=== PATIENT | male | born 1935 | race Caucasian/White ===

== ENCOUNTER 2017-07-08 16:03 | Observation (INO) | payer MEDICARE, OTHER, SELFPAY ==
[2017-07-08 16:05] VITALS: BP 173/65; PULSE 54; RESP 18; TEMP 36.4; O2SAT 94; BMI 35.8
--- NOTE | 2017-07-08 16:26 | CT_ITS ---
STUDY: CT BRAIN WITHOUT CONTRAST REASON FOR EXAM: Male, 82 years old. S/P FALL, ABRASION ON HEAD RADIATION DOSAGE (If Supplied By Facility): CTDIvol = ( 44.99 ) mGy, DLP = ( 812.98 ) mGycm TECHNIQUE: Transaxial CT imaging of the brain was performed without administration of intravenous contrast material. Individualized dose optimization techniques were used for this CT. COMPARISON: CT brain October 14, 2016 FINDINGS: Normal soft tissue structures. Normal calvarium. There is chronic encephalomalacia of the bilateral frontal lobes. Mild volume loss noted. There are areas of decreased attenuation within the white matter tracts of the supratentorial brain, consistent with microvascular disease changes. Normal basal ganglia and thalami. Normal brainstem. Normal cerebellum. There is no intracranial hemorrhage. There are no findings of an acute ischemic infarction. There is left-sided sinus disease with near complete opacity of the visualized left maxillary antrum and opacities of the left ethmoid and frontal sinuses. There is mild mucoperiosteal thickening in the left sphenoid sinus is well. CT/Brain/Head without Contrast IMPRESSION: Chronic involutional changes of the brain. Old encephalomalacia of the frontal lobes bilaterally. Left sided sinus disease, new when compared to previous exam. Consider acute sinusitis. Electronically Signed: Diana Carroll MD at 17:31 EST Tel , Service support ,
--- NOTE | 2017-07-08 16:27 | RAD_ITS ---
STUDY: X-RAY - PELVIS AND RIGHT HIP REASON FOR EXAM: Male, 82 years old. Fall. Pain. TECHNIQUE: Radiological exam, hip, unilateral, with pelvis when performed; 2 or 3 views. COMPARISON: None. FINDINGS: There is a non-specific bowel gas pattern. Normal visualized soft tissue structures. There is generalized osteopenia. Normal bilateral iliac wings, sacroiliac joints and visualized sacrum. Normal bilateral superior and inferior pubic rami. Normal pubic symphysis. Normal bilateral ischial tuberosities. Normal visualized femoral head. Normal acetabulum. There is mild arthrosis of both hips. RAD/Hip 2-3 Views with Pelvis IMPRESSION: Osteopenia with arthrosis of both hips. No acute osseous abnormality. Electronically Signed: Noel Seth MD at 17:23 EST , Service support ,
--- NOTE | 2017-07-08 16:27 | CT_ITS ---
STUDY: CT CERVICAL SPINE WITHOUT CONTRAST REASON FOR EXAM: Male, 82 years old. S/P FALL, ABRASION ON HEAD RADIATION DOSAGE (If Supplied By Facility): CTDIvol = ( 29.81 ) mGy, DLP = ( 601.13 ) mGycm TECHNIQUE: High resolution transaxial imaging was performed without contrast material. Sagittal and coronal images were reconstructed. Individualized dose optimization techniques were used for this CT. COMPARISON: None FINDINGS: Normal craniovertebral junction. There are degenerative changes of the anterior atlantoaxial articulation. Normal odontoid process. There is straightening of the normal cervical lordosis. This may be positional. Normal vertebral bodies and posterior osseous elements. There is no evidence of vertebral body, lateral mass or posterior element fracture C2-3: Normal endplates. Normal disc height and morphology. Normal central canal and intervertebral neuroforamina. C3-4: Normal endplates. Normal disc height and morphology. Normal central canal and intervertebral neuroforamina. C4-5: Normal endplates. Normal disc height and morphology. Normal central canal and intervertebral neuroforamina. C5-6: Normal endplates. Normal disc height and morphology. Normal central canal and intervertebral neuroforamina. C6-7: Normal endplates. Normal disc height and morphology. Normal central canal and intervertebral neuroforamina. C7-T1: Normal endplates. Normal disc height and morphology. Normal central canal and intervertebral neuroforamina. There is carotid artery calcification associated with the bifurcation and internal carotid artery on the left. There is minimal carotid artery calcification associated with the bifurcation on the right. CT/Spine Cervical without Contras IMPRESSION: No acute traumatic deformity. Electronically Signed: Diana Carroll MD at 17:28 EST Tel , Service support ,
[2017-07-08 17:10] LABS: International Normalized Ratio 2.2; Prothrombin Time (Protime)PT. 23.2 SECONDS (11.7-14.9)
--- NOTE | 2017-07-08 17:15 | ED.VISSUMM ---
- ER Visit Summary Date of Service: 07/08/17 Chief Complaint: Fall History of Present Illness: The patient is a 82 M presenting after fall. Patient states he was in his basement he was backing up and tripped over something. He states he fell and hit his head. He does not believe he lost consciousness. He has pain in his right hip. He has had significant pain with weightbearing. Denies other complaints. He is on Coumadin for history of atrial fibrillation. Physical Examination: Vitals are stable. Patient is afebrile. Alert no acute distress. HEENT right forehead abrasion Neck is nontender Lungs are clear and equal bilaterally. Heart is regular rate and rhythm. Abdomen is soft nontender nondistended. Extremities right hip tenderness with external rotation and pain with logrolling Skin is warm and dry. Remainder of exam is unremarkable. Emergency Department Course and Treatment: CBC, chemistries unremarkable other than BUN 31, creatinine 1.88. INR is 2.2. CT head and neck show chronic changes, sinusitis, no fracture. Right hip x-ray shows no evidence of fracture. Patient is unable to bear weight on his right lower extremity. I feel he should be admitted for an MRI to rule out occult hip fracture. Discussed with hospitalist for admission. Disposition: Admission Impression: Right hip pain, s/p mechanical fall This note was generated with [employer] dictation software. It may contain incorrect words, spelling, and punctuation that were not noted in review of the chart prior to signing ED Disposition - Plan for ED Patient: Chief Complaint: Fall Referrals: Tracy Esparza MD [Primary Care Provider] -
[2017-07-08 17:23] LABS: Anion Gap 6 (5-15); BUN 31 mg/dL (7-18); BUN/Creat Ratio 16.5 RATIO (10-20); Chloride 101 mmol/L (98-107); Creatinine, Serum 1.88 mg/dL (0.70-1.30); EST Glomerular Filtration Rate 37 mL/min (>60); Est Glom Filt Rate - Afr Amer 45 mL/min (>60); Estimated Creatinine Clearance 26.24 ml/min; Glucose 97 mg/dL (70-110); Potassium 4.9 mmol/L (3.5-5.1); Sodium Level 137 mmol/L (136-145)
[2017-07-08 17:29] LABS: Absolute Lymphocyte Count 1.56 X10^3/ul (0.83-4.51); Absolute Neutrophil Count 8.8 X10^3/uL (2.0-7.7); Basophil# 0.02 X10^3/uL; Basophil% 0.2 % (0-1); Eosinophil# 0.13 X10^3/uL; Eosinophils% 1.2 % (0-5); Hematocrit 43.1 % (40-54); Hemoglobin 14.4 g/dl (13.0-16.5); Lymphocyte # 1.56 X10^3/ul (4.0); Lymphocyte % 13.8 % (19-41); Mean Corp Hgb Conc 33.4 g/gl (32-36); Mean Corpuscular Hgb 30.5 pg (27.0-32.0); Mean Corpuscular Volume 91.3 fL (80-94); Mean Platelet Vol. 9.9 fl (6.2-12.0); Monocyte# 0.71 X10^3/uL; Monocyte% 6.3 % (0-10); Neutrophil # 8.77 X10^3/uL (2.7-7.7); Neutrophil % 77.7 % (47-70); Platelet Count 172 K/mm3 (150-450); RBC Distribution Width CV 13.9 % (11.6-14.6); RBC Distribution Width SD 45.7 fl (35.1-43.9); Red Blood Count 4.72 M/mm3 (4.6-6.2); White Blood Count 11.3 K/mm3 (4.4-11.0)
[2017-07-08 17:46] LABS: POSITIVE COUNT NO; POSITIVE DIFFERENTIAL NO; POSITIVE MORPHOLOGY NO
--- NOTE | 2017-07-08 17:54 | EKG12_ITS ---
Test Reason : ADM.EKG Blood Pressure : / mmHG Vent. Rate : 066 BPM Atrial Rate : 066 BPM P-R Int : 234 ms QRS Dur : 088 ms QT Int : 410 ms P-R-T Axes : 069 015 050 degrees QTc Int : 429 ms Sinus rhythm with 1st degree A-V block Otherwise normal ECG Confirmed by ODILON ALEJO, RUTHY ([id number]), supervising editor trailer SHAHRIAR IBARRA ([id number]) on 07/12/2017 1:55:36 PM Referred By: CORY Confirmed By:RUTHY DONALD MD
[2017-07-08 18:30] VITALS: BP 194/65; PULSE 61; RESP 18; O2SAT 95
[2017-07-08] MEDS: oxyCODONE 5 MG Tablet 10 MG PO (18:45)
--- NOTE | 2017-07-08 19:01 | HP.PCM_ITS ---
Problem List (1) Contusion, hip Status: Acute (2) Debility Status: Chronic (3) HTN (hypertension) Status: Chronic (4) Psoriatic arthritis Status: Chronic (5) Atrial fibrillation Status: Chronic (6) CAD (coronary artery disease) Status: Chronic (7) HLD (hyperlipidemia) Status: Chronic History of Present Illness Date of Admission: 07/08/17 Chief Complaint: right hip pain The patient is a 82 year old M who presented to the ER with right hip pain after he fell at home. He was in the basement doing laundry and lost his balance falling backwards. He struck his head on the water softener, then on the floor. He is not sure if he lost consciousness or not. He landed on his left hip, denies hearing or feeling a break. He called to his who came to help him up. She was able to help him up and help him walk up the stairs, then down the garage stairs and into the car, and brought him to the ER. Xray of his hip was negative however he continued to have severe pain and was unable to stand up in the ER. He denied dizziness or LH prior to the fall and may have tripped on a cord or rug but is not sure. He has some pain in his right temporal area where he struck his head and suffered an abrasion. He does take coumadin for AF. His BP is elevated at home but reports usually it is normal and was taken off of his HTN meds and since has not needed them. [] Past Medical History Past Medical History (Chronic Problems): Chronic Problems Atrial fibrillation (Chronic) Benign essential hypertension (Chronic) Carotid artery stenosis (Chronic) Chest pain (Chronic) CAD (coronary artery disease) (Chronic) HLD (hyperlipidemia) (Chronic) Polymyalgia rheumatica (Chronic) TIA (transient ischemic attack) (Chronic) Debility (Chronic) HTN (hypertension) (Chronic) Psoriatic arthritis (Chronic) Allergies No Known Allergies Allergy (Verified 07/08/17 16:09) Home Medications: Ambulatory Orders Medication Instructions Recorded Adalimumab [Humira] 40 mg SQ Q14D 07/20/13 Flecainide [Tambocor] 100 mg PO BID 07/20/13 Levothyroxine [Synthroid] 50 mcg PO DAILY 07/20/13 Magnesium Oxide [Mag-Ox 400] 400 mg PO DAILY 07/20/13 Metoprolol Tartrate [Lopressor 25 mg PO BID 07/20/13 (beta elise)] Pravastatin [Pravachol] 40 mg PO QHS 07/20/13 Tamsulosin HCl [Flomax] 0.4 mg PO DAILY 07/20/13 Hydrochlorothiazide 12.5 mg PO DAILY PRN PRN 03/18/16 Montelukast [Singulair] 10 mg PO QHS 03/18/16 Aspirin [Aspirin, Baby] 81 mg PO DAILY@0800 10/14/16 Cholecalciferol (Vitamin D3) 2,000 unit PO DAILY 10/14/16 [Vitamin D3] Allopurinol 100 mg PO DAILY 07/08/17 Colchicine 0.6 mg PO QODAY 07/08/17 Omeprazole [Prilosec] 20 mg PO DAILY 07/08/17 Warfarin [Coumadin ([facility])] 1 mg PO DAILY 07/08/17 Warfarin [Coumadin ([facility])] 6 mg PO DAILY 07/08/17 Surgical History: adenoidectomy, appendectomy, tonsillectomy, - - Right carotid endarterectomy, carpal tunnel surgery, lipoma removal, rectal fissure repair. Psychiatric History: No pertinent psych hx Lives: Spouse/ Significant Other Smoking Status: Never smoker Tobacco Use: Non-smoker Alcohol: None Drugs: None - *Family History Maternal History Items: No pertinent history Paternal History Items: Heart Disease Review of Systems Constitutional: Denies: Chills, Fever, Weight Change HEENT: Denies: Head Aches, Sinus Congestion, Sinus Drainage Cardiovascular: Denies: Chest Pain, Palpitations Respiratory: Denies: Cough, Shortness of breath at rest, Sputum production Gastrointestinal: Denies: Abdominal Pain, Nausea, Vomiting Genitourinary: Denies: Dysuria Musculoskeletal: Reports: Joint Pain - right hip. Denies: Joint Tenderness Skin: Denies: Rash, Wounds Neurological: Denies: Numbness, Tingling, Focal weakness Psychiatric: Denies: Anxiety, Depression, Homicidal Ideations, Suicidal Ideations Hematologic/ Lymphatic: Denies: Easy Bruising, Easy Bleeding VTE Information - Inpt Only VTE Present on Admission: No VTE Mechan Device Prophylaxis: SCD's VTE Pharm Prophylaxis ordered?: Yes Patient Problems: Active and Suspected Problems Contusion, hip (Acute) - Physical Exam General: Alert, Oriented x3, Cooperative, - - very hard of hearing HEENT: Atraumatic, PERRLA, EOMI, Normocephalic Neck: Supple, No JVD, Negative Carotid Bruits Lungs: Clear to auscultation, Normal air movement Cardiovascular: Regular rate, No murmurs Abdomen: Bowel Sounds Present, Soft, Non Tender Extremities: No edema, Capillary Refill Less than 3 Seconds Skin: No rashes, No breakdown Musculoskeletal: No Tenderness to Palpation of Joints or Extremities, - - tolerates flexion of the knee and rotation of the hip with no pain Neurological: Cranial nerves II-XII grossly intact Psych/Mental Status: Normal Affect, Appropriate, Alert and oriented to time, place, person, mood and affect Vital Signs Temp Pulse Resp BP Pulse Ox 97.6 F L 61 18 194/65 H 95 07/08/17 16:05 07/08/17 18:30 07/08/17 18:30 07/08/17 18:30 07/08/17 18:30 Oxygen Delivery Method Room Air Weight: 94.6 kg Body Mass Index (BMI) 35.8 Laboratory Tests Past 24 Hrs 07/08/17 07/08/17 07/08/17 16:45 16:45 16:45 WBC 11.3 H RBC 4.72 Hgb 14.4 Hct 43.1 MCV 91.3 MCH 30.5 MCHC 33.4 RDW 13.9 RDW Differential 45.7 H Plt Count 172 MPV 9.9 Immature Gran % (Auto) 0.800 Neut % (Auto) 77.7 H Lymph % (Auto) 13.8 L [place] % (Auto) 6.3 Eos % (Auto) 1.2 Baso % (Auto) 0.2 Absolute Neuts (auto) 8.8 H Absolute Lymphs (auto) 1.56 Total Counted Not Reportable PT 23.2 H INR 2.2 Sodium 137 Potassium 4.9 Chloride 101 Carbon Dioxide 30.0 Anion Gap 6 BUN 31 H Creatinine 1.88 H Estim Creat Clear Calc 26.24 Est GFR (MDRD) Af Amer 45 L Est GFR (MDRD) Non-Af 37 L BUN/Creatinine Ratio 16.5 Glucose 97 Calcium 9.0 Assessment/Plan Active and Suspected Problems Contusion, hip (Acute) 1. Right hip contusion with pain, debility, and inability to ambulate - XR negative. Will obtain MRI of the right hip to rule out occult fracture. PRN pain medications, PTOT. CT brain negative for acute change CT c spine neg. XR hips shows osteopenia with arthrosis both hips. 2. Coagulopathy 2/2 Wafarin therapy for Atrial Fib - INR therapeutic. 3. HTN - likely 2/2 pain not on home meds. Trend. His home antihypertensives were discontinued. 4. Hx psoriatic arthritis, CAD, hypothyroidism, HLD DVT ppx: warfarin This patient was seen by Kevon Neil PA-C under the supervision of Doctor العلي.
[2017-07-08 19:35] VITALS: BMI 35.8
[2017-07-08 19:39] VITALS: BMI 35.9
[2017-07-08 20:01] VITALS: BP 175/78; PULSE 68; RESP 20; TEMP 37.6; O2SAT 94
[2017-07-08 21:07] VITALS: PULSE 80
[2017-07-08] MEDS: Metoprolol Tartrate 25 MG Tablet PO (21:07)
[2017-07-08] MEDS: Flecainide 100 MG Tablet PO (21:07)
[2017-07-08] MEDS: Pravastatin 40 MG Tablet PO (21:07)
[2017-07-08] MEDS: Haloperidol Lactate 5 MG/ML Vial 2 MG IM (23:32)
--- NOTE | 2017-07-08 23:34 | NURSING ---
Patient becoming belligerent and uncooperative. Yelling at staff, attempting frequently to get out of bed, throwing items in reach. Attempted PO Ambien but patient attempted to hit this nurse and continued yelling for police. Many of patient's sentences do not make sense. Attempts to orient were unsuccessful. Order for x1 Haldol obtained and given. Room camera on, will continue to monitor.
[2017-07-09 02:24] VITALS: BP 161/90; PULSE 74; RESP 18; TEMP 36.8; O2SAT 93
[2017-07-09] MEDS: Levothyroxine 50 MCG Tablet PO (05:12)
--- NOTE | 2017-07-09 06:00 | MRI_ITS ---
STUDY: MRI BILATERAL HIPS T PELVIS REASON FOR EXAM: Right hip pain, fall yesterday. TECHNIQUE: Standardized fat and water weighted pulse sequences were obtained in all 3 orthogonal planes. COMPARISON: Radiographs 07/08/2017. FINDINGS: RIGHT HIP Normal hip joint without articular joint space narrowing. There is a nondisplaced fracture of the right supra-acetabular bone (T1 coronal images 17-20) and right anterior ischium with intra-articular extension and extension into the superior pubic ramus of the ischium (T1 axial images 25-27). There is associated bone edema. Normal right labrum. Normal right femoral head. Normal right femoral neck and intratrochanteric region. Normal right gluteus minimus, medius and iliopsoas tendons and distal insertions. Normal right pubic symphysis. Normal right ischial tuberosity. Normal origin of the right hamstring tendons. There are subtle nondisplaced fractures of the bilateral sacral ala (T1 axial images 12-15) with mild associated bone edema (T2 axial images 12-15). There is fluid/hemorrhage adjacent to the right obturator internus muscle (T2 axial images 21-27). LEFT HIP Normal left hip joint without articular joint space narrowing. Normal left acetabulum. There is a suspected occult left labral tear with a small paralabral cyst adjacent to the posterior superior aspect of the labrum (inversion recovery coronal image 16). Normal left femoral head. Normal left femoral neck and intratrochanteric region. Normal left gluteus minimus, medius and iliopsoas tendons and distal insertions. Normal left superior and inferior pubic rami. Normal left pubic symphysis. Normal left ischial tuberosity. Normal origin of the left hamstring tendons. MRI/Pelvis (Routine) IMPRESSION: Nondisplaced right acetabular fracture with extension into the superior pubic ramus of the ischium and supra-acetabular bone. Subtle nondisplaced fractures of bilateral sacral ala. Fluid/hemorrhage adjacent to the right obturator internus muscle. Suspected occult left labral tear with small paralabral cyst. Electronically Signed: Hamzah Figueroa MD at 10:08 EST Tel , Service support ,
[2017-07-09 08:08] VITALS: BP 155/89; PULSE 63; RESP 22; TEMP 37.1; O2SAT 94
[2017-07-09] MEDS: Allopurinol 100 MG Tablet PO (08:14)
[2017-07-09] MEDS: Aspirin 81 MG TAB.CHEW PO (08:14)
[2017-07-09 08:15] VITALS: PULSE 63
[2017-07-09] MEDS: Magnesium Oxide 400 MG Tablet PO (08:15)
[2017-07-09] MEDS: Tamsulosin HCl 0.4 MG Capsule PO (08:15)
[2017-07-09] MEDS: Pantoprazole Sodium 20 MG Tablet PO (08:15)
[2017-07-09] MEDS: Metoprolol Tartrate 25 MG Tablet PO (08:15)
[2017-07-09] MEDS: Flecainide 100 MG Tablet PO (08:16)
--- NOTE | 2017-07-09 11:19 | NURSING ---
This RN spoke with Lori Cooney regarding weight bearing status notified that Dr. Montague is calling and speaking with Dr. Watson regarding results of xray to determine plan of care.
--- NOTE | 2017-07-09 11:30 | PN_ITS ---
<Kevon Neil - Last Filed: 07/09/17 11:20> Patient Problems: Active and Suspected Problems Right acetabular fracture (Acute) Subjective: Patient reports improvement in pain. He has seen Dr. Latham recently for a compression fracture. He also had a different orthopedic physician in 2008 for a knee repair in [place] however does not know who that is. He had some confusion overnight and was given haldol. He did answer some questions with inapropriate answers but he is also very hard of hearing so I am not sure if he understood me. - Physical Exam General: Alert, Oriented x3, Cooperative, - - very hard of hearing HEENT: Atraumatic, PERRLA, EOMI, Normocephalic Neck: Supple, No JVD, Negative Carotid Bruits Lungs: Clear to auscultation, Normal air movement Cardiovascular: Regular rate, No murmurs Abdomen: Bowel Sounds Present, Soft, Non Tender Extremities: No edema, Capillary Refill Less than 3 Seconds Skin: No rashes, No breakdown Musculoskeletal: No Tenderness to Palpation of Joints or Extremities Neurological: Cranial nerves II-XII grossly intact Psych/Mental Status: Normal Affect, Appropriate, Alert and oriented to time, place, person, mood and affect Vital Signs Temp Pulse Resp BP Pulse Ox 98.7 F 63 22 H 155/89 H 94 07/09/17 08:08 07/09/17 08:15 07/09/17 08:08 07/09/17 08:08 07/09/17 08:08 Oxygen Flow Rate 94 Oxygen Delivery Method Room Air Weight: 95.1 kg Body Mass Index (BMI) 35.9 Intake and Output for Last 24 Hours 07/07/17 07/08/17 07/09/17 23:59 23:59 23:59 Intake Total 100 / 100 Output Total 200 / 200 Balance -100 / -100 Microbiology Past 72 Hours 07/09/17 05:00 Gram Stain - Final Sputum, Expectorated/Coughed Assessment/Plan Active and Suspected Problems Right acetabular fracture (Acute) 1. Right hip nondisplaced right acetabular fracture with extension into the superior pubic ramus of the ischium and supra-acetabular bone, subtle nondisplaced fractures of bilateral sacral ala, fluid hemorrhage adjacent to the right obturator internus muscle, suspected occult left labral tear with small para labral cyst - Per MRI. Continue pain management and PTOT for now. -Per phone call with Dr. Almeida he should be toe touch weight bearing with a walker and does not need surgical intervention. -With possible fluid or hemorrhage will follow H&H as he is on warfarin. -some confusion overnight haldol was ordered. seems somewhat confused this AM but also very hard of hearing. 2. Coagulopathy 2/2 Wafarin therapy for Atrial Fib -INR therapeutic, continue to follow. Flecainide continued. Rate stable. 3. HTN - likely 2/2 pain not on home meds. Trending down 4. Hx psoriatic arthritis, CAD, hypothyroidism, HLD Dispo pending how he does with therapy. DVT ppx: warfarin This patient was seen by Kevon Neil PA-C under the supervision of Doctor Eddi. <Willem Montague - Last Filed: 07/09/17 12:03> - Physical Exam General: Alert, - Extremities: No Calf Tenderness Musculoskeletal: - - Mid range of passive motion of the right hip due to pain. Vital Signs Temp Pulse Resp BP Pulse Ox 37.1 C 63 22 H 155/89 H 94 07/09/17 08:08 07/09/17 08:15 07/09/17 08:08 07/09/17 08:08 07/09/17 08:08 Oxygen Flow Rate 94 Oxygen Delivery Method Room Air Weight: 95.1 kg Body Mass Index (BMI) 35.9 Intake and Output for Last 24 Hours 07/07/17 07/08/17 07/09/17 23:59 23:59 23:59 Intake Total 100 / 100 Output Total 200 / 200 Balance -100 / -100 Microbiology Past 72 Hours 07/09/17 05:00 Gram Stain - Final Sputum, Expectorated/Coughed Assessment/Plan Patient seen and examined independently. Agree with above note by the physician pharmaceutical assistant. I discussed the case with Dr. Shayne Almeida, on-call for Dr. Latham, and made him aware of the MRI findings. I recommended toe-touch weightbearing with a walker and follow-up with orthopedics. Discussed with the patient's and also therapy. Patient had difficulty just doing the toe- touch so was felt that patient would be better suited for a rehab unit. This is been addressed and patient will be going to rehab unit today. Given the fact the patient did hit his head and is on Coumadin patient will have a repeat head CT to make sure that he did not have any latent intracranial bleed prior to dismissal to rehab.
--- NOTE | 2017-07-09 11:50 | CT_ITS ---
STUDY: CT BRAIN WITHOUT CONTRAST REASON FOR EXAM: Male, 82 years old. Fall. RADIATION DOSAGE (If Supplied By Facility): CTDIvol = ( 44.99 ) mGy, DLP = ( 846.73 ) mGycm TECHNIQUE: Transaxial CT imaging of the brain was performed without administration of intravenous contrast material. Individualized dose optimization techniques were used for this CT. COMPARISON: Comparison is made with prior study dated July 08, 2017. FINDINGS: Normal soft tissue structures. Normal calvarium. There is moderate cerebral atrophy with widening of the extra-axial spaces and ventricular dilatation. There are areas of decreased attenuation within the white matter tracts of the supratentorial brain, consistent with microvascular disease changes. Stable encephalomalacia of the bilateral frontal lobes worse on the left side. Normal basal ganglia and thalami. Normal brainstem. Normal cerebellum. There is no intracranial hemorrhage. There are no findings of an acute ischemic infarction. Atherosclerotic calcification of the vertebral arteries and cavernous portions of the internal carotid arteries bilaterally. Stable opacification of the left maxillary and left ethmoid sinus. Mild mucosal thickening of the left sphenoid sinus. CT/Brain/Head without Contrast IMPRESSION: Chronic involutional changes of the brain. Stable examination. Electronically Signed: Dreek Urena MD at 12:35 EST Tel [phone], Service support ,
--- NOTE | 2017-07-09 11:50 | CASEMGMT ---
SW spoke w/pt and in room, other family present at home. Pt is very hard of hearing, states pt has hearing aides with new batteries but it does not seem to be working. Pt uses a cane at baseline, occasionally a walker. Pt is otherwise very independent at home, uses no other DME. SW spoke w/pt and about inpt rehab, they are interested in inpt rehab for pt. SW called inpt rehab, spoke w/Nisha, they can take pt today. SW let physician know, he will discharge pt today. SW spoke w/ and pt again, they are agreeable for pt to go to inpt rehab today. JOSHUA Martinez, DYE PADDER OPERATOR
--- NOTE | 2017-07-09 12:03 | PCM.DC ---
- Discharge Diagnoses Current Active Problems: Current Active and Chronic Problems Debility (Chronic) HTN (hypertension) (Chronic) Psoriatic arthritis (Chronic) Right acetabular fracture (Acute) You will use the following diet at home:: Cardiac Your food should be the consistency of: Regular Your liquids should be the consistency of: Regular/Thin Discharge Activity: Use Walker, - - Toe-touch weightbearing right lower extremity. Use with walker. Weight Bearing Status: Toe touch weight bearing - Right lower extremity Call your doctor if you observe: Fever of 101 or Higher, Shortness of breath Allergies/Adverse Reactions: Allergies No Known Allergies Allergy (Verified 07/08/17 16:09) Medications to take at Discharge Adalimumab [Humira] 40 mg SQ Q14D 07/20/13 Flecainide [Tambocor] 100 mg PO BID 07/20/13 Levothyroxine [Synthroid] 50 mcg PO DAILY 07/20/13 Magnesium Oxide [Mag-Ox 400] 400 mg PO DAILY 07/20/13 Metoprolol Tartrate [Lopressor (beta elise)] 25 mg PO BID 07/20/13 Pravastatin [Pravachol] 40 mg PO QHS 07/20/13 Tamsulosin HCl [Flomax] 0.4 mg PO QHS 07/20/13 Hydrochlorothiazide 12.5 mg PO DAILY PRN PRN 03/18/16 Montelukast [Singulair] 10 mg PO QHS 03/18/16 Aspirin [Aspirin, Baby] 81 mg PO DAILY@0800 10/14/16 Cholecalciferol (Vitamin D3) [Vitamin D3] 2,000 unit PO DAILY 10/14/16 Allopurinol 100 mg PO DAILY 07/08/17 Colchicine 0.6 mg PO QODAY 07/08/17 Omeprazole [Prilosec] 20 mg PO DAILY 07/08/17 Warfarin [Coumadin] 7 mg PO DAILY 07/08/17 Acetaminophen [Tylenol Tablet] 650 mg PO Q6H PRN PRN tablet 07/09/17 Oxycodone [Oxyir] 5 - 10 mg PO Q4H PRN PRN #1 tablet 07/09/17 Primary Care Physician: Tracy Esparza MD [Primary Care Provider] - Within 2 Weeks Please Follow Up With: Robby Watson MD When: 2-3 weeks Proposed Discharge Date: 07/09/17
--- NOTE | 2017-07-09 12:05 | PCM.DC.SUM ---
Discharge Date and Diagnosis - Problem List Patient Problems: Active and Suspected Problems Right acetabular fracture (Acute) Date of Admission: 07/08/17 Date of Discharge: 07/09/17 - Primary Discharge Diagnosis Active and Suspected Problems Right acetabular fracture (Acute) - Secondary Discharge Diagnosis Chronic Problems Atrial fibrillation (Chronic) Benign essential hypertension (Chronic) Carotid artery stenosis (Chronic) Chest pain (Chronic) CAD (coronary artery disease) (Chronic) HLD (hyperlipidemia) (Chronic) Polymyalgia rheumatica (Chronic) TIA (transient ischemic attack) (Chronic) Debility (Chronic) HTN (hypertension) (Chronic) Psoriatic arthritis (Chronic) Hospital Course and Treatment Imaging Results: 07/09/17 06:00 Pelvis (Routine) [MRI] Routine 07/09/17 11:50 Brain/Head without Contrast [CT] Urgent Clinical Impression(s) from Imaging Studies Brain CT 07/08/17 16:26 IMPRESSION: Chronic involutional changes of the brain. Old encephalomalacia of the frontal lobes bilaterally. Left sided sinus disease, new when compared to previous exam. Consider acute sinusitis. Electronically Signed: Diana Carroll MD at 17:31 EST Tel , Service support , Cervical Spine CT 07/08/17 16:27 IMPRESSION: No acute traumatic deformity. Electronically Signed: Diana Carroll MD at 17:28 EST Tel , Service support , Hip/Pelvis X-Ray 07/08/17 16:27 IMPRESSION: Osteopenia with arthrosis of both hips. No acute osseous abnormality. Electronically Signed: Noel Seth MD at 17:23 EST , Service support , Pelvis MRI 07/09/17 06:00 IMPRESSION: Nondisplaced right acetabular fracture with extension into the superior pubic ramus of the ischium and supra-acetabular bone. Subtle nondisplaced fractures of bilateral sacral ala. Fluid/hemorrhage adjacent to the right obturator internus muscle. Suspected occult left labral tear with small paralabral cyst. Electronically Signed: Hamzah Figueroa MD at 10:08 EST Tel , Service support , Operations: None Procedures: None Summary of Care Provided: The patient is a 82 year old M sustained a mechanical fall in his basement. Striking his right hip and right scalp. No loss of consciousness. Patient was pains and sent to the emergency room. X-rays were negative. Head CT CT cervical spine were negative. Patient was to still having significant pain in his right leg so patient underwent an MRI of his right hip. MRI showed a nondisplaced right acetabular fracture with extension to the superior suprapubic ramus and supra-acetabular bone. Subtle nondisplaced fractures of bilateral sacral angela. Fluid/hemorrhage adjacent to the right obturator abrasive grader muscle. Suspected occult left labral tear with small para labral cyst. I discussed case with Dr. Shayne Almeida who is on-call for Dr. Latham, recommended toe-touch weightbearing to the right lower extremity and follow-up with Dr. Latham as outpatient. No surgical intervention was necessary. So patient was being seen by therapy and they do not feel that he would be able to adequately sustain toe-touch weightbearing and I did recommend a rehab. Discussed with case management and the get the patient accepted at the rehab unit here. The patient going to the rehab unit but before so, will have a CAT scan of his brain just to make sure he did not have a latent bleed suspect patient is on Coumadin did strike his head. Initial CAT scan was negative. That is negative then patient can be discharged to rehab. Patient did have some confusion overnight's unclear as to etiology patient does have some underlying dementia or not. Recommend outpatient geriatric evaluation for dementia. [] Discharge Diet: Low fat/ Low Cholesterol Discharge Activity: Use Walker, - - Toe-touch weightbearing right lower extremity. Use with walker. Weight Bearing Status: Toe touch weight bearing - Right lower extremity Call your doctor if you observe: Fever of 101 or Higher, Shortness of breath Home Medications: Medications to take at Discharge Adalimumab [Humira] 40 mg SQ Q14D 07/20/13 Flecainide [Tambocor] 100 mg PO BID 07/20/13 Levothyroxine [Synthroid] 50 mcg PO DAILY 07/20/13 Magnesium Oxide [Mag-Ox 400] 400 mg PO DAILY 07/20/13 Metoprolol Tartrate [Lopressor (beta elise)] 25 mg PO BID 07/20/13 Pravastatin [Pravachol] 40 mg PO QHS 07/20/13 Tamsulosin HCl [Flomax] 0.4 mg PO QHS 07/20/13 Hydrochlorothiazide 12.5 mg PO DAILY PRN PRN 03/18/16 Montelukast [Singulair] 10 mg PO QHS 03/18/16 Aspirin [Aspirin, Baby] 81 mg PO DAILY@0800 10/14/16 Cholecalciferol (Vitamin D3) [Vitamin D3] 2,000 unit PO DAILY 10/14/16 Allopurinol 100 mg PO DAILY 07/08/17 Colchicine 0.6 mg PO QODAY 07/08/17 Omeprazole [Prilosec] 20 mg PO DAILY 07/08/17 Warfarin [Coumadin] 7 mg PO DAILY 07/08/17 Acetaminophen [Tylenol Tablet] 650 mg PO Q6H PRN PRN tablet 07/09/17 Oxycodone [Oxyir] 5 - 10 mg PO Q4H PRN PRN #1 tablet 07/09/17 Primary Care Physician: Tracy Esparza MD [Primary Care Provider] - Within 2 Weeks Please Follow Up With: Robby Watson MD When: 2-3 weeks Disposition: Inpt Rehab Unit/Facility Minutes spent on discharge:: 32 Patient Condition:: Fair Meaningful Use Info Meaningful Use Diagnoses (Choose all that apply): None applicable Code Visit OBSV E&M: 80698 Observation care discharge
--- NOTE | 2017-07-09 12:12 | DS.PCM_ITS ---
Discharge Date and Diagnosis - Problem List Patient Problems: Active and Suspected Problems Right acetabular fracture (Acute) Date of Admission: 07/08/17 Date of Discharge: 07/09/17 - Primary Discharge Diagnosis Active and Suspected Problems Right acetabular fracture (Acute) - Secondary Discharge Diagnosis Chronic Problems Atrial fibrillation (Chronic) Benign essential hypertension (Chronic) Carotid artery stenosis (Chronic) Chest pain (Chronic) CAD (coronary artery disease) (Chronic) HLD (hyperlipidemia) (Chronic) Polymyalgia rheumatica (Chronic) TIA (transient ischemic attack) (Chronic) Debility (Chronic) HTN (hypertension) (Chronic) Psoriatic arthritis (Chronic) Hospital Course and Treatment Imaging Results: 07/09/17 06:00 Pelvis (Routine) [MRI] Routine 07/09/17 11:50 Brain/Head without Contrast [CT] Urgent Clinical Impression(s) from Imaging Studies Brain CT 07/08/17 16:26 IMPRESSION: Chronic involutional changes of the brain. Old encephalomalacia of the frontal lobes bilaterally. Left sided sinus disease, new when compared to previous exam. Consider acute sinusitis. Electronically Signed: Diana Carroll MD at 17:31 EST Tel , Service support , Cervical Spine CT 07/08/17 16:27 IMPRESSION: No acute traumatic deformity. Electronically Signed: Diana Carroll MD at 17:28 EST Tel , Service support , Hip/Pelvis X-Ray 07/08/17 16:27 IMPRESSION: Osteopenia with arthrosis of both hips. No acute osseous abnormality. Electronically Signed: Noel Seth MD at 17:23 EST , Service support , Pelvis MRI 07/09/17 06:00 IMPRESSION: Nondisplaced right acetabular fracture with extension into the superior pubic ramus of the ischium and supra-acetabular bone. Subtle nondisplaced fractures of bilateral sacral ala. Fluid/hemorrhage adjacent to the right obturator internus muscle. Suspected occult left labral tear with small paralabral cyst. Electronically Signed: Hamzah Figueroa MD at 10:08 EST Tel , Service support , Operations: None Procedures: None Summary of Care Provided: The patient is a 82 year old M sustained a mechanical fall in his basement. Striking his right hip and right scalp. No loss of consciousness. Patient was pains and sent to the emergency room. X-rays were negative. Head CT CT cervical spine were negative. Patient was to still having significant pain in his right leg so patient underwent an MRI of his right hip. MRI showed a nondisplaced right acetabular fracture with extension to the superior suprapubic ramus and supra-acetabular bone. Subtle nondisplaced fractures of bilateral sacral angela. Fluid/hemorrhage adjacent to the right obturator webfed offset press operator muscle. Suspected occult left labral tear with small para labral cyst. I discussed case with Dr. Shayne Almeida who is on-call for Dr. Latham, recommended toe-touch weightbearing to the right lower extremity and follow-up with Dr. Latham as outpatient. No surgical intervention was necessary. So patient was being seen by therapy and they do not feel that he would be able to adequately sustain toe-touch weightbearing and I did recommend a rehab. Discussed with case management and the get the patient accepted at the rehab unit here. The patient going to the rehab unit but before so, will have a CAT scan of his brain just to make sure he did not have a latent bleed suspect patient is on Coumadin did strike his head. Initial CAT scan was negative. That is negative then patient can be discharged to rehab. Patient did have some confusion overnight's unclear as to etiology patient does have some underlying dementia or not. Recommend outpatient geriatric evaluation for dementia. [] Discharge Diet: Low fat/ Low Cholesterol Discharge Activity: Use Walker, - - Toe-touch weightbearing right lower extremity. Use with walker. Weight Bearing Status: Toe touch weight bearing - Right lower extremity Call your doctor if you observe: Fever of 101 or Higher, Shortness of breath Home Medications: Medications to take at Discharge Adalimumab [Humira] 40 mg SQ Q14D 07/20/13 Flecainide [Tambocor] 100 mg PO BID 07/20/13 Levothyroxine [Synthroid] 50 mcg PO DAILY 07/20/13 Magnesium Oxide [Mag-Ox 400] 400 mg PO DAILY 07/20/13 Metoprolol Tartrate [Lopressor (beta elise)] 25 mg PO BID 07/20/13 Pravastatin [Pravachol] 40 mg PO QHS 07/20/13 Tamsulosin HCl [Flomax] 0.4 mg PO QHS 07/20/13 Hydrochlorothiazide 12.5 mg PO DAILY PRN PRN 03/18/16 Montelukast [Singulair] 10 mg PO QHS 03/18/16 Aspirin [Aspirin, Baby] 81 mg PO DAILY@0800 10/14/16 Cholecalciferol (Vitamin D3) [Vitamin D3] 2,000 unit PO DAILY 10/14/16 Allopurinol 100 mg PO DAILY 07/08/17 Colchicine 0.6 mg PO QODAY 07/08/17 Omeprazole [Prilosec] 20 mg PO DAILY 07/08/17 Warfarin [Coumadin] 7 mg PO DAILY 07/08/17 Acetaminophen [Tylenol Tablet] 650 mg PO Q6H PRN PRN tablet 07/09/17 Oxycodone [Oxyir] 5 - 10 mg PO Q4H PRN PRN #1 tablet 07/09/17 Primary Care Physician: Tracy Esparza MD [Primary Care Provider] - Within 2 Weeks Please Follow Up With: Robby Watson MD When: 2-3 weeks Disposition: Inpt Rehab Unit/Facility Minutes spent on discharge:: 32 Patient Condition:: Fair Meaningful Use Info Meaningful Use Diagnoses (Choose all that apply): None applicable Code Visit OBSV E&M: 87636 Observation care discharge
[2017-07-09 13:03] LABS: Bacteria 0 SEEN /hpf (None Seen); Mucous, Urine 0 SEEN /hpf (<or=2+); White Blood Cells 0 SEEN /hpf (0-5)
[2017-07-09 13:04] LABS: Color, Urine Yellow (Yellow); Glucose, Dipstick Normal (Normal); Ketone-Dipstick Negative (Negative); Leukocyte Esterase-Dipstick Negative /ul (Negative); Nitrite-Dipstick Negative (Negative); Occult Blood-Urine 25 /ul (Negative); Protein-Dipstick Negative (Negative); Specific Gravity, Urine 1.015 (1.002-1.030); Urine Bilirubin Dipstick Negative (Negative); Urine Clarity Sl. Cloudy (Clear); Urine Urobilinogen Normal (Normal)
[2017-07-09 13:10] LABS: Red Blood Cells-Urine 0-5 SEEN /hpf (0-5); Squamous Epithelial Cells - UA 0-5 SEEN /hpf (0-5)
--- NOTE | 2017-07-09 13:48 | HP.PCM.COS_ITS ---
History of Present Illness Date of Admission: 07/09/17 Chief Complaint: Nondisplaced Right Acetabular Fx The patient is a 82 year old Male who was admitted to the rehab unit for rehabilitation after sustained a mechanical fall in his basement. Striking his right hip and right scalp.The patient has a history of Afib, Psoriatic Arthritis , GERD, HNT, and HPL. The Patient was seen in the [facility] emergency room. X-rays of his right hip were negative. Head CT and CT of cervical spine were also negative. Patient was still having significant pain in his right leg so patient underwent an MRI of his right hip. The MRI showed a nondisplaced right acetabular fracture with extension to the superior suprapubic ramus and supra- acetabular bone. A Subtle nondisplaced fractures of bilateral sacral angela. Fluid/hemorrhage adjacent to the right obturator cordwood cutter helper muscle. Suspected occult left labral tear with small para labral cyst. Dr. Shayne Almeida was consulted who was on-call for Dr. Latham, he recommended that the patient be toe-touch weightbearing to the right lower extremity and follow-up with Dr. Latham as outpatient. No surgical intervention was necessary, he felt. The patient had a repeat CAT scan of his brain prior to transfer to the Inpatient rehab unit to make sure he did not have a latent bleed since the patient is on Coumadin for AFib and he did strike his head. His Initial CAT scan was negative. The patient also had a influenza test since he was coughing up yellow and green phlegm, which was negative. He lives with his in a one story home with basement with a full flight of stairs, the patient goes to the basement frequently, he uses a cane and FWW to ambulate. He has had multiple falls over the last few weeks. He does not drive and requires help with his ADLs. He is admitted to the rehab unit in order to restore his previous level of functional independence. Past Medical History Past Medical History (Chronic Problems): Chronic Problems Atrial fibrillation (Chronic) Benign essential hypertension (Chronic) Carotid artery stenosis (Chronic) Chest pain (Chronic) CAD (coronary artery disease) (Chronic) HLD (hyperlipidemia) (Chronic) Polymyalgia rheumatica (Chronic) TIA (transient ischemic attack) (Chronic) Debility (Chronic) HTN (hypertension) (Chronic) Psoriatic arthritis (Chronic) Allergies No Known Allergies Allergy (Verified 07/08/17 16:09) Home Medications: Ambulatory Orders Medication Instructions Recorded Adalimumab [Humira] 40 mg SQ Q14D 07/20/13 Flecainide [Tambocor] 100 mg PO BID 07/20/13 Levothyroxine [Synthroid] 50 mcg PO DAILY 07/20/13 Magnesium Oxide [Mag-Ox 400] 400 mg PO DAILY 07/20/13 Metoprolol Tartrate [Lopressor 25 mg PO BID 07/20/13 (beta thania)] Pravastatin [Pravachol] 40 mg PO QHS 07/20/13 Tamsulosin HCl [Flomax] 0.4 mg PO QHS 07/20/13 Hydrochlorothiazide 12.5 mg PO DAILY PRN PRN 03/18/16 Montelukast [Singulair] 10 mg PO QHS 03/18/16 Aspirin [Aspirin, Baby] 81 mg PO DAILY@0800 10/14/16 Cholecalciferol (Vitamin D3) 2,000 unit PO DAILY 10/14/16 [Vitamin D3] Allopurinol 100 mg PO DAILY 07/08/17 Colchicine 0.6 mg PO QODAY 07/08/17 Omeprazole [Prilosec] 20 mg PO DAILY 07/08/17 Warfarin [Coumadin] 7 mg PO DAILY 07/08/17 Acetaminophen [Tylenol Tablet] 650 mg PO Q6H PRN PRN tablet 07/09/17 Oxycodone [Oxyir] 5 - 10 mg PO Q4H PRN PRN #1 tablet 07/09/17 Surgical History: adenoidectomy, appendectomy, tonsillectomy, - - Right carotid endarterectomy, carpal tunnel surgery, lipoma removal, rectal fissure repair. Psychiatric History: No pertinent psych hx Lives: Spouse/ Significant Other Smoking Status: Never smoker Tobacco Use: Non-smoker Alcohol: None Drugs: None - *Family History Maternal History Items: No pertinent history Paternal History Items: Heart Disease Review of Systems Constitutional: Denies: Chills, Fever, Weight Change HEENT: Denies: Head Aches, Sinus Congestion, Sinus Drainage Cardiovascular: Denies: Chest Pain, Palpitations Respiratory: Denies: Cough, Shortness of breath at rest, Sputum production Gastrointestinal: Denies: Abdominal Pain, Nausea, Vomiting Genitourinary: Denies: Dysuria Musculoskeletal: Denies: Joint Pain, Joint Tenderness Skin: Denies: Rash, Wounds Neurological: Denies: Numbness, Tingling, Focal weakness Psychiatric: Denies: Anxiety, Depression, Homicidal Ideations, Suicidal Ideations Hematologic/ Lymphatic: Denies: Easy Bruising, Easy Bleeding VTE Information - Inpt Only VTE Present on Admission: Yes VTE Mechan Device Prophylaxis: SCD's, Knee High SKYLA Hose VTE Pharm Prophylaxis ordered?: Yes Patient Problems: Active and Suspected Problems Right acetabular fracture (Acute) - Physical Exam General: Alert, Oriented x3, Cooperative HEENT: Atraumatic, PERRLA, EOMI, Normocephalic Neck: Supple, No JVD, Negative Carotid Bruits Lungs: Clear to auscultation, Normal air movement Cardiovascular: Regular rate, No murmurs Abdomen: Bowel Sounds Present, Soft, Non Tender Extremities: No edema, Capillary Refill Less than 3 Seconds Skin: No rashes, No breakdown Musculoskeletal: No Tenderness to Palpation of Joints or Extremities Neurological: Cranial nerves II-XII grossly intact Psych/Mental Status: Normal Affect, Appropriate Vital Signs Temp Pulse Resp BP Pulse Ox 98.7 F 63 22 H 155/89 H 94 07/09/17 08:08 07/09/17 08:15 07/09/17 08:08 07/09/17 08:08 07/09/17 08:08 Oxygen Flow Rate 94 Oxygen Delivery Method Room Air Weight: 95.1 kg Body Mass Index (BMI) 35.9 Intake and Output for Last 24 Hours 07/07/17 07/08/17 07/09/17 23:59 23:59 23:59 Intake Total 100 / 100 Output Total 275 / 275 Balance -175 / -175 Microbiology Past 72 Hours 07/09/17 12:43 Influenza Types A,B Direct FA (YOSELIN) - Final Mucosa - Nasopharyngeal 07/09/17 05:00 Gram Stain - Final Sputum, Expectorated/Coughed Laboratory Tests Past 24 Hrs 07/09/17 12:35 Urine Color Yellow Urine Clarity Sl. Cloudy Urine pH 6.0 Ur Specific [place] 1.015 Urine Protein Negative Urine Glucose (UA) Normal Urine Ketones Negative Urine Occult Blood 25 H Urine Nitrite Negative Urine Bilirubin Negative Urine Urobilinogen Normal Ur Leukocyte Esterase Negative Urine RBC 0-5 SEEN Urine WBC 0 SEEN Ur Squamous Epith Cells 0-5 SEEN Urine Bacteria 0 SEEN Urine Mucus 0 SEEN Active Medications Acetaminophen (Tylenol) 650 mg PO Q6H PRN PRN PRN Reason: Mild Pain (1-3)/Temp > 100.7 F Allopurinol (Zyloprim) 100 mg PO DAILY [facility] Last Admin: 07/09/17 08:14 Dose: 100 mg Aspirin (Aspirin, Baby) 81 mg PO DAILY@0800 [facility] Last Admin: 07/09/17 08:14 Dose: 81 mg Flecainide Acetate (Tambocor) 100 mg PO BID [facility] Last Admin: 07/09/17 08:16 Dose: 100 mg Haloperidol Lactate (Haldol) 2 mg IM Q4H PRN PRN PRN Reason: AGITATION Hydrochlorothiazide (Hydrochlorothiazide) 12.5 mg PO DAILY PRN PRN PRN Reason: Hypertensive Emergency Levothyroxine Sodium (Synthroid) 50 mcg PO DAILY@0600 [facility] Last Admin: 07/09/17 05:12 Dose: 50 mcg Magnesium Oxide (Mag-Ox 400) 400 mg PO DAILY [facility] Last Admin: 07/09/17 08:15 Dose: 400 mg Metoprolol Tartrate (Lopressor (Beta Thania)) 25 mg PO BID [facility] Last Admin: 07/09/17 08:15 Dose: 25 mg Oxycodone HCl (Oxyir) 5 - 10 mg PO Q4H PRN PRN PRN Reason: MOD-SEVERE PAIN (4-10/10) Pantoprazole Sodium (Protonix) 20 mg PO DAILY [facility] Last Admin: 07/09/17 08:15 Dose: 20 mg Pravastatin Sodium (Pravachol) 40 mg PO QHS [facility] Last Admin: 07/08/17 21:07 Dose: 40 mg Sodium Chloride () 5 - 30 ml IV UD PRN PRN Reason: SALINE FLUSH Tamsulosin HCl (Flomax) 0.4 mg PO DAILY [facility] Last Admin: 07/09/17 08:15 Dose: 0.4 mg Warfarin Sodium (Coumadin (Pbkc)) 1 mg PO DAILY@1700 [facility] Warfarin Sodium (Coumadin (Pbkc)) 6 mg PO DAILY@1700 [facility] Zolpidem Tartrate (Ambien (Generic)) 5 mg PO QHS PRN PRN PRN Reason: INSOMNIA Assessment/Plan Active and Suspected Problems Right acetabular fracture (Acute) Debility status post nondisplaced Right Acetabular Fracture 2/2 Mechanical fall down basement steps. Goal of rehab is moravian of prior level of functional independence. Plan: - Physical therapy for gait and balance - Occupational Therapy for ADLs - As needed analgesics - Bowel protocol - DVT prophylaxis: Coumadin, and ASA - HLD - continue home dose of statin - GERD - continue home dose of PPI - Coagulopathy 2/2 Coumadin therapy for Atrial Fib -INR therapeutic, continue to follow. Continue Flecainide. Rate is currently stable. - HTN - stable => continue home medications - Psoriatic arthritis => continue home medication of Humira - AFib - On Coumadin, daily INR with a goal of keeping the level between 2 to 3 - Urinary retention => continue Flomax - Hx of Gout continue Colchicine
[2017-07-09 13:51] VITALS: BP 128/67; PULSE 55; RESP 20; TEMP 36.6; O2SAT 94
== END 2017-07-09 14:36 ==
LOC: ED 18:49 → MS2 18:57
PROVIDERS: Admitting Provider Internal Medicine; Emergency Provider Emergency Medicine; Family Provider Family Medicine; PCP Family Medicine
DX: S32.491A Other specified fracture of right acetabulum, initial encounter for closed fracture (principal); W10.8XXA Fall (on) (from) other stairs and steps, initial encounter; Y93.89 Activity, other specified; Y92.008 Other place in unspecified non-institutional (private) residence as the place of occurrence of the external cause; I48.2 Chronic atrial fibrillation; L40.50 Arthropathic psoriasis, unspecified; I25.10 Atherosclerotic heart disease of native coronary artery without angina pectoris; E78.5 Hyperlipidemia, unspecified; M35.3 Polymyalgia rheumatica; E03.9 Hypothyroidism, unspecified; Z86.73 Personal history of transient ischemic attack (TIA), and cerebral infarction without residual deficits; D68.32 Hemorrhagic disorder due to extrinsic circulating anticoagulants; T45.515A Adverse effect of anticoagulants, initial encounter; I10 Essential (primary) hypertension; Z79.899 Other long term (current) drug therapy; Z79.82 Long term (current) use of aspirin; Z79.01 Long term (current) use of anticoagulants
CPT/HCPCS: 70450; 72125; 72195; 73502; 80048; 81001; 85025; 85610; 87070; 87077; 87086; 87205; 87804; 93005; 96372; 97166; 99218; 99282; A4216; G0378

== ENCOUNTER 2017-07-09 14:52 | Inpatient (IN) | payer MEDICARE, OTHER, SELFPAY ==
[2017-07-09 15:10] VITALS: BP 119/57; PULSE 64; RESP 17; TEMP 36.6; O2SAT 92; BMI 35.9
[2017-07-09 19:27] VITALS: O2SAT 94
[2017-07-09] MEDS: CLARIFY ORDER 1 EACH NOTE (20:48)
[2017-07-09] MEDS: oxyCODONE 5 MG Tablet PO (20:57)
[2017-07-09 20:58] VITALS: BP 128/76; PULSE 62; RESP 18; TEMP 36.8; O2SAT 94
[2017-07-09] MEDS: Pravastatin 40 MG Tablet PO (20:58)
[2017-07-09] MEDS: Metoprolol Tartrate 25 MG Tablet PO (20:58)
[2017-07-09] MEDS: Montelukast 10 MG Tablet PO (20:58)
[2017-07-09] MEDS: Tamsulosin HCl 0.4 MG Capsule PO (20:58)
[2017-07-09] MEDS: Senna/Docusate Sodium 1 Tablet 2 TABLET PO (20:59)
[2017-07-09] MEDS: Flecainide 100 MG Tablet PO (20:59)
--- NOTE | 2017-07-09 22:24 | REHABEVAL_ITS ---
Admission Information Status Changes from Prescreening?: No changes Identified Actual Problem List:: Falls, Mobility Impaired, Self Care Deficit, BP, Hypertension Potential Problem List:: DVT, Bleeding, Infection, UTI, Aspiration, Falls, Skin Integrity, Depression Risk of Complications DVT: LMWH, SKYLA Hose, Sequential Compression Device Bleeding: Monitor Lab Values, Nursing to Teach Precautions for anti-coagulation therapy., Wound, if applicable, to be assessed every shift., Stroke patients assessed for lethargy or change in status. Infection: Clinical Staff to Monitor for S/S of infection:, S/S of infection include fever, redness, warmth, etc. Urinary Tract Infection: Monitor for frequency, burning, discomfort, or incontinence., Nursing will obtain urine sample for urinalysis and C&S when ordered. Aspiration: Clinical staff will monitor for coughing, drooling, congestion., Speech will evaluate swallowing and dsyphasia., Nursing will monitor patient swallowing during meals. Falls: Patient will be evaluated for Fall Precautions, Patient will be placed on Fall Precautions as indicated per protocol. Skin Breakdown: Nursing will assess skin daily using assessment tool., Nursing will place on Skin Breakdown Precautions as indicated. Pain: Clinical staff will assess patient's pain level per protocol., Medications will be given, if needed, and the pain level reassessed., Other methods: Massage, distraction, decrease stimulus, etc. used PRN. Plan of Care Patient requires physician specializing in physical medicine and rehab oversight to provide close medical supervision of rehab issues including: Pain Management, Sleep Problems, Bowel and Bladder, Medical and co-morbidity Management, DVT prophylaxis, Rehabilitation Leadership, Coordination of treatment team Patient needs Physical Therapy: For a minimum of 1 hour, At least 5 out of 7 days Patient needs Physical Therapy to improve:: Mobility, Mobility, Mobility, Strengthening, Transfers, Stretching, ROM, Endurance, Stairs, Gait, Balance Patient needs Occupational Therapy: For a minimum of 1 hour, At least 5 out of 7 days Patient needs Occupational Therapy to improve ADL's incl.: Eating, Grooming, Bathing, Dressing, Toileting, Toilet transfers, Community Reintegration, Higher functioning activities, Household tasks, Adaptive Equipment, Splinting, Other activities as determined Patient requires 24/ Rehabilitation Nursing for: Pain Issues, Identifying and preventing risk factors, Monitoring and reporting current medical conditions, Assisting with ambulation, transfer, and all ADL's, Teaching patients about disease process and medications, Family teaching, Providing safe environment, Bowel and Bladder Issues, Skin integrity, Medication Management Patient needs Extruder Operator Vertical/ Case Management for: Discharge Planning, Arranging Home Equipment or Services, Family Interventions Patient needs Dietary and Nutrition Services for: Adequate Nutrition, Nutritional Supplements, Nutritional Education Goals Patient will remain: free from falls, or injury at time of discharge. Patient will perform bed mobility at: MOD I level of assist. Patient will complete transfers from bed to chair at: MOD I level of assist. Patient will ambulate: 100 feet, with MOD I assist, with LRD Patient will complete upper body dressing at: MOD I level of assist. Patient will complete lower body dressing at: MOD I level of assist. Patient will complete toileting at: MOD I level of assist. Patient will perform bathing at: MOD I level of assist. Patient will complete grooming at: MOD I level of assist. Patient will complete home management skills at: MOD I level of assist. Patient will achieve: 12 stairs, at MOD I assist Patient will have pain level of: of 3 or less Patient's skin will: remain intact, free from infection. Patient will receive: adequate nutrition. Discharge Planning Pt Prognosis for Sig. Practical Improv. w/in Reasonable Time: Good Estimated Length of stay (days): 14 Anticipated D/C Destination: Home with Outpt Therapy Was Preadmission Assessment Accurate?: Yes
[2017-07-10] VITALS (8 sets, daily range): BP systolic 122–129; BP diastolic 79–82; PULSE 58–80; RESP 18; TEMP 36.5–37.5; O2SAT 90–96
--- NOTE | 2017-07-10 03:25 | NURSING ---
Reviewed and agree with LPNs fims and handoff
[2017-07-10] MEDS: Levothyroxine 50 MCG Tablet PO (07:23)
[2017-07-10] MEDS: Magnesium Oxide 400 MG Tablet PO (08:07)
[2017-07-10] MEDS: Allopurinol 100 MG Tablet PO (08:07)
[2017-07-10] MEDS: Senna/Docusate Sodium 1 Tablet 2 TABLET PO (08:08)
[2017-07-10] MEDS: Flecainide 100 MG Tablet PO ×2 (08:08→22:54)
[2017-07-10] MEDS: Metoprolol Tartrate 25 MG Tablet PO ×2 (08:08→22:54)
[2017-07-10] MEDS: Pantoprazole Sodium 20 MG Tablet PO (08:08)
[2017-07-10] MEDS: Aspirin 81 MG TAB.CHEW PO (08:08)
[2017-07-10 08:09] LABS: Hematocrit 41.2 % (40-54); Hemoglobin 14.1 g/dl (13.0-16.5); Mean Corp Hgb Conc 34.2 g/gl (32-36); Mean Corpuscular Hgb 30.8 pg (27.0-32.0); Platelet Count 149 K/mm3 (150-450); RBC Distribution Width CV 13.9 % (11.6-14.6); RBC Distribution Width SD 44.8 fl (35.1-43.9); Red Blood Count 4.58 M/mm3 (4.6-6.2); White Blood Count 13.3 K/mm3 (4.4-11.0)
[2017-07-10 08:16] LABS: Scan Indicated on CBC? Y/N NO
[2017-07-10 08:26] LABS: International Normalized Ratio 1.8; Prothrombin Time (Protime)PT. 19.9 SECONDS (11.7-14.9)
[2017-07-10 08:32] LABS: AST(SGOT) 25 U/L (15-37); Alanine Aminotransfer ALT/SGPT 23 U/L (12-78); Albumin, Serum 3.6 g/dL (3.4-5.0); Alkaline Phosphatase 84 U/L (45-117); Anion Gap 7 (5-15); BUN 31 mg/dL (7-18); BUN/Creat Ratio 21.1 RATIO (10-20); Chloride 104 mmol/L (98-107); Creatinine, Serum 1.47 mg/dL (0.70-1.30); EST Glomerular Filtration Rate 49 mL/min (>60); Est Glom Filt Rate - Afr Amer 59 mL/min (>60); Estimated Creatinine Clearance 33.56 ml/min; Globulin 3.7 g/dL (2.2-4.2); Glucose 102 mg/dL (70-110); Protein, Total 7.3 g/dL (6.4-8.2); Sodium Level 137 mmol/L (136-145)
[2017-07-10 08:38] LABS: Magnesium 1.9 mg/dL (1.8-2.4); Phosphorus 2.3 mg/dL (2.5-4.9)
--- NOTE | 2017-07-10 12:07 | NURSING ---
patient has expiratory both audible and throughout lung freedman. patient this am had dry intermittent non productive cough and now it is has become productive with yellow sputum. Dr. gonsalez texted this am, awaiting for return call. a/o x1 self only. skin warm and dry, color pale. denies chest pain, tightness, sob or none noted. patient sitting in room eating lunch at this time.
--- NOTE | 2017-07-10 13:50 | RAD_ITS ---
STUDY: X-RAY CHEST REASON FOR EXAM: Male, 82 years old. Cough. TECHNIQUE: PA and lateral views of the chest. COMPARISON: 10/14/2016. FINDINGS: There are hypoventilatory changes and mild atelectatic changes in the left lung base. There is no demonstrated pleural abnormality. Normal size heart. Normal mediastinum and lee. Normal visualized pulmonary arteries. Normal visualized aortic arch and descending thoracic aorta. There are diffuse degenerative changes of the visualized thoracic spine. There are old fractures of the lateral aspect of the left lower ribs. There is no demonstrated abnormality of the visualized soft tissue structures of the upper abdomen. RAD/Chest PA and Lateral IMPRESSION: Hypoventilatory and atelectatic changes in the left lung base. Electronically Signed: Jimi Nguyễn MD at 15:05 EST Tel , Service support ,
--- NOTE | 2017-07-10 13:52 | NURSING ---
dr gonsalez here to see patient new orders received
--- NOTE | 2017-07-10 14:06 | PCM.PN.HOSP ---
Patient Problems: Active and Suspected Problems Right acetabular fracture (Acute) Subjective: Per nursing, patient has been coughing and wheezing. Vitals/I&O's: Vital Signs Temp Pulse Resp BP Pulse Ox 36.5 C L 58 L 18 129/79 H 90 07/10/17 09:22 07/10/17 08:08 07/10/17 08:00 07/10/17 08:00 07/10/17 08:00 Oxygen Delivery Method Room Air Weight: 94.801 kg Body Mass Index (BMI) 35.9 Intake and Output for Last 24 Hours 07/08/17 07/09/17 07/10/17 23:59 23:59 23:59 Intake Total 120 / 120 Balance 120 / 120 General: - - Sleeping. Did not arouse to mild jostling of his shoulder. Afebrile. No respiratory distress. HEENT: Atraumatic, Normocephalic Neck: No Nodes, Thyroid Normal Size and Texture Lungs: Clear to auscultation, Diminished, - - Poor inspiratory effort Cardiovascular: Regular rate, Regular Rhythm, Normal S1, Normal S2 Abdomen: Bowel Sounds Present, Soft, Non Tender, Non-Distended Extremities: No edema, No Calf Tenderness Laboratory Results 07/10/17 07:40: PT 19.9 H, INR 1.8 07/10/17 07:40: WBC 13.3 H, RBC 4.58 L, Hgb 14.1, Hct 41.2, MCV 90.0, MCH 30.8, MCHC 34.2, RDW 13.9, RDW Differential 44.8 H, Plt Count 149 L, MPV 10.0 07/10/17 07:40: Sodium 137, Potassium 4.0, Chloride 104, Carbon Dioxide 26.0, Anion Gap 7, BUN 31 H, Creatinine 1.47 H, Estim Creat Clear Calc 33.56, Est GFR (MDRD) Af Amer 59 L, Est GFR (MDRD) Non-Af 49 L, BUN/Creatinine Ratio 21.1 H, Glucose 102, Calcium 9.0, Total Bilirubin 1.00, AST 25, ALT 23, Alkaline Phosphatase 84, Total Protein 7.3, Albumin 3.6, Globulin 3.7, Albumin/Globulin Ratio 1.0 07/10/17 07:40: Phosphorus 2.3 L, Magnesium 1.9 Current Medications Acetaminophen (Tylenol) 650 mg PO Q6H PRN PRN PRN Reason: Mild Pain (1-3)/Temp > 100.7 F Adalimumab (Humira) 40 mg SC Q14D [facility] Albuterol Sulfate (Ventolin Aerosols) 2.5 mg INHALATION Q4H.RT PRN PRN Reason: WHEEZING Allopurinol (Zyloprim) 100 mg PO DAILY [facility] Last Admin: 07/10/17 08:07 Dose: 100 mg Aspirin (Aspirin, Baby) 81 mg PO DAILY@0800 [facility] Last Admin: 07/10/17 08:08 Dose: 81 mg Bisacodyl (Dulcolax) 10 mg RECTAL .PRN X 1 PRN PRN Reason: Constipation Cholecalciferol (Vitamin D) 2,000 unit PO DAILY [facility] Last Admin: 07/10/17 08:08 Dose: 2,000 unit Colchicine (Colchicine) 0.6 mg PO QODAY@1200 [facility] Last Admin: 07/10/17 12:48 Dose: 0.6 mg Flecainide Acetate (Tambocor) 100 mg PO BID [facility] Last Admin: 07/10/17 08:08 Dose: 100 mg Haloperidol (Haldol) 1 mg PO BID PRN PRN Reason: SEVERE AGITATION Hydrochlorothiazide (Hydrochlorothiazide) 12.5 mg PO DAILY PRN PRN PRN Reason: Hypertensive Emergency Levothyroxine Sodium (Synthroid) 50 mcg PO DAILY@0600 [facility] Last Admin: 07/10/17 07:23 Dose: 50 mcg Magnesium Hydroxide (Milk Of Magnesia) 30 ml PO .PRN X 1 PRN PRN Reason: Constipation Magnesium Oxide (Mag-Ox 400) 400 mg PO DAILY [facility] Last Admin: 07/10/17 08:07 Dose: 400 mg Metoprolol Tartrate (Lopressor (Beta Thania)) 25 mg PO BID [facility] Last Admin: 07/10/17 08:08 Dose: 25 mg Montelukast Sodium (Singulair) 10 mg PO QHS [facility] Last Admin: 07/09/17 20:58 Dose: 10 mg Oxycodone HCl (Oxyir) 5 - 10 mg PO Q4H PRN PRN PRN Reason: MOD-SEVERE PAIN (4-10/10) Last Admin: 07/09/17 20:57 Dose: 5 mg Pantoprazole Sodium (Protonix) 20 mg PO DAILY [facility] Last Admin: 07/10/17 08:08 Dose: 20 mg Pravastatin Sodium (Pravachol) 40 mg PO QHS [facility] Last Admin: 07/09/17 20:58 Dose: 40 mg Senna/Docusate Sodium (Senokot-S, Tamra-Colace) 2 tablet PO BID [facility] Last Admin: 07/10/17 08:08 Dose: 2 tablet Sodium Chloride () 5 - 30 ml IV UD PRN PRN Reason: SALINE FLUSH Tamsulosin HCl (Flomax) 0.4 mg PO QHS [facility] Last Admin: 07/09/17 20:58 Dose: 0.4 mg Warfarin Sodium 5 mg/ Warfarin (Sodium 2 mg) 7 mg PO DAILY@1700 [facility] Last Admin: 07/09/17 18:07 Dose: 7 mg Assessment/Plan Active and Suspected Problems Right acetabular fracture (Acute) 1. Right acetabular fracture Toe-touch weightbearing the right lower extremity with a walker. Continue with rehab services. 2. Cough and wheeze As needed aerosols. Chest x-ray ordered. Patient is not septic at this time. 3. Atrial fibrillation: Continue with Coumadin. 4. DVT prophylaxis: Patient is on Coumadin for his atrial fibrillation. INR is 1.8 today. Continue to monitor. If continues remain low may consider adding Lovenox. 5. Suspected dementia: Last TSH was 2015, so we will recheck. Check B12 and folate levels well. To see if there is any correctable cause for patient's underlying suspected dementia. If those are unremarkable then I would recommend outpatient evaluation with geriatrics for more formal dementia evaluation Code Visit Inpatient E&M: 82202 [facility] H[facility] L2
--- NOTE | 2017-07-10 14:10 | PN_ITS ---
Patient Problems: Active and Suspected Problems Right acetabular fracture (Acute) Subjective: Per nursing, patient has been coughing and wheezing. Vitals/I&O's: Vital Signs Temp Pulse Resp BP Pulse Ox 36.5 C L 58 L 18 129/79 H 90 07/10/17 09:22 07/10/17 08:08 07/10/17 08:00 07/10/17 08:00 07/10/17 08:00 Oxygen Delivery Method Room Air Weight: 94.801 kg Body Mass Index (BMI) 35.9 Intake and Output for Last 24 Hours 07/08/17 07/09/17 07/10/17 23:59 23:59 23:59 Intake Total 120 / 120 Balance 120 / 120 General: - - Sleeping. Did not arouse to mild jostling of his shoulder. Afebrile. No respiratory distress. HEENT: Atraumatic, Normocephalic Neck: No Nodes, Thyroid Normal Size and Texture Lungs: Clear to auscultation, Diminished, - - Poor inspiratory effort Cardiovascular: Regular rate, Regular Rhythm, Normal S1, Normal S2 Abdomen: Bowel Sounds Present, Soft, Non Tender, Non-Distended Extremities: No edema, No Calf Tenderness Laboratory Results 07/10/17 07:40: PT 19.9 H, INR 1.8 07/10/17 07:40: WBC 13.3 H, RBC 4.58 L, Hgb 14.1, Hct 41.2, MCV 90.0, MCH 30.8, MCHC 34.2, RDW 13.9, RDW Differential 44.8 H, Plt Count 149 L, MPV 10.0 07/10/17 07:40: Sodium 137, Potassium 4.0, Chloride 104, Carbon Dioxide 26.0, Anion Gap 7, BUN 31 H, Creatinine 1.47 H, Estim Creat Clear Calc 33.56, Est GFR (MDRD) Af Amer 59 L, Est GFR (MDRD) Non-Af 49 L, BUN/Creatinine Ratio 21.1 H, Glucose 102, Calcium 9.0, Total Bilirubin 1.00, AST 25, ALT 23, Alkaline Phosphatase 84, Total Protein 7.3, Albumin 3.6, Globulin 3.7, Albumin/Globulin Ratio 1.0 07/10/17 07:40: Phosphorus 2.3 L, Magnesium 1.9 Current Medications Acetaminophen (Tylenol) 650 mg PO Q6H PRN PRN PRN Reason: Mild Pain (1-3)/Temp > 100.7 F Adalimumab (Humira) 40 mg SC Q14D [facility] Albuterol Sulfate (Ventolin Aerosols) 2.5 mg INHALATION Q4H.RT PRN PRN Reason: WHEEZING Allopurinol (Zyloprim) 100 mg PO DAILY [facility] Last Admin: 07/10/17 08:07 Dose: 100 mg Aspirin (Aspirin, Baby) 81 mg PO DAILY@0800 [facility] Last Admin: 07/10/17 08:08 Dose: 81 mg Bisacodyl (Dulcolax) 10 mg RECTAL .PRN X 1 PRN PRN Reason: Constipation Cholecalciferol (Vitamin D) 2,000 unit PO DAILY [facility] Last Admin: 07/10/17 08:08 Dose: 2,000 unit Colchicine (Colchicine) 0.6 mg PO QODAY@1200 [facility] Last Admin: 07/10/17 12:48 Dose: 0.6 mg Flecainide Acetate (Tambocor) 100 mg PO BID [facility] Last Admin: 07/10/17 08:08 Dose: 100 mg Haloperidol (Haldol) 1 mg PO BID PRN PRN Reason: SEVERE AGITATION Hydrochlorothiazide (Hydrochlorothiazide) 12.5 mg PO DAILY PRN PRN PRN Reason: Hypertensive Emergency Levothyroxine Sodium (Synthroid) 50 mcg PO DAILY@0600 [facility] Last Admin: 07/10/17 07:23 Dose: 50 mcg Magnesium Hydroxide (Milk Of Magnesia) 30 ml PO .PRN X 1 PRN PRN Reason: Constipation Magnesium Oxide (Mag-Ox 400) 400 mg PO DAILY [facility] Last Admin: 07/10/17 08:07 Dose: 400 mg Metoprolol Tartrate (Lopressor (Beta Thania)) 25 mg PO BID [facility] Last Admin: 07/10/17 08:08 Dose: 25 mg Montelukast Sodium (Singulair) 10 mg PO QHS [facility] Last Admin: 07/09/17 20:58 Dose: 10 mg Oxycodone HCl (Oxyir) 5 - 10 mg PO Q4H PRN PRN PRN Reason: MOD-SEVERE PAIN (4-10/10) Last Admin: 07/09/17 20:57 Dose: 5 mg Pantoprazole Sodium (Protonix) 20 mg PO DAILY [facility] Last Admin: 07/10/17 08:08 Dose: 20 mg Pravastatin Sodium (Pravachol) 40 mg PO QHS [facility] Last Admin: 07/09/17 20:58 Dose: 40 mg Senna/Docusate Sodium (Senokot-S, Tamra-Colace) 2 tablet PO BID [facility] Last Admin: 07/10/17 08:08 Dose: 2 tablet Sodium Chloride () 5 - 30 ml IV UD PRN PRN Reason: SALINE FLUSH Tamsulosin HCl (Flomax) 0.4 mg PO QHS [facility] Last Admin: 07/09/17 20:58 Dose: 0.4 mg Warfarin Sodium 5 mg/ Warfarin (Sodium 2 mg) 7 mg PO DAILY@1700 [facility] Last Admin: 07/09/17 18:07 Dose: 7 mg Assessment/Plan Active and Suspected Problems Right acetabular fracture (Acute) 1. Right acetabular fracture Toe-touch weightbearing the right lower extremity with a walker. Continue with rehab services. 2. Cough and wheeze As needed aerosols. Chest x-ray ordered. Patient is not septic at this time. 3. Atrial fibrillation: Continue with Coumadin. 4. DVT prophylaxis: Patient is on Coumadin for his atrial fibrillation. INR is 1.8 today. Continue to monitor. If continues remain low may consider adding Lovenox. 5. Suspected dementia: Last TSH was 2015, so we will recheck. Check B12 and folate levels well. To see if there is any correctable cause for patient's underlying suspected dementia. If those are unremarkable then I would recommend outpatient evaluation with geriatrics for more formal dementia evaluation Code Visit Inpatient E&M: [id number] [facility] Hosp L2
[2017-07-10] MEDS: Albuterol 2.5 MG/3 ML VIAL.NEB. INHALATION ×2 (15:49→23:03)
--- NOTE | 2017-07-10 18:34 | NURSING ---
dr gonsalez texted results of sputum cx.
--- NOTE | 2017-07-10 22:21 | NURSING ---
Addendum entered by Justo Loera 07/10/17 23:41: At approximately 2254 the patients notified this nurse that he is now awake and would be able to take his medications. All medications were then administered with no problems. Original Note: Attempted to wake pt up for his HS medications, however pt much too lethargic to take meds. Attempted light sternal rub and pt still did not awake. Discussed this with who is in room, stated she prefer him not receive the meds if he is this lethargic. Updated Zoila DUENAS. Also discussed with to notify nurse if he awakens within next hour or two and only then will we reattempt medicating.
[2017-07-10] MEDS: Pravastatin 40 MG Tablet PO (22:54)
[2017-07-10] MEDS: Tamsulosin HCl 0.4 MG Capsule PO (22:54)
[2017-07-10] MEDS: Montelukast 10 MG Tablet PO (22:54)
[2017-07-11] VITALS (8 sets, daily range): BP systolic 141–144; BP diastolic 50–68; PULSE 61–69; RESP 16–20; TEMP 36.6–36.7; O2SAT 91–95
--- NOTE | 2017-07-11 03:28 | NURSING ---
Reviewed and agree with SUPERVISOR STENO POOL documentation.
[2017-07-11] MEDS: Levothyroxine 50 MCG Tablet PO (06:29)
[2017-07-11] MEDS: Albuterol 2.5 MG/3 ML VIAL.NEB. INHALATION ×3 (06:33→22:30)
[2017-07-11 06:43] LABS: International Normalized Ratio 1.7; Prothrombin Time (Protime)PT. 19.4 SECONDS (11.7-14.9)
--- NOTE | 2017-07-11 07:06 | NURSING ---
PT STILL ATTEMPTING SELF TRANSFERS AND SPOUSE WAS IMMEDIATELY THERE TO URGE PT TO STAY IN BED. pT WAS REMINDED SEVERAL TIMES BY SPOUSE AND STAFF TO STAY IN BED.
[2017-07-11 07:07] LABS: Thyroid Stim Hormone (TSH) 1.81 uIU/mL (0.358-3.74)
[2017-07-11] MEDS: Aspirin 81 MG TAB.CHEW PO (08:11)
[2017-07-11] MEDS: Pantoprazole Sodium 20 MG Tablet PO (08:11)
[2017-07-11] MEDS: Metoprolol Tartrate 25 MG Tablet PO ×2 (08:11→21:56)
[2017-07-11] MEDS: Magnesium Oxide 400 MG Tablet PO (08:11)
[2017-07-11] MEDS: Flecainide 100 MG Tablet PO ×2 (08:11→21:55)
[2017-07-11] MEDS: Allopurinol 100 MG Tablet PO (08:12)
--- NOTE | 2017-07-11 10:13 | NURSING ---
dr gonsalez aware of sputum cx results. patient started on augmentin 500 mg bid x 7 days
[2017-07-11] MEDS: Amox/Clavulanate 500 MG Tablet PO ×2 (10:27→17:35)
--- NOTE | 2017-07-11 15:34 | NURSING ---
no self attempted transfers and present in room this shift. decrease confusion noted from yesterday. a/o x2 self and month, unaware of place. follows directions and more alert.
[2017-07-11] MEDS: Pravastatin 40 MG Tablet PO (21:55)
[2017-07-11] MEDS: Tamsulosin HCl 0.4 MG Capsule PO (21:55)
[2017-07-11] MEDS: Montelukast 10 MG Tablet PO (21:55)
[2017-07-12] VITALS (8 sets, daily range): BP systolic 137–144; BP diastolic 72; PULSE 62–81; RESP 16–22; O2SAT 93–95
[2017-07-12] MEDS: Albuterol 2.5 MG/3 ML VIAL.NEB. INHALATION ×2 (04:30→19:45)
--- NOTE | 2017-07-12 04:43 | NURSING ---
Pt toileted a couple times thru the night. Pt restless and difficult time getting back to sleep at this time. Spouse at bedside 1:1. Staff and spouse urging pt that he needed to stay in bed and go to sleep, and too early to get up. Pt wanted to shave and talked about a bug outside on the window.
[2017-07-12] MEDS: Acetaminophen 325 MG Tablet 650 MG PO (05:59)
[2017-07-12] MEDS: Levothyroxine 50 MCG Tablet PO (05:59)
[2017-07-12 06:16] LABS: International Normalized Ratio 1.9; Prothrombin Time (Protime)PT. 21.2 SECONDS (11.7-14.9)
[2017-07-12] MEDS: Flecainide 100 MG Tablet PO ×2 (08:18→20:28)
[2017-07-12] MEDS: Magnesium Oxide 400 MG Tablet PO (08:18)
[2017-07-12] MEDS: Allopurinol 100 MG Tablet PO (08:18)
[2017-07-12] MEDS: Pantoprazole Sodium 20 MG Tablet PO (08:18)
[2017-07-12] MEDS: Amox/Clavulanate 500 MG Tablet PO ×2 (08:19→18:32)
[2017-07-12] MEDS: Aspirin 81 MG TAB.CHEW PO (08:19)
[2017-07-12 08:51] LABS: Vitamin B12 529 pg/mL (211-911)
[2017-07-12] MEDS: Metoprolol Tartrate 25 MG Tablet PO ×2 (11:07→20:28)
--- NOTE | 2017-07-12 15:35 | PCM.PN.HOSP ---
Subjective: Patient is an 82-year-old gentleman admitted following a fall sustaining a right acetabular fracture. Managed in the hospital and transferred to the inpatient rehab unit 07/12/17; patient has been reported to be confused and experiencing significant insomnia during the night had discussion with the patient apparently has underlying history of dementia. Added Seroquel at at bedtime Objective: GENERAL: cooperative HEENT: Clear conjunctiva, NECK; supple, normal thyroid, CHEST: Diminished to auscultation bilaterally, HEART: Regular S1 S2, no audible murmurs ABDOMEN: soft, non-tender, normoactive bowel sounds, RECTAL: deferred EXTREMITIES: No edema, no clubbing, no cyanosis. PNEUMATIC JACKETER: Awake, no lateralizing signs. Vitals/I&O's: Vital Signs Temp Pulse Resp BP Pulse Ox 98.0 F 65 18 137/72 H 94 07/11/17 20:24 07/12/17 11:07 07/12/17 08:12 07/12/17 11:07 07/12/17 09:30 Oxygen Delivery Method Room Air Weight: 94.801 kg Body Mass Index (BMI) 35.9 Intake and Output for Last 24 Hours 07/10/17 07/11/17 07/12/17 23:59 23:59 23:59 Intake Total 600 / 600 Output Total 250 / 250 Balance -250 / -250 600 / 600 Laboratory Results 07/11/17 06:22: Vitamin B12 529 07/12/17 05:35: PT 21.2 H, INR 1.9 Current Medications Acetaminophen (Tylenol) 650 mg PO Q6H PRN PRN PRN Reason: Mild Pain (1-3)/Temp > 100.7 F Last Admin: 07/12/17 05:59 Dose: 650 mg Adalimumab (Humira) 40 mg SC Q14D [facility] Last Admin: 07/11/17 08:11 Dose: 40 mg Albuterol Sulfate (Ventolin Aerosols) 2.5 mg INHALATION Q4H.RT PRN PRN Reason: WHEEZING Last Admin: 07/12/17 04:30 Dose: 2.5 mg Allopurinol (Zyloprim) 100 mg PO DAILY [facility] Last Admin: 07/12/17 08:18 Dose: 100 mg Amoxicillin/Clavulanate Potassium (Augmentin Tablet) 500 mg PO BIDCM [facility] Stop: 07/17/17 17:01 Last Admin: 07/12/17 08:19 Dose: 500 mg Aspirin (Aspirin, Baby) 81 mg PO DAILY@0800 [facility] Last Admin: 07/12/17 08:19 Dose: 81 mg Bisacodyl (Dulcolax) 10 mg RECTAL .PRN X 1 PRN PRN Reason: Constipation Cholecalciferol (Vitamin D) 2,000 unit PO DAILY [facility] Last Admin: 07/12/17 08:18 Dose: 2,000 unit Colchicine (Colchicine) 0.6 mg PO QODAY@1200 [facility] Last Admin: 07/12/17 12:25 Dose: 0.6 mg Flecainide Acetate (Tambocor) 100 mg PO BID [facility] Last Admin: 07/12/17 08:18 Dose: 100 mg Haloperidol (Haldol) 1 mg PO BID PRN PRN Reason: SEVERE AGITATION Hydrochlorothiazide (Hydrochlorothiazide) 12.5 mg PO DAILY PRN PRN PRN Reason: Hypertensive Emergency Sodium Chloride () 1,000 mls @ 75 mls/hr IV .[id number] [facility] Levothyroxine Sodium (Synthroid) 50 mcg PO DAILY@0600 [facility] Last Admin: 07/12/17 05:59 Dose: 50 mcg Magnesium Hydroxide (Milk Of Magnesia) 30 ml PO .PRN X 1 PRN PRN Reason: Constipation Magnesium Oxide (Mag-Ox 400) 400 mg PO DAILY [facility] Last Admin: 07/12/17 08:18 Dose: 400 mg Metoprolol Tartrate (Lopressor (Beta Thania)) 25 mg PO BID [facility] Last Admin: 07/12/17 11:07 Dose: 25 mg Montelukast Sodium (Singulair) 10 mg PO QHS [facility] Last Admin: 07/11/17 21:55 Dose: 10 mg Oxycodone HCl (Oxyir) 5 - 10 mg PO Q4H PRN PRN PRN Reason: MOD-SEVERE PAIN (4-10/10) Last Admin: 07/09/17 20:57 Dose: 5 mg Pantoprazole Sodium (Protonix) 20 mg PO DAILY [facility] Last Admin: 07/12/17 08:18 Dose: 20 mg Pravastatin Sodium (Pravachol) 40 mg PO QHS [facility] Last Admin: 07/11/17 21:55 Dose: 40 mg Senna/Docusate Sodium (Senokot-S, Tamra-Colace) 2 tablet PO BID [facility] Last Admin: 07/12/17 07:56 Dose: Not Given Sodium Chloride () 5 - 30 ml IV UD PRN PRN Reason: SALINE FLUSH Tamsulosin HCl (Flomax) 0.4 mg PO QHS [facility] Last Admin: 07/11/17 21:55 Dose: 0.4 mg Warfarin Sodium 5 mg/ Warfarin (Sodium 2 mg) 7 mg PO DAILY@1700 [facility] Last Admin: 07/11/17 17:35 Dose: 7 mg Assessment/Plan Patient is an 82-year-old gentleman admitted following a fall sustaining a right acetabular fracture. Managed in the hospital and transferred to the inpatient rehab unit 1. Fall with right acetabular fracture. Patient has been admitted to the inpatient rehab unit where he is currently undergoing physical therapy 2. Acute bronchitis cultures positive for M. catarrhalis treated with Augmentin 3. BPH patient is on Flomax 4. Hypertension-blood pressure controlled, home medications continued with dose adjustment as needed 5. Paroxysmal A. fib rate controlled on systemic anticoagulation with Coumadin monitoring daily INR 6. Hypothyroidism-patient is on levothyroxine home dose continued 7. Dementia with behavioral agitation patient placed on Seroquel at night 8. GERD 9. DVT prophylaxis patient on Coumadin Code Visit Inpatient E&M: 19203 [facility] H[facility] L2
--- NOTE | 2017-07-12 15:53 | PN_ITS ---
Subjective: Patient is an 82-year-old gentleman admitted following a fall sustaining a right acetabular fracture. Managed in the hospital and transferred to the inpatient rehab unit 07/12/17; patient has been reported to be confused and experiencing significant insomnia during the night had discussion with the patient apparently has underlying history of dementia. Added Seroquel at at bedtime Objective: GENERAL: cooperative HEENT: Clear conjunctiva, NECK; supple, normal thyroid, CHEST: Diminished to auscultation bilaterally, HEART: Regular S1 S2, no audible murmurs ABDOMEN: soft, non-tender, normoactive bowel sounds, RECTAL: deferred EXTREMITIES: No edema, no clubbing, no cyanosis. [employer] DIRECTOR: Awake, no lateralizing signs. Vitals/I&O's: Vital Signs Temp Pulse Resp BP Pulse Ox 98.0 F 65 18 137/72 H 94 07/11/17 20:24 07/12/17 11:07 07/12/17 08:12 07/12/17 11:07 07/12/17 09:30 Oxygen Delivery Method Room Air Weight: 94.801 kg Body Mass Index (BMI) 35.9 Intake and Output for Last 24 Hours 07/10/17 07/11/17 07/12/17 23:59 23:59 23:59 Intake Total 600 / 600 Output Total 250 / 250 Balance -250 / -250 600 / 600 Laboratory Results 07/11/17 06:22: Vitamin B12 529 07/12/17 05:35: PT 21.2 H, INR 1.9 Current Medications Acetaminophen (Tylenol) 650 mg PO Q6H PRN PRN PRN Reason: Mild Pain (1-3)/Temp > 100.7 F Last Admin: 07/12/17 05:59 Dose: 650 mg Adalimumab (Humira) 40 mg SC Q14D [facility] Last Admin: 07/11/17 08:11 Dose: 40 mg Albuterol Sulfate (Ventolin Aerosols) 2.5 mg INHALATION Q4H.RT PRN PRN Reason: WHEEZING Last Admin: 07/12/17 04:30 Dose: 2.5 mg Allopurinol (Zyloprim) 100 mg PO DAILY [facility] Last Admin: 07/12/17 08:18 Dose: 100 mg Amoxicillin/Clavulanate Potassium (Augmentin Tablet) 500 mg PO BIDCM [facility] Stop: 07/17/17 17:01 Last Admin: 07/12/17 08:19 Dose: 500 mg Aspirin (Aspirin, Baby) 81 mg PO DAILY@0800 [facility] Last Admin: 07/12/17 08:19 Dose: 81 mg Bisacodyl (Dulcolax) 10 mg RECTAL .PRN X 1 PRN PRN Reason: Constipation Cholecalciferol (Vitamin D) 2,000 unit PO DAILY [facility] Last Admin: 07/12/17 08:18 Dose: 2,000 unit Colchicine (Colchicine) 0.6 mg PO QODAY@1200 [facility] Last Admin: 07/12/17 12:25 Dose: 0.6 mg Flecainide Acetate (Tambocor) 100 mg PO BID [facility] Last Admin: 07/12/17 08:18 Dose: 100 mg Haloperidol (Haldol) 1 mg PO BID PRN PRN Reason: SEVERE AGITATION Hydrochlorothiazide (Hydrochlorothiazide) 12.5 mg PO DAILY PRN PRN PRN Reason: Hypertensive Emergency Sodium Chloride () 1,000 mls @ 75 mls/hr IV .[id number] [facility] Levothyroxine Sodium (Synthroid) 50 mcg PO DAILY@0600 [facility] Last Admin: 07/12/17 05:59 Dose: 50 mcg Magnesium Hydroxide (Milk Of Magnesia) 30 ml PO .PRN X 1 PRN PRN Reason: Constipation Magnesium Oxide (Mag-Ox 400) 400 mg PO DAILY [facility] Last Admin: 07/12/17 08:18 Dose: 400 mg Metoprolol Tartrate (Lopressor (Beta Thania)) 25 mg PO BID [facility] Last Admin: 07/12/17 11:07 Dose: 25 mg Montelukast Sodium (Singulair) 10 mg PO QHS [facility] Last Admin: 07/11/17 21:55 Dose: 10 mg Oxycodone HCl (Oxyir) 5 - 10 mg PO Q4H PRN PRN PRN Reason: MOD-SEVERE PAIN (4-10/10) Last Admin: 07/09/17 20:57 Dose: 5 mg Pantoprazole Sodium (Protonix) 20 mg PO DAILY [facility] Last Admin: 07/12/17 08:18 Dose: 20 mg Pravastatin Sodium (Pravachol) 40 mg PO QHS [facility] Last Admin: 07/11/17 21:55 Dose: 40 mg Senna/Docusate Sodium (Senokot-S, Tamra-Colace) 2 tablet PO BID [facility] Last Admin: 07/12/17 07:56 Dose: Not Given Sodium Chloride () 5 - 30 ml IV UD PRN PRN Reason: SALINE FLUSH Tamsulosin HCl (Flomax) 0.4 mg PO QHS [facility] Last Admin: 07/11/17 21:55 Dose: 0.4 mg Warfarin Sodium 5 mg/ Warfarin (Sodium 2 mg) 7 mg PO DAILY@1700 [facility] Last Admin: 07/11/17 17:35 Dose: 7 mg Assessment/Plan Patient is an 82-year-old gentleman admitted following a fall sustaining a right acetabular fracture. Managed in the hospital and transferred to the inpatient rehab unit 1. Fall with right acetabular fracture. Patient has been admitted to the inpatient rehab unit where he is currently undergoing physical therapy 2. Acute bronchitis cultures positive for M. catarrhalis treated with Augmentin 3. BPH patient is on Flomax 4. Hypertension-blood pressure controlled, home medications continued with dose adjustment as needed 5. Paroxysmal A. fib rate controlled on systemic anticoagulation with Coumadin monitoring daily INR 6. Hypothyroidism-patient is on levothyroxine home dose continued 7. Dementia with behavioral agitation patient placed on Seroquel at night 8. GERD 9. DVT prophylaxis patient on Coumadin Code Visit Inpatient E&M: 51339 [facility] Hosp L2
--- NOTE | 2017-07-12 16:08 | PCM.PN.NEU ---
Subjective: Patient seen and examined. Continues to be very confused, at bedside all weekend, she will go home tonight and will place a sitter at bedside. Tolerating therapy. Denies any shortness of breath or chest pain. Continues to have a productive cough, sputum cultures was positive for Moraxella catarrhalis started on Augmentin 500mg BID. Patient is dehydrate so started on IVF NS x 1 Liter. Will reassess labs in the AM. Start on Seroquel 12.5 mg for disrupted Circadian rhythm Other guadalupe he is tolerating therapy. Denies any shortness of breath, or chest pains. No issues with GI/. - Physical Exam General: Alert, Oriented x3, Cooperative HEENT: Atraumatic, PERRLA, EOMI, Normocephalic Neck: Supple, No JVD, Negative Carotid Bruits Lungs: Clear to auscultation, Normal air movement Cardiovascular: Regular rate, No murmurs Abdomen: Bowel Sounds Present, Soft, Non Tender Extremities: No edema, Capillary Refill Less than 3 Seconds Skin: No rashes, No breakdown Musculoskeletal: No Tenderness to Palpation of Joints or Extremities Neurological: Cranial nerves II-XII grossly intact Psych/Mental Status: Normal Affect, Appropriate Vital Signs Temp Pulse Resp BP Pulse Ox 98.0 F 65 18 137/72 H 94 07/11/17 20:24 07/12/17 11:07 07/12/17 08:12 07/12/17 11:07 07/12/17 09:30 Oxygen Delivery Method Room Air Weight: 94.801 kg Body Mass Index (BMI) 35.9 Intake and Output for Last 24 Hours 07/10/17 07/11/17 07/12/17 23:59 23:59 23:59 Intake Total 600 / 600 Output Total 250 / 250 Balance -250 / -250 600 / 600 Laboratory Tests Past 24 Hrs 07/11/17 07/12/17 06:22 05:35 PT 21.2 H INR 1.9 Vitamin B12 529 Active Medications Acetaminophen (Tylenol) 650 mg PO Q6H PRN PRN PRN Reason: Mild Pain (1-3)/Temp > 100.7 F Last Admin: 07/12/17 05:59 Dose: 650 mg Adalimumab (Humira) 40 mg SC Q14D AIYANA Last Admin: 07/11/17 08:11 Dose: 40 mg Albuterol Sulfate (Ventolin Aerosols) 2.5 mg INHALATION Q4H.RT PRN PRN Reason: WHEEZING Last Admin: 07/12/17 04:30 Dose: 2.5 mg Allopurinol (Zyloprim) 100 mg PO DAILY [facility] Last Admin: 07/12/17 08:18 Dose: 100 mg Amoxicillin/[facility]ulanate [facility]: 07/17/17 17:01 Last Admin: 07/12/17 08:19 Dose: 500 mg Aspirin (Aspirin, Baby) 81 mg PO DAILY@0800 [facility] Last Admin: 07/12/17 08:19 Dose: 81 mg Bisacodyl (Dulcolax) 10 mg RECTAL .PRN X 1 PRN PRN Reason: Constipation Cholecalciferol (Vitamin D) 2,000 unit PO DAILY [facility] Last Admin: 07/12/17 08:18 Dose: 2,000 unit Colchicine (Colchicine) 0.6 mg PO QODAY@1200 [facility] Last Admin: 07/12/17 12:25 Dose: 0.6 mg Flecainide Acetate (Tambocor) 100 mg PO BID [facility] Last Admin: 07/12/17 08:18 Dose: 100 mg Haloperidol (Haldol) 1 mg PO BID PRN PRN Reason: SEVERE AGITATION Hydrochlorothiazide (Hydrochlorothiazide) 12.5 mg PO DAILY PRN PRN PRN Reason: Hypertensive Emergency Sodium Chloride () 1,000 mls @ 75 mls/hr IV .[id number] [facility] Levothyroxine Sodium (Synthroid) 50 mcg PO DAILY@0600 [facility] Last Admin: 07/12/17 05:59 Dose: 50 mcg Magnesium Hydroxide (Milk Of Magnesia) 30 ml PO .PRN X 1 PRN PRN Reason: Constipation Magnesium Oxide (Mag-Ox 400) 400 mg PO DAILY [facility] Last Admin: 07/12/17 08:18 Dose: 400 mg Metoprolol Tartrate (Lopressor (Beta Thania)) 25 mg PO BID [facility] Last Admin: 07/12/17 11:07 Dose: 25 mg Montelukast Sodium (Singulair) 10 mg PO QHS [facility] Last Admin: 07/11/17 21:55 Dose: 10 mg Oxycodone HCl (Oxyir) 5 - 10 mg PO Q4H PRN PRN PRN Reason: MOD-SEVERE PAIN (4-10/10) Last Admin: 07/09/17 20:57 Dose: 5 mg Pantoprazole Sodium (Protonix) 20 mg PO DAILY [facility] Last Admin: 07/12/17 08:18 Dose: 20 mg Pravastatin Sodium (Pravachol) 40 mg PO QHS [facility] Last Admin: 07/11/17 21:55 Dose: 40 mg Senna/Docusate Sodium (Senokot-S, Tamra-Colace) 2 tablet PO BID [facility] Last Admin: 07/12/17 07:56 Dose: Not Given Sodium Chloride () 5 - 30 ml IV UD PRN PRN Reason: SALINE FLUSH Tamsulosin HCl (Flomax) 0.4 mg PO QHS [facility] Last Admin: 07/11/17 21:55 Dose: 0.4 mg Warfarin Sodium 5 mg/ Warfarin (Sodium 2 mg) 7 mg PO DAILY@1700 [facility] Last Admin: 07/11/17 17:35 Dose: 7 mg Assessment/Plan Debility status post nondisplaced Right Acetabular Fracture 2/2 Mechanical fall down basement steps. Goal of rehab is [facility] of prior level of functional independence. Plan: - Physical therapy for gait and balance - Occupational Therapy for ADLs - As needed analgesics - Bowel protocol - DVT prophylaxis: Coumadin, and ASA - HLD - continue home dose of statin - GERD - continue home dose of PPI - Coagulopathy 2/2 Coumadin therapy for Atrial Fib -INR therapeutic, continue to follow. Continue Flecainide. Rate is currently stable. - HTN - stable => continue home medications - Psoriatic arthritis => continue home medication of Humira - AFib - On Coumadin, daily INR with a goal of keeping the level between 2 to 3, INR was 1.9 on 07/12, continue to monitor - Urinary retention => continue Flomax - Hx of Gout continue Colchicine - Sputum Culture positive for Moraxella catarrhalis started on Augmentin 500mg BID x 7days. 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 - Dehydration will give IVF bolus NS @ 75cc/hr x 1 bag
--- NOTE | 2017-07-12 16:16 | PN.NEURO_ITS ---
Subjective: Patient seen and examined. Continues to be very confused, at bedside all weekend, she will go home tonight and will place a sitter at bedside. Tolerating therapy. Denies any shortness of breath or chest pain. Continues to have a productive cough, sputum cultures was positive for Moraxella catarrhalis started on Augmentin 500mg BID. Patient is dehydrate so started on IVF NS x 1 Liter. Will reassess labs in the AM. Start on Seroquel 12.5 mg for disrupted Circadian rhythm Other guadalupe he is tolerating therapy. Denies any shortness of breath, or chest pains. No issues with GI/. - Physical Exam General: Alert, Oriented x3, Cooperative HEENT: Atraumatic, PERRLA, EOMI, Normocephalic Neck: Supple, No JVD, Negative Carotid Bruits Lungs: Clear to auscultation, Normal air movement Cardiovascular: Regular rate, No murmurs Abdomen: Bowel Sounds Present, Soft, Non Tender Extremities: No edema, Capillary Refill Less than 3 Seconds Skin: No rashes, No breakdown Musculoskeletal: No Tenderness to Palpation of Joints or Extremities Neurological: Cranial nerves II-XII grossly intact Psych/Mental Status: Normal Affect, Appropriate Vital Signs Temp Pulse Resp BP Pulse Ox 98.0 F 65 18 137/72 H 94 07/11/17 20:24 07/12/17 11:07 07/12/17 08:12 07/12/17 11:07 07/12/17 09:30 Oxygen Delivery Method Room Air Weight: 94.801 kg Body Mass Index (BMI) 35.9 Intake and Output for Last 24 Hours 07/10/17 07/11/17 07/12/17 23:59 23:59 23:59 Intake Total 600 / 600 Output Total 250 / 250 Balance -250 / -250 600 / 600 Laboratory Tests Past 24 Hrs 07/11/17 07/12/17 06:22 05:35 PT 21.2 H INR 1.9 Vitamin B12 529 Active Medications Acetaminophen (Tylenol) 650 mg PO Q6H PRN PRN PRN Reason: Mild Pain (1-3)/Temp > 100.7 F Last Admin: 07/12/17 05:59 Dose: 650 mg Adalimumab (Humira) 40 mg SC Q14D [facility]YANA Last Admin: 07/11/17 08:11 Dose: 40 mg Albuterol Sulfate (Ventolin Aerosols) 2.5 mg INHALATION Q4H.RT PRN PRN Reason: WHEEZING Last Admin: 07/12/17 04:30 Dose: 2.5 mg Allopurinol (Zyloprim) 100 mg PO DAILY [facility] Last Admin: 07/12/17 08:18 Dose: 100 mg Amoxicillin/Clavulanate [facility] ([facility] Stop: 07/17/17 17:01 Last Admin: 07/12/17 08:19 Dose: 500 mg Aspirin (Aspirin, Baby) 81 mg PO DAILY@0800 [facility] Last Admin: 07/12/17 08:19 Dose: 81 mg Bisacodyl (Dulcolax) 10 mg RECTAL .PRN X 1 PRN PRN Reason: Constipation Cholecalciferol (Vitamin D) 2,000 unit PO DAILY [facility] Last Admin: 07/12/17 08:18 Dose: 2,000 unit Colchicine (Colchicine) 0.6 mg PO QODAY@1200 [facility] Last Admin: 07/12/17 12:25 Dose: 0.6 mg Flecainide Acetate (Tambocor) 100 mg PO BID [facility] Last Admin: 07/12/17 08:18 Dose: 100 mg Haloperidol (Haldol) 1 mg PO BID PRN PRN Reason: SEVERE AGITATION Hydrochlorothiazide (Hydrochlorothiazide) 12.5 mg PO DAILY PRN PRN PRN Reason: Hypertensive Emergency Sodium Chloride () 1,000 mls @ 75 mls/hr IV .[id number] [facility] Levothyroxine Sodium (Synthroid) 50 mcg PO DAILY@0600 [facility] Last Admin: 07/12/17 05:59 Dose: 50 mcg Magnesium Hydroxide (Milk Of Magnesia) 30 ml PO .PRN X 1 PRN PRN Reason: Constipation Magnesium Oxide (Mag-Ox 400) 400 mg PO DAILY [facility] Last Admin: 07/12/17 08:18 Dose: 400 mg Metoprolol Tartrate (Lopressor (Beta Thania)) 25 mg PO BID [facility] Last Admin: 07/12/17 11:07 Dose: 25 mg Montelukast Sodium (Singulair) 10 mg PO QHS [facility] Last Admin: 07/11/17 21:55 Dose: 10 mg Oxycodone HCl (Oxyir) 5 - 10 mg PO Q4H PRN PRN PRN Reason: MOD-SEVERE PAIN (4-10/10) Last Admin: 07/09/17 20:57 Dose: 5 mg Pantoprazole Sodium (Protonix) 20 mg PO DAILY [facility] Last Admin: 07/12/17 08:18 Dose: 20 mg Pravastatin Sodium (Pravachol) 40 mg PO QHS [facility] Last Admin: 07/11/17 21:55 Dose: 40 mg Senna/Docusate Sodium (Senokot-S, Tamra-Colace) 2 tablet PO BID [facility] Last Admin: 07/12/17 07:56 Dose: Not Given Sodium Chloride () 5 - 30 ml IV UD PRN PRN Reason: SALINE FLUSH Tamsulosin HCl (Flomax) 0.4 mg PO QHS [facility] Last Admin: 07/11/17 21:55 Dose: 0.4 mg Warfarin Sodium 5 mg/ Warfarin (Sodium 2 mg) 7 mg PO DAILY@1700 [facility] Last Admin: 07/11/17 17:35 Dose: 7 mg Assessment/Plan Debility status post nondisplaced Right Acetabular Fracture 2/2 Mechanical fall down basement steps. Goal of rehab is [place]andaen of prior level of functional independence. Plan: - Physical therapy for gait and balance - Occupational Therapy for ADLs - As needed analgesics - Bowel protocol - DVT prophylaxis: Coumadin, and ASA - HLD - continue home dose of statin - GERD - continue home dose of PPI - Coagulopathy 2/2 Coumadin therapy for Atrial Fib -INR therapeutic, continue to follow. Continue Flecainide. Rate is currently stable. - HTN - stable => continue home medications - Psoriatic arthritis => continue home medication of Humira - AFib - On Coumadin, daily INR with a goal of keeping the level between 2 to 3 , INR was 1.9 on 07/12, continue to monitor - Urinary retention => continue Flomax - Hx of Gout continue Colchicine - Sputum Culture positive for Moraxella catarrhalis started on Augmentin 500mg BID x 7days. 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 - Dehydration will give IVF bolus NS @ 75cc/hr x 1 bag
--- NOTE | 2017-07-12 17:47 | EKG12_ITS ---
Test Reason : Blood Pressure : / mmHG Vent. Rate : 067 BPM Atrial Rate : 067 BPM P-R Int : 218 ms QRS Dur : 102 ms QT Int : 418 ms P-R-T Axes : 056 001 052 degrees QTc Int : 441 ms Sinus rhythm with 1st degree A-V block Confirmed by YAMILETH ALEJO, SATNAM ([id number]), greeting card editor SHAHRIAR IBARRA ([id number]) on 07/21/2017 11:59:42 AM Referred By: APRYL Confirmed By:SATNAM CARSON MD
[2017-07-12] MEDS: 0.9% Normal Saline 1,000 ML 75 ML IV (17:49)
--- NOTE | 2017-07-12 18:15 | NURSING ---
ekg being completed prior to starting seroquel.
--- NOTE | 2017-07-12 18:29 | NURSING ---
back to bed with assist x3. pt with audible wheezes, harsh nonproductive cough and sob with exertion. pulse ox 92% on ra, placed on 1.5l via nasal cannula and pulse ox increased to 96%. called cps for breathing treatment.
--- NOTE | 2017-07-12 19:26 | NURSING ---
started IV in R. wrist 24 g, NS 75mls/hr running, dressing intact, pt tolerated well.
[2017-07-12] MEDS: Pravastatin 40 MG Tablet PO (20:27)
[2017-07-12] MEDS: Montelukast 10 MG Tablet PO (20:27)
[2017-07-12] MEDS: Tamsulosin HCl 0.4 MG Capsule PO (20:28)
[2017-07-12] MEDS: QUEtiapine 25 MG Tablet 12.5 MG PO (20:28)
[2017-07-13] VITALS (8 sets, daily range): BP systolic 143–162; BP diastolic 65–78; PULSE 70–83; RESP 16–20; TEMP 36.7–37; O2SAT 92–96
[2017-07-13] MEDS: 0.9% Normal Saline 1,000 ML 75 ML IV ×2 (04:34→07:05)
[2017-07-13] MEDS: Albuterol 2.5 MG/3 ML VIAL.NEB. INHALATION ×2 (05:56→16:54)
[2017-07-13 05:58] LABS: International Normalized Ratio 1.9; Prothrombin Time (Protime)PT. 20.7 SECONDS (11.7-14.9)
[2017-07-13] MEDS: Acetaminophen 325 MG Tablet 650 MG PO (06:14)
[2017-07-13] MEDS: Levothyroxine 50 MCG Tablet PO (06:14)
[2017-07-13] MEDS: Allopurinol 100 MG Tablet PO (08:18)
[2017-07-13] MEDS: Magnesium Oxide 400 MG Tablet PO (08:18)
[2017-07-13] MEDS: Metoprolol Tartrate 25 MG Tablet PO ×2 (08:19→20:47)
[2017-07-13] MEDS: Amox/Clavulanate 500 MG Tablet PO (08:19)
[2017-07-13] MEDS: Aspirin 81 MG TAB.CHEW PO (08:19)
[2017-07-13] MEDS: Flecainide 100 MG Tablet PO ×2 (08:19→20:49)
[2017-07-13] MEDS: Pantoprazole Sodium 20 MG Tablet PO (08:20)
--- NOTE | 2017-07-13 08:30 | NURSING ---
Salina SALMON aware of labs.
--- NOTE | 2017-07-13 14:45 | NURSING ---
Dr. Umaña aware of gelatenous stools noted with flecks of loose stool, brown in color. New order to dc antibiotic.
--- NOTE | 2017-07-13 15:05 | CASEMGMT ---
Social Work Assessment completed while patient spouse was present. Patient spouse aware of team meeting. Support given. Chayito WERNER, HANDKERCHIEF SAMPLE CLERK
[2017-07-13 20:08] LABS: Folate, RBC (Hct) Test 39.8 % (37.5-51.0)
[2017-07-13] MEDS: Pravastatin 40 MG Tablet PO (20:47)
[2017-07-13] MEDS: Tamsulosin HCl 0.4 MG Capsule PO (20:47)
[2017-07-13] MEDS: QUEtiapine 25 MG Tablet 12.5 MG PO (20:48)
[2017-07-13] MEDS: Montelukast 10 MG Tablet PO (20:49)
[2017-07-13] MEDS: 0.9% NaCl Peripheral Flush Adult/Peds IV (23:33)
--- NOTE | 2017-07-14 02:37 | NURSING ---
REVIEWED AND AGREE WITH VP OF [employer]ODUCT[employer]S [employer] AND HANDOFF CHARTING.
[2017-07-14] MEDS: Acetaminophen 325 MG Tablet 650 MG PO (05:37)
[2017-07-14] MEDS: Levothyroxine 50 MCG Tablet PO (05:38)
[2017-07-14 08:08] LABS: Anion Gap 6 (5-15); BUN 22 mg/dL (7-18); BUN/Creat Ratio 20.4 RATIO (10-20); Calcium,Total 8.7 mg/dL (8.5-10.1); Chloride 109 mmol/L (98-107); Creatinine, Serum 1.08 mg/dL (0.70-1.30); EST Glomerular Filtration Rate 70 mL/min (>60); Est Glom Filt Rate - Afr Amer 85 mL/min (>60); Estimated Creatinine Clearance 45.68 ml/min; Glucose 93 mg/dL (70-110); Potassium 3.5 mmol/L (3.5-5.1); Sodium Level 142 mmol/L (136-145)
[2017-07-14 09:25] VITALS: BP 144/67; PULSE 63; RESP 17; TEMP 36.6; O2SAT 94
[2017-07-14 09:27] LABS: International Normalized Ratio 1.9; Prothrombin Time (Protime)PT. 21.4 SECONDS (11.7-14.9)
[2017-07-14 09:29] VITALS: BP 144/67; PULSE 63
[2017-07-14] MEDS: Allopurinol 100 MG Tablet PO (09:29)
[2017-07-14] MEDS: Metoprolol Tartrate 25 MG Tablet PO ×2 (09:29→21:23)
[2017-07-14] MEDS: Magnesium Oxide 400 MG Tablet PO (09:29)
[2017-07-14] MEDS: Flecainide 100 MG Tablet PO ×2 (09:29→21:22)
[2017-07-14] MEDS: Pantoprazole Sodium 20 MG Tablet PO (09:29)
[2017-07-14] MEDS: Aspirin 81 MG TAB.CHEW PO (09:30)
[2017-07-14 10:48] LABS: Folates, RBC Test 1060 ng/mL (>498)
[2017-07-14] MEDS: guaiFENesin 600 MG Tablet PO ×2 (11:43→21:23)
--- NOTE | 2017-07-14 12:47 | PCM.PN.NEU ---
Subjective: Patient seen and examined. No acute issues over night. Continues to have a productive cough, wheezing through out the lungs, diminished in the bases bilaterally. Tolerating therapy. Denies any shortness of breath or chest pains. - Physical Exam General: Alert, Oriented x3, Cooperative HEENT: Atraumatic, PERRLA, EOMI, Normocephalic Neck: Supple, No JVD, Negative Carotid Bruits Lungs: Diminished - Bilaterally in the bases, Wheezes - through out Cardiovascular: Regular rate, No murmurs Abdomen: Bowel Sounds Present, Soft, Non Tender Extremities: No edema, Capillary Refill Less than 3 Seconds Skin: No rashes, No breakdown Musculoskeletal: No Tenderness to Palpation of Joints or Extremities Neurological: Cranial nerves II-XII grossly intact Psych/Mental Status: Normal Affect, Appropriate Vital Signs Temp Pulse Resp BP Pulse Ox 97.9 F 63 17 144/67 H 94 07/14/17 09:25 07/14/17 09:29 07/14/17 09:25 07/14/17 09:29 07/14/17 09:25 Oxygen Flow Rate 1.5 Oxygen Delivery Method Room Air Weight: 94.801 kg Body Mass Index (BMI) 35.9 Intake and Output for Last 24 Hours 07/12/17 07/13/17 07/14/17 23:59 23:59 23:59 Intake Total 780 / 780 480 / 480 220 / 220 Balance 780 / 780 480 / 480 220 / 220 Laboratory Tests Past 24 Hrs 07/11/17 07/14/17 07/14/17 06:22 07:35 07:55 PT 21.4 H INR 1.9 Sodium 142 Potassium 3.5 Chloride 109 H Carbon Dioxide 27.0 Anion Gap 6 BUN 22 H Creatinine 1.08 Estim Creat Clear Calc 45.68 Est GFR (MDRD) Af Amer 85 Est GFR (MDRD) Non-Af 70 BUN/Creatinine Ratio 20.4 H Glucose 93 Calcium 8.7 RBC Folate Hemolysate 422.0 RBC Folate 1060 Hematocrit 39.8 Active Medications Acetaminophen (Tylenol) 650 mg PO Q6H PRN PRN PRN Reason: Mild Pain (1-3)/Temp > 100.7 F Last Admin: 07/14/17 05:37 Dose: 650 mg Adalimumab (Humira) 40 mg SC Q14D AIYANA Last Admin: 07/11/17 08:11 Dose: 40 mg Albuterol Sulfate (Ventolin Aerosols) 2.5 mg INHALATION Q4H.RT PRN PRN Reason: WHEEZING Last Admin: 07/13/17 16:54 Dose: 2.5 mg Allopurinol (Zyloprim) 100 mg PO DAILY [facility] Last Admin: 07/14/17 09:29 Dose: 100 mg Aspirin (Aspirin, Baby) 81 mg PO DAILY@0800 [facility] Last Admin: 07/14/17 09:30 Dose: 81 mg Bisacodyl (Dulcolax) 10 mg RECTAL .PRN X 1 PRN PRN Reason: Constipation Cholecalciferol (Vitamin D) 2,000 unit PO DAILY [facility] Last Admin: 07/14/17 09:29 Dose: 2,000 unit Colchicine (Colchicine) 0.6 mg PO QODAY@1200 [facility] Last Admin: 07/14/17 11:44 Dose: 0.6 mg Flecainide Acetate (Tambocor) 100 mg PO BID [facility] Last Admin: 07/14/17 09:29 Dose: 100 mg Guaifenesin (Mucinex) 600 mg PO BID [facility] Last Admin: 07/14/17 11:43 Dose: 600 mg Haloperidol (Haldol) 1 mg PO BID PRN PRN Reason: SEVERE AGITATION Hydrochlorothiazide (Hydrochlorothiazide) 12.5 mg PO DAILY PRN PRN PRN Reason: Hypertensive Emergency Levothyroxine Sodium (Synthroid) 50 mcg PO DAILY@0600 [facility] Last Admin: 07/14/17 05:38 Dose: 50 mcg Magnesium Hydroxide (Milk Of Magnesia) 30 ml PO .PRN X 1 PRN PRN Reason: Constipation Magnesium Oxide (Mag-Ox 400) 400 mg PO DAILY [facility] Last Admin: 07/14/17 09:29 Dose: 400 mg Metoprolol Tartrate (Lopressor (Beta Thania)) 25 mg PO BID [facility] Last Admin: 07/14/17 09:29 Dose: 25 mg Montelukast Sodium (Singulair) 10 mg PO QHS [facility] Last Admin: 07/13/17 20:49 Dose: 10 mg Oxycodone HCl (Oxyir) 5 - 10 mg PO Q4H PRN PRN PRN Reason: MOD-SEVERE PAIN (4-10/10) Last Admin: 07/09/17 20:57 Dose: 5 mg Pantoprazole Sodium (Protonix) 20 mg PO DAILY [facility] Last Admin: 07/14/17 09:29 Dose: 20 mg Pravastatin Sodium (Pravachol) 40 mg PO QHS [facility] Last Admin: 07/13/17 20:47 Dose: 40 mg Quetiapine Fumarate (Seroquel) 12.5 mg PO QHS [facility] Last Admin: 07/13/17 20:48 Dose: 12.5 mg Senna/Docusate Sodium (Senokot-S, Tamra-Colace) 2 tablet PO BID [facility] Last Admin: 07/14/17 09:30 Dose: Not Given Sodium Chloride () 5 - 30 ml IV UD PRN PRN Reason: SALINE FLUSH Last Admin: 07/13/17 23:33 Dose: 10 ml Tamsulosin HCl (Flomax) 0.4 mg PO QHS [facility] Last Admin: 07/13/17 20:47 Dose: 0.4 mg Warfarin Sodium 5 mg/ Warfarin (Sodium 2 mg) 7 mg PO DAILY@1700 [facility] Last Admin: 07/13/17 17:46 Dose: 7 mg Assessment/Plan Debility status post nondisplaced Right Acetabular Fracture 2/2 Mechanical fall down basement steps. Goal of rehab is oriental orthodox of prior level of functional independence. Plan: - Physical therapy for gait and balance - Occupational Therapy for ADLs - As needed analgesics - Bowel protocol - DVT prophylaxis: Coumadin, and ASA - HLD - continue home dose of statin - GERD - continue home dose of PPI - Coagulopathy 2/2 Coumadin therapy for Atrial Fib -INR therapeutic, continue to follow. Continue Flecainide. Rate is currently stable. - HTN - stable => continue home medications - Psoriatic arthritis => continue home medication of Humira - AFib - On Coumadin, daily INR with a goal of keeping the level between 2 to 3, INR was 1.9 on 07/12, continue to monitor - Urinary retention => continue Flomax - Hx of Gout continue Colchicine - Sputum Culture positive for Moraxella catarrhalis started on Augmentin 500mg BID x 7days. 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 - Dehydration will give IVF bolus NS @ 75cc/hr x 1 bag
--- NOTE | 2017-07-14 12:53 | PN.NEURO_ITS ---
Subjective: Patient seen and examined. No acute issues over night. Continues to have a productive cough, wheezing through out the lungs, diminished in the bases bilaterally. Tolerating therapy. Denies any shortness of breath or chest pains. - Physical Exam General: Alert, Oriented x3, Cooperative HEENT: Atraumatic, PERRLA, EOMI, Normocephalic Neck: Supple, No JVD, Negative Carotid Bruits Lungs: Diminished - Bilaterally in the bases, Wheezes - through out Cardiovascular: Regular rate, No murmurs Abdomen: Bowel Sounds Present, Soft, Non Tender Extremities: No edema, Capillary Refill Less than 3 Seconds Skin: No rashes, No breakdown Musculoskeletal: No Tenderness to Palpation of Joints or Extremities Neurological: Cranial nerves II-XII grossly intact Psych/Mental Status: Normal Affect, Appropriate Vital Signs Temp Pulse Resp BP Pulse Ox 97.9 F 63 17 144/67 H 94 07/14/17 09:25 07/14/17 09:29 07/14/17 09:25 07/14/17 09:29 07/14/17 09:25 Oxygen Flow Rate 1.5 Oxygen Delivery Method Room Air Weight: 94.801 kg Body Mass Index (BMI) 35.9 Intake and Output for Last 24 Hours 07/12/17 07/13/17 07/14/17 23:59 23:59 23:59 Intake Total 780 / 780 480 / 480 220 / 220 Balance 780 / 780 480 / 480 220 / 220 Laboratory Tests Past 24 Hrs 07/11/17 07/14/17 07/14/17 06:22 07:35 07:55 PT 21.4 H INR 1.9 Sodium 142 Potassium 3.5 Chloride 109 H Carbon Dioxide 27.0 Anion Gap 6 BUN 22 H Creatinine 1.08 Estim Creat Clear Calc 45.68 Est GFR (MDRD) Af Amer 85 Est GFR (MDRD) Non-Af 70 BUN/Creatinine Ratio 20.4 H Glucose 93 Calcium 8.7 RBC Folate Hemolysate 422.0 RBC Folate 1060 Hematocrit 39.8 Active Medications Acetaminophen (Tylenol) 650 mg PO Q6H PRN PRN PRN Reason: Mild Pain (1-3)/Temp > 100.7 F Last Admin: 07/14/17 05:37 Dose: 650 mg Adalimumab (Humira) 40 mg SC Q14D [facility] Last Admin: 07/11/17 08:11 Dose: 40 mg Albuterol Sulfate (Ventolin Aerosols) 2.5 mg INHALATION Q4H.RT PRN PRN Reason: WHEEZING Last Admin: 07/13/17 16:54 Dose: 2.5 mg Allopurinol (Zyloprim) 100 mg PO DAILY [facility] Last Admin: 07/14/17 09:29 Dose: 100 mg Aspirin (Aspirin, Baby) 81 mg PO DAILY@0800 [facility] Last Admin: 07/14/17 09:30 Dose: 81 mg Bisacodyl (Dulcolax) 10 mg RECTAL .PRN X 1 PRN PRN Reason: Constipation Cholecalciferol (Vitamin D) 2,000 unit PO DAILY [facility] Last Admin: 07/14/17 09:29 Dose: 2,000 unit Colchicine (Colchicine) 0.6 mg PO QODAY@1200 [facility] Last Admin: 07/14/17 11:44 Dose: 0.6 mg Flecainide Acetate (Tambocor) 100 mg PO BID [facility] Last Admin: 07/14/17 09:29 Dose: 100 mg Guaifenesin (Mucinex) 600 mg PO BID [facility] Last Admin: 07/14/17 11:43 Dose: 600 mg Haloperidol (Haldol) 1 mg PO BID PRN PRN Reason: SEVERE AGITATION Hydrochlorothiazide (Hydrochlorothiazide) 12.5 mg PO DAILY PRN PRN PRN Reason: Hypertensive Emergency Levothyroxine Sodium (Synthroid) 50 mcg PO DAILY@0600 [facility] Last Admin: 07/14/17 05:38 Dose: 50 mcg Magnesium Hydroxide (Milk Of Magnesia) 30 ml PO .PRN X 1 PRN PRN Reason: Constipation Magnesium Oxide (Mag-Ox 400) 400 mg PO DAILY [facility] Last Admin: 07/14/17 09:29 Dose: 400 mg Metoprolol Tartrate (Lopressor (Beta Thania)) 25 mg PO BID [facility] Last Admin: 07/14/17 09:29 Dose: 25 mg Montelukast Sodium (Singulair) 10 mg PO QHS [facility] Last Admin: 07/13/17 20:49 Dose: 10 mg Oxycodone HCl (Oxyir) 5 - 10 mg PO Q4H PRN PRN PRN Reason: MOD-SEVERE PAIN (4-10/10) Last Admin: 07/09/17 20:57 Dose: 5 mg Pantoprazole Sodium (Protonix) 20 mg PO DAILY [facility] Last Admin: 07/14/17 09:29 Dose: 20 mg Pravastatin Sodium (Pravachol) 40 mg PO QHS [facility] Last Admin: 07/13/17 20:47 Dose: 40 mg Quetiapine Fumarate (Seroquel) 12.5 mg PO QHS [facility] Last Admin: 07/13/17 20:48 Dose: 12.5 mg Senna/Docusate Sodium (Senokot-S, Tamra-Colace) 2 tablet PO BID [facility] Last Admin: 07/14/17 09:30 Dose: Not Given Sodium Chloride () 5 - 30 ml IV UD PRN PRN Reason: SALINE FLUSH Last Admin: 07/13/17 23:33 Dose: 10 ml Tamsulosin HCl (Flomax) 0.4 mg PO QHS [facility] Last Admin: 07/13/17 20:47 Dose: 0.4 mg Warfarin Sodium 5 mg/ Warfarin (Sodium 2 mg) 7 mg PO DAILY@1700 [facility] Last Admin: 07/13/17 17:46 Dose: 7 mg Assessment/Plan Debility status post nondisplaced Right Acetabular Fracture 2/2 Mechanical fall down basement steps. Goal of rehab is christianity of prior level of functional independence. Plan: - Physical therapy for gait and balance - Occupational Therapy for ADLs - As needed analgesics - Bowel protocol - DVT prophylaxis: Coumadin, and ASA - HLD - continue home dose of statin - GERD - continue home dose of PPI - Coagulopathy 2/2 Coumadin therapy for Atrial Fib -INR therapeutic, continue to follow. Continue Flecainide. Rate is currently stable. - HTN - stable => continue home medications - Psoriatic arthritis => continue home medication of Humira - AFib - On Coumadin, daily INR with a goal of keeping the level between 2 to 3 , INR was 1.9 on 07/12, continue to monitor - Urinary retention => continue Flomax - Hx of Gout continue Colchicine - Sputum Culture positive for Moraxella catarrhalis started on Augmentin 500mg BID x 7days. 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 - Dehydration will give IVF bolus NS @ 75cc/hr x 1 bag
--- NOTE | 2017-07-14 15:04 | PCM.PN.HOSP ---
Subjective: Patient acute delirium persists. Per nursing staff patient was awake throughout the whole night until 2 AM before finally going to sleep Objective: GENERAL: cooperative HEENT: Clear conjunctiva, NECK; supple, normal thyroid, CHEST: Diminished to auscultation bilaterally, HEART: Regular S1 S2, no audible murmurs ABDOMEN: soft, non-tender, normoactive bowel sounds, RECTAL: deferred EXTREMITIES: No edema, no clubbing, no cyanosis. 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 Vitals/I&O's: Vital Signs Temp Pulse Resp BP Pulse Ox 97.9 F 63 17 144/67 H 94 07/14/17 09:25 07/14/17 09:29 07/14/17 09:25 07/14/17 09:29 07/14/17 09:25 Oxygen Flow Rate 1.5 Oxygen Delivery Method Room Air Weight: 95.2 kg Body Mass Index (BMI) 35.9 Intake and Output for Last 24 Hours 07/12/17 07/13/17 07/14/17 23:59 23:59 23:59 Intake Total 780 / 780 480 / 480 440 / 440 Balance 780 / 780 480 / 480 440 / 440 Laboratory Results 07/11/17 06:22: RBC Folate Hemolysate 422.0, RBC Folate 1060, Hematocrit 39.8 07/14/17 07:35: Sodium 142, Potassium 3.5, Chloride 109 H, Carbon Dioxide 27.0, Anion Gap 6, BUN 22 H, Creatinine 1.08, Estim Creat Clear Calc 45.68, Est GFR (MDRD) Af Amer 85, Est GFR (MDRD) Non-Af 70, BUN/Creatinine Ratio 20.4 H, Glucose 93, Calcium 8.7 07/14/17 07:55: PT 21.4 H, INR 1.9 Current Medications Acetaminophen (Tylenol) 650 mg PO Q6H PRN PRN PRN Reason: Mild Pain (1-3)/Temp > 100.7 F Last Admin: 07/14/17 05:37 Dose: 650 mg Adalimumab (Humira) 40 mg SC Q14D [facility] Last Admin: 07/11/17 08:11 Dose: 40 mg Albuterol Sulfate (Ventolin Aerosols) 2.5 mg INHALATION Q4H.RT PRN PRN Reason: WHEEZING Last Admin: 07/13/17 16:54 Dose: 2.5 mg Allopurinol (Zyloprim) 100 mg PO DAILY [facility] Last Admin: 07/14/17 09:29 Dose: 100 mg Aspirin (Aspirin, Baby) 81 mg PO DAILY@0800 [facility] Last Admin: 07/14/17 09:30 Dose: 81 mg Bisacodyl (Dulcolax) 10 mg RECTAL .PRN X 1 PRN PRN Reason: Constipation Cholecalciferol (Vitamin D) 2,000 unit PO DAILY [facility] Last Admin: 07/14/17 09:29 Dose: 2,000 unit Colchicine (Colchicine) 0.6 mg PO QODAY@1200 [facility] Last Admin: 07/14/17 11:44 Dose: 0.6 mg Flecainide Acetate (Tambocor) 100 mg PO BID [facility] Last Admin: 07/14/17 09:29 Dose: 100 mg Guaifenesin (Mucinex) 600 mg PO BID [facility] Last Admin: 07/14/17 11:43 Dose: 600 mg Haloperidol (Haldol) 1 mg PO BID PRN PRN Reason: SEVERE AGITATION Hydrochlorothiazide (Hydrochlorothiazide) 12.5 mg PO DAILY PRN PRN PRN Reason: Hypertensive Emergency Levothyroxine Sodium (Synthroid) 50 mcg PO DAILY@0600 [facility] Last Admin: 07/14/17 05:38 Dose: 50 mcg Magnesium Hydroxide (Milk Of Magnesia) 30 ml PO .PRN X 1 PRN PRN Reason: Constipation Magnesium Oxide (Mag-Ox 400) 400 mg PO DAILY [facility] Last Admin: 07/14/17 09:29 Dose: 400 mg Metoprolol Tartrate (Lopressor (Beta Thania)) 25 mg PO BID [facility] Last Admin: 07/14/17 09:29 Dose: 25 mg Montelukast Sodium (Singulair) 10 mg PO QHS [facility] Last Admin: 07/13/17 20:49 Dose: 10 mg Oxycodone HCl (Oxyir) 5 - 10 mg PO Q4H PRN PRN PRN Reason: MOD-SEVERE PAIN (4-10/10) Last Admin: 07/09/17 20:57 Dose: 5 mg Pantoprazole Sodium (Protonix) 20 mg PO DAILY [facility] Last Admin: 07/14/17 09:29 Dose: 20 mg Pravastatin Sodium (Pravachol) 40 mg PO QHS [facility] Last Admin: 07/13/17 20:47 Dose: 40 mg Quetiapine Fumarate (Seroquel) 12.5 mg PO QHS [facility] Last Admin: 07/13/17 20:48 Dose: 12.5 mg Senna/Docusate Sodium (Senokot-S, Tamra-Colace) 2 tablet PO BID [facility] Last Admin: 07/14/17 09:30 Dose: Not Given Sodium Chloride () 5 - 30 ml IV UD PRN PRN Reason: SALINE FLUSH Last Admin: 07/13/17 23:33 Dose: 10 ml Tamsulosin HCl (Flomax) 0.4 mg PO QHS [facility] Last Admin: 07/13/17 20:47 Dose: 0.4 mg Warfarin Sodium 5 mg/ Warfarin (Sodium 2 mg) 7 mg PO DAILY@1700 [facility] Last Admin: 07/13/17 17:46 Dose: 7 mg Assessment/Plan Patient is an 82-year-old gentleman admitted following a fall sustaining a right acetabular fracture. Managed in the hospital and transferred to the inpatient rehab unit 1. Fall with right acetabular fracture. Patient has been admitted to the inpatient rehab unit where he is currently undergoing physical therapy 2. Acute bronchitis cultures positive for M. catarrhalis treated with Augmentin 3. BPH patient is on Flomax 4. Hypertension-blood pressure controlled, home medications continued with dose adjustment as needed 5. Paroxysmal A. fib rate controlled on systemic anticoagulation with Coumadin monitoring daily INR 6. Hypothyroidism-patient is on levothyroxine home dose continued 7. Dementia with behavioral agitation patient placed on Seroquel at night 8. GERD 9. DVT prophylaxis patient on Coumadin Code Visit Inpatient E&M: 11844 [facility] H[facility] L2
[2017-07-14 21:21] VITALS: BP 158/74; PULSE 62; RESP 18; TEMP 36.6; O2SAT 93
[2017-07-14] MEDS: QUEtiapine 25 MG Tablet 12.5 MG PO (21:22)
[2017-07-14] MEDS: Montelukast 10 MG Tablet PO (21:22)
[2017-07-14 21:23] VITALS: BP 158/74; PULSE 62
[2017-07-14] MEDS: Tamsulosin HCl 0.4 MG Capsule PO (21:23)
[2017-07-14] MEDS: Pravastatin 40 MG Tablet PO (21:23)
--- NOTE | 2017-07-15 03:25 | NURSING ---
REVIEWED AND AGREE WITH PNEUMATIC TESTER'S FIM AND HANDOFF CHARTING.
[2017-07-15] MEDS: Levothyroxine 50 MCG Tablet PO (06:19)
[2017-07-15 07:26] LABS: International Normalized Ratio 2.1; Prothrombin Time (Protime)PT. 22.3 SECONDS (11.7-14.9)
[2017-07-15 08:40] VITALS: BP 161/81; PULSE 66; RESP 17; TEMP 36.9; O2SAT 95
[2017-07-15] MEDS: Allopurinol 100 MG Tablet PO (08:43)
[2017-07-15 08:44] VITALS: BP 161/81; PULSE 66
[2017-07-15] MEDS: Pantoprazole Sodium 20 MG Tablet PO (08:44)
[2017-07-15] MEDS: Magnesium Oxide 400 MG Tablet PO (08:44)
[2017-07-15] MEDS: guaiFENesin 600 MG Tablet PO ×2 (08:44→22:02)
[2017-07-15] MEDS: Aspirin 81 MG TAB.CHEW PO (08:44)
[2017-07-15] MEDS: Flecainide 100 MG Tablet PO ×2 (08:44→22:01)
[2017-07-15] MEDS: Metoprolol Tartrate 25 MG Tablet PO ×2 (08:44→22:02)
--- NOTE | 2017-07-15 10:36 | PN.NEURO_ITS ---
Subjective: Staffed in team meeting. at bedside. Questions answered. With Physical therapy, he still requires the assistance of two for transfers, he is unable to maintain the toe touch precautions (TTP). They have not been able to start walking with him again because he is unable to maintain that TT precautions. With Occupational therapy he requires the assistance of two to shower and help with toileting he requires verbal cues constantly. with personnel care he is able to his own care if he is sitting he does requires constant cues as to what he needs to do. He needs cues in order to bath and requires assistance. With speech therapy they are working on cognitive therapy with the patient. With nursing he is better at night but will increase the Seroquel to 25mg at bedtime. Medically we feel he has some underlining Dementia and we will add Aricept 10mg at bedtime also. We will re-team him on of next week. - Physical Exam General: Alert, Oriented x3, Cooperative HEENT: Atraumatic, PERRLA, EOMI, Normocephalic Neck: Supple, No JVD, Negative Carotid Bruits Lungs: Clear to auscultation, Normal air movement Cardiovascular: Regular rate, No murmurs Abdomen: Bowel Sounds Present, Soft, Non Tender Extremities: No edema, Capillary Refill Less than 3 Seconds Skin: No rashes, No breakdown Musculoskeletal: No Tenderness to Palpation of Joints or Extremities Neurological: Cranial nerves II-XII grossly intact Psych/Mental Status: Normal Affect, Appropriate Vital Signs Temp Pulse Resp BP Pulse Ox 98.4 F 66 17 161/81 H 95 07/15/17 08:40 07/15/17 08:44 07/15/17 08:40 07/15/17 08:44 07/15/17 08:40 Oxygen Flow Rate 1.5 Oxygen Delivery Method Room Air Weight: 95.2 kg Body Mass Index (BMI) 35.9 Intake and Output for Last 24 Hours 07/13/17 07/14/17 07/15/17 23:59 23:59 23:59 Intake Total 480 / 480 560 / 560 320 / 320 Balance 480 / 480 560 / 560 320 / 320 Laboratory Tests Past 24 Hrs 07/11/17 07/15/17 06:22 07:06 PT 22.3 H INR 2.1 RBC Folate Hemolysate 422.0 RBC Folate 1060 Hematocrit 39.8 Active Medications Acetaminophen (Tylenol) 650 mg PO Q6H PRN PRN PRN Reason: Mild Pain (1-3)/Temp > 100.7 F Last Admin: 07/14/17 05:37 Dose: 650 mg Adalimumab (Humira) 40 mg SC Q14D [facility] Last Admin: 07/11/17 08:11 Dose: 40 mg Albuterol Sulfate (Ventolin Aerosols) 2.5 mg INHALATION Q4H.RT PRN PRN Reason: WHEEZING Last Admin: 07/13/17 16:54 Dose: 2.5 mg Allopurinol (Zyloprim) 100 mg PO DAILY [facility] Last Admin: 07/15/17 08:43 Dose: 100 mg Aspirin (Aspirin, Baby) 81 mg PO DAILY@0800 [facility] Last Admin: 07/15/17 08:44 Dose: 81 mg Bisacodyl (Dulcolax) 10 mg RECTAL .PRN X 1 PRN PRN Reason: Constipation Cholecalciferol (Vitamin D) 2,000 unit PO DAILY [facility] Last Admin: 07/15/17 08:43 Dose: 2,000 unit Colchicine (Colchicine) 0.6 mg PO QODAY@1200 [facility] Last Admin: 07/14/17 11:44 Dose: 0.6 mg Flecainide Acetate (Tambocor) 100 mg PO BID [facility] Last Admin: 07/15/17 08:44 Dose: 100 mg Guaifenesin (Mucinex) 600 mg PO BID [facility] Last Admin: 07/15/17 08:44 Dose: 600 mg Haloperidol (Haldol) 1 mg PO BID PRN PRN Reason: SEVERE AGITATION Hydrochlorothiazide (Hydrochlorothiazide) 12.5 mg PO DAILY PRN PRN PRN Reason: Hypertensive Emergency Levothyroxine Sodium (Synthroid) 50 mcg PO DAILY@0600 [facility] Last Admin: 07/15/17 06:19 Dose: 50 mcg Magnesium Hydroxide (Milk Of Magnesia) 30 ml PO .PRN X 1 PRN PRN Reason: Constipation Magnesium Oxide (Mag-Ox 400) 400 mg PO DAILY [facility] Last Admin: 07/15/17 08:44 Dose: 400 mg Metoprolol Tartrate (Lopressor (Beta Thania)) 25 mg PO BID [facility] Last Admin: 07/15/17 08:44 Dose: 25 mg Montelukast Sodium (Singulair) 10 mg PO QHS [facility] Last Admin: 07/14/17 21:22 Dose: 10 mg Oxycodone HCl (Oxyir) 5 - 10 mg PO Q4H PRN PRN PRN Reason: MOD-SEVERE PAIN (4-10/10) Last Admin: 07/09/17 20:57 Dose: 5 mg Pantoprazole Sodium (Protonix) 20 mg PO DAILY [facility] Last Admin: 07/15/17 08:44 Dose: 20 mg Pravastatin Sodium (Pravachol) 40 mg PO QHS [facility] Last Admin: 07/14/17 21:23 Dose: 40 mg Quetiapine Fumarate (Seroquel) 25 mg PO QHS [facility] Senna/Docusate Sodium (Senokot-S, Tamra-Colace) 2 tablet PO BID [facility] Last Admin: 07/15/17 08:44 Dose: Not Given Sodium Chloride () 5 - 30 ml IV UD PRN PRN Reason: SALINE FLUSH Last Admin: 07/13/17 23:33 Dose: 10 ml [facility] Admin: 07/14/17 21:23 Dose: 0.4 mg Warfarin Sodium 5 mg/ Warfarin (Sodium 2 mg) 7 mg PO DAILY@1700 [facility] Last Admin: 07/14/17 19:07 Dose: 7 mg Assessment/Plan Debility status post nondisplaced Right Acetabular Fracture 2/2 Mechanical fall down basement steps. Goal of rehab is jew of prior level of functional independence. Plan: - Physical therapy for gait and balance - Occupational Therapy for ADLs - As needed analgesics - Bowel protocol - DVT prophylaxis: Coumadin, and ASA - HLD - continue home dose of statin - GERD - continue home dose of PPI - Coagulopathy 2/2 Coumadin therapy for Atrial Fib -INR therapeutic, continue to follow. Continue Flecainide. Rate is currently stable. - HTN - stable => continue home medications - Psoriatic arthritis => continue home medication of Humira - AFib - On Coumadin, daily INR with a goal of keeping the level between 2 to 3 , INR was 1.9 on 07/12, continue to monitor - Urinary retention => continue Flomax - Hx of Gout continue Colchicine - Sputum Culture positive for Moraxella catarrhalis started on Augmentin 500mg BID x 7days. 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 - Dehydration will give IVF bolus NS @ 75cc/hr x 1 bag - Dementia -> will add Aricept 10mg at bedtime.
--- NOTE | 2017-07-15 13:46 | CASEMGMT ---
Social Work Team meeting held today with pt and present. Pt continues to participate in therapy. Pt presents with some confusion which states is at baseline due to dementia. Pt with difficulty maintaining weight bearing status and therefore ambulation limited. PT seeing ST for cognition. Will continue with treatment plan at this time and reteam next week. ALPHONSO Eason
[2017-07-15 17:00] VITALS: PULSE 73; RESP 18
[2017-07-15] MEDS: Albuterol 2.5 MG/3 ML VIAL.NEB. INHALATION (17:00)
[2017-07-15 22:00] VITALS: BP 157/71; PULSE 70; RESP 18; TEMP 36.4; O2SAT 95
[2017-07-15] MEDS: Montelukast 10 MG Tablet PO (22:01)
[2017-07-15 22:02] VITALS: BP 157/71; PULSE 70
[2017-07-15] MEDS: QUEtiapine 25 MG Tablet PO (22:02)
[2017-07-15] MEDS: Pravastatin 40 MG Tablet PO (22:02)
[2017-07-15] MEDS: Donepezil HCl 10 MG Tablet PO (22:02)
[2017-07-15] MEDS: Tamsulosin HCl 0.4 MG Capsule PO (22:02)
[2017-07-15] MEDS: Acetaminophen 325 MG Tablet 650 MG PO (23:01)
--- NOTE | 2017-07-16 01:26 | NURSING ---
pt found yelling out and hanging leg over side of bed. Pt stated he wanted to go to the bathroom to shave. Pt reoriented to time and encouraged to try to relax and get some sleep. Pt was rambling. Staff repositioned pt and will continue to monitor.
--- NOTE | 2017-07-16 03:20 | NURSING ---
Reviewed and agree with [employer] documentation.
[2017-07-16 04:21] VITALS: PULSE 70; RESP 18
[2017-07-16] MEDS: Albuterol 2.5 MG/3 ML VIAL.NEB. INHALATION (04:21)
[2017-07-16] MEDS: Levothyroxine 50 MCG Tablet PO (05:21)
[2017-07-16 07:28] LABS: International Normalized Ratio 2.2; Prothrombin Time (Protime)PT. 23.5 SECONDS (11.7-14.9)
[2017-07-16 07:53] VITALS: BP 140/70; PULSE 66; RESP 18; TEMP 36.4; O2SAT 93
[2017-07-16] MEDS: Allopurinol 100 MG Tablet PO (08:36)
[2017-07-16 08:37] VITALS: BP 140/70; PULSE 66
[2017-07-16] MEDS: Flecainide 100 MG Tablet PO ×2 (08:37→22:29)
[2017-07-16] MEDS: Aspirin 81 MG TAB.CHEW PO (08:37)
[2017-07-16] MEDS: guaiFENesin 600 MG Tablet PO ×2 (08:37→22:29)
[2017-07-16] MEDS: Magnesium Oxide 400 MG Tablet PO (08:37)
[2017-07-16] MEDS: Pantoprazole Sodium 20 MG Tablet PO (08:37)
[2017-07-16] MEDS: Metoprolol Tartrate 25 MG Tablet PO ×2 (08:37→22:28)
--- NOTE | 2017-07-16 14:39 | PCM.PN.HOSP ---
Subjective: Per nursing staff patient intermittent confusion still persist otherwise tolerating physical therapy fairly well Objective: GENERAL: cooperative HEENT: Clear conjunctiva, NECK; supple, normal thyroid, CHEST: Diminished to auscultation bilaterally, HEART: Regular S1 S2, no audible murmurs ABDOMEN: soft, non-tender, normoactive bowel sounds, RECTAL: deferred EXTREMITIES: No edema, no clubbing, no cyanosis. 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 Vitals/I&O's: Vital Signs Temp Pulse Resp BP Pulse Ox 97.6 F L 66 18 140/70 H 93 07/16/17 07:53 07/16/17 08:37 07/16/17 07:53 07/16/17 08:37 07/16/17 07:53 Oxygen Flow Rate 1.5 Oxygen Delivery Method Room Air Weight: 95.2 kg Body Mass Index (BMI) 35.9 Intake and Output for Last 24 Hours 07/14/17 07/15/17 07/16/17 23:59 23:59 23:59 Intake Total 560 / 560 680 / 680 560 / 560 Balance 560 / 560 680 / 680 560 / 560 Laboratory Results 07/16/17 06:50: PT 23.5 H, INR 2.2 Current Medications Acetaminophen (Tylenol) 650 mg PO Q6H PRN PRN PRN Reason: Mild Pain (1-3)/Temp > 100.7 F Last Admin: 07/15/17 23:01 Dose: 650 mg Adalimumab (Humira) 40 mg SC Q14D [facility] Last Admin: 07/11/17 08:11 Dose: 40 mg Albuterol Sulfate (Ventolin Aerosols) 2.5 mg INHALATION Q4H.RT PRN PRN Reason: WHEEZING Last Admin: 07/16/17 04:21 Dose: 2.5 mg Allopurinol (Zyloprim) 100 mg PO DAILY [facility] Last Admin: 07/16/17 08:36 Dose: 100 mg Aspirin (Aspirin, Baby) 81 mg PO DAILY@0800 [facility] Last Admin: 07/16/17 08:37 Dose: 81 mg Bisacodyl (Dulcolax) 10 mg RECTAL .PRN X 1 PRN PRN Reason: Constipation Cholecalciferol (Vitamin D) 2,000 unit PO DAILY [facility] Last Admin: 07/16/17 08:36 Dose: 2,000 unit Colchicine (Colchicine) 0.6 mg PO QODAY@1200 [facility] Last Admin: 07/16/17 12:02 Dose: 0.6 mg Donepezil HCl (Aricept) 10 mg PO QHS [facility] Last Admin: 07/15/17 22:02 Dose: 10 mg Flecainide Acetate (Tambocor) 100 mg PO BID [facility] Last Admin: 07/16/17 08:37 Dose: 100 mg Guaifenesin (Mucinex) 600 mg PO BID [facility] Last Admin: 07/16/17 08:37 Dose: 600 mg Haloperidol (Haldol) 1 mg PO BID PRN PRN Reason: SEVERE AGITATION Hydrochlorothiazide (Hydrochlorothiazide) 12.5 mg PO DAILY PRN PRN PRN Reason: Hypertensive Emergency Levothyroxine Sodium (Synthroid) 50 mcg PO DAILY@0600 [facility] Last Admin: 07/16/17 05:21 Dose: 50 mcg Magnesium Hydroxide (Milk Of Magnesia) 30 ml PO .PRN X 1 PRN PRN Reason: Constipation Magnesium Oxide (Mag-Ox 400) 400 mg PO DAILY [facility] Last Admin: 07/16/17 08:37 Dose: 400 mg Metoprolol Tartrate (Lopressor (Beta Thania)) 25 mg PO BID [facility] Last Admin: 07/16/17 08:37 Dose: 25 mg Montelukast Sodium (Singulair) 10 mg PO QHS [facility] Last Admin: 07/15/17 22:01 Dose: 10 mg Oxycodone HCl (Oxyir) 5 - 10 mg PO Q4H PRN PRN PRN Reason: MOD-SEVERE PAIN (4-10/10) Last Admin: 07/09/17 20:57 Dose: 5 mg Pantoprazole Sodium (Protonix) 20 mg PO DAILY [facility] Last Admin: 07/16/17 08:37 Dose: 20 mg Pravastatin Sodium (Pravachol) 40 mg PO QHS [facility] Last Admin: 07/15/17 22:02 Dose: 40 mg Quetiapine Fumarate (Seroquel) 25 mg PO QHS [facility] Last Admin: 07/15/17 22:02 Dose: 25 mg Senna/Docusate Sodium (Senokot-S, Tamra-Colace) 2 tablet PO BID [facility] Last Admin: 07/16/17 08:34 Dose: Not Given Sodium Chloride () 5 - 30 ml IV UD PRN PRN Reason: SALINE FLUSH Last Admin: 07/13/17 23:33 Dose: 10 ml Tamsulosin HCl (Flomax) 0.4 mg PO QHS [facility] Last Admin: 07/15/17 22:02 Dose: 0.4 mg Warfarin Sodium 5 mg/ Warfarin (Sodium 2 mg) 7 mg PO DAILY@1700 [facility] Last Admin: 07/15/17 17:41 Dose: 7 mg Assessment/Plan Patient is an 82-year-old gentleman admitted following a fall sustaining a right acetabular fracture. Managed in the hospital and transferred to the inpatient rehab unit 1. Fall with right acetabular fracture. Patient has been admitted to the inpatient rehab unit where he is currently undergoing physical therapy 2. Acute bronchitis cultures positive for M. catarrhalis treated with Augmentin 3. BPH patient is on Flomax 4. Hypertension-blood pressure controlled, home medications continued with dose adjustment as needed 5. Paroxysmal A. fib rate controlled on systemic anticoagulation with Coumadin monitoring daily INR. INR remains therapeutic 6. Hypothyroidism-patient is on levothyroxine home dose continued 7. Dementia with behavioral agitation patient placed on Seroquel at night 8. GERD 9. DVT prophylaxis patient on Coumadin Code Visit Inpatient E&M: 34098 [facility] H[facility] L2
[2017-07-16 21:05] VITALS: BP 138/72; PULSE 68; RESP 18; TEMP 36.7; O2SAT 96
[2017-07-16 22:28] VITALS: BP 138/72; PULSE 68
[2017-07-16] MEDS: Pravastatin 40 MG Tablet PO (22:28)
[2017-07-16] MEDS: QUEtiapine 25 MG Tablet PO (22:28)
[2017-07-16] MEDS: Donepezil HCl 10 MG Tablet PO (22:29)
[2017-07-16] MEDS: Montelukast 10 MG Tablet PO (22:30)
[2017-07-16] MEDS: Tamsulosin HCl 0.4 MG Capsule PO (22:30)
[2017-07-17] VITALS (7 sets, daily range): BP systolic 142–149; BP diastolic 65–73; PULSE 62–72; RESP 16–18; TEMP 36.6–36.7; O2SAT 92–95
[2017-07-17] MEDS: guaiFENesin 10 ML UDC (200MG/10ML) PO ×2 (03:17→20:57)
--- NOTE | 2017-07-17 03:34 | NURSING ---
Reviewed and agree with LPNs fims and handoff
[2017-07-17] MEDS: Levothyroxine 50 MCG Tablet PO (06:17)
[2017-07-17] MEDS: Allopurinol 100 MG Tablet PO (07:47)
[2017-07-17] MEDS: Flecainide 100 MG Tablet PO ×2 (07:48→20:59)
[2017-07-17] MEDS: Magnesium Oxide 400 MG Tablet PO (07:48)
[2017-07-17] MEDS: Metoprolol Tartrate 25 MG Tablet PO ×2 (07:48→20:58)
[2017-07-17] MEDS: guaiFENesin 600 MG Tablet PO ×2 (07:48→20:58)
[2017-07-17] MEDS: Aspirin 81 MG TAB.CHEW PO (07:48)
[2017-07-17] MEDS: Pantoprazole Sodium 20 MG Tablet PO (07:48)
[2017-07-17] MEDS: Senna/Docusate Sodium 1 Tablet 2 TABLET PO (07:50)
[2017-07-17] MEDS: Albuterol 2.5 MG/3 ML VIAL.NEB. INHALATION ×3 (08:00→21:50)
[2017-07-17 09:22] LABS: International Normalized Ratio 2.2; Prothrombin Time (Protime)PT. 23.8 SECONDS (11.7-14.9)
[2017-07-17] MEDS: Donepezil HCl 10 MG Tablet PO (20:58)
[2017-07-17] MEDS: Montelukast 10 MG Tablet PO (20:59)
[2017-07-17] MEDS: Tamsulosin HCl 0.4 MG Capsule PO (20:59)
[2017-07-17] MEDS: QUEtiapine 25 MG Tablet PO (20:59)
[2017-07-17] MEDS: Pravastatin 40 MG Tablet PO (20:59)
--- NOTE | 2017-07-18 01:07 | NURSING ---
Reviewed and agree with LPNs fims and handoff
[2017-07-18] MEDS: Levothyroxine 50 MCG Tablet PO (06:58)
[2017-07-18 07:04] LABS: International Normalized Ratio 2.3; Prothrombin Time (Protime)PT. 24.6 SECONDS (11.7-14.9)
[2017-07-18 07:28] VITALS: BP 138/76; PULSE 64; RESP 18; TEMP 36.8; O2SAT 94
[2017-07-18 07:57] VITALS: PULSE 64
[2017-07-18] MEDS: Aspirin 81 MG TAB.CHEW PO (07:57)
[2017-07-18] MEDS: guaiFENesin 600 MG Tablet PO ×2 (07:57→21:06)
[2017-07-18] MEDS: Magnesium Oxide 400 MG Tablet PO (07:57)
[2017-07-18] MEDS: Metoprolol Tartrate 25 MG Tablet PO ×2 (07:57→21:07)
[2017-07-18] MEDS: Allopurinol 100 MG Tablet PO (07:57)
[2017-07-18] MEDS: Pantoprazole Sodium 20 MG Tablet PO (07:57)
[2017-07-18] MEDS: Flecainide 100 MG Tablet PO ×2 (07:57→21:06)
[2017-07-18 10:00] VITALS: PULSE 75; RESP 21; O2SAT 94
[2017-07-18] MEDS: Albuterol 2.5 MG/3 ML VIAL.NEB. INHALATION ×2 (10:00→19:30)
--- NOTE | 2017-07-18 11:08 | PN_ITS ---
Subjective: Patient seen has a productive cough. Nursing staff also has audible wheezing noted on doxycycline ordered repeat chest x-ray Objective: GENERAL: cooperative HEENT: Clear conjunctiva, NECK; supple, normal thyroid, CHEST: Diminished to auscultation bilaterally, with bilateral wheezing HEART: Regular S1 S2, no audible murmurs ABDOMEN: soft, non-tender, normoactive bowel sounds, RECTAL: deferred EXTREMITIES: No edema, no clubbing, no cyanosis. 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 Vitals/I&O's: Vital Signs Temp Pulse Resp BP Pulse Ox 98.2 F 75 21 H 138/76 H 94 07/18/17 07:28 07/18/17 10:00 07/18/17 10:00 07/18/17 07:28 07/18/17 10:00 Oxygen Flow Rate 1.5 Oxygen Delivery Method Room Air Weight: 95.2 kg Body Mass Index (BMI) 35.9 Intake and Output for Last 24 Hours 07/16/17 07/17/17 07/18/17 23:59 23:59 23:59 Intake Total 560 / 560 240 / 240 Balance 560 / 560 240 / 240 Laboratory Results 07/18/17 06:41: PT 24.6 H, INR 2.3 Current Medications Acetaminophen (Tylenol) 650 mg PO Q6H PRN PRN PRN Reason: Mild Pain (1-3)/Temp > 100.7 F Last Admin: 07/15/17 23:01 Dose: 650 mg Adalimumab (Humira) 40 mg SC Q14D [facility] Last Admin: 07/11/17 08:11 Dose: 40 mg Albuterol Sulfate (Ventolin Aerosols) 2.5 mg INHALATION Q4H.RT PRN PRN Reason: WHEEZING Last Admin: 07/18/17 10:00 Dose: 2.5 mg Allopurinol (Zyloprim) 100 mg PO DAILY [facility] Last Admin: 07/18/17 07:57 Dose: 100 mg Aspirin (Aspirin, Baby) 81 mg PO DAILY@0800 [facility] Last Admin: 07/18/17 07:57 Dose: 81 mg Bisacodyl (Dulcolax) 10 mg RECTAL .PRN X 1 PRN PRN Reason: Constipation Cholecalciferol (Vitamin D) 2,000 unit PO DAILY [facility] Last Admin: 07/18/17 07:57 Dose: 2,000 unit Colchicine (Colchicine) 0.6 mg PO QODAY@1200 [facility] Last Admin: 07/16/17 12:02 Dose: 0.6 mg Donepezil HCl (Aricept) 10 mg PO QHS [facility] Last Admin: 07/17/17 20:58 Dose: 10 mg Flecainide Acetate (Tambocor) 100 mg PO BID [facility] Last Admin: 07/18/17 07:57 Dose: 100 mg Guaifenesin (Mucinex) 600 mg PO BID [facility] Last Admin: 07/18/17 07:57 Dose: 600 mg Guaifenesin (Robitussin) 10 ml PO Q6H PRN PRN PRN Reason: COUGH Last Admin: 07/17/17 20:57 Dose: 10 ml Haloperidol (Haldol) 1 mg PO BID PRN PRN Reason: SEVERE AGITATION Hydrochlorothiazide (Hydrochlorothiazide) 12.5 mg PO DAILY PRN PRN PRN Reason: Hypertensive Emergency Levothyroxine Sodium (Synthroid) 50 mcg PO DAILY@0600 [facility] Last Admin: 07/18/17 06:58 Dose: 50 mcg Magnesium Hydroxide (Milk Of Magnesia) 30 ml PO .PRN X 1 PRN PRN Reason: Constipation Magnesium Oxide (Mag-Ox 400) 400 mg PO DAILY [facility] Last Admin: 07/18/17 07:57 Dose: 400 mg Metoprolol Tartrate (Lopressor (Beta Thania)) 25 mg PO BID [facility] Last Admin: 07/18/17 07:57 Dose: 25 mg Montelukast Sodium (Singulair) 10 mg PO QHS [facility] Last Admin: 07/17/17 20:59 Dose: 10 mg Oxycodone HCl (Oxyir) 5 - 10 mg PO Q4H PRN PRN PRN Reason: MOD-SEVERE PAIN (4-10/10) Last Admin: 07/09/17 20:57 Dose: 5 mg Pantoprazole Sodium (Protonix) 20 mg PO DAILY [facility] Last Admin: 07/18/17 07:57 Dose: 20 mg Pravastatin Sodium (Pravachol) 40 mg PO QHS [facility] Last Admin: 07/17/17 20:59 Dose: 40 mg Quetiapine Fumarate (Seroquel) 25 mg PO QHS [facility] Last Admin: 07/17/17 20:59 Dose: 25 mg Senna/Docusate Sodium (Senokot-S, Tamra-Colace) 2 tablet PO BID [facility] Last Admin: 07/18/17 07:58 Dose: Not Given Sodium Chloride () 5 - 30 ml IV UD PRN PRN Reason: SALINE FLUSH Last Admin: 07/13/17 23:33 Dose: 10 ml Tamsulosin HCl (Flomax) 0.4 mg PO QHS [facility] Last Admin: 07/17/17 20:59 Dose: 0.4 mg Warfarin Sodium 5 mg/ Warfarin (Sodium 2 mg) 7 mg PO DAILY@1700 [facility] Last Admin: 07/17/17 16:42 Dose: 7 mg Assessment/Plan Patient is an 82-year-old gentleman admitted following a fall sustaining a right acetabular fracture. Managed in the hospital and transferred to the inpatient rehab unit 1. Fall with right acetabular fracture. Patient has been admitted to the inpatient rehab unit where he is currently undergoing physical therapy 2. Acute bronchitis cultures positive for M. catarrhalis treated with Augmentin antibiotics discontinued 4 days prior however patient has had recurrent cough with productive greenish sputum repeat culture signs ordered chest x-ray 3. BPH patient is on Flomax 4. Hypertension-blood pressure controlled, home medications continued with dose adjustment as needed 5. Paroxysmal A. fib rate controlled on systemic anticoagulation with Coumadin monitoring daily INR. INR remains therapeutic 6. Hypothyroidism-patient is on levothyroxine home dose continued 7. Dementia with behavioral agitation patient placed on Seroquel at night 8. GERD 9. DVT prophylaxis patient on Coumadin Code Visit Inpatient E&M: 75639 [facility] Hosp L2
--- NOTE | 2017-07-18 11:17 | RAD_ITS ---
STUDY: X-RAY CHEST REASON FOR EXAM: Male, 82 years old. Cough TECHNIQUE: PA and lateral views of the chest. COMPARISON: 07/10/2017 FINDINGS: Lungs are mildly hypoinflated. Bibasilar atelectasis. Elevated left hemidiaphragm. No focal airspace disease. There is no demonstrated pleural abnormality. There is borderline cardiomegaly. Normal mediastinum and lee. Normal visualized pulmonary arteries. Normal visualized aortic arch and descending thoracic aorta. There are diffuse degenerative changes of the visualized thoracic spine. There is degenerative osteoarthritis of the bilateral shoulders. There is no demonstrated abnormality of the visualized soft tissue structures of the upper abdomen. RAD/Chest PA and Lateral IMPRESSION: Bibasilar atelectasis. Hypoinflated lungs. Electronically Signed: Jesse Portillo DO at 12:23 EST Tel , Service support ,
--- NOTE | 2017-07-18 11:22 | NURSING ---
increase green nasal drainage, intermittent dry nonproductive cough, and expiratory audible and scattered throughout lung freedman. dr bazan aware and seen patient. new order for cxr, change aerosols to routine and doxycycline 100 mg bid x 7 days. updated.
[2017-07-18] MEDS: Doxycycline 100 MG CAPSULE PO ×2 (12:12→21:06)
[2017-07-18 12:27] LABS: Anion Gap 8 (5-15); BUN 19 mg/dL (7-18); Calcium,Total 8.7 mg/dL (8.5-10.1); Chloride 106 mmol/L (98-107); Creatinine, Serum 1.12 mg/dL (0.70-1.30); EST Glomerular Filtration Rate 67 mL/min (>60); Est Glom Filt Rate - Afr Amer 81 mL/min (>60); Estimated Creatinine Clearance 44.05 ml/min; Glucose 118 mg/dL (70-110); Magnesium 1.9 mg/dL (1.6-2.6); Potassium 3.7 mmol/L (3.5-5.1); Sodium Level 143 mmol/L (136-145)
--- NOTE | 2017-07-18 12:30 | NURSING ---
dr bazan texted results of cxr
--- NOTE | 2017-07-18 15:34 | NURSING ---
family pushing pt around unit in wheelchair
[2017-07-18 19:30] VITALS: PULSE 72; RESP 16
[2017-07-18 20:30] VITALS: BP 148/77; PULSE 74; RESP 20; TEMP 36.8; O2SAT 93
[2017-07-18] MEDS: QUEtiapine 25 MG Tablet PO (21:05)
[2017-07-18] MEDS: Pravastatin 40 MG Tablet PO (21:06)
[2017-07-18] MEDS: guaiFENesin 10 ML UDC (200MG/10ML) PO (21:06)
[2017-07-18] MEDS: Tamsulosin HCl 0.4 MG Capsule PO (21:06)
[2017-07-18] MEDS: Donepezil HCl 10 MG Tablet PO (21:06)
[2017-07-18] MEDS: Montelukast 10 MG Tablet PO (21:06)
[2017-07-18 21:07] VITALS: BP 148/77; PULSE 74
[2017-07-18] MEDS: Menthol/Lanolin/Calamine/Znox 113 GM Tube 1 APPLIC TOPICAL (21:10)
[2017-07-19] VITALS (9 sets, daily range): BP systolic 123–194; BP diastolic 59–85; PULSE 65–90; RESP 16–22; TEMP 36.7; O2SAT 94–97
[2017-07-19] MEDS: guaiFENesin 10 ML UDC (200MG/10ML) PO ×3 (03:37→21:23)
[2017-07-19] MEDS: Levothyroxine 50 MCG Tablet PO (04:48)
[2017-07-19] MEDS: Acetaminophen 325 MG Tablet 650 MG PO (04:48)
[2017-07-19] MEDS: Menthol/Lanolin/Calamine/Znox 113 GM Tube 1 APPLIC TOPICAL ×3 (04:49→21:21)
--- NOTE | 2017-07-19 06:00 | NURSING ---
pt has been awake all of hs. pt denied any discomfort except to hip which is mild. pt given snack, and was toileted several times through out night. pt continues to have diarrhea with small amts of soft formed stool. pt denied that he was sleepy when asked and was returned to bed at 0500 after being up in the recliner most of the night. pt has been cooperative with staff .
[2017-07-19 06:17] LABS: Hematocrit 37.2 % (40-54); Hemoglobin 12.2 g/dl (13.0-16.5); Mean Corp Hgb Conc 32.8 g/gl (32-36); Mean Corpuscular Hgb 30.3 pg (27.0-32.0); Mean Corpuscular Volume 92.3 fL (80-94); Mean Platelet Vol. 9.6 fl (6.2-12.0); Platelet Count 189 K/mm3 (150-450); RBC Distribution Width CV 14.4 % (11.6-14.6); RBC Distribution Width SD 47.2 fl (35.1-43.9); Red Blood Count 4.03 M/mm3 (4.6-6.2); White Blood Count 9.3 K/mm3 (4.4-11.0)
[2017-07-19 06:21] LABS: International Normalized Ratio 2.5; Prothrombin Time (Protime)PT. 26.4 SECONDS (11.7-14.9)
[2017-07-19 06:25] LABS: Scan Indicated on CBC? Y/N NO
[2017-07-19] MEDS: Pantoprazole Sodium 20 MG Tablet PO (08:02)
[2017-07-19] MEDS: Allopurinol 100 MG Tablet PO (08:02)
[2017-07-19] MEDS: Aspirin 81 MG TAB.CHEW PO (08:02)
[2017-07-19] MEDS: Flecainide 100 MG Tablet PO ×2 (08:02→21:23)
[2017-07-19] MEDS: Metoprolol Tartrate 25 MG Tablet PO ×2 (08:02→21:22)
[2017-07-19] MEDS: Magnesium Oxide 400 MG Tablet PO (08:02)
[2017-07-19] MEDS: Doxycycline 100 MG CAPSULE PO ×2 (08:02→21:21)
[2017-07-19] MEDS: guaiFENesin 600 MG Tablet PO ×2 (08:02→21:22)
[2017-07-19] MEDS: Albuterol 2.5 MG/3 ML VIAL.NEB. INHALATION ×5 (08:04→23:15)
--- NOTE | 2017-07-19 09:30 | PCM.PN.NEU ---
Subjective: Patient seen and examined. Tolerating therapy. Continues to have a productive cough. Nursing staff has noted audible wheezing currently on doxycycline. Admits to having shortness of breath on exertion, CXR was obtain on Tuesday 07/18, which showed Bibasilar atelectasis and Hypoinflated lungs, No issues with GI/. - Physical Exam General: Alert, Oriented x3, Cooperative HEENT: Atraumatic, PERRLA, EOMI, Normocephalic Neck: Supple, No JVD, Negative Carotid Bruits Lungs: Clear to auscultation, Normal air movement Cardiovascular: Regular rate, No murmurs Abdomen: Bowel Sounds Present, Soft, Non Tender Extremities: No edema, Capillary Refill Less than 3 Seconds Skin: No rashes, No breakdown Musculoskeletal: No Tenderness to Palpation of Joints or Extremities Neurological: Cranial nerves II-XII grossly intact Psych/Mental Status: Normal Affect, Appropriate Vital Signs Temp Pulse Resp BP Pulse Ox 98.0 F 70 16 123/59 H 95 07/19/17 07:57 07/19/17 08:03 07/19/17 08:03 07/19/17 08:02 07/19/17 08:03 Oxygen Flow Rate 1.5 Oxygen Delivery Method Room Air Weight: 95.2 kg Body Mass Index (BMI) 35.9 Intake and Output for Last 24 Hours 07/17/17 07/18/17 07/19/17 23:59 23:59 23:59 Intake Total 240 / 240 360 / 360 240 / 240 Output Total 250 / 250 Balance 240 / 240 360 / 360 -10 / -10 Laboratory Tests Past 24 Hrs 07/18/17 07/19/17 07/19/17 11:57 05:55 05:55 WBC 9.3 RBC 4.03 L Hgb 12.2 L Hct 37.2 L MCV 92.3 MCH 30.3 MCHC 32.8 RDW 14.4 RDW Differential 47.2 H Plt Count 189 MPV 9.6 PT 26.4 H INR 2.5 Sodium 143 Potassium 3.7 Chloride 106 Carbon Dioxide 29.0 Anion Gap 8 BUN 19 H Creatinine 1.12 Estim Creat Clear Calc 44.05 Est GFR (MDRD) Af Amer 81 Est GFR (MDRD) Non-Af 67 BUN/Creatinine Ratio 17.0 Glucose 118 H Calcium 8.7 Magnesium 1.9 Active Medications Acetaminophen (Tylenol) 650 mg PO Q6H PRN PRN PRN Reason: Mild Pain (1-3)/Temp > 100.7 F Last Admin: 07/19/17 04:48 Dose: 650 mg Adalimumab (Humira) 40 mg SC Q14D [facility] Last Admin: 07/11/17 08:11 Dose: 40 mg Albuterol Sulfate (Ventolin Aerosols) 2.5 mg INHALATION Q4H.RT [facility] Last Admin: 07/19/17 11:04 Dose: 2.5 mg Allopurinol (Zyloprim) 100 mg PO DAILY [facility] Last Admin: 07/19/17 08:02 Dose: 100 mg Aspirin (Aspirin, Baby) 81 mg PO DAILY@0800 [facility] Last Admin: 07/19/17 08:02 Dose: 81 mg Bisacodyl (Dulcolax) 10 mg RECTAL .PRN X 1 PRN PRN Reason: Constipation Calamine/Phenol (Calmoseptine Ointment) 1 applic TOPICAL TID [facility] PRN Reason: Protocol Last Admin: 07/19/17 04:49 Dose: 1 applicatio Cholecalciferol (Vitamin D) 2,000 unit PO DAILY [facility] Last Admin: 07/19/17 08:02 Dose: 2,000 unit Colchicine (Colchicine) 0.6 mg PO QODAY@1200 [facility] Last Admin: 07/18/17 12:12 Dose: 0.6 mg Donepezil HCl (Aricept) 10 mg PO QHS [facility] Last Admin: 07/18/17 21:06 Dose: 10 mg Doxycycline Monohydrate (Doxycycline) 100 mg PO BID [facility] Stop: 07/25/17 11:22 Last Admin: 07/19/17 08:02 Dose: 100 mg Flecainide Acetate (Tambocor) 100 mg PO BID [facility] Last Admin: 07/19/17 08:02 Dose: 100 mg Guaifenesin (Mucinex) 600 mg PO BID [facility] Last Admin: 07/19/17 08:02 Dose: 600 mg Guaifenesin (Robitussin) 10 ml PO Q6H PRN PRN PRN Reason: COUGH Last Admin: 07/19/17 03:37 Dose: 10 ml Haloperidol (Haldol) 1 mg PO BID PRN PRN Reason: SEVERE AGITATION Hydrochlorothiazide (Hydrochlorothiazide) 12.5 mg PO DAILY PRN PRN PRN Reason: Hypertensive Emergency Lactobacillus Acidophilus (Acidophilus) 1 tablet PO BID [facility] Levothyroxine Sodium (Synthroid) 50 mcg PO DAILY@0600 [facility] Last Admin: 07/19/17 04:48 Dose: 50 mcg Magnesium Hydroxide (Milk Of Magnesia) 30 ml PO .PRN X 1 PRN PRN Reason: Constipation Magnesium Oxide (Mag-Ox 400) 400 mg PO DAILY [facility] Last Admin: 07/19/17 08:02 Dose: 400 mg Melatonin (Melatonin) 3 mg PO QHS@1930 [facility] Metoprolol Tartrate (Lopressor (Beta Thania)) 25 mg PO BID [facility] Last Admin: 07/19/17 08:02 Dose: 25 mg Montelukast Sodium (Singulair) 10 mg PO QHS [facility] Last Admin: 07/18/17 21:06 Dose: 10 mg Oxycodone HCl (Oxyir) 5 - 10 mg PO Q4H PRN PRN PRN Reason: MOD-SEVERE PAIN (4-10/10) Last Admin: 07/09/17 20:57 Dose: 5 mg Pantoprazole Sodium (Protonix) 20 mg PO DAILY [facility] Last Admin: 07/19/17 08:02 Dose: 20 mg Pravastatin Sodium (Pravachol) 40 mg PO QHS [facility] Last Admin: 07/18/17 21:06 Dose: 40 mg Quetiapine Fumarate (Seroquel) 25 mg PO QHS@193 [facility] Senna/Docusate Sodium (Senokot-S, Tamra-Colace) 2 tablet PO BID [facility] Last Admin: 07/18/17 13:44 Dose: Not Given Sodium Chloride () 5 - 30 ml IV UD PRN PRN Reason: SALINE FLUSH Last Admin: 07/13/17 23:33 Dose: 10 ml Tamsulosin HCl (Flomax) 0.4 mg PO QHS [facility] Last Admin: 07/18/17 21:06 Dose: 0.4 mg Warfarin Sodium 5 mg/ Warfarin (Sodium 2 mg) 7 mg PO DAILY@1700 [facility] Last Admin: 07/18/17 17:24 Dose: 7 mg Assessment/Plan Debility status post nondisplaced Right Acetabular Fracture 2/2 Mechanical fall down basement steps. Goal of rehab is presybeterian of prior level of functional independence. Plan: - Physical therapy for gait and balance - Occupational Therapy for ADLs - As needed analgesics - Bowel protocol - DVT prophylaxis: Coumadin, and ASA - HLD - continue home dose of statin - GERD - continue home dose of PPI - Coagulopathy 2/2 Coumadin therapy for Atrial Fib -INR therapeutic, continue to follow. Continue Flecainide. Rate is currently stable. - HTN - stable => continue home medications - Psoriatic arthritis => continue home medication of Humira - AFib - On Coumadin, daily INR with a goal of keeping the level between 2 to 3, Currently INR is 2.5 on 07/19, continue to monitor - Urinary retention => continue Flomax - Hx of Gout continue Colchicine - Sputum Culture positive for Moraxella catarrhalis started on Augmentin 500mg BID x 7days. 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 - Dehydration will give IVF bolus NS @ 75cc/hr x 1 bag - Dementia -> will add Aricept 10mg at bedtime.
--- NOTE | 2017-07-19 17:45 | PCM.PN.HOSP ---
Subjective: Patient was seen and examined. C/o persistent cough. Started on doxycycline and acapella with much sputum expectoration. Denies fever or chills. Vitals/I&O's: Vital Signs Temp Pulse Resp BP Pulse Ox 98.0 F 70 16 123/59 H 97 07/19/17 07:57 07/19/17 15:52 07/19/17 15:52 07/19/17 08:02 07/19/17 15:52 Oxygen Flow Rate 1.5 Oxygen Delivery Method Room Air Weight: 95.2 kg Body Mass Index (BMI) 35.9 Intake and Output for Last 24 Hours 07/17/17 07/18/17 07/19/17 23:59 23:59 23:59 Intake Total 240 / 240 360 / 360 480 / 480 Output Total 250 / 250 Balance 240 / 240 360 / 360 230 / 230 General: Alert, Oriented x3, Cooperative, No apparent distress HEENT: Atraumatic, PERRLA, EOMI, Normocephalic Oral: Moist Mucosa Neck: Supple Lungs: Clear to auscultation, Normal air movement Cardiovascular: Regular rate, Regular Rhythm, Normal S1, Normal S2, No murmurs Abdomen: Bowel Sounds Present, Soft, Non Tender, Non-Distended, No Hepato-splenomegaly Extremities: No edema Skin: No rashes, No breakdown Musculoskeletal: No Tenderness to Palpation of Joints or Extremities Lymphatic: No Cervical, Supraclavicular, or Inguinal Adenopathy Neurological: Cranial nerves II-XII grossly intact, Neuro grossly intact Psych/Mental Status: Normal Affect, Appropriate Laboratory Results 07/19/17 05:55: WBC 9.3, RBC 4.03 L, Hgb 12.2 L, Hct 37.2 L, MCV 92.3, MCH 30.3, MCHC 32.8, RDW 14.4, RDW Differential 47.2 H, Plt Count 189, MPV 9.6 07/19/17 05:55: PT 26.4 H, INR 2.5 Current Medications Acetaminophen (Tylenol) 650 mg PO Q6H PRN PRN PRN Reason: Mild Pain (1-3)/Temp > 100.7 F Last Admin: 07/19/17 04:48 Dose: 650 mg Adalimumab (Humira) 40 mg SC Q14D [facility] Last Admin: 07/11/17 08:11 Dose: 40 mg Albuterol Sulfate (Ventolin Aerosols) 2.5 mg INHALATION Q4H.RT [facility] Last Admin: 07/19/17 15:52 Dose: 2.5 mg Allopurinol (Zyloprim) 100 mg PO DAILY [facility] Last Admin: 07/19/17 08:02 Dose: 100 mg Aspirin (Aspirin, Baby) 81 mg PO DAILY@0800 [facility] Last Admin: 07/19/17 08:02 Dose: 81 mg Bisacodyl (Dulcolax) 10 mg RECTAL .PRN X 1 PRN PRN Reason: Constipation Calamine/Phenol (Calmoseptine Ointment) 1 applic TOPICAL TID [facility] PRN Reason: Protocol Last Admin: 07/19/17 14:43 Dose: 1 applicatio Cholecalciferol (Vitamin D) 2,000 unit PO DAILY [facility] Last Admin: 07/19/17 08:02 Dose: 2,000 unit Colchicine (Colchicine) 0.6 mg PO QODAY@1200 [facility] Last Admin: 07/18/17 12:12 Dose: 0.6 mg Donepezil HCl (Aricept) 10 mg PO QHS [facility] Last Admin: 07/18/17 21:06 Dose: 10 mg Doxycycline Monohydrate (Doxycycline) 100 mg PO BID [facility] Stop: 07/25/17 11:22 Last Admin: 07/19/17 08:02 Dose: 100 mg Flecainide Acetate (Tambocor) 100 mg PO BID [facility] Last Admin: 07/19/17 08:02 Dose: 100 mg Guaifenesin (Mucinex) 600 mg PO BID [facility] Last Admin: 07/19/17 08:02 Dose: 600 mg Guaifenesin (Robitussin) 10 ml PO Q6H PRN PRN PRN Reason: COUGH Last Admin: 07/19/17 14:39 Dose: 10 ml Haloperidol (Haldol) 1 mg PO BID PRN PRN Reason: SEVERE AGITATION Hydrochlorothiazide (Hydrochlorothiazide) 12.5 mg PO DAILY PRN PRN PRN Reason: Hypertensive Emergency Lactobacillus Acidophilus (Acidophilus) 1 tablet PO BID [facility] Last Admin: 07/19/17 14:39 Dose: 1 tablet Levothyroxine Sodium (Synthroid) 50 mcg PO DAILY@0600 [facility] Last Admin: 07/19/17 04:48 Dose: 50 mcg Magnesium Hydroxide (Milk Of Magnesia) 30 ml PO .PRN X 1 PRN PRN Reason: Constipation Magnesium Oxide (Mag-Ox 400) 400 mg PO DAILY [facility] Last Admin: 07/19/17 08:02 Dose: 400 mg Melatonin (Melatonin) 3 mg PO QHS@1930 [facility] Metoprolol Tartrate (Lopressor (Beta Thania)) 25 mg PO BID [facility] Last Admin: 07/19/17 08:02 Dose: 25 mg Montelukast Sodium (Singulair) 10 mg PO QHS [facility] Last Admin: 07/18/17 21:06 Dose: 10 mg Oxycodone HCl (Oxyir) 5 - 10 mg PO Q4H PRN PRN PRN Reason: MOD-SEVERE PAIN (4-1010) Last Admin: 07/09/17 20:57 Dose: 5 mg Pantoprazole Sodium (Protonix) 20 mg PO DAILY [facility] Last Admin: 07/19/17 08:02 Dose: 20 mg Pravastatin Sodium (Pravachol) 40 mg PO QHS [facility] Last Admin: 07/18/17 21:06 Dose: 40 mg Quetiapine Fumarate (Seroquel) 25 mg PO QHS@193 [facility] Senna/Docusate Sodium (Senokot-S, Tamra-Colace) 2 tablet PO BID [facility] Last Admin: 07/18/17 13:44 Dose: Not Given Sodium Chloride () 5 - 30 ml IV UD PRN PRN Reason: SALINE FLUSH Last Admin: 07/13/17 23:33 Dose: 10 ml Tamsulosin HCl (Flomax) 0.4 mg PO QHS [facility] Last Admin: 07/18/17 21:06 Dose: 0.4 mg Warfarin Sodium 5 mg/ Warfarin (Sodium 2 mg) 7 mg PO DAILY@1700 [facility] Last Admin: 07/19/17 17:00 Dose: 7 mg Assessment/Plan 82-year-old gentleman admitted following a fall sustaining a right acetabular fracture. 1. Right acetabular fracture s/p fall, doing well with therapy. 2. Acute bronchitis, improving on doxycycline, repeat CXR showed bibasilar atelectasis and hypoinflated lungs, will continue on breathing treatments, acapella, incentive spirometer 3. BPH, on Flomax 4. Hypertension, controlled on hydrochlorothiazide, metoprolol, will continue to monitor 5. Paroxysmal A. fib, rate controlled, INR is therapeutic on coumadin 6. Hypothyroidism, on levothyroxine 7. Dementia with behavioral agitation, on seroquel and melatonin 8. GERD 9. DVT prophylaxis - on Coumadin Code Visit Inpatient E&M: 08815 Subs Hosp L2
--- NOTE | 2017-07-19 17:53 | PN_ITS ---
Subjective: Patient was seen and examined. C/o persistent cough. Started on doxycycline and acapella with much sputum expectoration. Denies fever or chills. Vitals/I&O's: Vital Signs Temp Pulse Resp BP Pulse Ox 98.0 F 70 16 123/59 H 97 07/19/17 07:57 07/19/17 15:52 07/19/17 15:52 07/19/17 08:02 07/19/17 15:52 Oxygen Flow Rate 1.5 Oxygen Delivery Method Room Air Weight: 95.2 kg Body Mass Index (BMI) 35.9 Intake and Output for Last 24 Hours 07/17/17 07/18/17 07/19/17 23:59 23:59 23:59 Intake Total 240 / 240 360 / 360 480 / 480 Output Total 250 / 250 Balance 240 / 240 360 / 360 230 / 230 General: Alert, Oriented x3, Cooperative, No apparent distress HEENT: Atraumatic, PERRLA, EOMI, Normocephalic Oral: Moist Mucosa Neck: Supple Lungs: Clear to auscultation, Normal air movement Cardiovascular: Regular rate, Regular Rhythm, Normal S1, Normal S2, No murmurs Abdomen: Bowel Sounds Present, Soft, Non Tender, Non-Distended, No Hepato- splenomegaly Extremities: No edema Skin: No rashes, No breakdown Musculoskeletal: No Tenderness to Palpation of Joints or Extremities Lymphatic: No Cervical, Supraclavicular, or Inguinal Adenopathy Neurological: Cranial nerves II-XII grossly intact, Neuro grossly intact Psych/Mental Status: Normal Affect, Appropriate Laboratory Results 07/19/17 05:55: WBC 9.3, RBC 4.03 L, Hgb 12.2 L, Hct 37.2 L, MCV 92.3, MCH 30.3 , MCHC 32.8, RDW 14.4, RDW Differential 47.2 H, Plt Count 189, MPV 9.6 07/19/17 05:55: PT 26.4 H, INR 2.5 Current Medications Acetaminophen (Tylenol) 650 mg PO Q6H PRN PRN PRN Reason: Mild Pain (1-3)/Temp > 100.7 F Last Admin: 07/19/17 04:48 Dose: 650 mg Adalimumab (Humira) 40 mg SC Q14D [facility] Last Admin: 07/11/17 08:11 Dose: 40 mg Albuterol Sulfate (Ventolin Aerosols) 2.5 mg INHALATION Q4H.RT [facility] Last Admin: 07/19/17 15:52 Dose: 2.5 mg Allopurinol (Zyloprim) 100 mg PO DAILY [facility] Last Admin: 07/19/17 08:02 Dose: 100 mg Aspirin (Aspirin, Baby) 81 mg PO DAILY@0800 [facility] Last Admin: 07/19/17 08:02 Dose: 81 mg Bisacodyl (Dulcolax) 10 mg RECTAL .PRN X 1 PRN PRN Reason: Constipation Calamine/Phenol (Calmoseptine Ointment) 1 applic TOPICAL TID [facility] PRN Reason: Protocol Last Admin: 07/19/17 14:43 Dose: 1 applicatio Cholecalciferol (Vitamin D) 2,000 unit PO DAILY [facility] Last Admin: 07/19/17 08:02 Dose: 2,000 unit Colchicine (Colchicine) 0.6 mg PO QODAY@1200 [facility] Last Admin: 07/18/17 12:12 Dose: 0.6 mg Donepezil HCl (Aricept) 10 mg PO QHS [facility] Last Admin: 07/18/17 21:06 Dose: 10 mg Doxycycline Monohydrate (Doxycycline) 100 mg PO BID [facility] Stop: 07/25/17 11:22 Last Admin: 07/19/17 08:02 Dose: 100 mg Flecainide Acetate (Tambocor) 100 mg PO BID [facility] Last Admin: 07/19/17 08:02 Dose: 100 mg Guaifenesin (Mucinex) 600 mg PO BID [facility] Last Admin: 07/19/17 08:02 Dose: 600 mg Guaifenesin (Robitussin) 10 ml PO Q6H PRN PRN PRN Reason: COUGH Last Admin: 07/19/17 14:39 Dose: 10 ml Haloperidol (Haldol) 1 mg PO BID PRN PRN Reason: SEVERE AGITATION Hydrochlorothiazide (Hydrochlorothiazide) 12.5 mg PO DAILY PRN PRN PRN Reason: Hypertensive Emergency Lactobacillus Acidophilus (Acidophilus) 1 tablet PO BID [facility] Last Admin: 07/19/17 14:39 Dose: 1 tablet Levothyroxine Sodium (Synthroid) 50 mcg PO DAILY@0600 [facility] Last Admin: 07/19/17 04:48 Dose: 50 mcg Magnesium Hydroxide (Milk Of Magnesia) 30 ml PO .PRN X 1 PRN PRN Reason: Constipation Magnesium Oxide (Mag-Ox 400) 400 mg PO DAILY [facility] Last Admin: 07/19/17 08:02 Dose: 400 mg Melatonin (Melatonin) 3 mg PO QHS@1930 [facility] Metoprolol Tartrate (Lopressor (Beta Thania)) 25 mg PO BID [facility] Last Admin: 07/19/17 08:02 Dose: 25 mg Montelukast Sodium (Singulair) 10 mg PO QHS [facility] Last Admin: 07/18/17 21:06 Dose: 10 mg Oxycodone HCl (Oxyir) 5 - 10 mg PO Q4H PRN PRN PRN Reason: MOD-SEVERE PAIN (4-1010) Last Admin: 07/09/17 20:57 Dose: 5 mg Pantoprazole Sodium (Protonix) 20 mg PO DAILY [facility] Last Admin: 07/19/17 08:02 Dose: 20 mg Pravastatin Sodium (Pravachol) 40 mg PO QHS [facility] Last Admin: 07/18/17 21:06 Dose: 40 mg Quetiapine Fumarate (Seroquel) 25 mg PO QHS@193 [facility] Senna/Docusate Sodium (Senokot-S, Tamra-Colace) 2 tablet PO BID [facility] Last Admin: 07/18/17 13:44 Dose: Not Given Sodium Chloride () 5 - 30 ml IV UD PRN PRN Reason: SALINE FLUSH Last Admin: 07/13/17 23:33 Dose: 10 ml Tamsulosin HCl (Flomax) 0.4 mg PO QHS [facility] Last Admin: 07/18/17 21:06 Dose: 0.4 mg Warfarin Sodium 5 mg/ Warfarin (Sodium 2 mg) 7 mg PO DAILY@1700 [facility] Last Admin: 07/19/17 17:00 Dose: 7 mg Assessment/Plan 82-year-old gentleman admitted following a fall sustaining a right acetabular fracture. 1. Right acetabular fracture s/p fall, doing well with therapy. 2. Acute bronchitis, improving on doxycycline, repeat CXR showed bibasilar atelectasis and hypoinflated lungs, will continue on breathing treatments, acapella, incentive spirometer 3. BPH, on Flomax 4. Hypertension, controlled on hydrochlorothiazide, metoprolol, will continue to monitor 5. Paroxysmal A. fib, rate controlled, INR is therapeutic on coumadin 6. Hypothyroidism, on levothyroxine 7. Dementia with behavioral agitation, on seroquel and melatonin 8. GERD 9. DVT prophylaxis - on Coumadin Code Visit Inpatient E&M: 61481 Subs Hosp L2
[2017-07-19] MEDS: MELATONIN 3 MG TABLET PO (21:18)
[2017-07-19] MEDS: QUEtiapine 25 MG Tablet PO (21:19)
[2017-07-19] MEDS: Donepezil HCl 10 MG Tablet PO (21:20)
[2017-07-19] MEDS: Tamsulosin HCl 0.4 MG Capsule PO (21:22)
[2017-07-19] MEDS: Pravastatin 40 MG Tablet PO (21:22)
[2017-07-19] MEDS: Montelukast 10 MG Tablet PO (21:23)
[2017-07-20] VITALS (7 sets, daily range): BP systolic 142–145; BP diastolic 68–84; PULSE 59–78; RESP 18–20; TEMP 36.6–36.7; O2SAT 95–96
[2017-07-20] MEDS: Menthol/Lanolin/Calamine/Znox 113 GM Tube 1 APPLIC TOPICAL ×3 (05:11→19:43)
[2017-07-20] MEDS: Acetaminophen 325 MG Tablet 650 MG PO (05:12)
[2017-07-20] MEDS: guaiFENesin 10 ML UDC (200MG/10ML) PO ×2 (05:12→11:08)
[2017-07-20] MEDS: Levothyroxine 50 MCG Tablet PO (05:12)
--- NOTE | 2017-07-20 05:49 | NURSING ---
pt noted to be tired this am d/t excessive coughing spells pt had through the night . pt slept in recliner during hs to facilitate breathing and coughing and bring up mucus. pt drinking water through out the night but did not void at this time when placed on bsc. will continue to monitor pt for dehydration. scleras are also noted to be blood shot with mild redness round eyes with light yellow matter noted on lashes. pt returned to recliner after using bsc; pt had a brown liquid stool of approx 150cc.
[2017-07-20 06:03] LABS: Hematocrit 39.9 % (40-54); Hemoglobin 12.8 g/dl (13.0-16.5); Mean Corp Hgb Conc 32.1 g/gl (32-36); Mean Corpuscular Hgb 29.9 pg (27.0-32.0); Mean Corpuscular Volume 93.2 fL (80-94); Mean Platelet Vol. 9.5 fl (6.2-12.0); Platelet Count 194 K/mm3 (150-450); RBC Distribution Width SD 50.5 fl (35.1-43.9); Red Blood Count 4.28 M/mm3 (4.6-6.2); White Blood Count 8.9 K/mm3 (4.4-11.0)
[2017-07-20 06:08] LABS: Scan Indicated on CBC? Y/N NO
[2017-07-20 07:12] LABS: International Normalized Ratio 2.8; Prothrombin Time (Protime)PT. 28.3 SECONDS (11.7-14.9)
[2017-07-20] MEDS: Albuterol 2.5 MG/3 ML VIAL.NEB. INHALATION ×3 (07:45→15:15)
[2017-07-20] MEDS: Allopurinol 100 MG Tablet PO (11:04)
[2017-07-20] MEDS: Flecainide 100 MG Tablet PO ×2 (11:04→19:42)
[2017-07-20] MEDS: Metoprolol Tartrate 25 MG Tablet PO ×2 (11:05→19:41)
[2017-07-20] MEDS: Doxycycline 100 MG CAPSULE PO ×2 (11:05→19:41)
[2017-07-20] MEDS: Aspirin 81 MG TAB.CHEW PO (11:05)
[2017-07-20] MEDS: Pantoprazole Sodium 20 MG Tablet PO (11:13)
[2017-07-20] MEDS: guaiFENesin 600 MG Tablet PO ×2 (11:13→19:42)
--- NOTE | 2017-07-20 15:18 | CASEMGMT ---
Social Work Met with patient and patent spouse in room. Patient and patient spouse aware that patient is out of medicare days on 07/25/17. Patient spouse also aware that patient spouse would be unable to manage patient needs at home at this time. Patient and patient spouse agreeable to residential placement for skilled services. Patient choices for residential are as follows: 1) [facility] ([facility]); 2) [facility] ([facility]); 3) [facility] ([facility]). This hospital social worker to make referral. Telephone call to Galilea HYMAN. Galilea reporting to possibly have a semi-private room open for patient. Clinical information faxed. Telephone call to both [facility] and [facility]. Voicemail left with both facilities inquiring about openings. Proposed discharge date: 07/25/17 PLAN: Transition to a skilled facility. Chayito WERNER, LAP CUTTER TRUER OPERATOR
[2017-07-20] MEDS: QUEtiapine 25 MG Tablet PO (19:41)
[2017-07-20] MEDS: Tamsulosin HCl 0.4 MG Capsule PO (19:42)
[2017-07-20] MEDS: MELATONIN 3 MG TABLET PO (19:42)
[2017-07-20] MEDS: Montelukast 10 MG Tablet PO (19:43)
[2017-07-20] MEDS: Donepezil HCl 10 MG Tablet PO (19:43)
[2017-07-20] MEDS: Pravastatin 40 MG Tablet PO (19:43)
[2017-07-21] VITALS (7 sets, daily range): BP systolic 141–167; BP diastolic 69–86; PULSE 62–75; RESP 18; TEMP 36.6–37.2; O2SAT 92–98
--- NOTE | 2017-07-21 00:44 | NURSING ---
REVIEWED AND AGREE WITH PERFORMANCE IMPROVEMENT MANAGER DOCUMENTATION.
[2017-07-21] MEDS: Levothyroxine 50 MCG Tablet PO (06:06)
[2017-07-21] MEDS: Menthol/Lanolin/Calamine/Znox 113 GM Tube 1 APPLIC TOPICAL ×3 (06:06→20:31)
[2017-07-21] MEDS: Acetaminophen 325 MG Tablet 650 MG PO (06:06)
[2017-07-21 06:07] LABS: International Normalized Ratio 2.8; Prothrombin Time (Protime)PT. 28.2 SECONDS (11.7-14.9)
[2017-07-21] MEDS: Aspirin 81 MG TAB.CHEW PO (08:52)
[2017-07-21] MEDS: Allopurinol 100 MG Tablet PO (08:52)
[2017-07-21] MEDS: Flecainide 100 MG Tablet PO ×2 (08:52→20:31)
[2017-07-21] MEDS: guaiFENesin 600 MG Tablet PO ×2 (08:52→20:34)
[2017-07-21] MEDS: Metoprolol Tartrate 25 MG Tablet PO ×2 (08:52→20:30)
--- NOTE | 2017-07-21 09:50 | CASEMGMT ---
Social Work Telephone call from Alisha at [facility]. Alisha reporting to have an opening and to be able to review patient clinical information. Clinicals faxed. Alisha to get back in contact with this pediatric social worker. Proposed discharge date: 07/25/17 Will continue to follow. Chayito WENRER, DIRECTOR OF NATIONAL SALES
--- NOTE | 2017-07-21 10:01 | PCM.PN.NEU ---
Subjective: Patient seen and examined. No acute events over night. Tolerating therapy. On Coumadin 7mg for AFib, INR today was 2.8, continue daily INRs. - Physical Exam General: Alert, Oriented x3, Cooperative HEENT: Atraumatic, PERRLA, EOMI, Normocephalic Neck: Supple, No JVD, Negative Carotid Bruits Lungs: Clear to auscultation, Normal air movement Cardiovascular: Regular rate, No murmurs Abdomen: Bowel Sounds Present, Soft, Non Tender Extremities: No edema, Capillary Refill Less than 3 Seconds Skin: No rashes, No breakdown Musculoskeletal: No Tenderness to Palpation of Joints or Extremities Neurological: Cranial nerves II-XII grossly intact Psych/Mental Status: Normal Affect, Appropriate Vital Signs Temp Pulse Resp BP Pulse Ox 97.9 F 62 18 141/69 H 92 07/21/17 08:51 07/21/17 08:52 07/21/17 08:51 07/21/17 08:51 07/21/17 08:51 Oxygen Flow Rate 1.5 Oxygen Delivery Method Room Air Weight: 95.2 kg Body Mass Index (BMI) 35.9 Intake and Output for Last 24 Hours 07/19/17 07/20/17 07/21/17 23:59 23:59 23:59 Intake Total 700 / 700 480 / 480 240 / 240 Output Total 400 / 400 Balance 300 / 300 480 / 480 240 / 240 Laboratory Tests Past 24 Hrs 07/21/17 05:36 PT 28.2 H INR 2.8 Active Medications Acetaminophen (Tylenol) 650 mg PO Q6H PRN PRN PRN Reason: Mild Pain (1-3)/Temp > 100.7 F Last Admin: 07/21/17 06:06 Dose: 650 mg Adalimumab (Humira) 40 mg SC Q14D [facility] Last Admin: 07/11/17 08:11 Dose: 40 mg Albuterol Sulfate (Ventolin Aerosols) 2.5 mg INHALATION Q4H.RT [facility] Last Admin: 07/21/17 07:30 Dose: Not Given Allopurinol (Zyloprim) 100 mg PO DAILY [facility] Last Admin: 07/21/17 08:52 Dose: 100 mg Aspirin (Aspirin, Baby) 81 mg PO DAILY@0800 [facility] Last Admin: 07/21/17 08:52 Dose: 81 mg Bisacodyl (Dulcolax) 10 mg RECTAL .PRN X 1 PRN PRN Reason: Constipation Calamine/Phenol (Calmoseptine Ointment) 1 applic TOPICAL TID [facility] PRN Reason: Protocol Last Admin: 07/21/17 06:06 Dose: 1 applicatio Cholecalciferol (Vitamin D) 2,000 unit PO DAILY [facility] Last Admin: 07/21/17 08:51 Dose: 2,000 unit Colchicine (Colchicine) 0.6 mg PO QODAY@1200 [facility] Last Admin: 07/20/17 11:13 Dose: 0.6 mg Donepezil HCl (Aricept) 10 mg PO QHS [facility] Last Admin: 07/20/17 19:43 Dose: 10 mg Doxycycline Monohydrate (Doxycycline) 100 mg PO BID [facility] Stop: 07/25/17 11:22 Last Admin: 07/20/17 19:41 Dose: 100 mg Flecainide Acetate (Tambocor) 100 mg PO BID [facility] Last Admin: 07/21/17 08:52 Dose: 100 mg Guaifenesin (Mucinex) 600 mg PO BID [facility] Last Admin: 07/21/17 08:52 Dose: 600 mg Guaifenesin (Robitussin) 10 ml PO Q6H PRN PRN PRN Reason: COUGH Last Admin: 07/20/17 11:08 Dose: 10 ml Haloperidol (Haldol) 1 mg PO BID PRN PRN Reason: SEVERE AGITATION Hydrochlorothiazide (Hydrochlorothiazide) 12.5 mg PO DAILY PRN PRN PRN Reason: Hypertensive Emergency Lactobacillus Acidophilus (Acidophilus) 1 tablet PO BID [facility] Last Admin: 07/21/17 08:52 Dose: 1 tablet Levothyroxine Sodium (Synthroid) 50 mcg PO DAILY@0600 [facility] Last Admin: 07/21/17 06:06 Dose: 50 mcg Magnesium Hydroxide (Milk Of Magnesia) 30 ml PO .PRN X 1 PRN PRN Reason: Constipation Melatonin (Melatonin) 3 mg PO QHS@1930 [facility] Last Admin: 07/20/17 19:42 Dose: 3 mg Metoprolol Tartrate (Lopressor (Beta Thania)) 25 mg PO BID [facility] Last Admin: 07/21/17 08:52 Dose: 25 mg Montelukast Sodium (Singulair) 10 mg PO QHS [facility] Last Admin: 07/20/17 19:43 Dose: 10 mg Pantoprazole Sodium (Protonix) 20 mg PO DAILY [facility] Last Admin: 07/20/17 11:13 Dose: 20 mg Pravastatin Sodium (Pravachol) 40 mg PO QHS [facility] Last Admin: 07/20/17 19:43 Dose: 40 mg Quetiapine Fumarate (Seroquel) 25 mg PO QHS@1930 [facility] Last Admin: 07/20/17 19:41 Dose: 25 mg Senna/Docusate Sodium (Senokot-S, Tamra-Colace) 2 tablet PO BID [facility] Last Admin: 07/21/17 08:53 Dose: Not Given Sodium Chloride () 5 - 30 ml IV UD PRN PRN Reason: SALINE FLUSH Last Admin: 07/13/17 23:33 Dose: 10 ml Tamsulosin HCl (Flomax) 0.4 mg PO QHS [facility] Last Admin: 07/20/17 19:42 Dose: 0.4 mg Warfarin Sodium 5 mg/ Warfarin (Sodium 2 mg) 7 mg PO DAILY@1700 [facility] Last Admin: 07/20/17 17:53 Dose: 7 mg Assessment/Plan Debility status post nondisplaced Right Acetabular Fracture 2/2 Mechanical fall down basement steps. Goal of rehab is hindu of prior level of functional independence. Plan: - Physical therapy for gait and balance - Occupational Therapy for ADLs - As needed analgesics - Bowel protocol - DVT prophylaxis: Coumadin, and ASA - HLD - continue home dose of statin - GERD - continue home dose of PPI - Coagulopathy 2/2 Coumadin therapy for Atrial Fib -INR therapeutic, continue to follow. Continue Flecainide. Rate is currently stable. - HTN - stable => continue home medications - Psoriatic arthritis => continue home medication of Humira - AFib - On Coumadin, daily INR with a goal of keeping the level between 2 to 3, Currently INR is 2.8 on 07/21, continue to monitor - Urinary retention => continue Flomax - Hx of Gout continue Colchicine - Sputum Culture positive for Moraxella catarrhalis started on Augmentin 500mg BID x 7days. 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 - Dehydration will give IVF bolus NS @ 75cc/hr x 1 bag - Dementia -> will add Aricept 10mg at bedtime.
--- NOTE | 2017-07-21 10:04 | PN.NEURO_ITS ---
Subjective: Patient seen and examined. No acute events over night. Tolerating therapy. On Coumadin 7mg for AFib, INR today was 2.8, continue daily INRs. - Physical Exam General: Alert, Oriented x3, Cooperative HEENT: Atraumatic, PERRLA, EOMI, Normocephalic Neck: Supple, No JVD, Negative Carotid Bruits Lungs: Clear to auscultation, Normal air movement Cardiovascular: Regular rate, No murmurs Abdomen: Bowel Sounds Present, Soft, Non Tender Extremities: No edema, Capillary Refill Less than 3 Seconds Skin: No rashes, No breakdown Musculoskeletal: No Tenderness to Palpation of Joints or Extremities Neurological: Cranial nerves II-XII grossly intact Psych/Mental Status: Normal Affect, Appropriate Vital Signs Temp Pulse Resp BP Pulse Ox 97.9 F 62 18 141/69 H 92 07/21/17 08:51 07/21/17 08:52 07/21/17 08:51 07/21/17 08:51 07/21/17 08:51 Oxygen Flow Rate 1.5 Oxygen Delivery Method Room Air Weight: 95.2 kg Body Mass Index (BMI) 35.9 Intake and Output for Last 24 Hours 07/19/17 07/20/17 07/21/17 23:59 23:59 23:59 Intake Total 700 / 700 480 / 480 240 / 240 Output Total 400 / 400 Balance 300 / 300 480 / 480 240 / 240 Laboratory Tests Past 24 Hrs 07/21/17 05:36 PT 28.2 H INR 2.8 Active Medications Acetaminophen (Tylenol) 650 mg PO Q6H PRN PRN PRN Reason: Mild Pain (1-3)/Temp > 100.7 F Last Admin: 07/21/17 06:06 Dose: 650 mg Adalimumab (Humira) 40 mg SC Q14D [facility] Last Admin: 07/11/17 08:11 Dose: 40 mg Albuterol Sulfate (Ventolin Aerosols) 2.5 mg INHALATION Q4H.RT [facility] Last Admin: 07/21/17 07:30 Dose: Not Given Allopurinol (Zyloprim) 100 mg PO DAILY [facility] Last Admin: 07/21/17 08:52 Dose: 100 mg Aspirin (Aspirin, Baby) 81 mg PO DAILY@0800 [facility] Last Admin: 07/21/17 08:52 Dose: 81 mg Bisacodyl (Dulcolax) 10 mg RECTAL .PRN X 1 PRN PRN Reason: Constipation Calamine/Phenol (Calmoseptine Ointment) 1 applic TOPICAL TID [facility] PRN Reason: Protocol Last Admin: 07/21/17 06:06 Dose: 1 applicatio Cholecalciferol (Vitamin D) 2,000 unit PO DAILY [facility] Last Admin: 07/21/17 08:51 Dose: 2,000 unit Colchicine (Colchicine) 0.6 mg PO QODAY@1200 [facility] Last Admin: 07/20/17 11:13 Dose: 0.6 mg Donepezil HCl (Aricept) 10 mg PO QHS [facility] Last Admin: 07/20/17 19:43 Dose: 10 mg Doxycycline Monohydrate (Doxycycline) 100 mg PO BID [facility] Stop: 07/25/17 11:22 Last Admin: 07/20/17 19:41 Dose: 100 mg Flecainide Acetate (Tambocor) 100 mg PO BID [facility] Last Admin: 07/21/17 08:52 Dose: 100 mg Guaifenesin (Mucinex) 600 mg PO BID [facility] Last Admin: 07/21/17 08:52 Dose: 600 mg Guaifenesin (Robitussin) 10 ml PO Q6H PRN PRN PRN Reason: COUGH Last Admin: 07/20/17 11:08 Dose: 10 ml Haloperidol (Haldol) 1 mg PO BID PRN PRN Reason: SEVERE AGITATION Hydrochlorothiazide (Hydrochlorothiazide) 12.5 mg PO DAILY PRN PRN PRN Reason: Hypertensive Emergency Lactobacillus Acidophilus (Acidophilus) 1 tablet PO BID [facility] Last Admin: 07/21/17 08:52 Dose: 1 tablet Levothyroxine Sodium (Synthroid) 50 mcg PO DAILY@0600 [facility] Last Admin: 07/21/17 06:06 Dose: 50 mcg Magnesium Hydroxide (Milk Of Magnesia) 30 ml PO .PRN X 1 PRN PRN Reason: Constipation Melatonin (Melatonin) 3 mg PO QHS@1930 [facility] Last Admin: 07/20/17 19:42 Dose: 3 mg Metoprolol Tartrate (Lopressor (Beta Thania)) 25 mg PO BID [facility] Last Admin: 07/21/17 08:52 Dose: 25 mg Montelukast Sodium (Singulair) 10 mg PO QHS [facility] Last Admin: 07/20/17 19:43 Dose: 10 mg Pantoprazole Sodium (Protonix) 20 mg PO DAILY [facility] Last Admin: 07/20/17 11:13 Dose: 20 mg Pravastatin Sodium (Pravachol) 40 mg PO QHS [facility] Last Admin: 07/20/17 19:43 Dose: 40 mg Quetiapine Fumarate (Seroquel) 25 mg PO QHS@1930 [facility] Last Admin: 07/20/17 19:41 Dose: 25 mg Senna/Docusate Sodium (Senokot-S, Tamra-Colace) 2 tablet PO BID [facility] Last Admin: 07/21/17 08:53 Dose: Not Given Sodium Chloride () 5 - 30 ml IV UD PRN PRN Reason: SALINE FLUSH Last Admin: 07/13/17 23:33 Dose: 10 ml Tamsulosin HCl (Flomax) 0.4 mg PO QHS [facility] Last Admin: 07/20/17 19:42 Dose: 0.4 mg Warfarin Sodium 5 mg/ Warfarin (Sodium 2 mg) 7 mg PO DAILY@1700 [facility] Last Admin: 07/20/17 17:53 Dose: 7 mg Assessment/Plan Debility status post nondisplaced Right Acetabular Fracture 2/2 Mechanical fall down basement steps. Goal of rehab is hoahaoism of prior level of functional independence. Plan: - Physical therapy for gait and balance - Occupational Therapy for ADLs - As needed analgesics - Bowel protocol - DVT prophylaxis: Coumadin, and ASA - HLD - continue home dose of statin - GERD - continue home dose of PPI - Coagulopathy 2/2 Coumadin therapy for Atrial Fib -INR therapeutic, continue to follow. Continue Flecainide. Rate is currently stable. - HTN - stable => continue home medications - Psoriatic arthritis => continue home medication of Humira - AFib - On Coumadin, daily INR with a goal of keeping the level between 2 to 3 , Currently INR is 2.8 on 07/21, continue to monitor - Urinary retention => continue Flomax - Hx of Gout continue Colchicine - Sputum Culture positive for Moraxella catarrhalis started on Augmentin 500mg BID x 7days. 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 - Dehydration will give IVF bolus NS @ 75cc/hr x 1 bag - Dementia -> will add Aricept 10mg at bedtime.
[2017-07-21] MEDS: Pantoprazole Sodium 20 MG Tablet PO (10:32)
[2017-07-21] MEDS: Doxycycline 100 MG CAPSULE PO ×2 (10:32→20:34)
[2017-07-21] MEDS: Albuterol 2.5 MG/3 ML VIAL.NEB. INHALATION ×2 (10:40→19:45)
--- NOTE | 2017-07-21 16:20 | CASEMGMT ---
[facility] patient on [facility]17. Spoke with patient and patient spouse in room. This social media intern communicating above information. Patient and patient spouse voicing understanding and now requesting for this social media intern to look into the Transitional Care Unit as patient has been doing better over the past few days and patient spouse believes that patient will not need to be intermediate in a correction setting now. This social media intern voicing understanding. Support given. Telephone call to Jes RAMIREZ. Jes voicing to be able to accept patient pending that patient Haldol is discontinued. Will follow up with patient and patient spouse at Team tomorrow. 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
[2017-07-21] MEDS: QUEtiapine 25 MG Tablet PO (20:28)
[2017-07-21] MEDS: MELATONIN 3 MG TABLET PO (20:28)
[2017-07-21] MEDS: Donepezil HCl 10 MG Tablet PO (20:30)
[2017-07-21] MEDS: Tamsulosin HCl 0.4 MG Capsule PO (20:30)
[2017-07-21] MEDS: Montelukast 10 MG Tablet PO (20:31)
[2017-07-21] MEDS: Pravastatin 40 MG Tablet PO (20:31)
[2017-07-22] VITALS (8 sets, daily range): BP systolic 150–163; BP diastolic 68–69; PULSE 62–82; RESP 17–18; TEMP 36.7; O2SAT 93–96
[2017-07-22] MEDS: Albuterol 2.5 MG/3 ML VIAL.NEB. INHALATION ×3 (02:20→19:40)
--- NOTE | 2017-07-22 02:56 | NURSING ---
REVIEWED AND AGREE WITH DIE SINKING MACHINE OPERATOR'S FIM AND HANDOFF CHARTING.
[2017-07-22] MEDS: Levothyroxine 50 MCG Tablet PO (05:15)
[2017-07-22] MEDS: Acetaminophen 325 MG Tablet 650 MG PO (05:15)
[2017-07-22] MEDS: Menthol/Lanolin/Calamine/Znox 113 GM Tube 1 APPLIC TOPICAL ×3 (05:19→20:13)
[2017-07-22 05:59] LABS: International Normalized Ratio 2.6; Prothrombin Time (Protime)PT. 26.7 SECONDS (11.7-14.9)
[2017-07-22] MEDS: Aspirin 81 MG TAB.CHEW PO (07:46)
[2017-07-22] MEDS: guaiFENesin 600 MG Tablet PO ×2 (07:47→20:14)
[2017-07-22] MEDS: Metoprolol Tartrate 25 MG Tablet PO ×2 (07:47→20:14)
[2017-07-22] MEDS: Flecainide 100 MG Tablet PO ×2 (07:47→20:15)
[2017-07-22] MEDS: Pantoprazole Sodium 20 MG Tablet PO (09:19)
[2017-07-22] MEDS: Allopurinol 100 MG Tablet PO (09:19)
[2017-07-22] MEDS: Doxycycline 100 MG CAPSULE PO ×2 (09:19→20:14)
--- NOTE | 2017-07-22 09:50 | CASEMGMT ---
[facility] reporting to be able to accept patient on 07/25/17. Spoke with patient and patient spouse in room. This social media assistant communicating above information. Patient and patient spouse voicing understanding and now requesting for this social media assistant to look into the Transitional Care Unit as patient has been doing better over the past few days and patient spouse believes that patient will not need to be longterm in a custodial setting now. This social media assistant voicing understanding. Support given. Telephone call to Jes RAMIREZ. Jes voicing to be able to accept patient pending that patient Haldol is discontinued. Will follow up with patient and patient spouse at Team tomorrow. 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
--- NOTE | 2017-07-22 09:56 | CASEMGMT ---
Team meeting held. Patient present as well as patient spouse. This director of social work communicating that TCU would be able to accept patient pending D/C of Haldol. Doctor and N.P. agreeable to discontinue Haldol as patient has not been utilizing. Patient and patient family wanting patient to transition to TCU on 07/25/17 and would like the referral to [facility] and [facility] to be canceled at this time. Support given. Telephone call to Jes on TCU to communicate above information, voicemail left. Jes to contact this director of social work back to confirm acceptance on 07/25/17 of patient. Proposed discharge date: 07/25/17 [facility], OPEN HEARTH WORKER
--- NOTE | 2017-07-22 12:39 | PN.NEURO_ITS ---
Subjective: Staffed in team meeting. and daughter at bedside. Questions answered. With Physical therapy, he min to moderate assistance for transfers, he is unable to maintain the toe touch precautions (TTP). He is able to walk shot distances but no more, he is unable to maintain that Toe Touch weight bearing precautions. With Occupational therapy he is a minimal assist of one to get on and off the Toilet, and minimal assist for grooming. To get in and out of the shower he is a moderate assist. He is a total to max assist for lower body care. He requires assistance to get his under garments and pants on. He is more alert than on admission, and is making progress. With nursing he is on Antibiotics for respiratory infection and breathing treatments. Was started on Seroquel for issues with disruptive circadian rhythm, resulting in confusion and disruptive behavior, was still not sleeping added on Melatonin. Was also started on Aricept for underlining Dementia. Recommend that he receive the Seroquel, Melatonin and Aricept around 1930 hours or at least two hours before bedtime. The staff found that the patient did much better and was able to sleep better also. The team feels that he would be better serve to continue therapy and recommend that he go to TCU for additional skill nursing the family is in agreement with this plan. The patient will be transferred to TCU on Wednesday. - Physical Exam General: Alert, Oriented x3, Cooperative HEENT: Atraumatic, PERRLA, EOMI, Normocephalic Neck: Supple, No JVD, Negative Carotid Bruits Lungs: Clear to auscultation, Normal air movement Cardiovascular: Regular rate, No murmurs Abdomen: Bowel Sounds Present, Soft, Non Tender Extremities: No edema, Capillary Refill Less than 3 Seconds Skin: No rashes, No breakdown Musculoskeletal: No Tenderness to Palpation of Joints or Extremities Neurological: Cranial nerves II-XII grossly intact Psych/Mental Status: Normal Affect, Appropriate Vital Signs Temp Pulse Resp BP Pulse Ox 98.0 F 78 17 150/69 H 93 07/22/17 08:00 07/22/17 08:00 07/22/17 08:00 07/22/17 08:00 07/22/17 08:00 Oxygen Flow Rate 1.5 Oxygen Delivery Method Room Air Weight: 97.522 kg Body Mass Index (BMI) 35.9 Intake and Output for Last 24 Hours 07/20/17 07/21/17 07/22/17 23:59 23:59 23:59 Intake Total 480 / 480 720 / 720 120 / 120 Balance 480 / 480 720 / 720 120 / 120 Laboratory Tests Past 24 Hrs 07/22/17 05:43 PT 26.7 H INR 2.6 Active Medications Acetaminophen (Tylenol) 650 mg PO Q6H PRN PRN PRN Reason: Mild Pain (1-3)/Temp > 100.7 F Last Admin: 07/22/17 05:15 Dose: 650 mg Adalimumab (Humira) 40 mg SC Q14D [facility] Last Admin: 07/11/17 08:11 Dose: 40 mg Albuterol Sulfate (Ventolin Aerosols) 2.5 mg INHALATION Q4H.RT [facility] Last Admin: 07/22/17 07:15 Dose: Not Given Allopurinol (Zyloprim) 100 mg PO DAILY [facility] Last Admin: 07/22/17 09:19 Dose: 100 mg Aspirin (Aspirin, Baby) 81 mg PO DAILY@0800 [facility] Last Admin: 07/22/17 07:46 Dose: 81 mg Bisacodyl (Dulcolax) 10 mg RECTAL .PRN X 1 PRN PRN Reason: Constipation Calamine/Phenol (Calmoseptine Ointment) 1 applic TOPICAL TID [facility] PRN Reason: Protocol Last Admin: 07/22/17 05:19 Dose: 1 applicatio Cholecalciferol (Vitamin D) 2,000 unit PO DAILY [facility] Last Admin: 07/22/17 07:47 Dose: 2,000 unit Colchicine (Colchicine) 0.6 mg PO QODAY@1200 [facility] Last Admin: 07/22/17 12:07 Dose: 0.6 mg Donepezil HCl (Aricept) 10 mg PO QHS [facility] Last Admin: 07/21/17 20:30 Dose: 10 mg Doxycycline Monohydrate (Doxycycline) 100 mg PO BID [facility] Stop: 07/25/17 11:22 Last Admin: 07/22/17 09:19 Dose: 100 mg Flecainide Acetate (Tambocor) 100 mg PO BID [facility] Last Admin: 07/22/17 07:47 Dose: 100 mg Guaifenesin (Mucinex) 600 mg PO BID [facility] Last Admin: 07/22/17 07:47 Dose: 600 mg Guaifenesin (Robitussin) 10 ml PO Q6H PRN PRN PRN Reason: COUGH Last Admin: 07/20/17 11:08 Dose: 10 ml Hydrochlorothiazide (Hydrochlorothiazide) 12.5 mg PO DAILY PRN PRN PRN Reason: Hypertensive Emergency Lactobacillus Acidophilus (Acidophilus) 1 tablet PO BID [facility] Last Admin: 07/22/17 07:46 Dose: 1 tablet Levothyroxine Sodium (Synthroid) 50 mcg PO DAILY@0600 [facility] Last Admin: 07/22/17 05:15 Dose: 50 mcg Magnesium Hydroxide (Milk Of Magnesia) 30 ml PO .PRN X 1 PRN PRN Reason: Constipation Melatonin (Melatonin) 3 mg PO QHS@1929 [facility] Last Admin: 07/21/17 20:28 Dose: 3 mg Metoprolol Tartrate (Lopressor (Beta Thania)) 25 mg PO BID [facility] Last Admin: 07/22/17 07:47 Dose: 25 mg Montelukast Sodium (Singulair) 10 mg PO QHS [facility] Last Admin: 07/21/17 20:31 Dose: 10 mg Pantoprazole Sodium (Protonix) 20 mg PO DAILY [facility] Last Admin: 07/22/17 09:19 Dose: 20 mg Pravastatin Sodium (Pravachol) 40 mg PO QHS [facility] Last Admin: 07/21/17 20:31 Dose: 40 mg Quetiapine Fumarate (Seroquel) 25 mg PO QHS@1929 [facility] Last Admin: 07/21/17 20:28 Dose: 25 mg Senna/Docusate Sodium (Senokot-S, Tamra-Colace) 2 tablet PO BID PRN PRN Reason: CONSTIPATION Sodium Chloride () 5 - 30 ml IV UD PRN PRN Reason: SALINE FLUSH Last Admin: 07/13/17 23:33 Dose: 10 ml Tamsulosin HCl (Flomax) 0.4 mg PO QHS [facility] Last Admin: 07/21/17 20:30 Dose: 0.4 mg Warfarin Sodium 5 mg/ Warfarin (Sodium 2 mg) 7 mg PO DAILY@1700 [facility] Last Admin: 07/21/17 17:02 Dose: 7 mg Assessment/Plan Debility status post nondisplaced Right Acetabular Fracture 2/2 Mechanical fall down basement steps. Goal of rehab is religious of prior level of functional independence. Plan: - Physical therapy for gait and balance - Occupational Therapy for ADLs - As needed analgesics - Bowel protocol - DVT prophylaxis: Coumadin, and ASA - HLD - continue home dose of statin - GERD - continue home dose of PPI - Coagulopathy 2/2 Coumadin therapy for Atrial Fib -INR therapeutic, continue to follow. Continue Flecainide. Rate is currently stable. - HTN - stable => continue home medications - Psoriatic arthritis => continue home medication of Humira - AFib - On Coumadin, daily INR with a goal of keeping the level between 2 to 3 , Currently INR is 2.8 on 07/21, continue to monitor - Urinary retention => continue Flomax - Hx of Gout continue Colchicine - Sputum Culture positive for Moraxella catarrhalis started on Augmentin 500mg BID x 7days. 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 - Dehydration will give IVF bolus NS @ 75cc/hr x 1 bag - Dementia -> will add Aricept 10mg at bedtime.
--- NOTE | 2017-07-22 15:47 | PCM.TXEXTCAR ---
- Diet 07/09/17 16:30 Diet: Regular Diet - Routine Orders/Code Status Routine Lab Work: INR - check weekly Code Status: Full Code - Therapies Weight Bearing: Toe-touch weight bearing Extremity Affected:: Right Lower Physical Therapy: Eval and Treat Occupational Therapy: Eval and Treat Speech Therapy: Eval and Treat - Allergies/Procedures Done in Hospital Allergies/Adverse Reactions: Allergies No Known Allergies Allergy (Verified 07/08/17 16:09) - Type of Care/Length of Stay Estimated LOS: Convalescent Care Less Than 30 days Type of Care Needed: Skilled Rehab Potential: Fair Prognosis: Fair - Additional Orders/Day of Discharge Day of Discharge: 07/25/17 - Dietary and Speech Recommendations Dietitian Recommendations/Changes: Rec Cardiac, No Added Salt diet - Follow Up Care Primary Care Physician: Tracy Esparza MD [Primary Care Provider] -
[2017-07-22] MEDS: MELATONIN 3 MG TABLET PO (20:11)
[2017-07-22] MEDS: QUEtiapine 25 MG Tablet PO (20:11)
[2017-07-22] MEDS: Donepezil HCl 10 MG Tablet PO (20:12)
[2017-07-22] MEDS: Tamsulosin HCl 0.4 MG Capsule PO (20:14)
[2017-07-22] MEDS: Montelukast 10 MG Tablet PO (20:15)
[2017-07-22] MEDS: Pravastatin 40 MG Tablet PO (20:15)
[2017-07-23] MEDS: Levothyroxine 50 MCG Tablet PO (05:04)
[2017-07-23] MEDS: Menthol/Lanolin/Calamine/Znox 113 GM Tube 1 APPLIC TOPICAL ×3 (05:06→22:02)
[2017-07-23] MEDS: Acetaminophen 325 MG Tablet 650 MG PO (05:10)
--- NOTE | 2017-07-23 05:14 | NURSING ---
reviewed and agree with DEVELOPMENT WRITER assessment and notes.
[2017-07-23 06:11] LABS: International Normalized Ratio 2.4; Prothrombin Time (Protime)PT. 24.8 SECONDS (11.7-14.9)
[2017-07-23 06:32] VITALS: PULSE 58; RESP 20; O2SAT 94
[2017-07-23] MEDS: Albuterol 2.5 MG/3 ML VIAL.NEB. INHALATION ×2 (06:32→22:33)
[2017-07-23 08:31] VITALS: BP 136/74; PULSE 59; RESP 16; TEMP 37.1; O2SAT 93
[2017-07-23 10:12] VITALS: BP 136/74; PULSE 59
[2017-07-23] MEDS: Doxycycline 100 MG CAPSULE PO ×2 (10:12→21:56)
[2017-07-23] MEDS: Metoprolol Tartrate 25 MG Tablet PO ×2 (10:12→21:57)
[2017-07-23] MEDS: Aspirin 81 MG TAB.CHEW PO (10:12)
[2017-07-23] MEDS: guaiFENesin 600 MG Tablet PO ×2 (10:12→21:56)
[2017-07-23] MEDS: Pantoprazole Sodium 20 MG Tablet PO (10:13)
[2017-07-23] MEDS: Allopurinol 100 MG Tablet PO (10:13)
[2017-07-23] MEDS: Flecainide 100 MG Tablet PO ×2 (10:13→21:56)
[2017-07-23] MEDS: guaiFENesin 10 ML UDC (200MG/10ML) PO ×2 (10:16→22:12)
--- NOTE | 2017-07-23 11:44 | PCM.DC ---
You will use the following diet at home:: Regular, Cardiac Your food should be the consistency of: Regular Your liquids should be the consistency of: Regular/Thin Discharge Activity: May Not Drive, May Shower, Use Walker - Toe-touch weightbearing right lower extremity. Use with walker. Weight Bearing Status: Toe touch weight bearing - Right lower extremity Call your doctor if you observe: Fever of 101 or Higher, Coldness, Increased Pain, Numbness or Tingling, Change in Color, Inability to urinate, Inability to have a bowel movement, Using more than one pad per hour, Shortness of breath, Dizziness, Fainting spells, Swelling in the ankles, Chest pain, Prolonged hiccoughing, Increased palpitations (irregular heartbeat), Calf discomfort, Uncontrolled pain Allergies/Adverse Reactions: Allergies No Known Allergies Allergy (Verified 07/08/17 16:09) Medications to take at Discharge Magnesium Oxide [Mag-Ox 400] 400 mg PO DAILY 07/20/13 Oxycodone [Oxyir] 5 - 10 mg PO Q4H PRN PRN #1 tablet 07/09/17 Acetaminophen [Tylenol Tablet] 650 mg PO Q6H PRN PRN tablet 07/23/17 Adalimumab [Humira] 40 mg SC Q14D ml 07/23/17 Albuterol Aerosols [Ventolin Aerosols] 2.5 mg INHALATION Q4H PRN PRN vial.neb. 07/23/17 Allopurinol [Zyloprim] 100 mg PO DAILY tablet 07/23/17 Aspirin [Aspirin, Baby] 81 mg PO DAILY@0800 tab.chew 07/23/17 Cholecalciferol (VIT D3) [Vitamin D3] 2,000 unit PO DAILY tablet 07/23/17 Colchicine 0.6 mg PO QODAY@1200 tablet 07/23/17 Donepezil HCl [Aricept] 10 mg PO QHS tablet 07/23/17 Doxycycline 100 mg PO BID capsule 07/23/17 Flecainide [Tambocor] 100 mg PO BID tablet 07/23/17 Guaifenesin [Mucinex] 600 mg PO BID tablet 07/23/17 Guaifenesin [Robitussin] 10 ml PO Q6H PRN PRN udc 07/23/17 Hydrochlorothiazide 12.5 mg PO DAILY PRN PRN capsule 07/23/17 Lactobacillus Acidophilus [Acidophilus] 1 tablet PO BID tablet 07/23/17 Levothyroxine [Synthroid] 50 mcg PO DAILY@0600 tablet 07/23/17 Melatonin 3 mg PO QHS@1930 tablet 07/23/17 Menthol/Lanolin/Calamine/Znox [Calmoseptine Ointment] 1 applic TOPICAL TID tube 07/23/17 Metoprolol Tartrate [Lopressor (beta elise)] 25 mg PO BID tablet 07/23/17 Montelukast [Singulair] 10 mg PO QHS tablet 07/23/17 Pantoprazole Sodium [Protonix] 20 mg PO DAILY tablet 07/23/17 Pravastatin [Pravachol] 40 mg PO QHS tablet 07/23/17 Quetiapine Fumarate [Seroquel] 25 mg PO QHS@193 tablet 07/23/17 Tamsulosin HCl [Flomax] 0.4 mg PO QHS capsule 07/23/17 Warfarin [Coumadin] 7 mg PO DAILY@1700 tablet 07/23/17 Primary Care Physician: Tracy Esparza MD [Primary Care Provider] - Proposed Discharge Date: 07/25/17
--- NOTE | 2017-07-23 12:00 | PCM.RU.DC ---
Rehab Discharge Summary DATE OF ADMISSION: 07/09/17 DATE OF DISCHARGE: 07/25/17 - Rehab Diagnosis Right Hip Fractures Discharge Diet: 2000 mg Sodium Diet - Cardiac , - - Regular cardiac diet Discharge Activity: May Not Drive, May Shower, Use Walker - Toe-touch weightbearing right lower extremity. Use with walker. Weight Bearing Status: Toe touch weight bearing - Right lower extremity Call your doctor if you observe: Fever of 101 or Higher, Coldness, Increased Pain, Numbness or Tingling, Change in Color, Inability to urinate, Inability to have a bowel movement, Using more than one pad per hour, Shortness of breath, Dizziness, Fainting spells, Swelling in the ankles, Chest pain, Prolonged hiccoughing, Increased palpitations (irregular heartbeat), Calf discomfort, Uncontrolled pain Home Medications: Medications to take at Discharge Magnesium Oxide [Mag-Ox 400] 400 mg PO DAILY 07/20/13 Oxycodone [Oxyir] 5 - 10 mg PO Q4H PRN PRN #1 tablet 07/09/17 Acetaminophen [Tylenol Tablet] 650 mg PO Q6H PRN PRN tablet 07/23/17 Adalimumab [Humira] 40 mg SC Q14D ml 07/23/17 Albuterol Aerosols [Ventolin Aerosols] 2.5 mg INHALATION Q4H PRN PRN vial.neb. 07/23/17 Allopurinol [Zyloprim] 100 mg PO DAILY tablet 07/23/17 Aspirin [Aspirin, Baby] 81 mg PO DAILY@0800 tab.chew 07/23/17 Cholecalciferol (VIT D3) [Vitamin D3] 2,000 unit PO DAILY tablet 07/23/17 Colchicine 0.6 mg PO QODAY@1200 tablet 07/23/17 Donepezil HCl [Aricept] 10 mg PO QHS tablet 07/23/17 Doxycycline 100 mg PO BID capsule 07/23/17 Flecainide [Tambocor] 100 mg PO BID tablet 07/23/17 Guaifenesin [Mucinex] 600 mg PO BID tablet 07/23/17 Guaifenesin [Robitussin] 10 ml PO Q6H PRN PRN udc 07/23/17 Hydrochlorothiazide 12.5 mg PO DAILY PRN PRN capsule 07/23/17 Lactobacillus Acidophilus [Acidophilus] 1 tablet PO BID tablet 07/23/17 Levothyroxine [Synthroid] 50 mcg PO DAILY@0600 tablet 07/23/17 Melatonin 3 mg PO QHS@1930 tablet 07/23/17 Menthol/Lanolin/Calamine/Znox [Calmoseptine Ointment] 1 applic TOPICAL TID tube 07/23/17 Metoprolol Tartrate [Lopressor (beta elise)] 25 mg PO BID tablet 07/23/17 Montelukast [Singulair] 10 mg PO QHS tablet 07/23/17 Pantoprazole Sodium [Protonix] 20 mg PO DAILY tablet 07/23/17 Pravastatin [Pravachol] 40 mg PO QHS tablet 07/23/17 Quetiapine Fumarate [Seroquel] 25 mg PO QHS@1930 tablet 07/23/17 Tamsulosin HCl [Flomax] 0.4 mg PO QHS capsule 07/23/17 Warfarin [Coumadin] 7 mg PO DAILY@1700 tablet 07/23/17 Primary Care Physician: Tracy Esparza MD [Primary Care Provider] - Disposition: Nursing Home facility Minutes spent on discharge:: 40 Patient Condition:: Fair Rehab Course The patient is a 82 year old Male who was admitted to the rehab unit for rehabilitation after sustained a mechanical fall in his basement. Striking his right hip and right scalp.The patient has a history of Afib, Psoriatic Arthritis, GERD, HNT, and HPL. The Patient was seen in the [facility] emergency room. X-rays of his right hip were negative. Head CT and CT of cervical spine were also negative. Patient was still having significant pain in his right leg so patient underwent an MRI of his right hip. The MRI showed a nondisplaced right acetabular fracture with extension to the superior suprapubic ramus and supra-acetabular bone. A Subtle nondisplaced fractures of bilateral sacral angela. Fluid/hemorrhage adjacent to the right obturator cartography teacher muscle. Suspected occult left labral tear with small para labral cyst. Dr. Shayne Almeida was consulted who was on-call for Dr. Latham, he recommended that the patient be toe-touch weightbearing to the right lower extremity and follow-up with Dr. Latham as outpatient. No surgical intervention was necessary, he felt. The patient had a repeat CAT scan of his brain prior to transfer to the Inpatient rehab unit to make sure he did not have a latent bleed since the patient is on Coumadin for AFib and he did strike his head. His Initial CAT scan was negative. The patient also had a influenza test since he was coughing up yellow and green phlegm, which was negative. He lives with his in a one story home with basement with a full flight of stairs, the patient goes to the basement frequently, he uses a cane and FWW to ambulate. He has had multiple falls over the last few weeks. He does not drive and requires help with his ADLs. He is admitted to the rehab unit in order to restore his previous level of functional independence. With Physical therapy, he min to moderate assistance for transfers, he is unable to maintain the toe touch precautions (TTP). He is able to walk shot distances but no more, he is unable to maintain that Toe Touch weight bearing precautions. With Occupational therapy he is a minimal assist of one to get on and off the Toilet, and minimal assist for grooming. To get in and out of the shower he is a moderate assist. He is a total to max assist for lower body care. He requires assistance to get his under garments and pants on. He is more alert than on admission, and is making progress. With nursing he is on Antibiotics for respiratory infection and breathing treatments. Was started on Seroquel for issues with disruptive circadian rhythm, resulting in confusion and disruptive behavior, was still not sleeping added on Melatonin. Was also started on Aricept for underlining Dementia. Recommend that he receive the Seroquel, Melatonin and Aricept around 1930 hours or at least two hours before bedtime. The staff found that the patient did much better and was able to sleep better also. The team feels that he would be better serve to continue therapy and recommend that he go to TCU for additional skill nursing the family is in agreement with this plan. The patient will be transferred to TCU on Wednesday. Meaningful Use Info Meaningful Use Diagnoses (Choose all that apply): None applicable
--- NOTE | 2017-07-23 12:03 | DS.PCM_ITS ---
Rehab Discharge Summary DATE OF ADMISSION: 07/09/17 DATE OF DISCHARGE: 07/25/17 - Rehab Diagnosis Right Hip Fractures Discharge Diet: 2000 mg Sodium Diet - Cardiac , - - Regular cardiac diet Discharge Activity: May Not Drive, May Shower, Use Walker - Toe-touch weightbearing right lower extremity. Use with walker. Weight Bearing Status: Toe touch weight bearing - Right lower extremity Call your doctor if you observe: Fever of 101 or Higher, Coldness, Increased Pain, Numbness or Tingling, Change in Color, Inability to urinate, Inability to have a bowel movement, Using more than one pad per hour, Shortness of breath, Dizziness, Fainting spells, Swelling in the ankles, Chest pain, Prolonged hiccoughing, Increased palpitations (irregular heartbeat), Calf discomfort, Uncontrolled pain Home Medications: Medications to take at Discharge Magnesium Oxide [Mag-Ox 400] 400 mg PO DAILY 07/20/13 Oxycodone [Oxyir] 5 - 10 mg PO Q4H PRN PRN #1 tablet 07/09/17 Acetaminophen [Tylenol Tablet] 650 mg PO Q6H PRN PRN tablet 07/23/17 Adalimumab [Humira] 40 mg SC Q14D ml 07/23/17 Albuterol Aerosols [Ventolin Aerosols] 2.5 mg INHALATION Q4H PRN PRN vial.neb. 07/23/17 Allopurinol [Zyloprim] 100 mg PO DAILY tablet 07/23/17 Aspirin [Aspirin, Baby] 81 mg PO DAILY@0800 tab.chew 07/23/17 Cholecalciferol (VIT D3) [Vitamin D3] 2,000 unit PO DAILY tablet 07/23/17 Colchicine 0.6 mg PO QODAY@1200 tablet 07/23/17 Donepezil HCl [Aricept] 10 mg PO QHS tablet 07/23/17 Doxycycline 100 mg PO BID capsule 07/23/17 Flecainide [Tambocor] 100 mg PO BID tablet 07/23/17 Guaifenesin [Mucinex] 600 mg PO BID tablet 07/23/17 Guaifenesin [Robitussin] 10 ml PO Q6H PRN PRN udc 07/23/17 Hydrochlorothiazide 12.5 mg PO DAILY PRN PRN capsule 07/23/17 Lactobacillus Acidophilus [Acidophilus] 1 tablet PO BID tablet 07/23/17 Levothyroxine [Synthroid] 50 mcg PO DAILY@0600 tablet 07/23/17 Melatonin 3 mg PO QHS@1930 tablet 07/23/17 Menthol/Lanolin/Calamine/Znox [Calmoseptine Ointment] 1 applic TOPICAL TID tube 07/23/17 Metoprolol Tartrate [Lopressor (beta elise)] 25 mg PO BID tablet 07/23/17 Montelukast [Singulair] 10 mg PO QHS tablet 07/23/17 Pantoprazole Sodium [Protonix] 20 mg PO DAILY tablet 07/23/17 Pravastatin [Pravachol] 40 mg PO QHS tablet 07/23/17 Quetiapine Fumarate [Seroquel] 25 mg PO QHS@1930 tablet 07/23/17 Tamsulosin HCl [Flomax] 0.4 mg PO QHS capsule 07/23/17 Warfarin [Coumadin] 7 mg PO DAILY@1700 tablet 07/23/17 Primary Care Physician: Tracy Esparza MD [Primary Care Provider] - Disposition: Long Term facility Minutes spent on discharge:: 40 Patient Condition:: Fair Rehab Course The patient is a 82 year old Male who was admitted to the rehab unit for rehabilitation after sustained a mechanical fall in his basement. Striking his right hip and right scalp.The patient has a history of Afib, Psoriatic Arthritis , GERD, HNT, and HPL. The Patient was seen in the [facility] emergency room. X-rays of his right hip were negative. Head CT and CT of cervical spine were also negative. Patient was still having significant pain in his right leg so patient underwent an MRI of his right hip. The MRI showed a nondisplaced right acetabular fracture with extension to the superior suprapubic ramus and supra- acetabular bone. A Subtle nondisplaced fractures of bilateral sacral angela. Fluid/hemorrhage adjacent to the right obturator speech communication professor muscle. Suspected occult left labral tear with small para labral cyst. Dr. Shayne Almeida was consulted who was on-call for Dr. Latham, he recommended that the patient be toe-touch weightbearing to the right lower extremity and follow-up with Dr. Latham as outpatient. No surgical intervention was necessary, he felt. The patient had a repeat CAT scan of his brain prior to transfer to the Inpatient rehab unit to make sure he did not have a latent bleed since the patient is on Coumadin for AFib and he did strike his head. His Initial CAT scan was negative. The patient also had a influenza test since he was coughing up yellow and green phlegm, which was negative. He lives with his in a one story home with basement with a full flight of stairs, the patient goes to the basement frequently, he uses a cane and FWW to ambulate. He has had multiple falls over the last few weeks. He does not drive and requires help with his ADLs. He is admitted to the rehab unit in order to restore his previous level of functional independence. With Physical therapy, he min to moderate assistance for transfers, he is unable to maintain the toe touch precautions (TTP). He is able to walk shot distances but no more, he is unable to maintain that Toe Touch weight bearing precautions. With Occupational therapy he is a minimal assist of one to get on and off the Toilet , and minimal assist for grooming. To get in and out of the shower he is a moderate assist. He is a total to max assist for lower body care. He requires assistance to get his under garments and pants on. He is more alert than on admission, and is making progress. With nursing he is on Antibiotics for respiratory infection and breathing treatments. Was started on Seroquel for issues with disruptive circadian rhythm, resulting in confusion and disruptive behavior, was still not sleeping added on Melatonin. Was also started on Aricept for underlining Dementia. Recommend that he receive the Seroquel, Melatonin and Aricept around 1930 hours or at least two hours before bedtime. The staff found that the patient did much better and was able to sleep better also. The team feels that he would be better serve to continue therapy and recommend that he go to TCU for additional skill nursing the family is in agreement with this plan. The patient will be transferred to TCU on Wednesday. Meaningful Use Info Meaningful Use Diagnoses (Choose all that apply): None applicable
[2017-07-23] MEDS: MELATONIN 3 MG TABLET PO (20:26)
[2017-07-23] MEDS: QUEtiapine 25 MG Tablet PO (20:26)
[2017-07-23 21:57] VITALS: PULSE 74
[2017-07-23 21:58] VITALS: BP 132/72; PULSE 68; RESP 18; TEMP 36.9; O2SAT 93; O2SAT 94
[2017-07-23] MEDS: Tamsulosin HCl 0.4 MG Capsule PO (22:02)
[2017-07-23] MEDS: Montelukast 10 MG Tablet PO (22:02)
[2017-07-23] MEDS: Pravastatin 40 MG Tablet PO (22:02)
[2017-07-23] MEDS: Donepezil HCl 10 MG Tablet PO (22:04)
[2017-07-23 22:34] VITALS: PULSE 72; RESP 18
--- NOTE | 2017-07-24 02:40 | NURSING ---
Reviewed and agree with [employer] documentation.
[2017-07-24] MEDS: Levothyroxine 50 MCG Tablet PO (06:15)
[2017-07-24] MEDS: Menthol/Lanolin/Calamine/Znox 113 GM Tube 1 APPLIC TOPICAL ×3 (06:15→20:37)
[2017-07-24 07:05] VITALS: PULSE 60; RESP 18; O2SAT 92
[2017-07-24] MEDS: Albuterol 2.5 MG/3 ML VIAL.NEB. INHALATION ×2 (07:05→22:38)
[2017-07-24 07:42] LABS: International Normalized Ratio 2.3; Prothrombin Time (Protime)PT. 24.3 SECONDS (11.7-14.9)
[2017-07-24] MEDS: Flecainide 100 MG Tablet PO ×2 (08:04→20:37)
[2017-07-24] MEDS: guaiFENesin 600 MG Tablet PO ×2 (08:04→20:38)
[2017-07-24] MEDS: Allopurinol 100 MG Tablet PO (08:04)
[2017-07-24 08:05] VITALS: PULSE 69
[2017-07-24] MEDS: Aspirin 81 MG TAB.CHEW PO (08:05)
[2017-07-24] MEDS: Metoprolol Tartrate 25 MG Tablet PO ×2 (08:05→20:37)
[2017-07-24 08:37] VITALS: BP 126/59; PULSE 69; RESP 17; TEMP 37.1; O2SAT 92
[2017-07-24] MEDS: Pantoprazole Sodium 20 MG Tablet PO (10:44)
[2017-07-24] MEDS: Doxycycline 100 MG CAPSULE PO ×2 (10:44→20:38)
--- NOTE | 2017-07-24 15:07 | PN_ITS ---
Subjective: patient was seen and examined. Cough has improved as well as breathing. No fever or chills. Will be discharged tomorrow to TCU. Objective: General: Alert, Oriented x3, Cooperative, No apparent distress HEENT: Atraumatic, PERRLA, EOMI, Normocephalic Oral: Moist Mucosa Neck: Supple Lungs: Clear to auscultation, Diminshed air movement, no wheezes heard Cardiovascular: Regular rate, Regular Rhythm, Normal S1, Normal S2, No murmurs Abdomen: Bowel Sounds Present, Soft, Non Tender, Non-Distended, No Hepato- splenomegaly Extremities: No edema Skin: No rashes, No breakdown Musculoskeletal: No Tenderness to Palpation of Joints or Extremities Lymphatic: No Cervical, Supraclavicular, or Inguinal Adenopathy Neurological: Cranial nerves II-XII grossly intact, Neuro grossly intact Psych/Mental Status: Normal Affect, Appropriate Vitals/I&O's: Vital Signs Temp Pulse Resp BP Pulse Ox 98.7 F 69 17 126/59 H 92 07/24/17 08:37 07/24/17 08:37 07/24/17 08:37 07/24/17 08:37 07/24/17 08:37 Oxygen Flow Rate 1.5 Oxygen Delivery Method Room Air Weight: 97.522 kg Body Mass Index (BMI) 35.9 Intake and Output for Last 24 Hours 07/22/17 07/23/17 07/24/17 23:59 23:59 23:59 Intake Total 480 / 480 840 / 840 480 / 480 Balance 480 / 480 840 / 840 480 / 480 Laboratory Results 07/24/17 07:25: PT 24.3 H, INR 2.3 Current Medications Acetaminophen (Tylenol) 650 mg PO Q6H PRN PRN PRN Reason: Mild Pain (1-3)/Temp > 100.7 F Last Admin: 07/23/17 05:10 Dose: 650 mg Adalimumab (Humira) 40 mg SC Q14D [facility] Last Admin: 07/11/17 08:11 Dose: 40 mg Albuterol Sulfate (Ventolin Aerosols) 2.5 mg INHALATION Q4H PRN PRN PRN Reason: SOB &/OR WHEEZING Last Admin: 07/24/17 07:05 Dose: 2.5 mg Allopurinol (Zyloprim) 100 mg PO DAILY [facility] Last Admin: 07/24/17 08:04 Dose: 100 mg Aspirin (Aspirin, Baby) 81 mg PO DAILY@0800 [facility] Last Admin: 07/24/17 08:05 Dose: 81 mg Bisacodyl (Dulcolax) 10 mg RECTAL .PRN X 1 PRN PRN Reason: Constipation Calamine/Phenol (Calmoseptine Ointment) 1 applic TOPICAL TID [facility] PRN Reason: Protocol Last Admin: 07/24/17 06:15 Dose: 1 applicatio Cholecalciferol (Vitamin D) 2,000 unit PO DAILY [facility] Last Admin: 07/24/17 08:04 Dose: 2,000 unit Colchicine (Colchicine) 0.6 mg PO QODAY@1200 [facility] Last Admin: 07/24/17 12:34 Dose: 0.6 mg Donepezil HCl (Aricept) 10 mg PO QHS [facility] Last Admin: 07/23/17 22:04 Dose: 10 mg Doxycycline Monohydrate (Doxycycline) 100 mg PO BID [facility] Stop: 07/25/17 11:22 Last Admin: 07/24/17 10:44 Dose: 100 mg Flecainide Acetate (Tambocor) 100 mg PO BID [facility] Last Admin: 07/24/17 08:04 Dose: 100 mg Guaifenesin (Mucinex) 600 mg PO BID [facility] Last Admin: 07/24/17 08:04 Dose: 600 mg Guaifenesin (Robitussin) 10 ml PO Q6H PRN PRN PRN Reason: COUGH Last Admin: 07/23/17 22:12 Dose: 10 ml Hydrochlorothiazide (Hydrochlorothiazide) 12.5 mg PO DAILY PRN PRN PRN Reason: Hypertensive Emergency Lactobacillus Acidophilus (Acidophilus) 1 tablet PO BID [facility] Last Admin: 07/24/17 08:05 Dose: 1 tablet Levothyroxine Sodium (Synthroid) 50 mcg PO DAILY@0600 [facility] Last Admin: 07/24/17 06:15 Dose: 50 mcg Magnesium Hydroxide (Milk Of Magnesia) 30 ml PO .PRN X 1 PRN PRN Reason: Constipation Melatonin (Melatonin) 3 mg PO QHS@1930 [facility] Last Admin: 07/23/17 20:26 Dose: 3 mg Metoprolol Tartrate (Lopressor (Beta Thania)) 25 mg PO BID [facility] Last Admin: 07/24/17 08:05 Dose: 25 mg Montelukast Sodium (Singulair) 10 mg PO QHS [facility] Last Admin: 07/23/17 22:02 Dose: 10 mg Pantoprazole Sodium (Protonix) 20 mg PO DAILY [facility] Last Admin: 07/24/17 10:44 Dose: 20 mg Pravastatin Sodium (Pravachol) 40 mg PO QHS [facility] Last Admin: 07/23/17 22:02 Dose: 40 mg Quetiapine Fumarate (Seroquel) 25 mg PO QHS@1930 [facility] Last Admin: 07/23/17 20:26 Dose: 25 mg Senna/Docusate Sodium (Senokot-S, Tamra-Colace) 2 tablet PO BID PRN PRN Reason: CONSTIPATION Sodium Chloride () 5 - 30 ml IV UD PRN PRN Reason: SALINE FLUSH Last Admin: 07/13/17 23:33 Dose: 10 ml Tamsulosin HCl (Flomax) 0.4 mg PO QHS [facility] Last Admin: 07/23/17 22:02 Dose: 0.4 mg Warfarin Sodium 5 mg/ Warfarin (Sodium 2 mg) 7 mg PO DAILY@1700 [facility] Last Admin: 07/23/17 18:56 Dose: 7 mg Assessment/Plan 82-year-old gentleman admitted following a fall sustaining a right acetabular fracture. 1. Right acetabular fracture s/p fall, undergoing therapy, improving 2. Acute bronchitis, improved, encouraged use of incentive spirometer 3. BPH, on Flomax 4. Hypertension, controlled on hydrochlorothiazide, metoprolol, will continue to monitor 5. Paroxysmal A. fib, rate controlled, INR is therapeutic on coumadin 6. Hypothyroidism, on levothyroxine 7. Dementia with behavioral agitation, on seroquel and melatonin 8. GERD 9. DVT prophylaxis - on Coumadin Code Visit Inpatient E&M: 28709 Subs Hosp L2
[2017-07-24] MEDS: guaiFENesin 10 ML UDC (200MG/10ML) PO (16:13)
[2017-07-24] MEDS: MELATONIN 3 MG TABLET PO (20:36)
[2017-07-24] MEDS: Pravastatin 40 MG Tablet PO (20:36)
[2017-07-24 20:37] VITALS: PULSE 72
[2017-07-24] MEDS: Tamsulosin HCl 0.4 MG Capsule PO (20:37)
[2017-07-24] MEDS: Montelukast 10 MG Tablet PO (20:37)
[2017-07-24] MEDS: QUEtiapine 25 MG Tablet PO (20:38)
[2017-07-24] MEDS: Donepezil HCl 10 MG Tablet PO (20:38)
[2017-07-24 20:46] VITALS: BP 128/70; PULSE 72; RESP 18; TEMP 36.8; O2SAT 94; O2SAT 95
[2017-07-24 22:38] VITALS: PULSE 61; RESP 20
[2017-07-25 06:23] LABS: International Normalized Ratio 2.4; Prothrombin Time (Protime)PT. 25.4 SECONDS (11.7-14.9)
[2017-07-25] MEDS: Menthol/Lanolin/Calamine/Znox 113 GM Tube 1 APPLIC TOPICAL (06:33)
[2017-07-25] MEDS: Levothyroxine 50 MCG Tablet PO (06:33)
[2017-07-25 07:29] VITALS: BP 118/61; PULSE 62; RESP 18; TEMP 36.6; O2SAT 94
[2017-07-25 07:34] VITALS: PULSE 62
[2017-07-25] MEDS: guaiFENesin 600 MG Tablet PO (07:34)
[2017-07-25] MEDS: Allopurinol 100 MG Tablet PO (07:34)
[2017-07-25] MEDS: Flecainide 100 MG Tablet PO (07:34)
[2017-07-25] MEDS: Doxycycline 100 MG CAPSULE PO (07:34)
[2017-07-25] MEDS: Aspirin 81 MG TAB.CHEW PO (07:34)
[2017-07-25] MEDS: Pantoprazole Sodium 20 MG Tablet PO (07:34)
[2017-07-25] MEDS: Metoprolol Tartrate 25 MG Tablet PO (07:34)
--- NOTE | 2017-07-25 13:33 | NURSING ---
Belen Shelton on TCU given report. patient discharged to TCU at this time. present.
== END 2017-07-25 13:36 | disposition skilled nursing facility (03) | DRG 560 ==
PROVIDERS: Internal Medicine; Nurse Practitioner Acute Care; Admitting Provider Psychiatry & Neurology Neurology; Family Provider Family Medicine; PCP Family Medicine; Visit Provider Psychiatry & Neurology Neurology
DX: S32.401D Unspecified fracture of right acetabulum, subsequent encounter for fracture with routine healing (principal); F03.91 Unspecified dementia, unspecified severity, with behavioral disturbance; I48.0 Paroxysmal atrial fibrillation; I48.91 Unspecified atrial fibrillation; E86.0 Dehydration; L40.50 Arthropathic psoriasis, unspecified; E78.5 Hyperlipidemia, unspecified; E03.9 Hypothyroidism, unspecified; S32.19XD Other fracture of sacrum, subsequent encounter for fracture with routine healing; S32.591D Other specified fracture of right pubis, subsequent encounter for fracture with routine healing; I10 Essential (primary) hypertension; W10.8XXD Fall (on) (from) other stairs and steps, subsequent encounter; Z79.01 Long term (current) use of anticoagulants; M10.9 Gout, unspecified; M35.3 Polymyalgia rheumatica; K21.9 Gastro-esophageal reflux disease without esophagitis; J20.9 Acute bronchitis, unspecified; N40.1 Benign prostatic hyperplasia with lower urinary tract symptoms; R33.8 Other retention of urine; R79.1 Abnormal coagulation profile; T45.515A Adverse effect of anticoagulants, initial encounter
CPT/HCPCS: 36415; 70450; 71046; 72125; 72195; 73502; 80048; 80053; 81001; 82607; 82747; 83735; 84100; 84443; 85014; 85025; 85027; 85610; 87070; 87077; 87086; 87205; 87804; 92507; 93005; 94640; 94667; 94668; 96105; 96372; 97110; 97116; 97162; 97166; 97530; 97535; 97802; 99218; 99282; J7030; A4216; G0378

== ENCOUNTER 2017-07-25 14:03 | Inpatient (IN) | payer MEDICARE, OTHER, SELFPAY ==
--- NOTE | 2017-07-25 14:08 | NURSING ---
Arrived from Rehab via WC from Rehab rt hip fx
[2017-07-25 14:11] VITALS: BP 183/72; PULSE 62; RESP 22; TEMP 36.8; O2SAT 93
[2017-07-25 14:12] VITALS: BMI 37.0
[2017-07-25 14:13] VITALS: BMI 37.1
[2017-07-25 14:26] VITALS: BP 134/69
--- NOTE | 2017-07-25 15:06 | PCM.HP.STD ---
Problem List (1) Hypothyroidism Status: Chronic (2) Gout Status: Chronic (3) GERD (gastroesophageal reflux disease) Status: Chronic (4) Right acetabular fracture Status: Acute (5) Atrial fibrillation Status: Chronic (6) Carotid artery stenosis Status: Chronic (7) Chest pain Status: Chronic (8) CAD (coronary artery disease) Status: Chronic (9) HLD (hyperlipidemia) Status: Chronic (10) Polymyalgia rheumatica Status: Chronic (11) TIA (transient ischemic attack) Status: Chronic (12) Debility Status: Chronic (13) HTN (hypertension) Status: Chronic (14) Psoriatic arthritis Status: Chronic History of Present Illness Date of Admission: 07/25/17 Chief Complaint: Here for rehabilitation, strengthening, prior to discharge home. The patient is a 82 year old Male with below past medical history on 07/09/2017 admitted to inpatient rehabilitation. X-ray negative for fracture. MRI right hip showed nondisplaced right acetabular fracture, extension to superior suprapubic ramus and supraacetabular, subtle bilateral sacral angela fracture. Dr. Almeida recommended right tip toe weight bearing, non-operative management. PT/OT, pain control. 07/12/2017 EKG sinus rhythm 1st degree AV block. 07/18/2017 Chest X-ray bibasilar atelectasis. CT brain negative for bleed. Influenza negative. Antibiotics, aerosols, for bronchitis. Seroquel for circadian rhythm disorder. Melatonin for insomnia. Aricept for underlying dementia. 07/25/2017 Admit to TCU for rehabilitation, strengthening, prior to discharge home with spouse. Past Medical History Past Medical History (Chronic Problems): Chronic Problems Hypothyroidism (Chronic) Gout (Chronic) GERD (gastroesophageal reflux disease) (Chronic) Atrial fibrillation (Chronic) Benign essential hypertension (Chronic) Carotid artery stenosis (Chronic) Chest pain (Chronic) CAD (coronary artery disease) (Chronic) HLD (hyperlipidemia) (Chronic) Polymyalgia rheumatica (Chronic) TIA (transient ischemic attack) (Chronic) Debility (Chronic) HTN (hypertension) (Chronic) Psoriatic arthritis (Chronic) Allergies No Known Allergies Allergy (Verified 07/08/17 16:09) Home Medications: Ambulatory Orders Medication Instructions Recorded Acetaminophen [Tylenol Tablet] 650 mg PO Q6H PRN PRN tablet 07/23/17 Albuterol Aerosols [Ventolin 2.5 mg INHALATION Q4H PRN PRN 07/23/17 Aerosols] vial.neb. Guaifenesin [Robitussin] 10 ml PO Q6H PRN PRN udc 07/23/17 Hydrochlorothiazide 12.5 mg PO DAILY PRN PRN capsule 07/23/17 Adalimumab [Humira] 40 mg SC Q14D 07/25/17 Allopurinol [Zyloprim] 100 mg PO DAILY 07/25/17 Aspirin [Aspirin, Baby] 81 mg PO DAILY@0800 07/25/17 Cholecalciferol (VIT D3) [Vitamin 2,000 unit PO DAILY 07/25/17 D3] Colchicine 0.6 mg PO QODAY@1200 07/25/17 Donepezil HCl [Aricept] 10 mg PO QHS 07/25/17 Flecainide [Tambocor] 100 mg PO BID 07/25/17 Guaifenesin [Mucinex] 600 mg PO BID 07/25/17 Lactobacillus Acidophilus 1 tablet PO BID 07/25/17 [Acidophilus] Levothyroxine [Synthroid] 50 mcg PO DAILY@0600 07/25/17 Melatonin 3 mg PO QHS@192907/25/17 Menthol/Lanolin/Calamine/Znox 1 applic TOPICAL TID 07/25/17 [Calmoseptine Ointment] Metoprolol Tartrate [Lopressor 25 mg PO BID 07/25/17 (beta elise)] Montelukast [Singulair] 10 mg PO QHS 07/25/17 Pantoprazole Sodium [Protonix] 20 mg PO DAILY 07/25/17 Pravastatin [Pravachol] 40 mg PO QHS 07/25/17 Quetiapine Fumarate [Seroquel] 25 mg PO QHS@192907/25/17 Tamsulosin HCl [Flomax] 0.4 mg PO QHS 07/25/17 Warfarin [Coumadin] 7 mg PO DAILY@1700 07/25/17 Surgical History: adenoidectomy, appendectomy, tonsillectomy, - - Right carotid endarterectomy, carpal tunnel surgery, lipoma removal, rectal fissure repair. Psychiatric History: No pertinent psych hx Lives: Spouse/ Significant Other Smoking Status: Never smoker - *Family History Maternal History Items: No pertinent history Paternal History Items: Heart Disease Review of Systems Constitutional: Denies: Chills, Fever, Weight Change HEENT: Denies: Head Aches, Sinus Congestion, Sinus Drainage Cardiovascular: Denies: Chest Pain, Palpitations Respiratory: Denies: Cough, Shortness of breath at rest, Sputum production Gastrointestinal: Denies: Abdominal Pain, Nausea, Vomiting Genitourinary: Denies: Dysuria Musculoskeletal: Denies: Joint Pain, Joint Tenderness Skin: Denies: Rash, Wounds Neurological: Denies: Numbness, Tingling, Focal weakness Psychiatric: Denies: Anxiety, Depression, Homicidal Ideations, Suicidal Ideations Hematologic/ Lymphatic: Denies: Easy Bruising, Easy Bleeding VTE Information - Inpt Only VTE Present on Admission: No VTE Mechan Device Prophylaxis: Knee High SKYLA Hose VTE Pharm Prophylaxis ordered?: No Reason prophylaxis not ordered:: Treatment Not Indicated - Physical Exam General: Alert, Oriented x3, Cooperative HEENT: Atraumatic, PERRLA, EOMI, Normocephalic Neck: Supple, No JVD, Negative Carotid Bruits Lungs: Clear to auscultation, Normal air movement Cardiovascular: Regular rate, No murmurs Abdomen: Bowel Sounds Present, Soft, Non Tender Extremities: No edema, Capillary Refill Less than 3 Seconds Skin: No rashes, No breakdown Musculoskeletal: No Tenderness to Palpation of Joints or Extremities Neurological: Cranial nerves II-XII grossly intact Psych/Mental Status: Normal Affect, Appropriate Vital Signs Temp Pulse Resp BP Pulse Ox 98.3 F 62 22 H 134/69 H 93 07/25/17 14:11 07/25/17 14:11 07/25/17 14:11 07/25/17 14:26 07/25/17 14:11 Oxygen Delivery Method Room Air Weight: 98 kg Body Mass Index (BMI) 37.0 Assessment/Plan 82 year old male with below past medical history admitted to inpatient rehab unit after right hip fracture, bilateral sacral fracture, non-operative management recommended, admitted to TCU for rehabilitation, strengthening, prior to discharge home with spouse. Debility - PT/OT. Cognition - ST. Pain - Tylenol 1000MG Q8H PRN mild pain. Bowel - Miralax 17GM daily, Senna/colace 1 tablet BID, Dulcolax 10MG PO daily PRN. Pneumonia vaccination - Administer Prevnar 13 and/or Pneumovax 23 as necessary. DVT prophylaxis - Not necessary, already on warfarin. Psoriatic arthritis - Humira 40MG SC every 2 weeks. Shortness of breath - Albuterol 2.5MG Q4H PRN. Gout - Allopurinol 100MG daily, Colchicine 0.6MG daily. Coronary Artery Disease - Metoprolol 25MG BID, Aspirin 81MG daily. Vitamin D deficiency - D3 2000IU daily. Alzheimer's Disease - Donepezil 10MG QHS. Atrial fibrillation - Metoprolol 25MG BID, Tambocor 100MG BID, Warfarin 7MG daily, follow INR. Cough - Robitussin 10ML Q6H PRN. Congestion - Guaifenesin 600MG BID. Hypertensive emergency - HCTZ 12.5MG daily PRN. GI prophylaxis - Lactobacillus 1 tablet daily. Hypothyroidism - Levothyroxine 50MCG daily. Insomnia - Melatonin 3MG QHS. Skin irritation - Calmoseptine TID buttocks. Asthma - Singulair 10MG daily. GERD - Pantoprazole 20MG Daily. Hyperlipidemia - Pravastatin 40MG QHS. Behavioral problem secondary to dementia - Seroquel 25MG QHS, will gradually taper. BPH - Tamsulosin 0.4MG daily.
--- NOTE | 2017-07-25 15:17 | HP.PCM_ITS ---
Problem List (1) Hypothyroidism Status: Chronic (2) Gout Status: Chronic (3) GERD (gastroesophageal reflux disease) Status: Chronic (4) Right acetabular fracture Status: Acute (5) Atrial fibrillation Status: Chronic (6) Carotid artery stenosis Status: Chronic (7) Chest pain Status: Chronic (8) CAD (coronary artery disease) Status: Chronic (9) HLD (hyperlipidemia) Status: Chronic (10) Polymyalgia rheumatica Status: Chronic (11) TIA (transient ischemic attack) Status: Chronic (12) Debility Status: Chronic (13) HTN (hypertension) Status: Chronic (14) Psoriatic arthritis Status: Chronic History of Present Illness Date of Admission: 07/25/17 Chief Complaint: Here for rehabilitation, strengthening, prior to discharge home. The patient is a 82 year old Male with below past medical history on 07/09/2017 admitted to inpatient rehabilitation. X-ray negative for fracture. MRI right hip showed nondisplaced right acetabular fracture, extension to superior suprapubic ramus and supraacetabular, subtle bilateral sacral angela fracture. Dr. Almeida recommended right tip toe weight bearing, non-operative management. PT/OT, pain control. 07/12/2017 EKG sinus rhythm 1st degree AV block. 07/18/2017 Chest X-ray bibasilar atelectasis. CT brain negative for bleed. Influenza negative. Antibiotics, aerosols, for bronchitis. Seroquel for circadian rhythm disorder. Melatonin for insomnia. Aricept for underlying dementia. 07/25/2017 Admit to TCU for rehabilitation, strengthening, prior to discharge home with spouse. Past Medical History Past Medical History (Chronic Problems): Chronic Problems Hypothyroidism (Chronic) Gout (Chronic) GERD (gastroesophageal reflux disease) (Chronic) Atrial fibrillation (Chronic) Benign essential hypertension (Chronic) Carotid artery stenosis (Chronic) Chest pain (Chronic) CAD (coronary artery disease) (Chronic) HLD (hyperlipidemia) (Chronic) Polymyalgia rheumatica (Chronic) TIA (transient ischemic attack) (Chronic) Debility (Chronic) HTN (hypertension) (Chronic) Psoriatic arthritis (Chronic) Allergies No Known Allergies Allergy (Verified 07/08/17 16:09) Home Medications: Ambulatory Orders Medication Instructions Recorded Acetaminophen [Tylenol Tablet] 650 mg PO Q6H PRN PRN tablet 07/23/17 Albuterol Aerosols [Ventolin 2.5 mg INHALATION Q4H PRN PRN 07/23/17 Aerosols] vial.neb. Guaifenesin [Robitussin] 10 ml PO Q6H PRN PRN udc 07/23/17 Hydrochlorothiazide 12.5 mg PO DAILY PRN PRN capsule 07/23/17 Adalimumab [Humira] 40 mg SC Q14D 07/25/17 Allopurinol [Zyloprim] 100 mg PO DAILY 07/25/17 Aspirin [Aspirin, Baby] 81 mg PO DAILY@0800 07/25/17 Cholecalciferol (VIT D3) [Vitamin 2,000 unit PO DAILY 07/25/17 D3] Colchicine 0.6 mg PO QODAY@1200 07/25/17 Donepezil HCl [Aricept] 10 mg PO QHS 07/25/17 Flecainide [Tambocor] 100 mg PO BID 07/25/17 Guaifenesin [Mucinex] 600 mg PO BID 07/25/17 Lactobacillus Acidophilus 1 tablet PO BID 07/25/17 [Acidophilus] Levothyroxine [Synthroid] 50 mcg PO DAILY@0600 07/25/17 Melatonin 3 mg PO QHS@192907/25/17 Menthol/Lanolin/Calamine/Znox 1 applic TOPICAL TID 07/25/17 [Calmoseptine Ointment] Metoprolol Tartrate [Lopressor 25 mg PO BID 07/25/17 (beta elise)] Montelukast [Singulair] 10 mg PO QHS 07/25/17 Pantoprazole Sodium [Protonix] 20 mg PO DAILY 07/25/17 Pravastatin [Pravachol] 40 mg PO QHS 07/25/17 Quetiapine Fumarate [Seroquel] 25 mg PO QHS@192907/25/17 Tamsulosin HCl [Flomax] 0.4 mg PO QHS 07/25/17 Warfarin [Coumadin] 7 mg PO DAILY@1700 07/25/17 Surgical History: adenoidectomy, appendectomy, tonsillectomy, - - Right carotid endarterectomy, carpal tunnel surgery, lipoma removal, rectal fissure repair. Psychiatric History: No pertinent psych hx Lives: Spouse/ Significant Other Smoking Status: Never smoker - *Family History Maternal History Items: No pertinent history Paternal History Items: Heart Disease Review of Systems Constitutional: Denies: Chills, Fever, Weight Change HEENT: Denies: Head Aches, Sinus Congestion, Sinus Drainage Cardiovascular: Denies: Chest Pain, Palpitations Respiratory: Denies: Cough, Shortness of breath at rest, Sputum production Gastrointestinal: Denies: Abdominal Pain, Nausea, Vomiting Genitourinary: Denies: Dysuria Musculoskeletal: Denies: Joint Pain, Joint Tenderness Skin: Denies: Rash, Wounds Neurological: Denies: Numbness, Tingling, Focal weakness Psychiatric: Denies: Anxiety, Depression, Homicidal Ideations, Suicidal Ideations Hematologic/ Lymphatic: Denies: Easy Bruising, Easy Bleeding VTE Information - Inpt Only VTE Present on Admission: No VTE Mechan Device Prophylaxis: Knee High SKYLA Hose VTE Pharm Prophylaxis ordered?: No Reason prophylaxis not ordered:: Treatment Not Indicated - Physical Exam General: Alert, Oriented x3, Cooperative HEENT: Atraumatic, PERRLA, EOMI, Normocephalic Neck: Supple, No JVD, Negative Carotid Bruits Lungs: Clear to auscultation, Normal air movement Cardiovascular: Regular rate, No murmurs Abdomen: Bowel Sounds Present, Soft, Non Tender Extremities: No edema, Capillary Refill Less than 3 Seconds Skin: No rashes, No breakdown Musculoskeletal: No Tenderness to Palpation of Joints or Extremities Neurological: Cranial nerves II-XII grossly intact Psych/Mental Status: Normal Affect, Appropriate Vital Signs Temp Pulse Resp BP Pulse Ox 98.3 F 62 22 H 134/69 H 93 07/25/17 14:11 07/25/17 14:11 07/25/17 14:11 07/25/17 14:26 07/25/17 14:11 Oxygen Delivery Method Room Air Weight: 98 kg Body Mass Index (BMI) 37.0 Assessment/Plan 82 year old male with below past medical history admitted to inpatient rehab unit after right hip fracture, bilateral sacral fracture, non-operative management recommended, admitted to TCU for rehabilitation, strengthening, prior to discharge home with spouse. * Debility - PT/OT. * Cognition - ST. * Pain - Tylenol 1000MG Q8H PRN mild pain. * Bowel - Miralax 17GM daily, Senna/colace 1 tablet BID, Dulcolax 10MG PO daily PRN. * Pneumonia vaccination - Administer Prevnar 13 and/or Pneumovax 23 as necessary. * DVT prophylaxis - Not necessary, already on warfarin. * Psoriatic arthritis - Humira 40MG SC every 2 weeks. * Shortness of breath - Albuterol 2.5MG Q4H PRN. * Gout - Allopurinol 100MG daily, Colchicine 0.6MG daily. * Coronary Artery Disease - Metoprolol 25MG BID, Aspirin 81MG daily. * Vitamin D deficiency - D3 2000IU daily. * Alzheimer's Disease - Donepezil 10MG QHS. * Atrial fibrillation - Metoprolol 25MG BID, Tambocor 100MG BID, Warfarin 7MG daily, follow INR. * Cough - Robitussin 10ML Q6H PRN. * Congestion - Guaifenesin 600MG BID. * Hypertensive emergency - HCTZ 12.5MG daily PRN. * GI prophylaxis - Lactobacillus 1 tablet daily. * Hypothyroidism - Levothyroxine 50MCG daily. * Insomnia - Melatonin 3MG QHS. * Skin irritation - Calmoseptine TID buttocks. * Asthma - Singulair 10MG daily. * GERD - Pantoprazole 20MG Daily. * Hyperlipidemia - Pravastatin 40MG QHS. 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 * BPH - Tamsulosin 0.4MG daily.
[2017-07-25 15:20] VITALS: PULSE 62; RESP 20; O2SAT 95
[2017-07-25] MEDS: Albuterol 2.5 MG/3 ML VIAL.NEB. INHALATION (15:20)
[2017-07-25] MEDS: guaiFENesin 10 ML UDC (200MG/10ML) PO (16:00)
[2017-07-25 17:18] VITALS: PULSE 62
[2017-07-25] MEDS: Metoprolol Tartrate 25 MG Tablet PO (17:18)
[2017-07-25] MEDS: Senna/Docusate Sodium 1 Tablet PO (17:18)
[2017-07-25] MEDS: guaiFENesin 600 MG Tablet PO (17:18)
[2017-07-25] MEDS: Flecainide 100 MG Tablet PO (17:18)
[2017-07-25] MEDS: MELATONIN 3 MG TABLET PO (20:54)
[2017-07-25] MEDS: Donepezil HCl 10 MG Tablet PO (20:54)
[2017-07-25] MEDS: Pravastatin 40 MG Tablet PO (20:54)
[2017-07-25] MEDS: QUEtiapine 25 MG Tablet PO (20:54)
[2017-07-25] MEDS: Tamsulosin HCl 0.4 MG Capsule PO (20:54)
[2017-07-25] MEDS: Montelukast 10 MG Tablet PO (20:54)
[2017-07-25] MEDS: Menthol/Lanolin/Calamine/Znox 113 GM Tube 1 APPLIC TOPICAL (20:57)
--- NOTE | 2017-07-26 01:39 | PCM.PN.RX ---
<ReedSingh nelson D - Last Filed: 07/26/17 01:39> Progress Note - Pharmacy Subjective: TCU Admission Objective: Allergies No Known Allergies Allergy (Verified 07/08/17 16:09) Home Medications Medication Instructions Recorded Acetaminophen [Tylenol Tablet] 650 mg PO Q6H PRN PRN tablet 07/23/17 Albuterol Aerosols [Ventolin 2.5 mg INHALATION Q4H PRN PRN 07/23/17 Aerosols] vial.neb. Guaifenesin [Robitussin] 10 ml PO Q6H PRN PRN udc 07/23/17 Hydrochlorothiazide 12.5 mg PO DAILY PRN PRN capsule 07/23/17 Adalimumab [Humira] 40 mg SC Q14D 07/25/17 Allopurinol [Zyloprim] 100 mg PO DAILY 07/25/17 Aspirin [Aspirin, Baby] 81 mg PO DAILY@0800 07/25/17 Cholecalciferol (VIT D3) [Vitamin 2,000 unit PO DAILY 07/25/17 D3] Colchicine 0.6 mg PO QODAY@1200 07/25/17 Donepezil HCl [Aricept] 10 mg PO QHS 07/25/17 Flecainide [Tambocor] 100 mg PO BID 07/25/17 Guaifenesin [Mucinex] 600 mg PO BID 07/25/17 Lactobacillus Acidophilus 1 tablet PO BID 07/25/17 [Acidophilus] Levothyroxine [Synthroid] 50 mcg PO DAILY@0600 07/25/17 Melatonin 3 mg PO QHS@19307/25/17 Menthol/Lanolin/Calamine/Znox 1 applic TOPICAL TID 07/25/17 [Calmoseptine Ointment] Metoprolol Tartrate [Lopressor 25 mg PO BID 07/25/17 (beta thania)] Montelukast [Singulair] 10 mg PO QHS 07/25/17 Pantoprazole Sodium [Protonix] 20 mg PO DAILY 07/25/17 Pravastatin [Pravachol] 40 mg PO QHS 07/25/17 Quetiapine Fumarate [Seroquel] 25 mg PO QHS@19307/25/17 Tamsulosin HCl [Flomax] 0.4 mg PO QHS 07/25/17 Warfarin [Coumadin] 7 mg PO DAILY@1700 07/25/17 Current Medications Generic Name Dose Route Start Last Admin Trade Name Freq PRN Reason Stop Dose Admin Acetaminophen 1,000 mg 07/25/17 15:31 Tylenol PO Q8H PRN MILD PAIN (1-310) Albuterol Sulfate 2.5 mg 07/25/17 14:30 07/25/17 15:20 Ventolin Aerosols INHALATION 2.5 mg Q4H PRN PRN Administration SOB &/OR WHEEZING Allopurinol 100 mg 07/26/17 08[facility] 81 mg 07/26/17 08:00 Aspirin, Baby PO DAILY@0800 [facility] Bisacodyl 10 mg 07/25/17 15:31 Dulcolax PO DAILY PRN Constipation Calamine/Phenol 1 applic 07/25/17 22:00 07/25/17 20:57 Calmoseptine Ointment TOPICAL 1 applicatio TID [facility] Administration Protocol Cholecalciferol 2,000 unit 07/26/17 06:00 Vitamin D PO DAILY [facility] Colchicine 0.6 mg 07/26/17 12:00 Colchicine PO QODAY@1200 [facility] Donepezil HCl 10 mg 07/25/17 22:00 07/25/17 20:54 Aricept PO 10 mg QHS [facility] Administration Flecainide Acetate 100 mg 07/25/17 18:00 07/25/17 17:18 Tambocor PO 100 mg BID [facility] Administration Guaifenesin 600 mg 07/25/17 18:00 07/25/17 17:18 Mucinex PO 600 mg BID [facility] Administration Guaifenesin 10 ml 07/25/17 14:30 07/25/17 16:00 Robitussin PO 10 ml Q6H PRN PRN Administration COUGH Hydrochlorothiazide 12.5 mg 07/25/17 14:30 Hydrochlorothiazide PO DAILY PRN PRN Hypertensive Emergency Lactobacillus Acidophilus 1 tablet 07/25/17 18:00 07/25/17 17:18 Acidophilus PO 1 tablet BID [facility] Administration Levothyroxine Sodium 50 mcg 07/26/17 06:00 Synthroid PO DAILY@0600 [facility] Melatonin 3 mg 07/25/17 19:30 07/25/17 20:54 Melatonin PO 3 mg QHS@1930 [facility] Administration Metoprolol Tartrate 25 mg 07/25/17 18:00 07/25/17 17:18 Lopressor (Beta Thania) PO 25 mg BID [facility] Administration Montelukast Sodium 10 mg 07/25/17 22:00 07/25/17 20:54 Singulair PO 10 mg QHS [facility] Administration Non-Formulary Medication 40 mg 08/08/17 06:00 Adalimumab SC Q14D [facility] Pantoprazole Sodium 20 mg 07/26/17 06:00 Protonix PO DAILY [facility] Polyethylene Glycol 17 gm 07/26/17 06:00 Miralax PO DAILY [facility] Pravastatin Sodium 40 mg 07/25/17 22:00 07/25/17 20:54 Pravachol PO 40 mg QHS [facility] Administration Quetiapine Fumarate 25 mg 07/25/17 19:30 07/25/17 20:54 Seroquel PO 25 mg QHS@1930 [facility] Administration Senna/Docusate Sodium 1 tablet 07/25/17 18:00 07/25/17 17:18 Senokot-S, Tamra-Colace PO 1 tablet BID [facility] Administration Tamsulosin HCl 0.4 mg 07/25/17 22:00 07/25/17 20:54 Flomax PO 0.4 mg QHS [facility] Administration Tuberculin PPD 5 tu 07/26/17 10:00 Tubersol, Aplisol, Ppd ID 07/26/17 10:01 X1 ONE Tuberculin PPD 5 tu 08/02/17 10:00 Tubersol, Aplisol, Ppd ID 08/02/17 10:01 X1 ONE Warfarin Sodium 5 mg 07/25/17 17:00 07/25/17 17:17 Coumadin (Pbkc) PO 5 mg DAILY@1700 [facility] Administration Warfarin Sodium 2 mg 07/25/17 17:00 07/25/17 17:18 Coumadin (Pbkc) PO 2 mg DAILY@1700 [facility] Administration Problem List Hypothyroidism (Chronic) Gout (Chronic) GERD (gastroesophageal reflux disease) (Chronic) Vital Signs Temp Pulse Resp BP Pulse Ox 98.3 F 62 20 H 134/69 H 95 07/25/17 14:11 07/25/17 17:18 07/25/17 15:20 07/25/17 14:26 07/25/17 15:20 Oxygen Delivery Method Room Air Weight: 98 kg Body Mass Index (BMI) 37.0 Assessment/Plan: 1) Pain APAP for mild pain, adalimumab injections. Continue to monitor prn medication use, daily pain scores. 2) AFib/CAD Flecainide, metoprolol, warfarin goal INR 2-3. BP/HR within goal ranges, INR within goal range. Continue to monitor BP/HR, PT/INR. 3) HLD Pravastatin at HS. Lipids at goal, hepatic enzymes wnl. Continue to monitor lipids, enzymes. 4) HTN HCTZ as needed. Continue to monitor prn medication use, BP, electrolytes. 5) Pulm Montelukast, albuterol prn, guaifenesin. Continue to monitor prn medication use, for exacerbation. 6) Nutrition Cholecalciferol. Continue to monitor clinically. 7) Gout Allopurinol, colchicine. Continue to monitor s/s gout. 8) Alzheimer's Donepezil at HS. Continue to monitor clinically. 9) GI Pantoprazole, lactobacillus. Continue to monitor s/s GI distress. 11) Hypothyroidism Levothyroxine daily. Continue to monitor s/s hyper/hypothyroidism. 12) Sleep Melatonin at HS. Continue to monitor for insomnia. 13) BPH Tamsulosin at HS. Continue to monitor s/s BPH. Psychotropic Medications: 14) Dementia Quetiapine at HS. Documentation of attempting to taper to d/c. Unnecessary Medications: None Bowel Regimen: 15) Senna/s, PEG, prn bisacodyl. Continue to monitor prn medication use, for constipation/diarrhea. Date of Note:: 07/26/17 - Provider Comments Provider responsibility: Provider responsible to enter orders to implement recommendations <Gaurav Nicolas Chi - Last Filed: 07/26/17 08:02> Progress Note - Pharmacy Subjective: [] Objective: Allergies No Known Allergies Allergy (Verified 07/08/17 16:09) Home Medications Medication Instructions Recorded Acetaminophen [Tylenol Tablet] 650 mg PO Q6H PRN PRN tablet 07/23/17 Albuterol Aerosols [Ventolin 2.5 mg INHALATION Q4H PRN PRN 07/23/17 Aerosols] vial.neb. Guaifenesin [Robitussin] 10 ml PO Q6H PRN PRN udc 07/23/17 Hydrochlorothiazide 12.5 mg PO DAILY PRN PRN capsule 07/23/17 Adalimumab [Humira] 40 mg SC Q14D 07/25/17 Allopurinol [Zyloprim] 100 mg PO DAILY 07/25/17 Aspirin [Aspirin, Baby] 81 mg PO DAILY@0800 07/25/17 Cholecalciferol (VIT D3) [Vitamin 2,000 unit PO DAILY 07/25/17 D3] Colchicine 0.6 mg PO QODAY@1200 07/25/17 Donepezil HCl [Aricept] 10 mg PO QHS 07/25/17 Flecainide [Tambocor] 100 mg PO BID 07/25/17 Guaifenesin [Mucinex] 600 mg PO BID 07/25/17 Lactobacillus Acidophilus 1 tablet PO BID 07/25/17 [Acidophilus] Levothyroxine [Synthroid] 50 mcg PO DAILY@0600 07/25/17 Melatonin 3 mg PO QHS@19307/25/17 Menthol/Lanolin/Calamine/Znox 1 applic TOPICAL TID 07/25/17 [Calmoseptine Ointment] Metoprolol Tartrate [Lopressor 25 mg PO BID 07/25/17 (beta thania)] Montelukast [Singulair] 10 mg PO QHS 07/25/17 Pantoprazole Sodium [Protonix] 20 mg PO DAILY 07/25/17 Pravastatin [Pravachol] 40 mg PO QHS 07/25/17 Quetiapine Fumarate [Seroquel] 25 mg PO QHS@192907/25/17 Tamsulosin HCl [Flomax] 0.4 mg PO QHS 07/25/17 Warfarin [Coumadin] 7 mg PO DAILY@1700 07/25/17 Current Medications Generic Name Dose Route Start Last [facility] Reason Stop Dose Admin Acetaminophen 1,000 mg 07/25/17 15:31 Tylenol PO Q8H PRN MILD PAIN (1-3/10) Albuterol Sulfate 2.5 mg 07/25/17 14:30 07/25/17 15:20 Ventolin Aerosols INHALATION 2.5 mg Q4H PRN PRN Administration SOB &/OR WHEEZING Allopurinol 100 mg 07/26/17 08:00 Zyloprim PO DAILYCM [facility] Aspirin 81 mg 07/26/17 08:00 Aspirin, Baby PO DAILY@0800 [facility] Bisacodyl 10 mg 07/25/17 15:31 Dulcolax PO DAILY PRN Constipation Calamine/Phenol 1 applic 07/25/17 22:00 07/26/17 05:38 Calmoseptine Ointment TOPICAL 1 applicatio TID [facility] Administration Protocol Cholecalciferol 2,000 unit 07/26/17 06:00 07/26/17 05:33 Vitamin D PO 2,000 unit DAILY [facility] Administration Colchicine 0.6 mg 07/26/17 12:00 Colchicine PO QODAY@1200 [facility] Donepezil HCl 10 mg 07/25/17 22:00 07/25/17 20:54 Aricept PO 10 mg QHS [facility] Administration Flecainide Acetate 100 mg 07/25/17 18:00 07/26/17 05:33 Tambocor PO 100 mg BID [facility] Administration Guaifenesin 600 mg 07/25/17 18:00 07/26/17 05:33 Mucinex PO 600 mg BID [facility] Administration Guaifenesin 10 ml 07/25/17 14:30 07/26/17 05:36 Robitussin PO 10 ml Q6H PRN PRN Administration COUGH Hydrochlorothiazide 12.5 mg 07/25/17 14:30 Hydrochlorothiazide PO DAILY PRN PRN Hypertensive Emergency Lactobacillus Acidophilus 1 tablet 07/25/17 18:00 07/26/17 05:33 Acidophilus PO 1 tablet BID [facility] Administration Levothyroxine Sodium 50 mcg 07/26/17 06:00 07/26/17 05:33 Synthroid PO 50 mcg DAILY@0600 [facility] Administration Melatonin 3 mg 07/25/17 19:30 07/25/17 20:54 Melatonin PO 3 mg QHS@1930 [facility] Administration Metoprolol Tartrate 25 mg 07/25/17 18:00 07/25/17 17:18 Lopressor (Beta Thania) PO 25 mg BID [facility] Administration Montelukast Sodium 10 mg 07/25/17 22:00 07/25/17 20:54 Singulair PO 10 mg QHS [facility] Administration Non-Formulary Medication 40 mg 08/08/17 06:00 Adalimumab SC Q14D [facility] Pantoprazole Sodium 20 mg 07/26/17 06:00 07/26/17 05:33 Protonix PO 20 mg DAILY [facility] Administration Polyethylene Glycol 17 gm 07/26/17 06:00 07/26/17 05:29 Miralax PO Not Given DAILY [facility] Pravastatin Sodium 40 mg 07/25/17 22:00 07/25/17 20:54 Pravachol PO 40 mg QHS [facility] Administration Quetiapine Fumarate 25 mg 07/25/17 19:30 07/25/17 20:54 Seroquel PO 25 mg QHS@1930 [facility] Administration Senna/Docusate Sodium 1 tablet 07/25/17 18:00 07/26/17 05:33 Senokot-S, Tamra-Colace PO 1 tablet BID [facility] Administration Tamsulosin HCl 0.4 mg 07/25/17 22:00 07/25/17 20:54 Flomax PO 0.4 mg QHS [facility] Administration Tuberculin PPD 5 tu 07/26/17 10:00 Tubersol, Aplisol, Ppd ID 07/26/17 10:01 X1 ONE Tuberculin PPD 5 tu 08/02/17 10:00 Tubersol, Aplisol, Ppd ID 08/02/17 10:01 X1 ONE Warfarin Sodium 5 mg 07/25/17 17:00 07/25/17 17:17 Coumadin (Pbkc) PO 5 mg DAILY@1700 [facility] Administration Warfarin Sodium 2 mg 07/25/17 17:00 07/25/17 17:18 Coumadin (Pbkc) PO 2 mg DAILY@1700 [facility] Administration Problem List Hypothyroidism (Chronic) Gout (Chronic) GERD (gastroesophageal reflux disease) (Chronic) Vital Signs Temp Pulse Resp BP Pulse Ox 98.3 F 62 20 H 134/69 H 95 07/25/17 14:11 07/25/17 17:18 07/25/17 15:20 07/25/17 14:26 07/25/17 15:20 Oxygen Delivery Method Room Air Weight: 98 kg Body Mass Index (BMI) 37.0 Sodium 141 mmol/L (136-145) 07/26/17 05:00 Potassium 3.8 mmol/L (3.5-5.1) 07/26/17 05:00 Chloride 105 mmol/L (98-107) 07/26/17 05:00 Carbon Dioxide 29.0 mmol/L (21.0-32.0) 07/26/17 05:00 Anion Gap 7 (5-15) 07/26/17 05:00 BUN 21 mg/dL (7-18) H 07/26/17 05:00 Creatinine 1.15 mg/dL (0.70-1.30) 07/26/17 05:00 Est GFR (MDRD) Af Amer 79 mL/min (>60) 07/26/17 05:00 Est GFR (MDRD) Non-Af 65 mL/min (>60) 07/26/17 05:00 BUN/Creatinine Ratio 18.3 RATIO (10-20) 07/26/17 05:00 Glucose 85 mg/dL (70-110) 07/26/17 05:00 Assessment/Plan: Psychotropic Medications: Unnecessary Medications: Bowel Regimen: - Provider Comments Provider responsibility: Provider responsible to enter orders to implement recommendations Provider Comments to Recommendations by Pharmacy: Agree
--- NOTE | 2017-07-26 01:54 | PHA.CONS_ITS ---
<ReedSingh nelson D - Last Filed: 07/26/17 01:39> Progress Note - Pharmacy Subjective: TCU Admission Objective: Allergies No Known Allergies Allergy (Verified 07/08/17 16:09) Home Medications Medication Instructions Recorded Acetaminophen [Tylenol Tablet] 650 mg PO Q6H PRN PRN tablet 07/23/17 Albuterol Aerosols [Ventolin 2.5 mg INHALATION Q4H PRN PRN 07/23/17 Aerosols] vial.neb. Guaifenesin [Robitussin] 10 ml PO Q6H PRN PRN udc 07/23/17 Hydrochlorothiazide 12.5 mg PO DAILY PRN PRN capsule 07/23/17 Adalimumab [Humira] 40 mg SC Q14D 07/25/17 Allopurinol [Zyloprim] 100 mg PO DAILY 07/25/17 Aspirin [Aspirin, Baby] 81 mg PO DAILY@0800 07/25/17 Cholecalciferol (VIT D3) [Vitamin 2,000 unit PO DAILY 07/25/17 D3] Colchicine 0.6 mg PO QODAY@1200 07/25/17 Donepezil HCl [Aricept] 10 mg PO QHS 07/25/17 Flecainide [Tambocor] 100 mg PO BID 07/25/17 Guaifenesin [Mucinex] 600 mg PO BID 07/25/17 Lactobacillus Acidophilus 1 tablet PO BID 07/25/17 [Acidophilus] Levothyroxine [Synthroid] 50 mcg PO DAILY@0600 07/25/17 Melatonin 3 mg PO QHS@19307/25/17 Menthol/Lanolin/Calamine/Znox 1 applic TOPICAL TID 07/25/17 [Calmoseptine Ointment] Metoprolol Tartrate [Lopressor 25 mg PO BID 07/25/17 (beta thania)] Montelukast [Singulair] 10 mg PO QHS 07/25/17 Pantoprazole Sodium [Protonix] 20 mg PO DAILY 07/25/17 Pravastatin [Pravachol] 40 mg PO QHS 07/25/17 Quetiapine Fumarate [Seroquel] 25 mg PO QHS@19307/25/17 Tamsulosin HCl [Flomax] 0.4 mg PO QHS 07/25/17 Warfarin [Coumadin] 7 mg PO DAILY@1700 07/25/17 Current Medications Generic Name Dose Route Start Last Admin Trade Name Freq PRN Reason Stop Dose Admin Acetaminophen 1,000 mg 07/25/17 15:31 Tylenol PO Q8H PRN MILD PAIN (1-310) Albuterol Sulfate 2.5 mg 07/25/17 14:30 07/25/17 15:20 Ventolin Aerosols INHALATION 2.5 mg Q4H PRN PRN Administration SOB &/OR WHEEZING Allopurinol 100 mg 07/26/17 08[facility] 81 mg 07/26/17 08:00 Aspirin, Baby PO DAILY@0800 [facility] Bisacodyl 10 mg 07/25/17 15:31 Dulcolax PO DAILY PRN Constipation Calamine/Phenol 1 applic 07/25/17 22:00 07/25/17 20:57 Calmoseptine Ointment TOPICAL 1 applicatio TID [facility] Administration Protocol Cholecalciferol 2,000 unit 07/26/17 06:00 Vitamin D PO DAILY [facility] Colchicine 0.6 mg 07/26/17 12:00 Colchicine PO QODAY@1200 [facility] Donepezil HCl 10 mg 07/25/17 22:00 07/25/17 20:54 Aricept PO 10 mg QHS [facility] Administration Flecainide Acetate 100 mg 07/25/17 18:00 07/25/17 17:18 Tambocor PO 100 mg BID [facility] Administration Guaifenesin 600 mg 07/25/17 18:00 07/25/17 17:18 Mucinex PO 600 mg BID [facility] Administration Guaifenesin 10 ml 07/25/17 14:30 07/25/17 16:00 Robitussin PO 10 ml Q6H PRN PRN Administration COUGH Hydrochlorothiazide 12.5 mg 07/25/17 14:30 Hydrochlorothiazide PO DAILY PRN PRN Hypertensive Emergency Lactobacillus Acidophilus 1 tablet 07/25/17 18:00 07/25/17 17:18 Acidophilus PO 1 tablet BID [facility] Administration Levothyroxine Sodium 50 mcg 07/26/17 06:00 Synthroid PO DAILY@0600 [facility] Melatonin 3 mg 07/25/17 19:30 07/25/17 20:54 Melatonin PO 3 mg QHS@1930 [facility] Administration Metoprolol Tartrate 25 mg 07/25/17 18:00 07/25/17 17:18 Lopressor (Beta Thania) PO 25 mg BID [facility] Administration Montelukast Sodium 10 mg 07/25/17 22:00 07/25/17 20:54 Singulair PO 10 mg QHS [facility] Administration Non-Formulary Medication 40 mg 08/08/17 06:00 Adalimumab SC Q14D [facility] Pantoprazole Sodium 20 mg 07/26/17 06:00 Protonix PO DAILY [facility] Polyethylene Glycol 17 gm 07/26/17 06:00 Miralax PO DAILY [facility] Pravastatin Sodium 40 mg 07/25/17 22:00 07/25/17 20:54 Pravachol PO 40 mg QHS [facility] Administration Quetiapine Fumarate 25 mg 07/25/17 19:30 07/25/17 20:54 Seroquel PO 25 mg QHS@1930 [facility] Administration Senna/Docusate Sodium 1 tablet 07/25/17 18:00 07/25/17 17:18 Senokot-S, Tamra-Colace PO 1 tablet BID [facility] Administration Tamsulosin HCl 0.4 mg 07/25/17 22:00 07/25/17 20:54 Flomax PO 0.4 mg QHS [facility] Administration Tuberculin PPD 5 tu 07/26/17 10:00 Tubersol, Aplisol, Ppd ID 07/26/17 10:01 X1 ONE Tuberculin PPD 5 tu 08/02/17 10:00 Tubersol, Aplisol, Ppd ID 08/02/17 10:01 X1 ONE Warfarin Sodium 5 mg 07/25/17 17:00 07/25/17 17:17 Coumadin (Pbkc) PO 5 mg DAILY@1700 [facility] Administration Warfarin Sodium 2 mg 07/25/17 17:00 07/25/17 17:18 Coumadin (Pbkc) PO 2 mg DAILY@1700 [facility] Administration Problem List Hypothyroidism (Chronic) Gout (Chronic) GERD (gastroesophageal reflux disease) (Chronic) Vital Signs Temp Pulse Resp BP Pulse Ox 98.3 F 62 20 H 134/69 H 95 07/25/17 14:11 07/25/17 17:18 07/25/17 15:20 07/25/17 14:26 07/25/17 15:20 Oxygen Delivery Method Room Air Weight: 98 kg Body Mass Index (BMI) 37.0 Assessment/Plan: 1) Pain APAP for mild pain, adalimumab injections. Continue to monitor prn medication use, daily pain scores. 2) AFib/CAD Flecainide, metoprolol, warfarin goal INR 2-3. BP/HR within goal ranges, INR within goal range. Continue to monitor BP/HR, PT/INR. 3) HLD Pravastatin at HS. Lipids at goal, hepatic enzymes wnl. Continue to monitor lipids, enzymes. 4) HTN HCTZ as needed. Continue to monitor prn medication use, BP, electrolytes. 5) Pulm Montelukast, albuterol prn, guaifenesin. Continue to monitor prn medication use, for exacerbation. 6) Nutrition Cholecalciferol. Continue to monitor clinically. 7) Gout Allopurinol, colchicine. Continue to monitor s/s gout. 8) Alzheimer's Donepezil at HS. Continue to monitor clinically. 9) GI Pantoprazole, lactobacillus. Continue to monitor s/s GI distress. 11) Hypothyroidism Levothyroxine daily. Continue to monitor s/s hyper/hypothyroidism. 12) Sleep Melatonin at HS. Continue to monitor for insomnia. 13) BPH Tamsulosin at HS. Continue to monitor s/s BPH. Psychotropic Medications: 14) Dementia Quetiapine at HS. Documentation of attempting to taper to d/c. Unnecessary Medications: None Bowel Regimen: 15) Senna/s, PEG, prn bisacodyl. Continue to monitor prn medication use, for constipation/diarrhea. Date of Note:: 07/26/17 - Provider Comments Provider responsibility: Provider responsible to enter orders to implement recommendations <Gaurav Nicolas Chi - Last Filed: 07/26/17 08:02> Progress Note - Pharmacy Subjective: [] Objective: Allergies No Known Allergies Allergy (Verified 07/08/17 16:09) Home Medications Medication Instructions Recorded Acetaminophen [Tylenol Tablet] 650 mg PO Q6H PRN PRN tablet 07/23/17 Albuterol Aerosols [Ventolin 2.5 mg INHALATION Q4H PRN PRN 07/23/17 Aerosols] vial.neb. Guaifenesin [Robitussin] 10 ml PO Q6H PRN PRN udc 07/23/17 Hydrochlorothiazide 12.5 mg PO DAILY PRN PRN capsule 07/23/17 Adalimumab [Humira] 40 mg SC Q14D 07/25/17 Allopurinol [Zyloprim] 100 mg PO DAILY 07/25/17 Aspirin [Aspirin, Baby] 81 mg PO DAILY@0800 07/25/17 Cholecalciferol (VIT D3) [Vitamin 2,000 unit PO DAILY 07/25/17 D3] Colchicine 0.6 mg PO QODAY@1200 07/25/17 Donepezil HCl [Aricept] 10 mg PO QHS 07/25/17 Flecainide [Tambocor] 100 mg PO BID 07/25/17 Guaifenesin [Mucinex] 600 mg PO BID 07/25/17 Lactobacillus Acidophilus 1 tablet PO BID 07/25/17 [Acidophilus] Levothyroxine [Synthroid] 50 mcg PO DAILY@0600 07/25/17 Melatonin 3 mg PO QHS@19307/25/17 Menthol/Lanolin/Calamine/Znox 1 applic TOPICAL TID 07/25/17 [Calmoseptine Ointment] Metoprolol Tartrate [Lopressor 25 mg PO BID 07/25/17 (beta thania)] Montelukast [Singulair] 10 mg PO QHS 07/25/17 Pantoprazole Sodium [Protonix] 20 mg PO DAILY 07/25/17 Pravastatin [Pravachol] 40 mg PO QHS 07/25/17 Quetiapine Fumarate [Seroquel] 25 mg PO QHS@192907/25/17 Tamsulosin HCl [Flomax] 0.4 mg PO QHS 07/25/17 Warfarin [Coumadin] 7 mg PO DAILY@1700 07/25/17 Current Medications Generic Name Dose Route Start Last Admin [facility] PR[facility] Reason Stop Dose Admin Acetaminophen 1,000 mg 07/25/17 15:31 Tylenol PO Q8H PRN MILD PAIN (1-3/10) Albuterol Sulfate 2.5 mg 07/25/17 14:30 07/25/17 15:20 Ventolin Aerosols INHALATION 2.5 mg Q4H PRN PRN Administration SOB &/OR WHEEZING Allopurinol 100 mg 07/26/17 08:00 Zyloprim PO DAILYCM [facility] Aspirin 81 mg 07/26/17 08:00 Aspirin, Baby PO DAILY@0800 [facility] Bisacodyl 10 mg 07/25/17 15:31 Dulcolax PO DAILY PRN Constipation Calamine/Phenol 1 applic 07/25/17 22:00 07/26/17 05:38 Calmoseptine Ointment TOPICAL 1 applicatio TID [facility] Administration Protocol Cholecalciferol 2,000 unit 07/26/17 06:00 07/26/17 05:33 Vitamin D PO 2,000 unit DAILY [facility] Administration Colchicine 0.6 mg 07/26/17 12:00 Colchicine PO QODAY@1200 [facility] Donepezil HCl 10 mg 07/25/17 22:00 07/25/17 20:54 Aricept PO 10 mg QHS [facility] Administration Flecainide Acetate 100 mg 07/25/17 18:00 07/26/17 05:33 Tambocor PO 100 mg BID [facility] Administration Guaifenesin 600 mg 07/25/17 18:00 07/26/17 05:33 Mucinex PO 600 mg BID [facility] Administration Guaifenesin 10 ml 07/25/17 14:30 07/26/17 05:36 Robitussin PO 10 ml Q6H PRN PRN Administration COUGH Hydrochlorothiazide 12.5 mg 07/25/17 14:30 Hydrochlorothiazide PO DAILY PRN PRN Hypertensive Emergency Lactobacillus Acidophilus 1 tablet 07/25/17 18:00 07/26/17 05:33 Acidophilus PO 1 tablet BID [facility] Administration Levothyroxine Sodium 50 mcg 07/26/17 06:00 07/26/17 05:33 Synthroid PO 50 mcg DAILY@0600 [facility] Administration Melatonin 3 mg 07/25/17 19:30 07/25/17 20:54 Melatonin PO 3 mg QHS@1930 [facility] Administration Metoprolol Tartrate 25 mg 07/25/17 18:00 07/25/17 17:18 Lopressor (Beta Thania) PO 25 mg BID [facility] Administration Montelukast Sodium 10 mg 07/25/17 22:00 07/25/17 20:54 Singulair PO 10 mg QHS [facility] Administration Non-Formulary Medication 40 mg 08/08/17 06:00 Adalimumab SC Q14D [facility] Pantoprazole Sodium 20 mg 07/26/17 06:00 07/26/17 05:33 Protonix PO 20 mg DAILY [facility] Administration Polyethylene Glycol 17 gm 07/26/17 06:00 07/26/17 05:29 Miralax PO Not Given DAILY [facility] Pravastatin Sodium 40 mg 07/25/17 22:00 07/25/17 20:54 Pravachol PO 40 mg QHS [facility] Administration Quetiapine Fumarate 25 mg 07/25/17 19:30 07/25/17 20:54 Seroquel PO 25 mg QHS@1930 [facility] Administration Senna/Docusate Sodium 1 tablet 07/25/17 18:00 07/26/17 05:33 Senokot-S, Tamra-Colace PO 1 tablet BID [facility] Administration Tamsulosin HCl 0.4 mg 07/25/17 22:00 07/25/17 20:54 Flomax PO 0.4 mg QHS [facility] Administration Tuberculin PPD 5 tu 07/26/17 10:00 Tubersol, Aplisol, Ppd ID 07/26/17 10:01 X1 ONE Tuberculin PPD 5 tu 08/02/17 10:00 Tubersol, Aplisol, Ppd ID 08/02/17 10:01 X1 ONE Warfarin Sodium 5 mg 07/25/17 17:00 07/25/17 17:17 Coumadin (Pbkc) PO 5 mg DAILY@1700 [facility] Administration Warfarin Sodium 2 mg 07/25/17 17:00 07/25/17 17:18 Coumadin (Pbkc) PO 2 mg DAILY@1700 [facility] Administration Problem List Hypothyroidism (Chronic) Gout (Chronic) GERD (gastroesophageal reflux disease) (Chronic) Vital Signs Temp Pulse Resp BP Pulse Ox 98.3 F 62 20 H 134/69 H 95 07/25/17 14:11 07/25/17 17:18 07/25/17 15:20 07/25/17 14:26 07/25/17 15:20 Oxygen Delivery Method Room Air Weight: 98 kg Body Mass Index (BMI) 37.0 Sodium 141 mmol/L (136-145) 07/26/17 05:00 Potassium 3.8 mmol/L (3.5-5.1) 07/26/17 05:00 Chloride 105 mmol/L (98-107) 07/26/17 05:00 Carbon Dioxide 29.0 mmol/L (21.0-32.0) 07/26/17 05:00 Anion Gap 7 (5-15) 07/26/17 05:00 BUN 21 mg/dL (7-18) H 07/26/17 05:00 Creatinine 1.15 mg/dL (0.70-1.30) 07/26/17 05:00 Est GFR (MDRD) Af Amer 79 mL/min (>60) 07/26/17 05:00 Est GFR (MDRD) Non-Af 65 mL/min (>60) 07/26/17 05:00 BUN/Creatinine Ratio 18.3 RATIO (10-20) 07/26/17 05:00 Glucose 85 mg/dL (70-110) 07/26/17 05:00 Assessment/Plan: Psychotropic Medications: Unnecessary Medications: Bowel Regimen: - Provider Comments Provider responsibility: Provider responsible to enter orders to implement recommendations Provider Comments to Recommendations by Pharmacy: Agree
[2017-07-26] MEDS: Flecainide 100 MG Tablet PO ×2 (05:33→17:13)
[2017-07-26] MEDS: Pantoprazole Sodium 20 MG Tablet PO (05:33)
[2017-07-26] MEDS: Levothyroxine 50 MCG Tablet PO (05:33)
[2017-07-26] MEDS: guaiFENesin 600 MG Tablet PO ×2 (05:33→17:13)
[2017-07-26] MEDS: Senna/Docusate Sodium 1 Tablet PO (05:33)
[2017-07-26] MEDS: guaiFENesin 10 ML UDC (200MG/10ML) PO (05:36)
[2017-07-26] MEDS: Menthol/Lanolin/Calamine/Znox 113 GM Tube 1 APPLIC TOPICAL ×2 (05:38→21:30)
[2017-07-26 06:09] LABS: Absolute Lymphocyte Count 2.72 X10^3/ul (0.83-4.51); Absolute Neutrophil Count 4.4 X10^3/uL (2.0-7.7); Basophil# 0.02 X10^3/uL; Basophil% 0.2 % (0-1); Eosinophils% 3.7 % (0-5); Hematocrit 38.5 % (40-54); Hemoglobin 12.2 g/dl (13.0-16.5); Lymphocyte # 2.72 X10^3/ul (4.0); Lymphocyte % 33.3 % (19-41); Mean Corp Hgb Conc 31.7 g/gl (32-36); Mean Corpuscular Hgb 29.6 pg (27.0-32.0); Mean Corpuscular Volume 93.4 fL (80-94); Mean Platelet Vol. 10.2 fl (6.2-12.0); Monocyte# 0.74 X10^3/uL; Monocyte% 9.1 % (0-10); Neutrophil # 4.37 X10^3/uL (2.7-7.7); Neutrophil % 53.6 % (47-70); Platelet Count 188 K/mm3 (150-450); RBC Distribution Width CV 14.9 % (11.6-14.6); RBC Distribution Width SD 50.8 fl (35.1-43.9); Red Blood Count 4.12 M/mm3 (4.6-6.2); White Blood Count 8.2 K/mm3 (4.4-11.0)
[2017-07-26 06:10] LABS: International Normalized Ratio 2.6; Prothrombin Time (Protime)PT. 26.5 SECONDS (11.7-14.9)
[2017-07-26 06:13] LABS: POSITIVE COUNT NO; POSITIVE DIFFERENTIAL NO; POSITIVE MORPHOLOGY NO
[2017-07-26 06:26] LABS: Anion Gap 7 (5-15); BUN 21 mg/dL (7-18); BUN/Creat Ratio 18.3 RATIO (10-20); Calcium,Total 8.4 mg/dL (8.5-10.1); Chloride 105 mmol/L (98-107); Creatinine, Serum 1.15 mg/dL (0.70-1.30); EST Glomerular Filtration Rate 65 mL/min (>60); Est Glom Filt Rate - Afr Amer 79 mL/min (>60); Glucose 85 mg/dL (70-110); Potassium 3.8 mmol/L (3.5-5.1); Sodium Level 141 mmol/L (136-145)
[2017-07-26 09:46] VITALS: BP 143/67; PULSE 59
[2017-07-26] MEDS: Metoprolol Tartrate 25 MG Tablet PO ×2 (09:46→17:14)
[2017-07-26] MEDS: Aspirin 81 MG TAB.CHEW PO (09:47)
[2017-07-26] MEDS: Allopurinol 100 MG Tablet PO (11:57)
[2017-07-26] MEDS: Tuberculin,Purif.prot.deriv. 50 TU/ML Vial 5 ML ID (11:58)
--- NOTE | 2017-07-26 15:31 | CASEMGMT ---
Social Work Resident spouse, Wayne is main contact for resident. Chayito WERNER, PATIENT SAFETY MANAGER
[2017-07-26 16:11] VITALS: BP 150/84; PULSE 57; RESP 16; TEMP 36.3; O2SAT 94
[2017-07-26 17:14] VITALS: BP 150/84; PULSE 57
[2017-07-26] MEDS: MELATONIN 3 MG TABLET PO (21:26)
[2017-07-26] MEDS: Montelukast 10 MG Tablet PO (21:26)
[2017-07-26] MEDS: Tamsulosin HCl 0.4 MG Capsule PO (21:27)
[2017-07-26] MEDS: Donepezil HCl 10 MG Tablet PO (21:27)
[2017-07-26] MEDS: Pravastatin 40 MG Tablet PO (21:27)
[2017-07-26] MEDS: QUEtiapine 25 MG Tablet PO (21:27)
[2017-07-27 04:46] VITALS: BP 140/61; PULSE 52
[2017-07-27] MEDS: Metoprolol Tartrate 25 MG Tablet PO ×2 (04:46→17:41)
[2017-07-27] MEDS: Pantoprazole Sodium 20 MG Tablet PO (04:47)
[2017-07-27] MEDS: guaiFENesin 600 MG Tablet PO ×2 (04:47→17:41)
[2017-07-27] MEDS: Flecainide 100 MG Tablet PO ×2 (04:47→17:42)
[2017-07-27] MEDS: Levothyroxine 50 MCG Tablet PO (04:47)
[2017-07-27] MEDS: Menthol/Lanolin/Calamine/Znox 113 GM Tube 1 APPLIC TOPICAL ×2 (04:50→20:15)
[2017-07-27] MEDS: Allopurinol 100 MG Tablet PO (08:21)
[2017-07-27] MEDS: Aspirin 81 MG TAB.CHEW PO (08:21)
[2017-07-27 16:00] VITALS: BP 164/65; PULSE 53; RESP 18; TEMP 36.6; O2SAT 95
[2017-07-27 17:41] VITALS: PULSE 60
[2017-07-27] MEDS: Donepezil HCl 10 MG Tablet PO (20:13)
[2017-07-27] MEDS: MELATONIN 3 MG TABLET PO (20:13)
[2017-07-27] MEDS: QUEtiapine 25 MG Tablet PO (20:13)
[2017-07-27] MEDS: Tamsulosin HCl 0.4 MG Capsule PO (20:13)
[2017-07-27] MEDS: Pravastatin 40 MG Tablet PO (20:13)
[2017-07-27] MEDS: Montelukast 10 MG Tablet PO (20:14)
[2017-07-28] MEDS: Menthol/Lanolin/Calamine/Znox 113 GM Tube 1 APPLIC TOPICAL ×2 (05:49→20:08)
[2017-07-28] MEDS: Pantoprazole Sodium 20 MG Tablet PO (05:50)
[2017-07-28] MEDS: Flecainide 100 MG Tablet PO ×2 (05:50→17:13)
[2017-07-28] MEDS: Levothyroxine 50 MCG Tablet PO (05:50)
[2017-07-28] MEDS: guaiFENesin 600 MG Tablet PO ×2 (05:50→17:13)
[2017-07-28 05:51] VITALS: BP 154/69; PULSE 52
[2017-07-28] MEDS: Metoprolol Tartrate 25 MG Tablet PO ×2 (05:51→17:12)
[2017-07-28] MEDS: Aspirin 81 MG TAB.CHEW PO (08:33)
[2017-07-28] MEDS: Allopurinol 100 MG Tablet PO (08:33)
--- NOTE | 2017-07-28 10:18 | CASEMGMT ---
Plan of care meeting held. Resident present as well as resident spouse. No discharge date set at this time. Resident plans to discharge home with spouse at time of discharge. Resident to continue with further care and treatment on the Transitional Care Unit. Will continue to follow. Chayito WERNER, LENS BLANK GAUGER
[2017-07-28 15:39] VITALS: BP 125/68; PULSE 56; RESP 18; TEMP 36.9; O2SAT 95
[2017-07-28 17:12] VITALS: BP 125/68; PULSE 56
[2017-07-28] MEDS: QUEtiapine 25 MG Tablet PO (20:01)
[2017-07-28] MEDS: Pravastatin 40 MG Tablet PO (20:01)
[2017-07-28] MEDS: Montelukast 10 MG Tablet PO (20:02)
[2017-07-28] MEDS: Donepezil HCl 10 MG Tablet PO (20:02)
[2017-07-28] MEDS: MELATONIN 3 MG TABLET PO (20:02)
[2017-07-28] MEDS: Tamsulosin HCl 0.4 MG Capsule PO (20:02)
[2017-07-28] MEDS: guaiFENesin 10 ML UDC (200MG/10ML) PO (20:05)
[2017-07-29] MEDS: Flecainide 100 MG Tablet PO ×2 (05:14→17:40)
[2017-07-29 05:15] VITALS: BP 143/62; PULSE 53
[2017-07-29] MEDS: guaiFENesin 600 MG Tablet PO ×2 (05:15→17:40)
[2017-07-29] MEDS: Pantoprazole Sodium 20 MG Tablet PO (05:15)
[2017-07-29] MEDS: Metoprolol Tartrate 25 MG Tablet PO ×2 (05:15→17:40)
[2017-07-29] MEDS: Levothyroxine 50 MCG Tablet PO (05:15)
[2017-07-29] MEDS: Menthol/Lanolin/Calamine/Znox 113 GM Tube 1 APPLIC TOPICAL ×2 (05:20→20:23)
[2017-07-29 06:06] LABS: International Normalized Ratio 2.6
[2017-07-29] MEDS: Allopurinol 100 MG Tablet PO (07:55)
[2017-07-29] MEDS: Aspirin 81 MG TAB.CHEW PO (07:55)
[2017-07-29] MEDS: guaiFENesin 10 ML UDC (200MG/10ML) PO ×2 (14:54→20:57)
[2017-07-29 15:02] VITALS: PULSE 64; RESP 18; O2SAT 95
[2017-07-29] MEDS: Albuterol 2.5 MG/3 ML VIAL.NEB. INHALATION ×2 (15:02→18:43)
[2017-07-29 16:00] VITALS: BP 135/74; PULSE 67; RESP 18; TEMP 36.6; O2SAT 93
[2017-07-29 17:40] VITALS: PULSE 67
[2017-07-29 18:43] VITALS: PULSE 69; RESP 18
[2017-07-29] MEDS: Tamsulosin HCl 0.4 MG Capsule PO (20:20)
[2017-07-29] MEDS: Pravastatin 40 MG Tablet PO (20:20)
[2017-07-29] MEDS: Montelukast 10 MG Tablet PO (20:20)
[2017-07-29] MEDS: MELATONIN 3 MG TABLET PO (20:20)
[2017-07-29] MEDS: Donepezil HCl 10 MG Tablet PO (20:20)
[2017-07-29] MEDS: QUEtiapine 25 MG Tablet PO (20:20)
[2017-07-30] MEDS: Levothyroxine 50 MCG Tablet PO (05:46)
[2017-07-30] MEDS: Pantoprazole Sodium 20 MG Tablet PO (05:46)
[2017-07-30 05:47] VITALS: BP 153/69; PULSE 58
[2017-07-30] MEDS: Flecainide 100 MG Tablet PO ×2 (05:47→16:57)
[2017-07-30] MEDS: Metoprolol Tartrate 25 MG Tablet PO ×2 (05:47→16:57)
[2017-07-30] MEDS: Menthol/Lanolin/Calamine/Znox 113 GM Tube 1 APPLIC TOPICAL ×2 (05:47→20:02)
[2017-07-30] MEDS: guaiFENesin 600 MG Tablet PO ×2 (05:47→16:57)
[2017-07-30] MEDS: Aspirin 81 MG TAB.CHEW PO (08:03)
[2017-07-30] MEDS: Allopurinol 100 MG Tablet PO (08:03)
--- NOTE | 2017-07-30 11:01 | CASEMGMT ---
Brief interview for mental status (BIMS) and resident mood interview (PHQ-9) completed on this day. BIMS score 14/15. PHQ-9 score 07/24
--- NOTE | 2017-07-30 11:02 | NURSING ---
This nurse spoke with Jaylin at [facility] about patient's WB status, states she will speak with Dr. Almeida and call back
[2017-07-30 16:00] VITALS: BP 160/80; PULSE 58; RESP 18; TEMP 36.8; O2SAT 96
[2017-07-30 16:57] VITALS: BP 160/80; PULSE 58
[2017-07-30] MEDS: guaiFENesin 10 ML UDC (200MG/10ML) PO (19:59)
[2017-07-30] MEDS: Montelukast 10 MG Tablet PO (19:59)
[2017-07-30] MEDS: Tamsulosin HCl 0.4 MG Capsule PO (19:59)
[2017-07-30] MEDS: Donepezil HCl 10 MG Tablet PO (19:59)
[2017-07-30] MEDS: Pravastatin 40 MG Tablet PO (19:59)
[2017-07-30] MEDS: QUEtiapine 25 MG Tablet PO (19:59)
[2017-07-30] MEDS: MELATONIN 3 MG TABLET PO (19:59)
[2017-07-31 05:00] VITALS: BP 158/70; PULSE 60
[2017-07-31] MEDS: Flecainide 100 MG Tablet PO ×2 (05:00→17:04)
[2017-07-31] MEDS: Metoprolol Tartrate 25 MG Tablet PO ×2 (05:00→17:04)
[2017-07-31] MEDS: guaiFENesin 600 MG Tablet PO ×2 (05:00→17:04)
[2017-07-31] MEDS: Pantoprazole Sodium 20 MG Tablet PO (05:00)
[2017-07-31] MEDS: Menthol/Lanolin/Calamine/Znox 113 GM Tube 1 APPLIC TOPICAL ×2 (05:00→21:32)
[2017-07-31] MEDS: Levothyroxine 50 MCG Tablet PO (05:00)
[2017-07-31] MEDS: Allopurinol 100 MG Tablet PO (08:00)
[2017-07-31] MEDS: Aspirin 81 MG TAB.CHEW PO (08:00)
[2017-07-31 13:41] VITALS: PULSE 60; RESP 18; O2SAT 96
[2017-07-31] MEDS: Albuterol 2.5 MG/3 ML VIAL.NEB. INHALATION (13:41)
[2017-07-31 15:38] VITALS: BP 139/62; PULSE 63; RESP 18; TEMP 37.1; O2SAT 93
[2017-07-31] MEDS: guaiFENesin 10 ML UDC (200MG/10ML) PO (17:03)
[2017-07-31 17:04] VITALS: BP 139/62; PULSE 63
[2017-07-31] MEDS: Tamsulosin HCl 0.4 MG Capsule PO (21:16)
[2017-07-31] MEDS: Pravastatin 40 MG Tablet PO (21:16)
[2017-07-31] MEDS: Montelukast 10 MG Tablet PO (21:16)
[2017-07-31] MEDS: Donepezil HCl 10 MG Tablet PO (21:16)
[2017-07-31] MEDS: QUEtiapine 25 MG Tablet PO (21:17)
[2017-07-31] MEDS: MELATONIN 3 MG TABLET PO (21:17)
[2017-08-01] MEDS: Levothyroxine 50 MCG Tablet PO (05:42)
[2017-08-01] MEDS: Flecainide 100 MG Tablet PO ×2 (05:42→16:41)
[2017-08-01] MEDS: guaiFENesin 600 MG Tablet PO ×2 (05:42→16:41)
[2017-08-01] MEDS: Pantoprazole Sodium 20 MG Tablet PO (05:43)
[2017-08-01 05:44] VITALS: PULSE 60
[2017-08-01] MEDS: Menthol/Lanolin/Calamine/Znox 113 GM Tube 1 APPLIC TOPICAL ×2 (05:44→20:19)
[2017-08-01] MEDS: Metoprolol Tartrate 25 MG Tablet PO ×2 (05:44→16:40)
--- NOTE | 2017-08-01 05:46 | NURSING ---
Pt confused this shift, called and stated that he was 'locked out of the hospital and couldn't get back in.' called hospital and spoke to this RN, who confirmed that pt was in room safe. Also appears more withdrawn with increased diaphoresis and decreased pulse, averaging 55bmp. O2 low 90's.
[2017-08-01] MEDS: Allopurinol 100 MG Tablet PO (09:07)
[2017-08-01] MEDS: Aspirin 81 MG TAB.CHEW PO (09:07)
[2017-08-01 16:00] VITALS: PULSE 58; RESP 18; TEMP 36.8; O2SAT 94
[2017-08-01 16:40] VITALS: BP 172/67; PULSE 58; PULSE 70; RESP 18; O2SAT 96
[2017-08-01] MEDS: Albuterol 2.5 MG/3 ML VIAL.NEB. INHALATION (16:40)
[2017-08-01] MEDS: guaiFENesin 10 ML UDC (200MG/10ML) PO (16:41)
[2017-08-01 17:00] VITALS: BP 140/74; PULSE 58; RESP 20; TEMP 36.8; O2SAT 94
[2017-08-01] MEDS: Donepezil HCl 10 MG Tablet PO (20:19)
[2017-08-01] MEDS: Montelukast 10 MG Tablet PO (20:19)
[2017-08-01] MEDS: Tamsulosin HCl 0.4 MG Capsule PO (20:19)
[2017-08-01] MEDS: MELATONIN 3 MG TABLET PO (20:19)
[2017-08-01] MEDS: Pravastatin 40 MG Tablet PO (20:19)
[2017-08-01] MEDS: QUEtiapine 25 MG Tablet PO (20:19)
[2017-08-02 05:16] VITALS: BP 150/79; PULSE 61
[2017-08-02] MEDS: Pantoprazole Sodium 20 MG Tablet PO (05:16)
[2017-08-02] MEDS: Levothyroxine 50 MCG Tablet PO (05:16)
[2017-08-02] MEDS: guaiFENesin 600 MG Tablet PO ×2 (05:16→16:31)
[2017-08-02] MEDS: Metoprolol Tartrate 25 MG Tablet PO ×2 (05:16→16:31)
[2017-08-02] MEDS: Flecainide 100 MG Tablet PO ×2 (05:16→16:31)
[2017-08-02] MEDS: Allopurinol 100 MG Tablet PO (05:20)
[2017-08-02 06:06] LABS: Absolute Lymphocyte Count 2.41 X10^3/ul (0.83-4.51); Absolute Neutrophil Count 4.5 X10^3/uL (2.0-7.7); Basophil# 0.03 X10^3/uL; Basophil% 0.4 % (0-1); Eosinophil# 0.24 X10^3/uL; Hematocrit 39.5 % (40-54); Hemoglobin 12.8 g/dl (13.0-16.5); Lymphocyte # 2.41 X10^3/ul (4.0); Lymphocyte % 30.2 % (19-41); Mean Corp Hgb Conc 32.4 g/gl (32-36); Mean Corpuscular Hgb 30.2 pg (27.0-32.0); Mean Corpuscular Volume 93.2 fL (80-94); Mean Platelet Vol. 10.3 fl (6.2-12.0); Monocyte# 0.81 X10^3/uL; Monocyte% 10.1 % (0-10); Neutrophil # 4.48 X10^3/uL (2.7-7.7); Platelet Count 195 K/mm3 (150-450); RBC Distribution Width CV 14.8 % (11.6-14.6); RBC Distribution Width SD 48.5 fl (35.1-43.9); Red Blood Count 4.24 M/mm3 (4.6-6.2)
[2017-08-02 06:08] LABS: POSITIVE COUNT NO; POSITIVE DIFFERENTIAL NO; POSITIVE MORPHOLOGY NO
[2017-08-02] MEDS: Menthol/Lanolin/Calamine/Znox 113 GM Tube 1 APPLIC TOPICAL ×2 (06:23→20:28)
[2017-08-02 06:26] LABS: Anion Gap 7 (5-15); BUN 17 mg/dL (7-18); BUN/Creat Ratio 14.9 RATIO (10-20); Calcium,Total 8.5 mg/dL (8.5-10.1); Chloride 107 mmol/L (98-107); Creatinine, Serum 1.14 mg/dL (0.70-1.30); EST Glomerular Filtration Rate 66 mL/min (>60); Est Glom Filt Rate - Afr Amer 79 mL/min (>60); Estimated Creatinine Clearance 43.27 ml/min; Glucose 90 mg/dL (74-106); Potassium 3.8 mmol/L (3.5-5.1); Sodium Level 142 mmol/L (136-145)
[2017-08-02 06:33] LABS: International Normalized Ratio 2.5; Prothrombin Time (Protime)PT. 26.3 SECONDS (11.7-14.9)
[2017-08-02] MEDS: Aspirin 81 MG TAB.CHEW PO (07:47)
[2017-08-02] MEDS: Tuberculin,Purif.prot.deriv. 50 TU/ML Vial 5 ML ID (12:03)
[2017-08-02 15:35] VITALS: BP 120/79; PULSE 57; RESP 18; TEMP 36.8; O2SAT 95
[2017-08-02 16:31] VITALS: BP 120/79; PULSE 57
[2017-08-02] MEDS: MELATONIN 3 MG TABLET PO (20:28)
[2017-08-02] MEDS: Tamsulosin HCl 0.4 MG Capsule PO (20:28)
[2017-08-02] MEDS: Pravastatin 40 MG Tablet PO (20:28)
[2017-08-02] MEDS: Montelukast 10 MG Tablet PO (20:28)
[2017-08-02] MEDS: QUEtiapine 25 MG Tablet PO (20:28)
[2017-08-02] MEDS: Donepezil HCl 10 MG Tablet PO (20:28)
[2017-08-02] MEDS: guaiFENesin 10 ML UDC (200MG/10ML) PO (20:32)
[2017-08-03] MEDS: Pantoprazole Sodium 20 MG Tablet PO (05:05)
[2017-08-03] MEDS: guaiFENesin 600 MG Tablet PO ×2 (05:05→16:57)
[2017-08-03] MEDS: Menthol/Lanolin/Calamine/Znox 113 GM Tube 1 APPLIC TOPICAL ×2 (05:06→20:26)
[2017-08-03] MEDS: Levothyroxine 50 MCG Tablet PO (05:06)
[2017-08-03] MEDS: Flecainide 100 MG Tablet PO ×2 (05:06→16:58)
[2017-08-03 06:10] VITALS: PULSE 50
[2017-08-03 07:06] VITALS: BP 165/73; PULSE 50
[2017-08-03] MEDS: Metoprolol Tartrate 25 MG Tablet PO ×2 (07:06→16:57)
[2017-08-03] MEDS: Allopurinol 100 MG Tablet PO (07:06)
[2017-08-03] MEDS: Aspirin 81 MG TAB.CHEW PO (07:07)
[2017-08-03] MEDS: guaiFENesin 10 ML UDC (200MG/10ML) PO ×2 (10:55→20:30)
[2017-08-03 15:14] VITALS: BP 108/66; PULSE 67; RESP 16; TEMP 36.7; O2SAT 96
[2017-08-03 16:57] VITALS: BP 108/66; PULSE 67
[2017-08-03] MEDS: Pravastatin 40 MG Tablet PO (20:26)
[2017-08-03] MEDS: QUEtiapine 25 MG Tablet PO (20:26)
[2017-08-03] MEDS: MELATONIN 3 MG TABLET PO (20:26)
[2017-08-03] MEDS: Tamsulosin HCl 0.4 MG Capsule PO (20:26)
[2017-08-03] MEDS: Donepezil HCl 10 MG Tablet PO (20:26)
[2017-08-03] MEDS: Montelukast 10 MG Tablet PO (20:26)
[2017-08-04 04:59] VITALS: BP 138/75; PULSE 53
[2017-08-04] MEDS: Pantoprazole Sodium 20 MG Tablet PO (04:59)
[2017-08-04] MEDS: guaiFENesin 600 MG Tablet PO ×2 (04:59→17:02)
[2017-08-04] MEDS: Levothyroxine 50 MCG Tablet PO (04:59)
[2017-08-04] MEDS: Metoprolol Tartrate 25 MG Tablet PO ×2 (04:59→17:02)
[2017-08-04] MEDS: Menthol/Lanolin/Calamine/Znox 113 GM Tube 1 APPLIC TOPICAL ×2 (04:59→20:27)
[2017-08-04] MEDS: Flecainide 100 MG Tablet PO ×2 (04:59→17:02)
[2017-08-04] MEDS: Allopurinol 100 MG Tablet PO (07:59)
[2017-08-04] MEDS: Aspirin 81 MG TAB.CHEW PO (07:59)
[2017-08-04 16:00] VITALS: BP 146/70; PULSE 54; RESP 18; TEMP 36.8; O2SAT 94
[2017-08-04 17:02] VITALS: BP 146/70; PULSE 54
[2017-08-04] MEDS: guaiFENesin 10 ML UDC (200MG/10ML) PO (20:23)
[2017-08-04] MEDS: Montelukast 10 MG Tablet PO (20:23)
[2017-08-04] MEDS: QUEtiapine 25 MG Tablet PO (20:23)
[2017-08-04] MEDS: Tamsulosin HCl 0.4 MG Capsule PO (20:23)
[2017-08-04] MEDS: Donepezil HCl 10 MG Tablet PO (20:23)
[2017-08-04] MEDS: Pravastatin 40 MG Tablet PO (20:23)
[2017-08-04] MEDS: MELATONIN 3 MG TABLET PO (20:24)
[2017-08-05] MEDS: guaiFENesin 600 MG Tablet PO ×2 (05:29→17:24)
[2017-08-05] MEDS: Pantoprazole Sodium 20 MG Tablet PO (05:29)
[2017-08-05] MEDS: Flecainide 100 MG Tablet PO ×2 (05:29→17:24)
[2017-08-05] MEDS: Levothyroxine 50 MCG Tablet PO (05:29)
[2017-08-05] MEDS: Menthol/Lanolin/Calamine/Znox 113 GM Tube 1 APPLIC TOPICAL ×2 (05:30→20:41)
[2017-08-05 05:31] VITALS: BP 152/70; PULSE 60
[2017-08-05] MEDS: Metoprolol Tartrate 25 MG Tablet PO ×2 (05:31→17:26)
[2017-08-05 05:57] LABS: International Normalized Ratio 2.6; Prothrombin Time (Protime)PT. 27.2 SECONDS (11.7-14.9)
[2017-08-05] MEDS: Allopurinol 100 MG Tablet PO (08:04)
[2017-08-05] MEDS: Aspirin 81 MG TAB.CHEW PO (08:04)
--- NOTE | 2017-08-05 10:49 | RAD_ITS ---
STUDY: X-RAY - PELVIS REASON FOR EXAM: Male, 82 years old. History of right acetabular fracture. TECHNIQUE: One view of the pelvis was obtained. COMPARISON: None. FINDINGS: Dilatation of the cecum. Normal visualized soft tissue structures. There is narrowing with cortical sclerosis and osteophyte formation of the sacroiliac joint consistent with degenerative osteoarthritic changes. Normal visualized bilateral superior and inferior pubic rami. Normal pubic symphysis. Normal ischial tuberosities. Normal visualized right femoral head. The acetabular fracture seen on the MRI is not seen at this time. There is mild articular joint space narrowing of the right hip. Normal visualized left femoral head. Normal left acetabulum. There is mild articular joint space narrowing of the left hip. RAD/Pelvis 1 or 2 Views IMPRESSION: Mild degree of degenerative changes. The previously seen acetabular fracture is not visualized on the plain radiograph. Electronically Signed: Derek Urena MD at 15:55 EST Tel [phone], Service support ,
[2017-08-05] MEDS: guaiFENesin 10 ML UDC (200MG/10ML) PO ×2 (12:42→20:38)
[2017-08-05 16:00] VITALS: BP 151/69; PULSE 54; RESP 20; TEMP 36.9; O2SAT 95
[2017-08-05 17:26] VITALS: PULSE 56
[2017-08-05] MEDS: QUEtiapine 25 MG Tablet PO (20:38)
[2017-08-05] MEDS: MELATONIN 3 MG TABLET PO (20:38)
[2017-08-05] MEDS: Tamsulosin HCl 0.4 MG Capsule PO (20:38)
[2017-08-05] MEDS: Donepezil HCl 10 MG Tablet PO (20:38)
[2017-08-05] MEDS: Montelukast 10 MG Tablet PO (20:38)
[2017-08-05] MEDS: Pravastatin 40 MG Tablet PO (20:38)
[2017-08-05 21:04] VITALS: PULSE 55; RESP 18; O2SAT 94
[2017-08-05] MEDS: Albuterol 2.5 MG/3 ML VIAL.NEB. INHALATION (21:04)
[2017-08-06 05:06] VITALS: BP 153/74; PULSE 57
[2017-08-06] MEDS: Metoprolol Tartrate 25 MG Tablet PO ×2 (05:06→17:30)
[2017-08-06] MEDS: Levothyroxine 50 MCG Tablet PO (05:06)
[2017-08-06] MEDS: Pantoprazole Sodium 20 MG Tablet PO (05:07)
[2017-08-06] MEDS: Flecainide 100 MG Tablet PO ×3 (05:07→21:14)
[2017-08-06] MEDS: guaiFENesin 600 MG Tablet PO ×2 (05:07→17:30)
[2017-08-06] MEDS: Menthol/Lanolin/Calamine/Znox 113 GM Tube 1 APPLIC TOPICAL ×2 (05:10→21:24)
[2017-08-06] MEDS: Allopurinol 100 MG Tablet PO (07:58)
[2017-08-06] MEDS: Aspirin 81 MG TAB.CHEW PO (07:58)
--- NOTE | 2017-08-06 10:21 | NURSING ---
Faxed xrays of pelvis to Dr Almeida, office notified that we need wt bearing status change if possibel for therapy, awaiting return call with orders.
--- NOTE | 2017-08-06 10:36 | MDS.RN ---
Information for the mds was obtained from review of the clinical record, interview of resident, staff, and direct observation of resident's care.
[2017-08-06] MEDS: guaiFENesin 10 ML UDC (200MG/10ML) PO ×2 (13:43→21:14)
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
--- NOTE | 2017-08-06 14:29 | CHAPLAIN ---
Type of Pastoral Visit _x__ Initial Visit ___ Follow-up Visit ___ On-call Visit ___ General Patient Visit ___ Spiritual Assessment ___ Family Conference ___ Bereavement ___ Rapid Response ___ Code Blue ___ Other (describe below) Pastoral Care Referral From _x__ Patient ___ Family ___ Nurse ___ Physician ___ Diesel Maintenance Electrician ___ Mechanical Manufacturing Technician ___ Other (describe below) Sacrament/Intervention _x__ Active listening ___ Anointing ___ Catholic ___ Bereavement ___ Communion ___ Roopa exploration ___ _x__ Life review _x__ Prayer ___ Reconciliation ___ Sacrament of Sick ___ Supportive presence ___ Wedding ___ Other (describe below) Pastoral Comments
--- NOTE | 2017-08-06 15:36 | CASEMGMT ---
Brief interview for mental status (BIMS) and resident mood interview (PHQ-9) completed on this day. BIMS score 15. PHQ-9 score 07/24
--- NOTE | 2017-08-06 15:38 | MDS.RN ---
Pain interview for CEFERINO 08/08/17 completed.
[2017-08-06 16:10] VITALS: BP 142/64; PULSE 51; RESP 18; TEMP 36.6; O2SAT 96
--- NOTE | 2017-08-06 16:23 | NURSING ---
DR. LUGO AWARE OF LOW PULSES. NO N.O. KEEP LOPRESSOR.
[2017-08-06 17:30] VITALS: PULSE 51
[2017-08-06] MEDS: Donepezil HCl 10 MG Tablet PO (21:14)
[2017-08-06] MEDS: Montelukast 10 MG Tablet PO (21:14)
[2017-08-06] MEDS: Pravastatin 40 MG Tablet PO (21:14)
[2017-08-06] MEDS: MELATONIN 3 MG TABLET PO (21:14)
[2017-08-06] MEDS: QUEtiapine 25 MG Tablet 12.5 MG PO (21:15)
[2017-08-06] MEDS: Tamsulosin HCl 0.4 MG Capsule PO (21:24)
[2017-08-07] VITALS (7 sets, daily range): BP systolic 145–160; BP diastolic 62–81; PULSE 48–58; RESP 15–20; TEMP 36.6; O2SAT 96–97
[2017-08-07] MEDS: Pantoprazole Sodium 20 MG Tablet PO (05:41)
[2017-08-07] MEDS: Levothyroxine 50 MCG Tablet PO (05:41)
[2017-08-07] MEDS: guaiFENesin 600 MG Tablet PO ×2 (05:41→17:00)
[2017-08-07] MEDS: Menthol/Lanolin/Calamine/Znox 113 GM Tube 1 APPLIC TOPICAL ×2 (05:45→21:14)
--- NOTE | 2017-08-07 05:46 | NURSING ---
SCHEDULED LOPRESSOR HELD THIS AM D/T BRADYCARDIA. HR NOTED AT 48.
[2017-08-07] MEDS: Aspirin 81 MG TAB.CHEW PO (08:00)
[2017-08-07] MEDS: Allopurinol 100 MG Tablet PO (08:00)
[2017-08-07] MEDS: Metoprolol Tartrate 25 MG Tablet PO (16:59)
[2017-08-07] MEDS: Flecainide 100 MG Tablet PO (17:01)
[2017-08-07] MEDS: guaiFENesin 10 ML UDC (200MG/10ML) PO (17:04)
[2017-08-07] MEDS: Pravastatin 40 MG Tablet PO (21:10)
[2017-08-07] MEDS: MELATONIN 3 MG TABLET PO (21:10)
[2017-08-07] MEDS: QUEtiapine 25 MG Tablet 12.5 MG PO (21:10)
[2017-08-07] MEDS: Montelukast 10 MG Tablet PO (21:10)
[2017-08-07] MEDS: Tamsulosin HCl 0.4 MG Capsule PO (21:10)
[2017-08-07] MEDS: Donepezil HCl 10 MG Tablet PO (21:11)
[2017-08-07] MEDS: Albuterol 2.5 MG/3 ML VIAL.NEB. INHALATION (21:25)
[2017-08-08] MEDS: Pantoprazole Sodium 20 MG Tablet PO (06:05)
[2017-08-08] MEDS: guaiFENesin 600 MG Tablet PO ×2 (06:05→17:07)
[2017-08-08] MEDS: Flecainide 100 MG Tablet PO ×2 (06:05→17:07)
[2017-08-08] MEDS: guaiFENesin 10 ML UDC (200MG/10ML) PO ×2 (06:05→17:07)
[2017-08-08] MEDS: Levothyroxine 50 MCG Tablet PO (06:05)
[2017-08-08] MEDS: Menthol/Lanolin/Calamine/Znox 113 GM Tube 1 APPLIC TOPICAL ×2 (06:09→20:35)
[2017-08-08 08:34] VITALS: PULSE 57
[2017-08-08] MEDS: Aspirin 81 MG TAB.CHEW PO (08:34)
[2017-08-08] MEDS: Allopurinol 100 MG Tablet PO (08:34)
[2017-08-08 16:00] VITALS: BP 164/83; PULSE 53; RESP 20; TEMP 36.5; O2SAT 95
[2017-08-08 17:07] VITALS: PULSE 50
[2017-08-08] MEDS: Pravastatin 40 MG Tablet PO (20:30)
[2017-08-08] MEDS: QUEtiapine 25 MG Tablet 12.5 MG PO (20:30)
[2017-08-08] MEDS: Tamsulosin HCl 0.4 MG Capsule PO (20:30)
[2017-08-08] MEDS: Donepezil HCl 10 MG Tablet PO (20:30)
[2017-08-08] MEDS: MELATONIN 3 MG TABLET PO (20:30)
[2017-08-08] MEDS: Montelukast 10 MG Tablet PO (20:30)
[2017-08-09] MEDS: guaiFENesin 600 MG Tablet PO ×2 (05:19→17:37)
[2017-08-09] MEDS: Flecainide 100 MG Tablet PO ×2 (05:19→17:36)
[2017-08-09] MEDS: Levothyroxine 50 MCG Tablet PO (05:19)
[2017-08-09] MEDS: Pantoprazole Sodium 20 MG Tablet PO (05:19)
[2017-08-09] MEDS: guaiFENesin 10 ML UDC (200MG/10ML) PO ×2 (05:19→20:09)
[2017-08-09] MEDS: Menthol/Lanolin/Calamine/Znox 113 GM Tube 1 APPLIC TOPICAL ×2 (05:24→20:13)
[2017-08-09 06:07] LABS: Absolute Lymphocyte Count 2.07 X10^3/ul (0.83-4.51); Absolute Neutrophil Count 2.8 X10^3/uL (2.0-7.7); Basophil# 0.02 X10^3/uL; Basophil% 0.3 % (0-1); Eosinophil# 0.19 X10^3/uL; Eosinophils% 3.3 % (0-5); Hematocrit 40.9 % (40-54); Hemoglobin 13.2 g/dl (13.0-16.5); Lymphocyte # 2.07 X10^3/ul (4.0); Lymphocyte % 35.8 % (19-41); Mean Corp Hgb Conc 32.3 g/gl (32-36); Mean Corpuscular Hgb 29.9 pg (27.0-32.0); Mean Corpuscular Volume 92.7 fL (80-94); Mean Platelet Vol. 9.8 fl (6.2-12.0); Monocyte# 0.68 X10^3/uL; Monocyte% 11.7 % (0-10); Neutrophil # 2.82 X10^3/uL (2.7-7.7); Neutrophil % 48.7 % (47-70); Platelet Count 169 K/mm3 (150-450); RBC Distribution Width CV 14.3 % (11.6-14.6); RBC Distribution Width SD 47.1 fl (35.1-43.9); Red Blood Count 4.41 M/mm3 (4.6-6.2); White Blood Count 5.8 K/mm3 (4.4-11.0)
[2017-08-09 06:10] LABS: Anion Gap 6 (5-15); BUN 16 mg/dL (7-18); BUN/Creat Ratio 14.3 RATIO (10-20); Calcium,Total 8.7 mg/dL (8.5-10.1); Chloride 103 mmol/L (98-107); Creatinine, Serum 1.12 mg/dL (0.70-1.30); EST Glomerular Filtration Rate 67 mL/min (>60); Est Glom Filt Rate - Afr Amer 81 mL/min (>60); Estimated Creatinine Clearance 44.05 ml/min; Glucose 88 mg/dL (74-106); Potassium 3.8 mmol/L (3.5-5.1); Sodium Level 139 mmol/L (136-145)
[2017-08-09 06:16] LABS: International Normalized Ratio 2.5; Prothrombin Time (Protime)PT. 25.7 SECONDS (11.7-14.9)
[2017-08-09 06:31] LABS: POSITIVE COUNT NO; POSITIVE DIFFERENTIAL NO; POSITIVE MORPHOLOGY NO
[2017-08-09] MEDS: Aspirin 81 MG TAB.CHEW PO (07:53)
[2017-08-09] MEDS: Allopurinol 100 MG Tablet PO (07:53)
[2017-08-09 10:30] VITALS: BP 127/61; PULSE 64
[2017-08-09] MEDS: Metoprolol Tartrate 25 MG Tablet PO ×2 (10:30→17:36)
--- NOTE | 2017-08-09 13:20 | RAD_ITS ---
STUDY: X-RAY CHEST REASON FOR EXAM: Male, 82 years old. Wheezing. TECHNIQUE: PA and lateral views of the chest. COMPARISON: Comparison is made with prior examination dated July 18, 2017. FINDINGS: Stable bibasilar atelectasis and/or infiltrates slightly worse on the left side. There is blunting of left costophrenic angle. Normal size heart. Normal mediastinum and lee. Normal visualized pulmonary arteries. There is atherosclerotic calcification of the aortic arch with tortuosity. There are diffuse degenerative changes of the visualized thoracic spine. Increased kyphosis. Normal visualized ribs, clavicles, and shoulders. There is no demonstrated abnormality of the visualized soft tissue structures of the upper abdomen. RAD/Chest PA and Lateral IMPRESSION: Stable increased markings at the lung bases worse on the left side suggestive of scarring. Electronically Signed: Derek Urena MD at 14:44 EST Tel [phone], Service support ,
--- NOTE | 2017-08-09 13:37 | NURSING ---
Addendum entered by Diamond Breen 08/09/17 16:12: Dr. Nicolas reviewed, NNO Original Note: Dr. Nicolas updated that pt continues to have a productive cough, wheezes in bilateral lung bases, denies SOB, N.O. for CXR. Pt and aware.
[2017-08-09 16:00] VITALS: BP 170/78; PULSE 57; RESP 18; TEMP 36.6; O2SAT 97
[2017-08-09 17:36] VITALS: BP 170/78; PULSE 57
[2017-08-09] MEDS: MELATONIN 3 MG TABLET PO (20:09)
[2017-08-09] MEDS: Pravastatin 40 MG Tablet PO (20:09)
[2017-08-09] MEDS: Donepezil HCl 10 MG Tablet PO (20:09)
[2017-08-09] MEDS: Tamsulosin HCl 0.4 MG Capsule PO (20:09)
[2017-08-09] MEDS: Montelukast 10 MG Tablet PO (20:13)
[2017-08-10] MEDS: Flecainide 100 MG Tablet PO ×2 (05:14→17:25)
[2017-08-10 05:15] VITALS: BP 146/78; PULSE 92
[2017-08-10] MEDS: guaiFENesin 600 MG Tablet PO ×2 (05:15→17:25)
[2017-08-10] MEDS: Metoprolol Tartrate 25 MG Tablet PO ×2 (05:15→17:25)
[2017-08-10] MEDS: Pantoprazole Sodium 20 MG Tablet PO (05:15)
[2017-08-10] MEDS: Levothyroxine 50 MCG Tablet PO (05:16)
[2017-08-10] MEDS: guaiFENesin 10 ML UDC (200MG/10ML) PO ×3 (05:16→17:25)
[2017-08-10] MEDS: Menthol/Lanolin/Calamine/Znox 113 GM Tube 1 APPLIC TOPICAL ×2 (05:19→21:33)
[2017-08-10] MEDS: Aspirin 81 MG TAB.CHEW PO (07:43)
[2017-08-10] MEDS: Allopurinol 100 MG Tablet PO (07:43)
--- NOTE | 2017-08-10 13:17 | CASEMGMT ---
Addendum entered by Chayito Easley 08/10/17 13:33: Resident also reporting to have all needed durable medical equipment already set up within the home. Original Note: Social Work Spoke with resident and resident spouse. This manager social services communicating that discharge date has been set for 08/13/17. Resident and resident spouse are agreeable to discharge date. Resident plans to discharge home with spouse. This manager social services communicating that therapy is recommending for resident to continue with physical and occupational therapy within the home. Resident is agreeable to recommendation and requesting for home health services to be set up through [facility] ([facility]). Resident spouse plans to provide transportation home for resident at time of discharge. Support given. [facility] This manager social services making referral for physical and occupational therapy. Order to be completed. Proposed discharge date: 08/13/17 PLAN: Discharge home with spouse and home health services. Chayito WERNER, FINANCIAL AID COUNSELOR
[2017-08-10 15:35] VITALS: BP 144/66; PULSE 50; RESP 16; TEMP 36.6; O2SAT 93
[2017-08-10 17:24] VITALS: PULSE 58
[2017-08-10 17:25] VITALS: PULSE 58
--- NOTE | 2017-08-10 21:16 | PCM.DC ---
- Discharge Diagnoses Current Active Problems: Current Active and Chronic Problems (Last Updated 08/06/17 @ 15:47 by Kat Vargas) GERD (gastroesophageal reflux disease) (Chronic) Gout (Chronic) Hypothyroidism (Chronic) You will use the following diet at home:: No restrictions, Regular Your food should be the consistency of: Regular Your liquids should be the consistency of: Regular/Thin Discharge Activity: Return to Normal Activity, May Shower, Use Walker Weight Bearing Status: Weight bearing as tolerated Call your doctor if you observe: Fever of 101 or Higher, Inability to urinate, Inability to have a bowel movement, Shortness of breath, Chest pain, Uncontrolled pain Allergies/Adverse Reactions: Allergies No Known Allergies Allergy (Verified 07/08/17 16:09) Medications to take at Discharge Hydrochlorothiazide 12.5 mg PO DAILY PRN PRN capsule 07/23/17 Adalimumab [Humira] 40 mg SC Q14D 07/25/17 Allopurinol [Zyloprim] 100 mg PO DAILY 07/25/17 Aspirin [Aspirin, Baby] 81 mg PO DAILY@0800 07/25/17 Cholecalciferol (VIT D3) [Vitamin D3] 2,000 unit PO DAILY 07/25/17 Colchicine 0.6 mg PO QODAY@1200 07/25/17 Lactobacillus Acidophilus [Acidophilus] 1 tablet PO BID 07/25/17 Levothyroxine [Synthroid] 50 mcg PO DAILY@0600 07/25/17 Menthol/Lanolin/Calamine/Znox [Calmoseptine Ointment] 1 applic TOPICAL TID 07/25/17 Metoprolol Tartrate [Lopressor (beta elise)] 25 mg PO BID 07/25/17 Montelukast [Singulair] 10 mg PO QHS 07/25/17 Tamsulosin HCl [Flomax] 0.4 mg PO QHS 07/25/17 flecainide 100 mg tablet 100 mg PO BID #180 tab 08/04/17 warfarin 1 mg tablet 1 mg PO .COMPLEX #90 tab 08/06/17 warfarin 6 mg tablet 6 mg PO .COMPLEX #90 tab 08/06/17 pravastatin 40 mg tablet 40 mg PO QHS #90 tab 08/09/17 Acetaminophen [Tylenol] 1,000 mg PO Q8H PRN tablet 08/10/17 Donepezil HCl [Aricept] 10 mg PO QHS #30 tab 02/13/18 Guaifenesin [Mucinex] 600 mg PO BID #60 tab 08/10/17 Guaifenesin [Robitussin] 10 ml PO Q6H PRN PRN udc 08/10/17 Melatonin 3 mg PO QHS@1930 #30 tab 08/10/17 Pantoprazole Sodium [Protonix] 20 mg PO DAILY #30 tab 08/10/17 Pravastatin [Pravachol] 40 mg PO QHS tablet 08/10/17 Warfarin [Coumadin] 2 mg PO DAILY@1700 tablet 08/10/17 Warfarin [Coumadin] 5 mg PO DAILY@1700 tablet 08/10/17 The following prescriptions were given: Donepezil HCl [Aricept] 10 mg PO QHS #30 tab Melatonin 3 mg PO QHS@1930 #30 tab Pantoprazole Sodium [Protonix] 20 mg PO DAILY #30 tab Guaifenesin [Mucinex] 600 mg PO BID #60 tab Orders to be completed after discharge: Prothrombin Time w/INR Time Frame: 2 Weeks, Location: Laboratory Primary Care Physician: Tracy Esparza MD [Primary Care Provider] - Please follow up with your Primary Care Physician in: 1 week. Please Follow Up With: Dr. Almeida When: 2 weeks. Proposed Discharge Date: 08/13/17
--- NOTE | 2017-08-10 21:19 | PCM.DC.SUM ---
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) GERD (gastroesophageal reflux disease) (Chronic) Gout (Chronic) Hypothyroidism (Chronic) Atrial fibrillation (Chronic) Benign essential hypertension (Chronic) Carotid artery stenosis (Chronic) Chest pain (Chronic) CAD (coronary artery disease) (Chronic) HLD (hyperlipidemia) (Chronic) Polymyalgia rheumatica (Chronic) TIA (transient ischemic attack) (Chronic) Debility (Chronic) HTN (hypertension) (Chronic) Psoriatic arthritis (Chronic) Hospital Course and Treatment Imaging Results: 07/25/17 14:36 Diet: Cardiac/Low Cholesterol Food consistency:: Regular Liquid Consistency:: Regular/Thin Is pt able to select menu?: Yes Diet Comments: NO ADDED SALT Clinical Impression(s) from Imaging Studies Pelvis X-Ray 08/05/17 10:49 IMPRESSION: Mild degree of degenerative changes. The previously seen acetabular fracture is not visualized on the plain radiograph. Electronically Signed: Derek Urena MD at 15:55 EST Tel [phone], Service support , Chest X-Ray 08/09/17 13:20 IMPRESSION: Stable increased markings at the lung bases worse on the left side suggestive of scarring. Electronically Signed: Derek Urena MD at 14:44 EST Tel [phone], Service support , Labs (Last 48 Hours) 08/09/17 08/09/17 08/09/17 05:10 05:10 05:10 WBC 5.8 RBC 4.41 L Hgb 13.2 Hct 40.9 MCV 92.7 MCH 29.9 MCHC 32.3 RDW 14.3 RDW Differential 47.1 H Plt Count 169 MPV 9.8 Immature Gran % (Auto) 0.200 Neut % (Auto) 48.7 Lymph % (Auto) 35.8 [place] % (Auto) 11.7 H Eos % (Auto) 3.3 Baso % (Auto) 0.3 Absolute Neuts (auto) 2.8 Absolute Lymphs (auto) 2.07 Total Counted Not Reportable PT 25.7 H INR 2.5 Sodium 139 Potassium 3.8 Chloride 103 Carbon Dioxide 30.0 Anion Gap 6 BUN 16 Creatinine 1.12 Estim Creat Clear Calc 44.05 Est GFR (MDRD) Af Amer 81 Est GFR (MDRD) Non-Af 67 BUN/Creatinine Ratio 14.3 Glucose 88 Calcium 8.7 Operations: None Procedures: None Summary of Care Provided: The patient is a 82 year old Male with below past medical history admitted to inpatient rehab unit after right hip fracture, bilateral sacral fracture, non-operative management recommended, admitted to TCU for rehabilitation, strengthening, prior to discharge home with spouse. Will discharge home with spouse. Home health ordered. [] Discharge Diet: No Restrictions Discharge Activity: Return to Normal Activity, May Shower, Use Walker Weight Bearing Status: Weight bearing as tolerated Call your doctor if you observe: Fever of 101 or Higher, Inability to urinate, Inability to have a bowel movement, Shortness of breath, Chest pain, Uncontrolled pain Home Medications: Medications to take at Discharge Hydrochlorothiazide 12.5 mg PO DAILY PRN PRN capsule 07/23/17 Adalimumab [Humira] 40 mg SC Q14D 07/25/17 Allopurinol [Zyloprim] 100 mg PO DAILY 07/25/17 Aspirin [Aspirin, Baby] 81 mg PO DAILY@0800 07/25/17 Cholecalciferol (VIT D3) [Vitamin D3] 2,000 unit PO DAILY 07/25/17 Colchicine 0.6 mg PO QODAY@1200 07/25/17 Lactobacillus Acidophilus [Acidophilus] 1 tablet PO BID 07/25/17 Levothyroxine [Synthroid] 50 mcg PO DAILY@0600 07/25/17 Menthol/Lanolin/Calamine/Znox [Calmoseptine Ointment] 1 applic TOPICAL TID 07/25/17 Metoprolol Tartrate [Lopressor (beta elise)] 25 mg PO BID 07/25/17 Montelukast [Singulair] 10 mg PO QHS 07/25/17 Tamsulosin HCl [Flomax] 0.4 mg PO QHS 07/25/17 flecainide 100 mg tablet 100 mg PO BID #180 tab 08/04/17 warfarin 1 mg tablet 1 mg PO .COMPLEX #90 tab 08/06/17 warfarin 6 mg tablet 6 mg PO .COMPLEX #90 tab 08/06/17 pravastatin 40 mg tablet 40 mg PO QHS #90 tab 08/09/17 Acetaminophen [Tylenol] 1,000 mg PO Q8H PRN tablet 08/10/17 Donepezil HCl [Aricept] 10 mg PO QHS #30 tab 08/10/17 Guaifenesin [Mucinex] 600 mg PO BID #60 tab 08/10/17 Guaifenesin [Robitussin] 10 ml PO Q6H PRN PRN udc 08/10/17 Melatonin 3 mg PO QHS@1930 #30 tab 08/10/17 Pantoprazole Sodium [Protonix] 20 mg PO DAILY #30 tab 08/10/17 Pravastatin [Pravachol] 40 mg PO QHS tablet 08/10/17 Warfarin [Coumadin] 2 mg PO DAILY@1700 tablet 08/10/17 Warfarin [Coumadin] 5 mg PO DAILY@1700 tablet 08/10/17 Following Prescrptions Were Given to Patient: Donepezil HCl [Aricept] 10 mg PO QHS #30 tab Melatonin 3 mg PO QHS@1930 #30 tab Pantoprazole Sodium [Protonix] 20 mg PO DAILY #30 tab Guaifenesin [Mucinex] 600 mg PO BID #60 tab Other Amb Orders: Prothrombin Time w/INR Time Frame: 2 Weeks, Location: Laboratory Primary Care Physician: Tracy Esparza MD [Primary Care Provider] - Please follow up with your Primary Care Physician in: 1 week. Please Follow Up With: Dr. Almeida When: 2 weeks. Disposition: Home with Home Health Minutes spent on discharge:: 35 Patient Condition:: Stable Meaningful Use Info Meaningful Use Diagnoses (Choose all that apply): None applicable
--- NOTE | 2017-08-10 21:21 | PCM.PN.HH ---
Home Health Note - Plan Overview of reason of hospitalization: The patient is a 82 year old Male with below past medical history admitted to inpatient rehab unit after right hip fracture, bilateral sacral fracture, non-operative management recommended, admitted to TCU for rehabilitation, strengthening, prior to discharge home with spouse. Will discharge home with spouse. Home health ordered. 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) GERD (gastroesophageal reflux disease) (Chronic) Gout (Chronic) Hypothyroidism (Chronic) Right acetabular fracture (Acute) Atrial fibrillation (Chronic) Benign essential hypertension (Chronic) Carotid artery stenosis (Chronic) Chest pain (Chronic) CAD (coronary artery disease) (Chronic) HLD (hyperlipidemia) (Chronic) Polymyalgia rheumatica (Chronic) TIA (transient ischemic attack) (Chronic) Contusion, hip (Acute) Debility (Chronic) HTN (hypertension) (Chronic) Psoriatic arthritis (Chronic) - Requirements and Reasons Disciplines Needed/Ordered: Physical Therapy Reason for Disciplines: Gait Training, Stair Training, Fall Prevention, Home Safety/Equipment Instruction, Balance and/or Posture Training, Transfer Training Related To: Limited/Poor Endurance, Shortness of Breath with Activity, Unsteady Gait/Balance, Fall Risk Patient is unable to leave the home: Without Aid of Supportive Devices (crutches, cane, wheelchair, walker), Without the assistance of another person - Additional Disciplines Additional Disciplines Needed/Ordered: Occupational Therapy
[2017-08-10] MEDS: Montelukast 10 MG Tablet PO (21:29)
[2017-08-10] MEDS: Tamsulosin HCl 0.4 MG Capsule PO (21:29)
[2017-08-10] MEDS: MELATONIN 3 MG TABLET PO (21:29)
[2017-08-10] MEDS: Donepezil HCl 10 MG Tablet PO (21:29)
[2017-08-10] MEDS: Pravastatin 40 MG Tablet PO (21:29)
[2017-08-11] MEDS: Pantoprazole Sodium 20 MG Tablet PO (05:32)
[2017-08-11 05:33] VITALS: BP 152/72; PULSE 54
[2017-08-11] MEDS: Metoprolol Tartrate 25 MG Tablet PO ×2 (05:33→16:36)
[2017-08-11] MEDS: Flecainide 100 MG Tablet PO ×2 (05:33→16:36)
[2017-08-11] MEDS: Levothyroxine 50 MCG Tablet PO (05:33)
[2017-08-11] MEDS: guaiFENesin 600 MG Tablet PO ×2 (05:33→16:36)
[2017-08-11] MEDS: Menthol/Lanolin/Calamine/Znox 113 GM Tube 1 APPLIC TOPICAL ×2 (05:36→22:00)
[2017-08-11] MEDS: Allopurinol 100 MG Tablet PO (07:37)
[2017-08-11] MEDS: Aspirin 81 MG TAB.CHEW PO (07:37)
[2017-08-11 15:56] VITALS: BP 120/51; PULSE 52; RESP 18; TEMP 36.9; O2SAT 95
[2017-08-11 16:36] VITALS: BP 120/51; PULSE 55
[2017-08-11] MEDS: Donepezil HCl 10 MG Tablet PO (21:45)
[2017-08-11] MEDS: Pravastatin 40 MG Tablet PO (21:45)
[2017-08-11] MEDS: MELATONIN 3 MG TABLET PO (21:45)
[2017-08-11] MEDS: Montelukast 10 MG Tablet PO (21:45)
[2017-08-11] MEDS: Tamsulosin HCl 0.4 MG Capsule PO (21:46)
[2017-08-12] MEDS: Levothyroxine 50 MCG Tablet PO (06:00)
[2017-08-12] MEDS: Pantoprazole Sodium 20 MG Tablet PO (06:01)
[2017-08-12] MEDS: guaiFENesin 600 MG Tablet PO ×2 (06:01→17:21)
[2017-08-12] MEDS: Flecainide 100 MG Tablet PO ×2 (06:01→17:22)
[2017-08-12 06:04] VITALS: BP 179/73; PULSE 50
[2017-08-12] MEDS: Metoprolol Tartrate 25 MG Tablet PO (06:04)
[2017-08-12] MEDS: Menthol/Lanolin/Calamine/Znox 113 GM Tube 1 APPLIC TOPICAL ×2 (06:10→20:42)
[2017-08-12 06:15] LABS: International Normalized Ratio 2.6; Prothrombin Time (Protime)PT. 26.9 SECONDS (11.7-14.9)
[2017-08-12] MEDS: Allopurinol 100 MG Tablet PO (07:41)
[2017-08-12] MEDS: Aspirin 81 MG TAB.CHEW PO (07:41)
[2017-08-12 10:00] VITALS: PULSE 80; RESP 16
[2017-08-12 16:00] VITALS: BP 140/68; PULSE 47; RESP 20; TEMP 36.6; O2SAT 94
[2017-08-12] MEDS: guaiFENesin 10 ML UDC (200MG/10ML) PO (17:25)
[2017-08-12 19:46] VITALS: PULSE 47
[2017-08-12] MEDS: Donepezil HCl 10 MG Tablet PO (20:42)
[2017-08-12] MEDS: Tamsulosin HCl 0.4 MG Capsule PO (20:42)
[2017-08-12] MEDS: Montelukast 10 MG Tablet PO (20:42)
[2017-08-12] MEDS: MELATONIN 3 MG TABLET PO (20:42)
[2017-08-12] MEDS: Pravastatin 40 MG Tablet PO (20:42)
[2017-08-13] MEDS: Levothyroxine 50 MCG Tablet PO (05:53)
[2017-08-13] MEDS: Pantoprazole Sodium 20 MG Tablet PO (05:53)
[2017-08-13] MEDS: guaiFENesin 600 MG Tablet PO (05:53)
[2017-08-13 05:54] VITALS: BP 148/80; PULSE 54
[2017-08-13] MEDS: Flecainide 100 MG Tablet PO (05:54)
[2017-08-13] MEDS: Menthol/Lanolin/Calamine/Znox 113 GM Tube 1 APPLIC TOPICAL (05:54)
[2017-08-13] MEDS: Metoprolol Tartrate 25 MG Tablet PO (05:54)
[2017-08-13] MEDS: Allopurinol 100 MG Tablet PO (08:22)
[2017-08-13] MEDS: Aspirin 81 MG TAB.CHEW PO (08:22)
[2017-08-13 11:38] VITALS: BP 152/73; PULSE 51; RESP 18; TEMP 37; O2SAT 95
--- NOTE | 2017-08-16 14:36 | MDS.RN ---
Information for the mds was obtained from review of the clinical record, interview of resident, staff, and direct observation of resident's care.
== END 2017-08-13 12:45 | disposition home health service (06) | DRG 561 ==
PROVIDERS: Admitting Provider Family Medicine Geriatric Medicine; Family Provider Family Medicine; PCP Family Medicine; Visit Provider Family Medicine Geriatric Medicine
DX: S32.401D Unspecified fracture of right acetabulum, subsequent encounter for fracture with routine healing (principal); L40.50 Arthropathic psoriasis, unspecified; I48.2 Chronic atrial fibrillation; G30.9 Alzheimer's disease, unspecified; F02.80 Dementia in other diseases classified elsewhere, unspecified severity, without behavioral disturbance, psychotic disturbance, mood disturbance, and anxiety; I10 Essential (primary) hypertension; S32.19XD Other fracture of sacrum, subsequent encounter for fracture with routine healing; S32.591D Other specified fracture of right pubis, subsequent encounter for fracture with routine healing; X58.XXXD Exposure to other specified factors, subsequent encounter; Z86.73 Personal history of transient ischemic attack (TIA), and cerebral infarction without residual deficits; M35.3 Polymyalgia rheumatica; E78.5 Hyperlipidemia, unspecified; I25.10 Atherosclerotic heart disease of native coronary artery without angina pectoris; E03.9 Hypothyroidism, unspecified; N40.0 Benign prostatic hyperplasia without lower urinary tract symptoms; J45.909 Unspecified asthma, uncomplicated; M10.9 Gout, unspecified; K21.9 Gastro-esophageal reflux disease without esophagitis; Z79.899 Other long term (current) drug therapy; Z79.82 Long term (current) use of aspirin; Z79.01 Long term (current) use of anticoagulants
CPT/HCPCS: 36415; 71046; 72170; 80048; 85025; 85610; 92523; 94640; 94667; 97110; 97116; 97162; 97166; 97530; 97535; 97802

== ENCOUNTER 2017-10-02 11:52 | Outpatient (RCR) | payer MEDICARE, OTHER, SELFPAY ==
[2017-10-02 12:44] LABS: International Normalized Ratio 1.9; Prothrombin Time (Protime)PT. 22.1 SECONDS (11.7-14.9)
[2017-10-02 13:06] LABS: AST(SGOT) 19 U/L (15-37); Alanine Aminotransfer ALT/SGPT 22 U/L (16-61); Albumin, Serum 3.6 g/dL (3.2-5.0); Alkaline Phosphatase 91 U/L (45-117); Bilirubin, Direct 0.08 mg/dL (0.00-0.30); Cholesterol 95 mg/dL (200); Globulin 3.6 g/dL (2.2-4.2); High Density Lipoprotein 41 mg/dL; Protein, Total 7.2 g/dL (6.4-8.2); Triglycerides 125 mg/dL; Very Low Density Lipoprotein 25 mg/dL (5-40)
== END 2017-10-02 12:00 | disposition home or self-care (01) ==
LOC: LAB 11:52
PROVIDERS: Family Medicine Geriatric Medicine; Family Provider Family Medicine; PCP Family Medicine; Visit Provider Internal Medicine Cardiovascular Disease
DX: I48.0 Paroxysmal atrial fibrillation (principal); E78.5 Hyperlipidemia, unspecified; Z79.01 Long term (current) use of anticoagulants
CPT/HCPCS: 36415; 80061; 80076; 85610

== ENCOUNTER → 2017-10-29 10:43 | Outpatient (CLI) | payer MEDICARE, OTHER, SELFPAY ==
--- NOTE | 2017-10-29 10:52 | MRI_ITS ---
STUDY: MRI CERVICAL SPINE WITHOUT CONTRAST REASON FOR EXAM: Male, 82 years old. Trauma TECHNIQUE: Standardized fat and water weighted pulse sequences were obtained in the sagittal and axial planes. COMPARISON: None FINDINGS: Normal foramen magnum and brainstem-cervical cord junction. Normal craniovertebral junction. Normal anterior atlantoaxial articulation. Normal odontoid process. Normal cervical lordosis. Normal vertebral bodies and posterior osseous elements. C2-3: Normal endplates. Normal disc height, signal and morphology. Normal central canal and intervertebral neural foramina. C3-4: Normal endplates. Normal disc height, signal and tiny central disc protrusion.. Normal central canal and intervertebral neural foramina. C4-5: Normal endplates. Normal disc height, signal and small central disc protrusion.. Normal central canal and intervertebral neural foramina. C5-6: Normal endplates. Normal disc height, signal and morphology. Normal central canal and intervertebral neural foramina. C6-7: Normal endplates. Normal disc height, signal and morphology. Normal central canal and intervertebral neural foramina. C7-T1: Normal endplates. Normal disc height, signal and morphology. Normal central canal and intervertebral neural foramina. Normal cervical cord. Normal visualized soft tissue structures. MRI/Spine Cervical (Routine) IMPRESSION: No evidence for acute fracture or subluxation. Disc protrusions at C3-4 and C4-5 without significant spinal stenosis Electronically Signed: Marlon Bang MD at 16:47 EDT , Service support ,
--- NOTE | 2017-10-29 10:52 | MRI_ITS ---
STUDY: MRI BRAIN WITHOUT CONTRAST REASON FOR EXAM: Male, 82 years old. Dizziness possible stroke TECHNIQUE: Standardized multiplanar fat and water weighted pulse sequences were obtained. COMPARISON: May 25, 2011 FINDINGS: Moderate atrophy and periventricular white matter ischemic change without evidence for acute infarct. 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 Normal bilateral basal ganglia. Normal thalami. There is no extra-axial fluid accumulation. Normal flow voids within the major intracranial circulation suggesting patency by spin echo criteria. Normal sella turcica, pituitary gland, infundibular stalk, optic chiasm and hypothalamus. Normal tectal plate and pineal gland. Normal midbrain, evelio and medulla. Normal cerebellum. Normal basal cisterns. Normal bilateral temporal bones. Normal bilateral internal auditory canals. Postsurgical changes involving the right orbit. There is mild mucosal thickening of the ethmoid air cells. Normal calvarium and skull base. Normal visualized soft tissue structures. Normal visualized upper cervical spine. 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 No evidence for acute infarct Electronically Signed: Marlon Bang MD at 16:45 EDT , Service support ,
--- NOTE | 2017-10-29 12:52 | CDU_ITS ---
Reason For Study: Carotid stenosis Rt. Velocities/BP Lt. Velocities/BP Prox CCA 76.2/11.7 cm/sec. Prox CCA 111.0/11.1 cm/sec. Mid CCA 78.6/12.3 cm/sec. Mid CCA 74.5/10.6 cm/sec. Dist CCA 78.0/10.0 cm/sec. Dist CCA 76.2/14.1 cm/sec. Prox ICA 48.1/15.2 cm/sec. Prox ICA 63.4/12.3 cm/sec. Mid ICA 69.8/16.4 cm/sec. Mid ICA 56.5/13.5 cm/sec. Dist ICA 89.7/19.3 cm/sec. Dist ICA 49.1/11.9 cm/sec. Rt. ICA/CCA = 1.1. Lt. ICA/CCA = .85. Prox ECA 99.1/7.0 cm/sec. Prox ECA 84.4/7.6 cm/sec. Rt. Vert. 46.3/12.3 cm/sec. Lt. Vert. 48.1/12.9 cm/sec. Right Extracranial There is intimal thickening but no significant atherosclerotic plaque noted in the right common carotid artery. There is intimal thickening but no significant atherosclerotic plaque noted in the right internal carotid artery. There is intimal thickening but no significant atherosclerotic plaque noted in the right external carotid artery. Antegrade flow is noted in the right vertebral artery. Left Extracranial There is intimal thickening but no significant atherosclerotic plaque noted in the left common carotid artery. There is heterogeneous, irregular atherosclerotic plaque noted in the left internal carotid artery. There is intimal thickening but no significant atherosclerotic plaque noted in the left external carotid artery. Antegrade flow is noted in the left vertebral artery. Procedure Carotid Duplex 21549. Exam performed in department. Interpretation Summary There is < 50% stenosis in bilateral extracranial internal carotid arteries (ICA). There is heterogenous atherosclerotic plque noted in the left ICA. Antegrade flow is noted in bilateral vertebral arteries. Ordering Physician: Margarita Beltran Referring Physician: Tracy Esparza M.D. Performed By: Merle Chisholm RVT
== END ==
PROVIDERS: Family Provider Family Medicine; PCP Family Medicine; Visit Provider Psychiatry & Neurology Neurology
DX: R42 Dizziness and giddiness (principal); R29.6 Repeated falls; Z86.73 Personal history of transient ischemic attack (TIA), and cerebral infarction without residual deficits; I65.23 Occlusion and stenosis of bilateral carotid arteries
CPT/HCPCS: 70551; 72141; 93880

== ENCOUNTER 2017-11-29 11:30 | Outpatient (RCR) | payer MEDICARE, OTHER, SELFPAY ==
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
--- NOTE | 2017-11-29 11:30 | DT_ITS ---
This patient was seen during an EMR downtime November 29, 2017 - December 06, 2017. This patient may have a combination of paper and electronic documentation or all paper documentation. All documentation is viewable within the e-chart portion of [facility] for each patient visit.
--- NOTE | 2017-12-07 14:37 | HP.PTDCSUM_ITS ---
HP - PT D/C Summary It has been my pleasure to treat ROMARIO PERALTA under orders from John Beltran, for the diagnosis of vertigo for a total of 10 visit(s). Discharge Date: 12/07/17 Please see the following information for a summary of their discharge status. - Subjective Subjective: No major changes. Less trouble walking in grass. Arms adn legs don 't seem to have the strength. Not sure when doctor f/u is. No spinning, just feels wobbly and shaky intermittently. concerned with some good and some bad days. - Overall Improvement % Improvement: 0 - Objective Objective/Function: FGA , trasnfers adn gait I with AD. NOt much improvement overall. Steps doen with no rail up and no rail down. Hunches over quickly. - Goals Goal 1:: abolish dizzyness feeling Goal Progress: Goal Met Goal 2:: FGA to diminish fall risk. Goal Progress: Progressing Goal 3:: I HEP to minimize future problems. Goal Progress: Not Progressing - Plan Plan: D/C, back to doctor(neuro) for next medical step(meds change) - D/C Information Discharge Comments: Recommend back to doctor for next medical step If there are questions or concerns regarding this patient's physical therapy, please feel free to call me at [phone]. Thank you for the referral of this patient. Sincerely, Willem Tran, DPT, OC
== END 2017-11-29 19:00 | disposition home or self-care (01) ==
LOC: PT 11:30
PROVIDERS: Family Provider Family Medicine; PCP Family Medicine; Visit Provider Psychiatry & Neurology Neurology
DX: R42 Dizziness and giddiness (principal)
CPT/HCPCS: 97110; 97116; 97163; 97530

== ENCOUNTER → 2017-12-15 10:52 | Outpatient (CLI) | payer MEDICARE, SELFPAY ==
[2017-12-15 10:58] LABS: Squamous Epithelial Cells - UA 0 SEEN /hpf (0-5)
[2017-12-15 11:51] LABS: Absolute Lymphocyte Count 2.08 X10^3/ul (0.83-4.51); Absolute Neutrophil Count 4.5 X10^3/uL (2.0-7.7); Basophil# 0.01 X10^3/uL; Basophil% 0.1 % (0-1); Eosinophil# 0.13 X10^3/uL; Eosinophils% 1.8 % (0-5); Hematocrit 46.3 % (40-54); Hemoglobin 15.1 g/dl (13.0-16.5); Lymphocyte # 2.08 X10^3/ul (4.0); Lymphocyte % 28.3 % (19-41); Mean Corp Hgb Conc 32.6 g/gl (32-36); Mean Corpuscular Hgb 29.2 pg (27.0-32.0); Mean Corpuscular Volume 89.4 fL (80-94); Mean Platelet Vol. 11.1 fl (6.2-12.0); Monocyte# 0.61 X10^3/uL; Monocyte% 8.3 % (0-10); Neutrophil # 4.52 X10^3/uL (2.7-7.7); Neutrophil % 61.4 % (47-70); POSITIVE COUNT NO; POSITIVE DIFFERENTIAL NO; POSITIVE MORPHOLOGY NO; Platelet Count 160 K/mm3 (150-450); RBC Distribution Width CV 14.6 % (11.6-14.6); RBC Distribution Width SD 47.4 fl (35.1-43.9); Red Blood Count 5.18 M/mm3 (4.6-6.2); White Blood Count 7.4 K/mm3 (4.4-11.0)
[2017-12-15 11:57] LABS: International Normalized Ratio 2.4; Prothrombin Time (Protime)PT. 25.9 SECONDS (11.7-14.9)
[2017-12-15 12:30] LABS: AST(SGOT) 20 U/L (15-37); Alanine Aminotransfer ALT/SGPT 13 U/L (16-61); Albumin, Serum 3.8 g/dL (3.2-5.0); Alkaline Phosphatase 90 U/L (45-117); Anion Gap 9 (5-15); BUN 23 mg/dL (7-18); BUN/Creat Ratio 12.4 RATIO (10-20); Chloride 106 mmol/L (98-107); Creatinine, Serum 1.85 mg/dL (0.70-1.30); EST Glomerular Filtration Rate 38 mL/min (>60); Est Glom Filt Rate - Afr Amer 45 mL/min (>60); Globulin 3.7 g/dL (2.2-4.2); Glucose 107 mg/dL (74-106); Potassium 4.5 mmol/L (3.5-5.1); Protein, Total 7.5 g/dL (6.4-8.2); Sodium Level 140 mmol/L (136-145)
[2017-12-15 17:29] LABS: Color, Urine Yellow (Yellow); Glucose, Dipstick Normal (Normal); Ketone-Dipstick 5 mg/dl (Negative); Leukocyte Esterase-Dipstick 25 /ul (Negative); Nitrite-Dipstick Negative (Negative); Occult Blood-Urine 25 /ul (Negative); Protein-Dipstick 30 mg/dl (Negative); Specific Gravity, Urine 1.015 (1.002-1.030); Urine Bilirubin Dipstick Negative (Negative); Urine Clarity Cloudy (Clear); Urine Urobilinogen 1 mg/dl (Normal)
[2017-12-15 17:41] LABS: Bacteria 3+ /hpf (None Seen); Fine Granular Cast- Urine 0-5 SEEN /lpf (0-5); Mucous, Urine 3+ /hpf (<or=2+)
[2017-12-15 17:42] LABS: Red Blood Cells-Urine 5-10 SEEN /hpf (0-5); White Blood Cells 5-10 SEEN /hpf (0-5)
[2017-12-15 17:43] LABS: Hyaline Cast 10-25 SEEN /lpf (0-5)
== END ==
PROVIDERS: Family Provider Family Medicine; PCP Family Medicine; Visit Provider Psychiatry & Neurology Neurology
DX: I48.0 Paroxysmal atrial fibrillation (principal); F03.90 Unspecified dementia, unspecified severity, without behavioral disturbance, psychotic disturbance, mood disturbance, and anxiety; G20 Parkinson's disease
CPT/HCPCS: 36415; 80053; 81001; 85025; 85610

== ENCOUNTER 2018-02-25 01:32 | Emergency (ER) | payer MEDICARE, OTHER, SELFPAY ==
[2018-02-25 01:34] VITALS: BP 189/73; PULSE 50; RESP 16; TEMP 36.6; O2SAT 97; BMI 34.3
[2018-02-25 03:41] LABS: International Normalized Ratio 2.8; Prothrombin Time (Protime)PT. 29.8 SECONDS (11.7-14.9)
--- NOTE | 2018-02-25 05:28 | ED.DCSUM_ITS ---
- ER Visit Summary Date of Service: 02/25/18 Chief Complaint: Mechanical fall History of Present Illness: The patient is a 82 M history of Parkinson's dementia and was with a walker unwitnessed fall at midnight at home. Here with significant other. Patient states he tripped on the carpet falling down. Significant other he is on warfarin for history of paroxysmal atrial fibrillation. Last INR check was over a month ago. Patient complains of left hip, lower back, left shoulder pain. Also complaining of on-and-off frontal head pain along with neck pain. No arm weakness or paresthesias. Denies chest pains or shortness of breath. Physical Examination: General: Alert and following commands, no acute distress HEENT: Normocephalic, atraumatic. No hemotympanum. No facial tenderness. Moist mucosa membranes Neck: supple, mild cervical midline tenderness with no step-offs. Cardiovascular: Regular rate and rhythm, no murmurs Respiratory: Normal breath sounds, symmetric, no distress Abdomen: Soft, nontender, nondistended Back: Mild tenderness left lateral lumbar with no ecchymosis. Straight leg test was negative. Extremities: Mild tenderness left proximal shoulder with no deformities. Active full range of motion. Left lower extremity: Mild tenderness left greater trochanteric, no shortening or rotation. Negative logroll. Neuro: no focal neurological deficits. Test Results: CT head and neck no acute process. X-ray left hip, left shoulder , lumbar spine no acute process. INR 2.8. Emergency Department Course and Treatment: Patient mechanical fall. The mother present, declines any medications. Image studies obtained with for his injuries are negative. He is ambulated with a walker in the department with no difficulties. Discharge outpatient follow-up. Treatment Plan: [] Disposition: Discharge Impression: 1. Mechanical fall 2. Left hip contusion 3. Acute lumbar strain 4. Left shoulder strain This note was generated with [employer] dictation software. It may contain incorrect words, spelling, and punctuation that were not noted in review of the chart prior to signing ED Disposition - Plan for ED Patient: Disposition: Home or Assisted Living Chief Complaint: Fall Diagnosis: Fall, Lumbar strain, Contusion of left hip, Left shoulder strain Instructions: ED Sprain Strain Lumbar, ED Mechanical Fall, ED Contusion Hip, ED Sprain Shoulder Referrals: Tracy Esparza MD [Primary Care Provider] - 3-5 Days
[2018-02-25 06:03] VITALS: BP 179/87; PULSE 87; RESP 18; O2SAT 99
== END 2018-02-25 06:03 | disposition home or self-care (01) ==
PROVIDERS: Emergency Provider Emergency Medicine; Family Provider Family Medicine; PCP Family Medicine
DX: S70.02XA Contusion of left hip, initial encounter (principal); S39.012A Strain of muscle, fascia and tendon of lower back, initial encounter; S46.912A Strain of unspecified muscle, fascia and tendon at shoulder and upper arm level, left arm, initial encounter; R51 Headache; W18.09XA Striking against other object with subsequent fall, initial encounter; Y93.9 Activity, unspecified; Y92.009 Unspecified place in unspecified non-institutional (private) residence as the place of occurrence of the external cause; F03.90 Unspecified dementia, unspecified severity, without behavioral disturbance, psychotic disturbance, mood disturbance, and anxiety; I25.10 Atherosclerotic heart disease of native coronary artery without angina pectoris; K21.9 Gastro-esophageal reflux disease without esophagitis; I10 Essential (primary) hypertension; M10.9 Gout, unspecified; G20 Parkinson's disease; I48.0 Paroxysmal atrial fibrillation; Z79.01 Long term (current) use of anticoagulants; Z79.82 Long term (current) use of aspirin; Z79.899 Other long term (current) drug therapy
CPT/HCPCS: 70450; 72100; 72125; 73030; 73502; 85610; 99284

== ENCOUNTER 2018-02-25 15:10 | Inpatient (IN) | payer MEDICARE, OTHER, SELFPAY ==
[2018-02-25] VITALS (13 sets, daily range): BP systolic 117–213; BP diastolic 63–94; PULSE 47–52; RESP 13–22; TEMP 36.8–37.1; O2SAT 96–99; BMI 34.0; BMI 33.3
--- NOTE | 2018-02-25 16:08 | ED.DCSUM_ITS ---
- ER Visit Summary Date of Service: 02/25/18 Chief Complaint: Confusion History of Present Illness: The patient is a 82 M with confusion. His family helps with the history. Over the last several weeks, the patient has been having some confusion and trouble with his balance. He fell last night at home. He was seen in this emergency department and had x-rays of his shoulder, back, and hip. He had a CT of his head. His INR was 2.8. He was able to ambulate and was sent home with family early this morning. Today he has been incoherent. The family describes this as visual and auditory hallucinations, confusion, and bizarre answers. He is not using his walker like he normally should. He slid from his chair to the floor and had trouble getting up. His family has never seen him this bad. He has a history of Parkinson's disease, A. fib, TIA, coronary disease, hypertension, hyperlipidemia, hypothyroid, and gout. He does take aspirin and warfarin. Physical Examination: Afebrile and vital signs unremarkable except for heart rate of 48. Patient is in no acute distress. Head and neck are atraumatic. Heart is regular. Lungs are clear. Abdomen is soft. Hips nontender. Extremities nontender. Good range of motion. Cranial nerves grossly intact. Normal and symmetric sensation. Strength intact and symmetric. Patient has ataxia with his left upper extremity. Mild dysarthria, at baseline per the family. No definite aphasia. Test Results: Imaging, labs, urinalysis, EKG pending. Emergency Department Course and Treatment: Patient has a history of Parkinson's disease. Presents after a fall last night and then confusion this morning. He does have focal neurologic findings, namely left upper extremity ataxia. He does not meet criteria for a stroke team or TPA. Heart rate is bradycardic, but this is not a new issue per the family. Patient was placed on a monitor. IV access obtained. 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 CT head and C-spine showed degenerative and stable changes. Chest x-ray showed no acute process. EKG showed sinus rhythm at a rate of 47. CBC, CMP, INR, urinalysis, troponin, and TSH all fairly unremarkable. On reevaluation, the patient is having some hypertension. He remains bradycardic. He was treated with 1 dose of metoprolol. He did have some mild improvement in his blood pressure but no significant change in his heart rate. We will continue to monitor. No change in his mental status or neurologic complaints. I spoke with the hospitalist who will admit for further care. Treatment Plan: As above Disposition: Admission Impression: 1. Encephalopathy This note was generated with [employer] dictation software. It may contain incorrect words, spelling, and punctuation that were not noted in review of the chart prior to signing ED Disposition - Plan for ED Patient: Chief Complaint: Alt LOC Referrals: Tracy Esparza MD [Primary Care Provider] -
[2018-02-25 16:34] LABS: Absolute Lymphocyte Count 2.07 X10^3/ul (0.83-4.51); Absolute Neutrophil Count 4.1 X10^3/uL (2.0-7.7); Basophil# 0.02 X10^3/uL; Basophil% 0.3 % (0-1); Eosinophil# 0.13 X10^3/uL; Eosinophils% 1.9 % (0-5); Hematocrit 43.6 % (40-54); Hemoglobin 14.4 g/dl (13.0-16.5); Lymphocyte # 2.07 X10^3/ul (4.0); Lymphocyte % 30.4 % (19-41); Mean Corpuscular Hgb 30.1 pg (27.0-32.0); Mean Corpuscular Volume 91.2 fL (80-94); Mean Platelet Vol. 11.2 fl (6.2-12.0); Monocyte# 0.53 X10^3/uL; Monocyte% 7.8 % (0-10); Neutrophil # 4.05 X10^3/uL (2.7-7.7); Neutrophil % 59.6 % (47-70); Platelet Count 161 K/mm3 (150-450); RBC Distribution Width SD 46.3 fl (35.1-43.9); Red Blood Count 4.78 M/mm3 (4.6-6.2); White Blood Count 6.8 K/mm3 (4.4-11.0)
[2018-02-25 16:35] LABS: POSITIVE COUNT NO; POSITIVE DIFFERENTIAL NO; POSITIVE MORPHOLOGY NO
[2018-02-25 16:48] LABS: International Normalized Ratio 2.7; Prothrombin Time (Protime)PT. 29.1 SECONDS (11.7-14.9)
[2018-02-25 16:49] LABS: AST(SGOT) 16 U/L (15-37); Alanine Aminotransfer ALT/SGPT 8 U/L (16-61); Albumin, Serum 3.7 g/dL (3.2-5.0); Alkaline Phosphatase 70 U/L (45-117); Anion Gap 8 (5-15); BUN 21 mg/dL (7-18); BUN/Creat Ratio 15.3 RATIO (10-20); Calcium,Total 9.1 mg/dL (8.5-10.1); Chloride 103 mmol/L (98-107); Creatinine, Serum 1.37 mg/dL (0.70-1.30); EST Glomerular Filtration Rate 53 mL/min (>60); Est Glom Filt Rate - Afr Amer 64 mL/min (>60); Estimated Creatinine Clearance 36.01 ml/min; Globulin 3.6 g/dL (2.2-4.2); Glucose 98 mg/dL (74-106); Protein, Total 7.3 g/dL (6.4-8.2); Sodium Level 140 mmol/L (136-145); Thyroid Stim Hormone (TSH) 2.05 uIU/mL (0.358-3.74)
[2018-02-25 16:59] LABS: Bacteria 0 SEEN /hpf (None Seen); Mucous, Urine 0 SEEN /hpf (<or=2+); Squamous Epithelial Cells - UA 0 SEEN /hpf (0-5); White Blood Cells 0 SEEN /hpf (0-5)
--- NOTE | 2018-02-25 17:01 | CM.ED ---
Social Work Note Referral from Luciana in ED stating that Emely Lucas from pt's insurance had called requesting that a SW speak with the pt and family as had said she cannot take care of him anymore. Face to face with the pt's as radiology is with him. Introduced self and role at [facility]. Pt's daughter, son in law, and step daughter are also there. Per the pt's the pt has had auditory and visual hallucination for months, but they have become increasingly worse in the last month. Reports that she used to think he was just dreaming and when she discussed with his neurologist, Dr. Beltran, he informed her that they were hallucinations. The pt had a TBI in 2008 and was transferred to [facility]. He then was discharged to what was [facility] for 8 weeks. This last June (2017) the pt was in [facility] and then TCU here at [facility]. Inquire if family is planning to have pt placed. Pt's states she really does not want to. Her daughter, Brandi, states that her mother is going to speak with an elder law campus safety officer to see how their assets can be protected if they apply for Medicaid. They decline that the pt has palliative or hospice services. Educate to palliative care services. is agreeable to a referral for palliative care services to go to [facility]. Provide emotional support to pt's as she becomes tearful throughout discussion. They are requesting the SW on Wednesday stop to speak with them as they anticipate the pt will be admitted based on conversations with the physician. Plan: Referral faxed to [facility] for palliative care consult. Diamond Fletcher, HEALTH MANAGEMENT CONSULTANT, QUENCHER OPERATOR
[2018-02-25 17:16] LABS: Color, Urine Yellow (Yellow); Glucose, Dipstick Normal (Normal); Ketone-Dipstick Negative (Negative); Leukocyte Esterase-Dipstick 25 /ul (Negative); Nitrite-Dipstick Negative (Negative); Occult Blood-Urine 25 /ul (Negative); Protein-Dipstick Negative (Negative); Specific Gravity, Urine 1.015 (1.002-1.030); Urine Bilirubin Dipstick Negative (Negative); Urine Clarity Clear (Clear); Urine Urobilinogen Normal (Normal); Urine pH 6.5 (5.0 - 8.0)
[2018-02-25] MEDS: Metoprolol Tartrate 5 MG/5 ML Vial IV (17:25)
--- NOTE | 2018-02-25 17:31 | CM.ED ---
Social Work Note Referral from Luciana in ED stating that Emely Lucas from pt's insurance had called requesting that a SW speak with the pt and family as had said she cannot take care of him anymore. Face to face with the pt's as radiology is with him. Introduced self and role at [facility]. Pt's daughter, son in law, and step daughter are also there. Per the pt's the pt has had auditory and visual hallucination for months, but they have become increasingly worse in the last month. Reports that she used to think he was just dreaming and when she discussed with his neurologist, Dr. Beltran, he informed her that they were hallucinations. The pt had a TIA in 2008 and was transferred to [facility]. He then was discharged to what was [facility] for 8 weeks. This last June (2017) the pt was in [facility] and then TCU here at [facility]. Inquire if family is planning to have pt placed. Pt's states she really does not want to. Her daughter, Brandi, states that her mother is going to speak with an elder law prosecuting attorney to see how their assets can be protected if they apply for Medicaid. They decline that the pt has palliative or hospice services. Educate to palliative care services. is agreeable to a referral for palliative care services to go to [facility]. Provide emotional support to pt's as she becomes tearful throughout discussion. They are requesting the SW on Wednesday stop to speak with them as they anticipate the pt will be admitted based on conversations with the physician. Plan: Referral faxed to [facility] for palliative care consult. Diamond Fletcher, BOBBIN MARKER, SHANK TAPPER
[2018-02-25 17:54] LABS: Red Blood Cells-Urine 0-5 SEEN /hpf (0-5)
--- NOTE | 2018-02-25 19:48 | PCM.HP.STD ---
Problem List (1) Paroxysmal atrial fibrillation Status: Chronic (2) History of left heart catheterization Status: Chronic Comment: 10/03/2007 @ [facility] per Dr. Servin, 03/19/2016 @ [facility] per Dr. Warner (3) Benign essential hypertension Status: Chronic (4) Carotid artery stenosis Status: Chronic Comment: Nonobstructive CAD of LAD and mid RCA per [facility] 03/19/2016 (5) CAD (coronary artery disease) Status: Chronic Qualifiers: (6) HLD (hyperlipidemia) Status: Chronic Qualifiers: (7) TIA (transient ischemic attack) Status: Chronic (8) Debility Status: Chronic (9) Psoriatic arthritis Status: Chronic (10) Confusion Status: Acute History of Present Illness Date of Admission: 02/25/18 Chief Complaint: Confusion The patient is a 82 year old M with a PMH listed below, presenting from home after confusion and weakness. Per the family he has had dementia, and parkinsons for a while. They had brought him this morning for confusion and work-up was negative. He went home from the ER and slept and then this afternoon when he woke-up he was weak and was unable to use his walker and when he sat down in the chair he slid to the floor. It is unclear if he had a syncopal episode. In the ER, repeat work-up was negative. Creatinine was slightly elevated from baseline to 1.37, UA was negative and TSH was normal. Past Medical History Past Medical History (Chronic Problems): Chronic Problems (Last Updated 10/04/17 @ 11:11 by Magdalena Garcia) Paroxysmal atrial fibrillation (Chronic) History of left heart catheterization (Chronic ~03/19/16) 10/03/2007 @ [facility] per Dr. Servin, 03/19/2016 @ [facility] per Dr. Warner [facility] current use of anticoagulant (Chronic) GERD (gastroesophageal reflux disease) (Chronic) Gout (Chronic) Hypothyroidism (Chronic) Atrial fibrillation (Chronic) Benign essential hypertension (Chronic) Carotid artery stenosis (Chronic) Nonobstructive CAD of LAD and mid RCA per 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 03/19/2016 Chest pain (Chronic) R07.9 CAD (coronary artery disease) (Chronic) I25.10 HLD (hyperlipidemia) (Chronic) E78.5 Polymyalgia rheumatica (Chronic) M35.3 TIA (transient ischemic attack) (Chronic) Contusion, hip (Acute) S70.00XA Debility (Chronic) R53.81 HTN (hypertension) (Chronic) I10 Psoriatic arthritis (Chronic) L40.50 Closed right hip fracture Onset Date: ~06/2017 S72.001A Allergies No Known Allergies Allergy (Verified 02/25/18 15:13) Home Medications: Ambulatory Orders Medication Instructions Recorded Adalimumab [Humira] 40 mg SC Q14D 07/25/17 Allopurinol [Zyloprim] 100 mg PO DAILY 07/25/17 Cholecalciferol (VIT D3) [Vitamin 2,000 unit PO DAILY 07/25/17 D3] Colchicine 0.6 mg PO QODAY@1200 07/25/17 Levothyroxine [Synthroid] 50 mcg PO DAILY@0600 07/25/17 Menthol/Lanolin/Calamine/Znox 1 applic TOPICAL TID 07/25/17 [Calmoseptine Ointment] Montelukast [Singulair] 10 mg PO QHS 07/25/17 Tamsulosin HCl [Flomax] 0.4 mg PO QHS 07/25/17 Acetaminophen [Tylenol] 1,000 mg PO Q8H PRN tab 08/10/17 Donepezil HCl [Aricept] 10 mg PO QHS #30 tab 08/10/17 flecainide 100 mg tablet 100 mg PO BID #180 tab 09/27/17 metoprolol tartrate 25 mg tablet 12.5 mg PO BID tab 01/31/18 Alendronate Sodium [Fosamax] 70 mg PO QWEEK 02/25/18 Aspirin [Aspirin EC] 81 mg PO DAILY 02/25/18 Carbidopa/Levodopa [Carbidopa-Levo 1 each PO 4X/DAY 02/25/18 25-100 mg Odt] Omeprazole 20 mg PO DAILY 02/25/18 Pravastatin [Pravachol] 40 mg PO QHS 02/25/18 Warfarin Sodium [Jantoven] 1 mg PO DAILY 02/25/18 Warfarin Sodium [Jantoven] 6 mg PO DAILY 02/25/18 Surgical History: Surgical History (Last Updated 10/04/17 @ 11:11 by Magdalnea Garcia) History of left heart catheterization (Chronic) Onset Date: ~03/19/16 Z98.890 10/03/2007 @ [facility] per Dr. Servin, 03/19/2016 @ [facility] per Dr. Warner Surgical History: adenoidectomy, appendectomy, tonsillectomy, - - Right carotid endarterectomy, carpal tunnel surgery, lipoma removal, rectal fissure repair. Psychiatric History: No pertinent psych hx Lives: Spouse/ Significant Other Smoking Status: Never smoker Tobacco Use: Non-smoker Alcohol: None Drugs: None - *Family History Maternal Family History: Family History (Last Reviewed 10/04/17 @ 11:08 by Magdalena Garcia) Father Sudden cardiac Mother Congestive heart failure History Items: No pertinent history Paternal Family History: Family History (Last Reviewed 10/04/17 @ 11:08 by Magdalena Garcia) Father Sudden cardiac Mother Congestive heart failure History Items: Heart Disease Review of Systems Constitutional: Denies: Chills, Fever, Weight Change HEENT: Denies: Head Aches, Sinus Congestion, Sinus Drainage Cardiovascular: Denies: Chest Pain, Palpitations Respiratory: Denies: Cough, Shortness of breath at rest, Sputum production Gastrointestinal: Denies: Abdominal Pain, Nausea, Vomiting Genitourinary: Reports: Frequency. Denies: Dysuria Musculoskeletal: Denies: Joint Pain, Joint Tenderness Skin: Denies: Rash, Wounds Neurological: Reports: Balance problems, Slurred speech - Chronic, Confusion. Denies: Seizures Psychiatric: Denies: Anxiety, Depression Hematologic/ Lymphatic: Denies: Easy Bruising, Easy Bleeding VTE Information - Inpt Only VTE Present on Admission: No Patient Problems: Active and Suspected Problems (Last Updated 10/04/17 @ 11:11 by Magdalena Garcia) Confusion (Acute) - Physical Exam General: Alert, Cooperative, No apparent distress, - - oriented to person and place HEENT: Atraumatic, EOMI, Normocephalic Oral: Moist Mucosa Neck: Supple, No JVD Lungs: Clear to auscultation, Normal air movement, No rhonchi, No wheeze, No rales Cardiovascular: Regular rate, Regular Rhythm, Normal S1, Normal S2, No murmurs Abdomen: Soft, Non Tender, Non-Distended, No Hepato-splenomegaly Skin: No rashes, No breakdown Musculoskeletal: No Tenderness to Palpation of Joints or Extremities Neurological: Cranial nerves II-XII grossly intact, Motor Exam 5/5 strength throughout, Sensory exam intact to light touch and pain Psych/Mental Status: Normal Affect, Appropriate, - - responds to questions appropriately Vital Signs Temp Pulse Resp BP Pulse Ox 98.3 F 50 L 14 202/90 H 99 02/25/18 19:05 02/25/18 19:05 02/25/18 19:05 02/25/18 19:05 02/25/18 19:05 Oxygen Delivery Method Room Air Weight: 194 lb 0.108 oz Body Mass Index (BMI) 33.3 Assessment/Plan All Active Problems (Last Updated 10/04/17 @ 11:11 by Magdalena Garcia) Fall (Acute) Lumbar strain (Acute) Contusion of left hip (Acute) Left shoulder strain (Acute) Confusion (Acute) Right acetabular fracture (Acute) Contusion, hip (Acute) 1. Confusion/Weakness/Vascular dementia/Parkinsons - Unsure of his etiology, does not appear to be metabolic given work-up - Could possibly be stroke though there is no focal evidence - Will obtain MRI in the Am and consult neurology - c/w coumadin for afib as well as aspirin - TSH is normal, UA is normal, obtain B12 level 2. Gout - will continue his home medications 3. Afib/HTN/HLD - C/w flecainide and coumadin for the afib - Metoprolol and pravastatin 4. Hypothyroidism - TSH is normal - c/w synthroid at current dose Diet: Cardiac Code: FULL DVT: Coumadin Code Visit Inpatient E&M: 17072 Init Hosp L3
[2018-02-25] MEDS: Pravastatin 40 MG Tablet PO (21:20)
[2018-02-25] MEDS: Tamsulosin HCl 0.4 MG Capsule PO (21:20)
[2018-02-25] MEDS: Donepezil HCl 10 MG Tablet PO (21:20)
[2018-02-25] MEDS: Carbidopa/Levodopa 25/100 Tablet PO (21:20)
[2018-02-25] MEDS: Montelukast 10 MG Tablet PO (21:20)
[2018-02-25] MEDS: Flecainide 100 MG Tablet PO (22:49)
[2018-02-26] VITALS (10 sets, daily range): BP systolic 98–211; BP diastolic 56–101; PULSE 54–60; RESP 14–17; TEMP 36.4–36.9; O2SAT 96–98
--- NOTE | 2018-02-26 03:44 | NURSING ---
Pt has history of dementia.
[2018-02-26 05:38] LABS: Absolute Neutrophil Count 3.9 X10^3/uL (2.0-7.7); Basophil# 0.02 X10^3/uL; Basophil% 0.3 % (0-1); Eosinophil# 0.14 X10^3/uL; Hematocrit 42.6 % (40-54); Hemoglobin 14.3 g/dl (13.0-16.5); Lymphocyte % 32.9 % (19-41); Mean Corp Hgb Conc 33.6 g/gl (32-36); Mean Corpuscular Hgb 30.6 pg (27.0-32.0); Monocyte% 8.6 % (0-10); Neutrophil # 3.92 X10^3/uL (2.7-7.7); Neutrophil % 56.1 % (47-70); Platelet Count 144 K/mm3 (150-450); RBC Distribution Width CV 13.8 % (11.6-14.6); RBC Distribution Width SD 45.2 fl (35.1-43.9); Red Blood Count 4.68 M/mm3 (4.6-6.2)
[2018-02-26 05:40] LABS: POSITIVE COUNT NO; POSITIVE DIFFERENTIAL NO; POSITIVE MORPHOLOGY NO
[2018-02-26 05:44] LABS: International Normalized Ratio 2.8; Prothrombin Time (Protime)PT. 29.3 SECONDS (11.7-14.9)
[2018-02-26 05:50] LABS: Anion Gap 7 (5-15); BUN 19 mg/dL (7-18); BUN/Creat Ratio 16.5 RATIO (10-20); Calcium,Total 8.9 mg/dL (8.5-10.1); Chloride 107 mmol/L (98-107); Creatinine, Serum 1.15 mg/dL (0.70-1.30); EST Glomerular Filtration Rate 65 mL/min (>60); Est Glom Filt Rate - Afr Amer 79 mL/min (>60); Glucose 88 mg/dL (74-106); Potassium 3.9 mmol/L (3.5-5.1); Sodium Level 141 mmol/L (136-145)
[2018-02-26] MEDS: Carbidopa/Levodopa 25/100 Tablet PO ×2 (06:10→11:13)
[2018-02-26] MEDS: Levothyroxine 50 MCG Tablet PO (06:10)
[2018-02-26] MEDS: hydrALAZINE 25 MG Tablet PO (06:51)
--- NOTE | 2018-02-26 08:04 | CASEMGMT ---
POA and AXEL forms in E-chart. JOSHUA Martinez, DRY PLASTERER
[2018-02-26] MEDS: Aspirin E.C. 81 MG Tablet PO (08:51)
[2018-02-26] MEDS: Allopurinol 100 MG Tablet PO (08:52)
[2018-02-26] MEDS: Metoprolol Tartrate 25 MG Tablet 12.5 MG PO (08:52)
[2018-02-26] MEDS: Pantoprazole Sodium 20 MG Tablet PO (08:56)
[2018-02-26] MEDS: Flecainide 100 MG Tablet PO (08:56)
--- NOTE | 2018-02-26 11:48 | PCM.DC ---
- Discharge Diagnoses Current Active Problems: Current Active and Chronic Problems (Last Updated 10/04/17 @ 11:11 by Magdalena Garcia) Confusion (Acute) You will use the following diet at home:: Cardiac Discharge Activity: Return to Normal Activity Call your doctor if you observe: Numbness or Tingling, Shortness of breath, Dizziness, Fainting spells, Chest pain Allergies/Adverse Reactions: Allergies No Known Allergies Allergy (Verified 02/25/18 15:13) Medications to take at Discharge Adalimumab [Humira] 40 mg SC Q14D 07/25/17 Allopurinol [Zyloprim] 100 mg PO DAILY 07/25/17 Cholecalciferol (VIT D3) [Vitamin D3] 2,000 unit PO DAILY 07/25/17 Colchicine 0.6 mg PO QODAY@1200 07/25/17 Levothyroxine [Synthroid] 50 mcg PO DAILY@0600 07/25/17 Menthol/Lanolin/Calamine/Znox [Calmoseptine Ointment] 1 applic TOPICAL TID 07/25/17 Montelukast [Singulair] 10 mg PO QHS 07/25/17 Tamsulosin HCl [Flomax] 0.4 mg PO QHS 07/25/17 Acetaminophen [Tylenol] 1,000 mg PO Q8H PRN tab 08/10/17 Donepezil HCl [Aricept] 10 mg PO QHS #30 tab 08/10/17 flecainide 100 mg tablet 100 mg PO BID #180 tab 09/27/17 metoprolol tartrate 25 mg tablet 12.5 mg PO BID tab 01/31/18 Alendronate Sodium [Fosamax] 70 mg PO QWEEK 02/25/18 Aspirin [Aspirin EC] 81 mg PO DAILY 02/25/18 Carbidopa/Levodopa [Carbidopa-Levo 25-100 mg Odt] 1 each PO 4X/DAY 02/25/18 Omeprazole 20 mg PO DAILY 02/25/18 Pravastatin [Pravachol] 40 mg PO QHS 02/25/18 Warfarin Sodium [Jantoven] 1 mg PO DAILY 02/25/18 Warfarin Sodium [Jantoven] 6 mg PO DAILY 02/25/18 Primary Care Physician: Tracy Esparza MD [Primary Care Provider] - Please follow up with your Primary Care Physician in: 1 Week Test Results: Test results from this visit will be discussed in further detail at your follow-up appointment, if applicable. Proposed Discharge Date: 02/26/18
--- NOTE | 2018-02-26 11:51 | CASEMGMT ---
SW received a call from Maida [facility] stating that she spoke w/, and there is an appointment to meet w/pt's on Wednesday to discuss palliative care. Maida also states should it be needed, they also would consider pt for hospice. SW spoke w/ in room in regard to discharge plan. confirms that she will take pt home. SW asked about home care. She states she got a call from both palliative and home care, that Dr. Esparza made a referral for home care. She confirmed the appointment with palliative care on Wednesday. SW asked if she is interested in any additional resources. asked about a program she heard of through a friend where she can care for pt during the day but take him somewhere at night. She states during the day she can care for pt, at night it becomes more difficult, as pt wants to talk, he hears people that are not there, and she is not getting good sleep. SW offered support. SW explained is unaware of places that take patients at night, but there is day care at [facility] where she could take pt during the day. SW also suggested looking into private hire aides to be w/pt at night so she can rest. agreeable to information on both [facility] and private hire aides. SW asked about any other information that may be helpful. is not certain. She is agreeable to have SW add SW to the home care order from Dr. Esparza, so SW with home care can check in w/her about additional resources once they are home. HAYLEY called [facility], spoke w/Candace. She confirmed they did get an order from Dr. Esparza for RN and PT and were going to open the case today, but pt is now here. SW explained will add SW to this order. SW gave information on private hire aide services and [facility]. SW placed green sheet along w/order for home health on chart in anticipation of weekend discharge. JOSHUA Martinez, ELECTRICAL ASSEMBLY SUPERVISOR
--- NOTE | 2018-02-26 11:53 | DCINST_ITS ---
- Discharge Diagnoses Current Active Problems: Current Active and Chronic Problems (Last Updated 10/04/17 @ 11:11 by Magdalena Garcia) Confusion (Acute) You will use the following diet at home:: Cardiac Discharge Activity: Return to Normal Activity Call your doctor if you observe: Numbness or Tingling, Shortness of breath, Dizziness, Fainting spells, Chest pain Allergies/Adverse Reactions: Allergies No Known Allergies Allergy (Verified 02/25/18 15:13) Medications to take at Discharge Adalimumab [Humira] 40 mg SC Q14D 07/25/17 Allopurinol [Zyloprim] 100 mg PO DAILY 07/25/17 Cholecalciferol (VIT D3) [Vitamin D3] 2,000 unit PO DAILY 07/25/17 Colchicine 0.6 mg PO QODAY@1200 07/25/17 Levothyroxine [Synthroid] 50 mcg PO DAILY@0600 07/25/17 Menthol/Lanolin/Calamine/Znox [Calmoseptine Ointment] 1 applic TOPICAL TID 07/25 Montelukast [Singulair] 10 mg PO QHS 07/25/17 Tamsulosin HCl [Flomax] 0.4 mg PO QHS 07/25/17 Acetaminophen [Tylenol] 1,000 mg PO Q8H PRN tab 08/10/17 Donepezil HCl [Aricept] 10 mg PO QHS #30 tab 08/10/17 flecainide 100 mg tablet 100 mg PO BID #180 tab 09/27/17 metoprolol tartrate 25 mg tablet 12.5 mg PO BID tab 01/31/18 Alendronate Sodium [Fosamax] 70 mg PO QWEEK 02/25/18 Aspirin [Aspirin EC] 81 mg PO DAILY 02/25/18 Carbidopa/Levodopa [Carbidopa-Levo 25-100 mg Odt] 1 each PO 4X/DAY 02/25/18 Omeprazole 20 mg PO DAILY 02/25/18 Pravastatin [Pravachol] 40 mg PO QHS 02/25/18 Warfarin Sodium [Jantoven] 1 mg PO DAILY 02/25/18 Warfarin Sodium [Jantoven] 6 mg PO DAILY 02/25/18 Primary Care Physician: Tracy Esparza MD [Primary Care Provider] - Please follow up with your Primary Care Physician in: 1 Week Test Results: Test results from this visit will be discussed in further detail at your follow- up appointment, if applicable. Proposed Discharge Date: 02/26/18
--- NOTE | 2018-02-26 11:54 | PCM.DC.SUM ---
<Diamond Littlejohn - Last Filed: 02/26/18 12:30> Discharge Date and Diagnosis Date of Admission: 02/25/18 Date of Discharge: 02/26/18 - Primary Discharge Diagnosis Active and Suspected Problems (Last Updated 10/04/17 @ 11:11 by Magdalena Garcia) 1. Confusion, weakness-resolved. Suspect secondary to dementia/Parkinson's disease - Secondary Discharge Diagnosis Chronic Problems (Last Updated 10/04/17 @ 11:11 by Magdalena Garcia) Paroxysmal atrial fibrillation (Chronic) History of left heart catheterization (Chronic ~03/19/16) 10/03/2007 @ [facility] per Dr. Servin, 03/19/2016 @ [facility] per Dr. [facility] current use of anticoagulant (Chronic) GERD (gastroesophageal reflux disease) (Chronic) Gout (Chronic) Hypothyroidism (Chronic) Atrial fibrillation (Chronic) Benign essential hypertension (Chronic) Carotid artery stenosis (Chronic) Nonobstructive CAD of LAD and mid RCA per [facility] 03/19/2016 Chest pain (Chronic) CAD (coronary artery disease) (Chronic) HLD (hyperlipidemia) (Chronic) Polymyalgia rheumatica (Chronic) TIA (transient ischemic attack) (Chronic) Debility (Chronic) HTN (hypertension) (Chronic) Psoriatic arthritis (Chronic) Hospital Course and Treatment Imaging Results: Diagnostic Data Brain CT 02/25/18 16:02 IMPRESSION: Chronic involutional changes of the brain. Small vessel ischemia. Stable encephalomalacia within the frontal lobes. Electronically Signed: Ayana Michel MD at 16:49 EDT Tel , Service support , Cervical Spine CT 02/25/18 16:05 IMPRESSION: Multilevel degenerative changes, as described above. Electronically Signed: Ayana Michel MD at 17:00 EDT Tel , Service support , Chest X-Ray 02/25/18 16:15 IMPRESSION: No acute cardiopulmonary process. Electronically Signed: Ayana Michel MD at 16:43 EDT Tel , Service support , Brain MRI 02/26/18 05:5 Dr. Beltran- Neurology Operations: None Procedures: None Summary of Care Provided: The patient is a 82 year old M admitted 02/25/2018 due to confusion and generalized weakness. He initially presented to emergency room where workup was unremarkable. He was discharged home. Family reports patient went home and slept. Upon awakening, he was reported to be weak and unable to use walker. Unclear patient had syncopal episode. Workup during admission unremarkable. UA unremarkable. Troponin negative. TSH within normal limits. Patient alert and oriented ?3 on assessment. MRI of brain showed no evidence of acute or subacute ischemic infarct. No evidence of intracranial mass. No evidence of intracranial hemorrhage. Chronic small vessel disease. Encephalomalacia and gliosis in the bilateral frontal lobes as well as the right occipital lobe which may relate to chronic traumatic or ischemic injury. Patient ambulated 350 feet with physical therapy using wheeled walker. He did not demonstrate any need for further skilled therapy. No evidence of infectious or metabolic etiology of reported confusion. Suspect confusion prior to admission related to ongoing vascular dementia and Parkinson's disease. Patient has a past medical history of paroxysmal atrial fibrillation, hypertension, hyperlipidemia, pulmonary allergy rheumatica, TIA, CAD, carotid artery stenosis, gout, GERD, Parkinson's disease, dementia. Chronic medical conditions stable at this time. Patient is on Coumadin. INR therapeutic. Patient had a recent visit with cardiology 01/31/2018. His metoprolol regimen was decreased to 12.5 mg twice daily due to bradycardia. During visit, patient reported intermittent random lightheadedness and dizziness. This is suspected secondary to Parkinson's. Patient stable at time of discharge, home with home health and palliative care. Patient seen exam prior to discharge. Alert and oriented ?3. Ambulated with physical therapy without difficulty. Lungs clear. Heart rate regular rhythm, mild bradycardia. Abdomen soft, nontender. Neuro grossly intact. Normal affect. Skin intact. Vital signs stable. This patient was seen by JAMES Mayo under the supervision of Dr. Llanes. Discharge Diet: Low fat/ Low Cholesterol Discharge Activity: Return to Normal Activity Call your doctor if you observe: Numbness or Tingling, Shortness of breath, Dizziness, Fainting spells, Chest pain Home Medications: Medications to take at Discharge Adalimumab [Humira] 40 mg SC Q14D 01/28/18 Allopurinol [Zyloprim] 100 mg PO DAILY 07/25/17 Cholecalciferol (VIT D3) [Vitamin D3] 2,000 unit PO DAILY 07/25/17 Colchicine 0.6 mg PO QODAY@1200 07/25/17 Levothyroxine [Synthroid] 50 mcg PO DAILY@0600 07/25/17 Menthol/Lanolin/Calamine/Znox [Calmoseptine Ointment] 1 applic TOPICAL TID 07/25/17 Montelukast [Singulair] 10 mg PO QHS 07/25/17 Tamsulosin HCl [Flomax] 0.4 mg PO QHS 07/25/17 Acetaminophen [Tylenol] 1,000 mg PO Q8H PRN tab 08/10/17 Donepezil HCl [Aricept] 10 mg PO QHS #30 tab 08/10/17 flecainide 100 mg tablet 100 mg PO BID #180 tab 09/27/17 metoprolol tartrate 25 mg tablet 12.5 mg PO BID tab 01/31/18 Alendronate Sodium [Fosamax] 70 mg PO QWEEK 02/25/18 Aspirin [Aspirin EC] 81 mg PO DAILY 02/25/18 Carbidopa/Levodopa [Carbidopa-Levo 25-100 mg Odt] 1 each PO 4X/DAY 02/25/18 Omeprazole 20 mg PO DAILY 02/25/18 Pravastatin [Pravachol] 40 mg PO QHS 02/25/18 Warfarin Sodium [Jantoven] 1 mg PO DAILY 02/25/18 Warfarin Sodium [Jantoven] 6 mg PO DAILY 02/25/18 Primary Care Physician: Tracy Esparza MD [Primary Care Provider] - Please follow up with your Primary Care Physician in: 1 Week Disposition: Palliative care Minutes spent on discharge:: 35 Patient Condition:: Stable Medical Necessity - Tobacco Use Smoking Status: Never smoker Tobacco Use: Non-smoker Meaningful Use Info Meaningful Use Diagnoses (Choose all that apply): None applicable <Maritza Llanes E - Last Filed: 02/26/18 14:19> Discharge Date and Diagnosis - Secondary Discharge Diagnosis Chronic Problems (Last Updated 10/04/17 @ 11:11 by Magdalena Garcia) Paroxysmal atrial fibrillation (Chronic) History of left heart catheterization (Chronic ~03/19/16) 10/03/2007 @ [facility] per Dr. Servin, 03/19/2016 @ [facility] per Dr. [facility] current use of anticoagulant (Chronic) GERD (gastroesophageal reflux disease) (Chronic) Gout (Chronic) Hypothyroidism (Chronic) Atrial fibrillation (Chronic) Benign essential hypertension (Chronic) Carotid artery stenosis (Chronic) Nonobstructive CAD of LAD and mid RCA per [facility] 03/19/2016 Chest pain (Chronic) CAD (coronary artery disease) (Chronic) HLD (hyperlipidemia) (Chronic) Polymyalgia rheumatica (Chronic) TIA (transient ischemic attack) (Chronic) Debility (Chronic) HTN (hypertension) (Chronic) Psoriatic arthritis (Chronic) Hospital Course and Treatment Imaging Results: 02/26/18 05:55 Brain without Contrast [MRI] AM (NON MEDS) Summary of Care Provided: Hospitalist note: Discharge summary above reviewed and I concur with the above discharge and treatment plan. Patient was admitted for confusion and nonfocal generalized weakness. CT scan brain without contrast showed no acute findings. He has no focal deficit on physical exam. CT scan cervical spine revealed no acute fractures or dislocations. His routine blood work was unremarkable. His EKG revealed normal sinus rhythm without evidence of cardiac arrhythmias or ischemic changes. Troponin was negative. Chest x-ray showed no acute findings. Urinalysis showed no evidence of acute cystitis. MRI brain performed and revealed no acute infarction or hemorrhage, no evidence of intracranial masses, revealed encephalomalacia of the bilateral frontal lobes which is chronic. Acute stroke ruled out. Patient symptoms are likely due to dementia and Parkinson's disease. His vital signs were stable throughout admission. Patient was able to walk around the floor without any difficulties or restrictions. Patient discharged home in a stable medical condition, continued on his chronic home medications without any changes including Coumadin, recommended follow-up with PCP in 1 week. - Physical Exam General: Alert, Oriented x3, Cooperative, No apparent distress. HEENT: Atraumatic, PERRLA, EOMI. Neck: Supple, No JVD, Negative Carotid Bruits, Trachea Midline, Thyroid Normal. Lungs: Clear to auscultation, Normal air movement, No rhonchi, No wheeze, No rales. Cardiovascular: Regular rate, Regular Rhythm, Normal S1, Normal S2, PMI Normal. Abdomen: Bowel Sounds Present, Soft, Non Tender, Non-Distended, No Hepato-splenomegaly. Extremities: No clubbing, No cyanosis, No edema Skin: No rashes, No breakdown Neurological: Neuro grossly intact Vital Signs are stable. This note was generated with [employer] dictation software. It may contain incorrect words, spelling, and punctuation that were not noted in checking the note before signing. Disposition: Home Minutes spent on discharge:: 26 Patient Condition:: Stable Meaningful Use Info Meaningful Use Diagnoses (Choose all that apply): None applicable Code Visit OBSV E&M: 20988 Observation care discharge
--- NOTE | 2018-03-02 16:18 | CASEMGMT ---
YULISSA JADE Discharge F/U Phone Call LACE: Red Strata: 3 Discharge date: 02/26/18 Call date: 03/02/18 Call time: [id number] Duration: 7 minutes Admission dx: Encephalopathy Pt's answered phone and prefers to answer questions for pt at this time. Per , pt is still hearing voices and states this has been going for 4-6wks. states that they saw a psychologist at the counseling center but were told that it would be 'months' before pt could see the psychiatrist. is very frustrated with this. This RN CM gave the number for Dr. Moon, psychitrist, at this time and states that there is nothing else this RN CM can help with at this time. had already denied questions regarding discharge instructions or medications previously. [place] YULISSA JADE
== END 2018-02-26 13:58 | disposition home or self-care (01) | DRG 57 ==
LOC: ED 17:12 → PCU 18:53
PROVIDERS: Admitting Provider Family Medicine; Emergency Provider Emergency Medicine; Family Provider Family Medicine; PCP Family Medicine; Visit Provider Hospitalist
DX: G20 Parkinson's disease (principal); F02.80 Dementia in other diseases classified elsewhere, unspecified severity, without behavioral disturbance, psychotic disturbance, mood disturbance, and anxiety; F01.50 Vascular dementia, unspecified severity, without behavioral disturbance, psychotic disturbance, mood disturbance, and anxiety; M10.9 Gout, unspecified; I48.0 Paroxysmal atrial fibrillation; K21.9 Gastro-esophageal reflux disease without esophagitis; E03.9 Hypothyroidism, unspecified; I25.10 Atherosclerotic heart disease of native coronary artery without angina pectoris; E78.5 Hyperlipidemia, unspecified; M35.3 Polymyalgia rheumatica; I10 Essential (primary) hypertension; L40.50 Arthropathic psoriasis, unspecified; Z86.73 Personal history of transient ischemic attack (TIA), and cerebral infarction without residual deficits; Z79.01 Long term (current) use of anticoagulants; S70.02XA Contusion of left hip, initial encounter; S39.012A Strain of muscle, fascia and tendon of lower back, initial encounter; S46.912A Strain of unspecified muscle, fascia and tendon at shoulder and upper arm level, left arm, initial encounter; R51 Headache; W18.09XA Striking against other object with subsequent fall, initial encounter; Y93.9 Activity, unspecified; Y92.009 Unspecified place in unspecified non-institutional (private) residence as the place of occurrence of the external cause
CPT/HCPCS: 36415; 70450; 70551; 71045; 72100; 72125; 73030; 73502; 80048; 80053; 81001; 82607; 84443; 84484; 85025; 85610; 92523; 93005; 97161; 97166; 99284; J7030; J7040; P9612; A4216

== ENCOUNTER 2018-03-05 15:22 | Emergency (ER) | payer MEDICARE, OTHER, SELFPAY ==
[2018-03-05 15:25] VITALS: BP 116/61; PULSE 48; RESP 18; TEMP 36.5; O2SAT 95; BMI 35.6
--- NOTE | 2018-03-05 15:54 | EKG12_ITS ---
Test Reason : FALL Blood Pressure : / mmHG Vent. Rate : 047 BPM Atrial Rate : 047 BPM P-R Int : 238 ms QRS Dur : 090 ms QT Int : 486 ms P-R-T Axes : 039 -03 041 degrees QTc Int : 430 ms Sinus bradycardia with 1st degree A-V block Moderate voltage criteria for LVH, may be normal variant Borderline ECG Confirmed by ODILON ALEJO, RUTHY ([id number]), script editor SHAHRIAR IBARRA ([id number]) on 03/08/2018 1:08:47 PM Referred By: CHRISTELLE Confirmed By:RUTHY DONALD MD
--- NOTE | 2018-03-05 16:03 | ED.DCSUM_ITS ---
- ER Visit Summary Date of Service: 03/05/18 Chief Complaint: Fall History of Present Illness: The patient is a 82 M with history of Parkinson's, he uses a walker he felt one episode of being somewhat weak after getting out of a car and his noticed, she was right next to him and eased him to the floor. There was no loss of consciousness. He now feels back to baseline, however in the past few months his baseline has been worsening, he has been somewhat more confused, apparently he has also had a few month history of on and off hallucinations which may have been attributed to the Sinemet. He just started getting home health aide, and thinks so far she is managing at home. Patient denies any history or current chest pain, shortness of breath, no recent fever or chills. No head injury. Fact there were no injuries, lowered him to the ground without any injury. Physical Examination: Patient does not appear in any distress, he is dry mucous membranes. Slow speech Regular rate and rhythm without any obvious murmurs Clear lungs bilaterally speaking in full sentences without any obvious respiratory distress Abdomen soft and nontender no guarding or rebound Moves all extremities without any difficulty or pain. Skin does not show any obvious rashes or lesions, no trauma. Alert oriented ?3 with no gross focal deficit Emergency Department Course and Treatment: Did have some dry mucous membranes he was hydrated, he showed possible signs of a urinary infection therefore I will treat. He appears well his and daughter are here and want to take him home. Will be discharged in stable condition. Family feels comfortable caring for him at home, although with his Parkinson's getting worse I did mention that there may be a time soon where he may need more intensive care like an ECF. Discharge stable condition Impression: Weakness Urinary tract infection This note was generated with [employer] dictation software. It may contain incorrect words, spelling, and punctuation that were not noted in review of the chart prior to signing ED Disposition - Plan for ED Patient: Disposition: Home or Assisted Living Chief Complaint: Fall Instructions: ED Weakness UKO, ED Prevention Fall Prescriptions: Smz/Tmp Ds [Bactrim Ds] 1 tab PO BID #[id number] tab Referrals: Tracy Esparza MD [Primary Care Provider] - 3-5 Days
[2018-03-05 16:38] LABS: Absolute Neutrophil Count 4.9 X10^3/uL (2.0-7.7); Basophil# 0.01 X10^3/uL; Basophil% 0.1 % (0-1); Eosinophil# 0.12 X10^3/uL; Eosinophils% 1.6 % (0-5); Hematocrit 45.5 % (40-54); Hemoglobin 14.8 g/dl (13.0-16.5); Lymphocyte % 25.8 % (19-41); Mean Corp Hgb Conc 32.5 g/gl (32-36); Mean Corpuscular Hgb 30.3 pg (27.0-32.0); Mean Platelet Vol. 10.9 fl (6.2-12.0); Monocyte# 0.67 X10^3/uL; Monocyte% 8.7 % (0-10); Neutrophil # 4.93 X10^3/uL (2.7-7.7); Neutrophil % 63.7 % (47-70); Platelet Count 162 K/mm3 (150-450); RBC Distribution Width CV 14.4 % (11.6-14.6); Red Blood Count 4.89 M/mm3 (4.6-6.2); White Blood Count 7.7 K/mm3 (4.4-11.0)
[2018-03-05 16:43] LABS: POSITIVE COUNT NO; POSITIVE DIFFERENTIAL NO; POSITIVE MORPHOLOGY NO
[2018-03-05 16:52] LABS: AST(SGOT) 16 U/L (15-37); Alanine Aminotransfer ALT/SGPT 10 U/L (16-61); Albumin, Serum 3.9 g/dL (3.2-5.0); Alkaline Phosphatase 80 U/L (45-117); Anion Gap 6 (5-15); BUN 22 mg/dL (7-18); BUN/Creat Ratio 14.3 RATIO (10-20); Chloride 104 mmol/L (98-107); Creatinine, Serum 1.54 mg/dL (0.70-1.30); EST Glomerular Filtration Rate 46 mL/min (>60); Est Glom Filt Rate - Afr Amer 56 mL/min (>60); Estimated Creatinine Clearance 32.03 ml/min; Globulin 3.8 g/dL (2.2-4.2); Glucose 110 mg/dL (74-106); Potassium 4.2 mmol/L (3.5-5.1); Protein, Total 7.7 g/dL (6.4-8.2); Sodium Level 141 mmol/L (136-145)
[2018-03-05] MEDS: 0.9% Normal Saline 1,000 ML 1000 ML IV (16:55)
[2018-03-05 17:23] VITALS: BP 167/79; PULSE 48; RESP 20; O2SAT 98
[2018-03-05 17:54] LABS: Color, Urine Yellow (Yellow); Glucose, Dipstick Normal (Normal); Ketone-Dipstick 5 mg/dl (Negative); Leukocyte Esterase-Dipstick 100 /ul (Negative); Nitrite-Dipstick Negative (Negative); Occult Blood-Urine 50 /ul (Negative); Protein-Dipstick 15 mg/dl (Negative); Specific Gravity, Urine 1.015 (1.002-1.030); Urine Bilirubin Dipstick Negative (Negative); Urine Clarity Clear (Clear); Urine Urobilinogen 1 mg/dl (Normal); Urine pH 6.5 (5.0 - 8.0)
[2018-03-05 19:00] VITALS: BP 142/69; PULSE 49; RESP 16; O2SAT 94
[2018-03-05] MEDS: Smz/Tmp Ds Tablet 1 TABLET PO (19:07)
[2018-03-05 19:22] VITALS: BP 142/69; PULSE 49; RESP 16; O2SAT 96
--- NOTE | 2018-03-05 19:22 | ED.RN ---
REVIEWED D/C INSTRUCTIONS, FOLLOW UP CARE, PRESCRIPTION, AND S/S THAT WOULD WARRANT A RETURN TO THE ED WITH PT. PT VERBALIZED AN UNDERSTANDING AND DENIES FURTHER QUESTIONS FOR THIS RN. PT SKIN P/W/D, RESP EVEN AND UNLABORED, PT A&O X 3, NO DISTRESS NOTED. PT ASSISTED OUT OF ED IN WHEELCHAIR.
== END 2018-03-05 19:24 | disposition home or self-care (01) ==
PROVIDERS: Emergency Provider Emergency Medicine; Family Provider Family Medicine; PCP Family Medicine
DX: N39.0 Urinary tract infection, site not specified (principal); R53.1 Weakness; W19.XXXA Unspecified fall, initial encounter; Y93.9 Activity, unspecified; Y92.9 Unspecified place or not applicable; G20 Parkinson's disease; F03.90 Unspecified dementia, unspecified severity, without behavioral disturbance, psychotic disturbance, mood disturbance, and anxiety; Z79.01 Long term (current) use of anticoagulants; Z79.82 Long term (current) use of aspirin; Z79.899 Other long term (current) drug therapy
CPT/HCPCS: 80053; 81002; 85025; 93005; 96360; 99285; J7030; P9612; A4216

== ENCOUNTER 2018-03-11 16:01 | Outpatient (RCR) | payer MEDICARE, OTHER, SELFPAY ==
[2018-03-11 17:15] LABS: International Normalized Ratio 2.9; Prothrombin Time (Protime)PT. 30.6 SECONDS (11.7-14.9)
== END 2018-03-11 17:00 | disposition home or self-care (01) ==
LOC: LAB 16:01
PROVIDERS: Family Provider Family Medicine; PCP Family Medicine; Visit Provider Internal Medicine Cardiovascular Disease
DX: I48.0 Paroxysmal atrial fibrillation (principal); Z79.01 Long term (current) use of anticoagulants
CPT/HCPCS: 36415; 85610

== ENCOUNTER 2018-03-18 07:22 | Emergency (ER) | payer MEDICARE, OTHER, SELFPAY ==
[2018-03-18 07:23] VITALS: BP 143/66; PULSE 49; RESP 18; TEMP 36.6; O2SAT 99; BMI 30.5
--- NOTE | 2018-03-18 07:37 | RAD_ITS ---
STUDY: X-RAY - PELVIS AND LEFT HIP REASON FOR EXAM: Male, 82 years old. Hip pain. Confusion. TECHNIQUE: Radiological exam, hip, unilateral, with pelvis when performed; 2 or 3 views. COMPARISON: Comparison is made with prior examination dated February 25, 2018. FINDINGS: There is a non-specific bowel gas pattern. Normal visualized soft tissue structures. Normal bilateral iliac wings, sacroiliac joints and visualized sacrum. Normal bilateral superior and inferior pubic rami. There are degenerative changes of the pubic symphysis with articular narrowing and sclerosis. Normal bilateral ischial tuberosities. Normal visualized femoral head. Normal acetabulum. There is mild articular joint space narrowing of the hip. RAD/HIP, UNI W/ Pelvis 2-3 Views IMPRESSION: Mild degree of degenerative changes of the left hip joint. Electronically Signed: Derek Urena MD at 8:02 EDT Tel [phone], Service support ,
--- NOTE | 2018-03-18 07:45 | ED.VISSUMM ---
- ER Visit Summary Date of Service: 03/18/18 Chief Complaint: Left hip pain status post recent falls History of Present Illness: The patient is a 82 M history of frequent falls. Patient is on anticoagulation due to A. fib. He has had prior intracranial bleed and brain surgery. states that he has had frequent falls which is not uncommon for him. He began complaining of left hip pain yesterday. He has been ambulating. He denies other injuries. She states he has had no recent head injuries. Physical Examination: Well-appearing older male. Vital signs are stable. He is afebrile. No distress. H EENT exam unremarkable. No signs of trauma to his face or scalp. Neck nontender. Lungs clear to auscultation. Heart regular rhythm. No murmur. Chest wall nontender. Abdomen soft nontender. Normal bowel sounds no peritoneal signs. Pelvic girdle intact. He has mild pain on palpation to his left hip. There is no bruising. There is no shortening or external rotation. He is able to flex and extend in his left hip, knee and ankle. Dorsi and plantar flexion is intact. There is no gross bony deformity. He has normal sensation on his left leg. There is a small bruise to his left lateral lower knee. However he denies any tenderness. There is no deformity. There is no effusion. Both upper extremities and the right lower extremity are nontender with normal range of motion. Neurologically is awake and alert. Moving all 4 extremities. Test Results: Left hip and pelvis x-ray shows no acute fracture. Emergency Department Course and Treatment: Patient's x-ray shows no acute fracture or dislocation. On repeat exam at 08:10 AM patient is doing well. I did range of motion with both hips without any significant difficulty. He had mild discomfort in the left and none at all on the right. I went over the x-rays of both the patient and his . Treatment Plan: Tylenol for pain. Ice to the hip. Follow-up with his primary care physician if not improving for repeat evaluation. Disposition: Discharge Impression: Frequent falls Acute left hip contusion This note was generated with [employer] dictation software. It may contain incorrect words, spelling, and punctuation that were not noted in review of the chart prior to signing ED Disposition - Plan for ED Patient: Chief Complaint: Lower Extremity Injury Referrals: Tracy Esparza MD [Primary Care Provider] -
--- NOTE | 2018-03-18 07:48 | ED.DCSUM_ITS ---
- ER Visit Summary Date of Service: 03/18/18 Chief Complaint: Left hip pain status post recent falls History of Present Illness: The patient is a 82 M history of frequent falls. Patient is on anticoagulation due to A. fib. He has had prior intracranial bleed and brain surgery. states that he has had frequent falls which is not uncommon for him. He began complaining of left hip pain yesterday. He has been ambulating. He denies other injuries. She states he has had no recent head injuries. Physical Examination: Well-appearing older male. Vital signs are stable. He is afebrile. No distress. H EENT exam unremarkable. No signs of trauma to his face or scalp. Neck nontender. Lungs clear to auscultation. Heart regular rhythm. No murmur. Chest wall nontender. Abdomen soft nontender. Normal bowel sounds no peritoneal signs. Pelvic girdle intact. He has mild pain on palpation to his left hip. There is no bruising. There is no shortening or external rotation. He is able to flex and extend in his left hip , knee and ankle. Dorsi and plantar flexion is intact. There is no gross bony deformity. He has normal sensation on his left leg. There is a small bruise to his left lateral lower knee. However he denies any tenderness. There is no deformity. There is no effusion. Both upper extremities and the right lower extremity are nontender with normal range of motion. Neurologically is awake and alert. Moving all 4 extremities. Test Results: Left hip and pelvis x-ray shows no acute fracture. Emergency Department Course and Treatment: Patient's x-ray shows no acute fracture or dislocation. On repeat exam at 08:10 AM patient is doing well. I did range of motion with both hips without any significant difficulty. He had mild discomfort in the left and none at all on the right. I went over the x- rays of both the patient and his . Treatment Plan: Tylenol for pain. Ice to the hip. Follow-up with his primary care physician if not improving for repeat evaluation. Disposition: Discharge Impression: Frequent falls Acute left hip contusion This note was generated with [employer] dictation software. It may contain incorrect words, spelling, and punctuation that were not noted in review of the chart prior to signing ED Disposition - Plan for ED Patient: Chief Complaint: Lower Extremity Injury Referrals: Tracy Esparza MD [Primary Care Provider] -
--- NOTE | 2018-03-18 08:17 | ED.DEP ---
ED Disposition - Plan for ED Patient: Disposition: Home or Assisted Living Chief Complaint: Lower Extremity Injury Instructions: ED Contusion Hip Referrals: Tracy Esparza MD [Primary Care Provider] - 1 Week if not improving Additional Instructions: Ice to the hip. Tylenol for pain
[2018-03-18 08:23] VITALS: RESP 16
== END 2018-03-18 08:24 | disposition home or self-care (01) ==
PROVIDERS: Emergency Provider Emergency Medicine; Family Provider Family Medicine; PCP Family Medicine
DX: S70.02XA Contusion of left hip, initial encounter (principal); S80.02XA Contusion of left knee, initial encounter; R29.6 Repeated falls; X58.XXXA Exposure to other specified factors, initial encounter; Y93.9 Activity, unspecified; Y92.9 Unspecified place or not applicable; I48.91 Unspecified atrial fibrillation; Z86.73 Personal history of transient ischemic attack (TIA), and cerebral infarction without residual deficits; Z79.82 Long term (current) use of aspirin; Z79.01 Long term (current) use of anticoagulants; Z79.899 Other long term (current) drug therapy
CPT/HCPCS: 73502; 99282

== ENCOUNTER 2018-03-29 09:30 | Emergency (ER) | payer MEDICARE, OTHER, SELFPAY ==
[2018-03-29 09:31] VITALS: BP 190/82; PULSE 52; RESP 20; TEMP 36.6; O2SAT 98; BMI 31.4
--- NOTE | 2018-03-29 09:53 | CT_ITS ---
STUDY: CT BRAIN WITHOUT CONTRAST REASON FOR EXAM: Male, 82 years old. Fall with altered mental status RADIATION DOSAGE (If Supplied By Facility): CTDIvol = ( 44.99 ) mGy, DLP = ( 846.73 ) mGycm TECHNIQUE: Transaxial CT imaging of the brain was performed without administration of intravenous contrast material. Individualized dose optimization techniques were used for this CT. COMPARISON: 02/25/2018 FINDINGS: Normal soft tissue structures. Normal calvarium. There is moderate cerebral atrophy with widening of the extra-axial spaces and ventricular dilatation. There are areas of decreased attenuation within the white matter tracts of the supratentorial brain, consistent with microvascular disease changes. Normal basal ganglia and thalami. Normal brainstem. There is mild cerebellar atrophy. There is no intracranial hemorrhage. There are no findings of an acute ischemic infarction. Normal visualized paranasal sinuses. Stable prior areas of ischemia in the bilateral frontal lobes. CT/Brain/Head without Contrast IMPRESSION: Chronic involutional changes of the brain. Electronically Signed: Jesse Portillo DO at 10:39 EDT Tel , Service support ,
--- NOTE | 2018-03-29 09:54 | EKG12_ITS ---
Test Reason : FALL Blood Pressure : / mmHG Vent. Rate : 050 BPM Atrial Rate : 050 BPM P-R Int : 228 ms QRS Dur : 090 ms QT Int : 468 ms P-R-T Axes : 048 014 051 degrees QTc Int : 426 ms Sinus bradycardia with 1st degree A-V block Otherwise normal ECG Confirmed by ODILON ALEJO, RUTHY ([id number]), web content editor SHAHRIAR IBARRA ([id number]) on 04/04/2018 3:28:40 PM Referred By: LOI Confirmed By:RUTHY DONALD MD
--- NOTE | 2018-03-29 09:54 | CT_ITS ---
STUDY: CT CERVICAL SPINE WITHOUT CONTRAST REASON FOR EXAM: Male, 82 years old. Fall with altered mental status RADIATION DOSAGE (If Supplied By Facility): CTDIvol = ( 28.16 ) mGy, DLP = ( 663.79 ) mGycm TECHNIQUE: High resolution transaxial imaging was performed without contrast material. Sagittal and coronal images were reconstructed. Individualized dose optimization techniques were used for this CT. COMPARISON: None FINDINGS: Normal craniovertebral junction. Normal anterior atlantoaxial articulation. Normal odontoid process. Normal cervical lordosis. No acute fracture or listhesis. Normal vertebral body height. Mild multilevel degenerative disc disease without critical central canal stenosis. Facet degenerative changes throughout. Somewhat heterogeneous appearance of the thyroid, otherwise soft tissues are within normal limits CT/Spine Cervical without Contras IMPRESSION: Multilevel degenerative changes, as described above. Electronically Signed: Jesse Portillo DO at 10:40 EDT Tel , Service support ,
--- NOTE | 2018-03-29 09:54 | RAD_ITS ---
STUDY: X-RAY - PELVIS REASON FOR EXAM: Male, 82 years old. Fall with pelvic pain TECHNIQUE: One view of the pelvis was obtained. COMPARISON: 03/18/2018 FINDINGS: No acute fracture or dislocation. Age-related bilateral hip degenerative changes. Lower lumbar spine degenerative change. Prominent degenerative change of both SI joints. RAD/Pelvis 1 or 2 Views IMPRESSION: No acute finding Electronically Signed: Jesse Portillo DO at 11:05 EDT Tel , Service support ,
[2018-03-29 10:18] LABS: Absolute Lymphocyte Count 2.06 X10^3/ul (0.83-4.51); Absolute Neutrophil Count 3.6 X10^3/uL (2.0-7.7); Basophil# 0.01 X10^3/uL; Basophil% 0.2 % (0-1); Eosinophil# 0.14 X10^3/uL; Eosinophils% 2.2 % (0-5); Hematocrit 42.2 % (40-54); Hemoglobin 13.8 g/dl (13.0-16.5); Lymphocyte # 2.06 X10^3/ul (4.0); Mean Corp Hgb Conc 32.7 g/gl (32-36); Mean Corpuscular Volume 91.7 fL (80-94); Mean Platelet Vol. 10.5 fl (6.2-12.0); Monocyte# 0.44 X10^3/uL; Neutrophil % 57.6 % (47-70); Platelet Count 136 K/mm3 (150-450); RBC Distribution Width CV 14.3 % (11.6-14.6); White Blood Count 6.3 K/mm3 (4.4-11.0)
[2018-03-29 10:19] LABS: International Normalized Ratio 3.4; Prothrombin Time (Protime)PT. 34.4 SECONDS (11.7-14.9)
[2018-03-29 10:20] LABS: POSITIVE COUNT NO; POSITIVE DIFFERENTIAL NO; POSITIVE MORPHOLOGY NO
--- NOTE | 2018-03-29 10:24 | RAD_ITS ---
STUDY: X-RAY CHEST REASON FOR EXAM: Male, 82 years old. Status post fall TECHNIQUE: Single AP portable view of the chest. COMPARISON: 02/25/2018 FINDINGS: The lungs are clear and expanded. There is no demonstrated pleural abnormality. Normal size heart. Normal mediastinum and lee. Normal visualized pulmonary arteries. Normal visualized aortic arch and descending thoracic aorta. Normal visualized thoracic spine. Normal visualized ribs, clavicles, and shoulders. There is no demonstrated abnormality of the visualized soft tissue structures of the upper abdomen. RAD/Chest 1 View (Portable) IMPRESSION: Normal x-ray examination of the chest. Electronically Signed: Jesse Portillo DO at 11:04 EDT Tel , Service support ,
[2018-03-29 10:29] LABS: AST(SGOT) 20 U/L (15-37); Alanine Aminotransfer ALT/SGPT 27 U/L (16-61); Albumin, Serum 3.4 g/dL (3.2-5.0); Alkaline Phosphatase 66 U/L (45-117); Anion Gap 6 (5-15); BUN 17 mg/dL (7-18); BUN/Creat Ratio 12.8 RATIO (10-20); Calcium,Total 8.4 mg/dL (8.5-10.1); Chloride 106 mmol/L (98-107); Creatinine, Serum 1.33 mg/dL (0.70-1.30); EST Glomerular Filtration Rate 55 mL/min (>60); Est Glom Filt Rate - Afr Amer 66 mL/min (>60); Estimated Creatinine Clearance 39.97 ml/min; Globulin 3.3 g/dL (2.2-4.2); Glucose 87 mg/dL (74-106); Potassium 4.3 mmol/L (3.5-5.1); Protein, Total 6.7 g/dL (6.4-8.2); Sodium Level 142 mmol/L (136-145)
[2018-03-29 10:50] LABS: Color, Urine Yellow (Yellow); Glucose, Dipstick Normal (Normal); Ketone-Dipstick Negative (Negative); Leukocyte Esterase-Dipstick 25 /ul (Negative); Nitrite-Dipstick Negative (Negative); Occult Blood-Urine 10 /ul (Negative); Protein-Dipstick Negative (Negative); Urine Bilirubin Dipstick Negative (Negative); Urine Clarity Clear (Clear); Urine Urobilinogen Normal (Normal); Urine pH 6.5 (5.0 - 8.0)
[2018-03-29 10:51] LABS: Bacteria 0 SEEN /hpf (None Seen); Mucous, Urine 0 SEEN /hpf (<or=2+); Red Blood Cells-Urine 0 SEEN /hpf (0-5); Squamous Epithelial Cells - UA 0 SEEN /hpf (0-5)
[2018-03-29 10:58] LABS: White Blood Cells 0-5 SEEN /hpf (0-5)
[2018-03-29 11:53] VITALS: BP 188/78; PULSE 49; RESP 19; O2SAT 95
--- NOTE | 2018-03-29 12:13 | ED.DCSUM_ITS ---
- ER Visit Summary Date of Service: 03/29/18 Chief Complaint: Fall History of Present Illness: The patient is a 82 M who presents after a fall. He has a history of multiple recent falls. He does have a history of dementia. The found him down on his right side in the kitchen. She had last seen him just a couple of minutes before. She notes that she did not hear him fall. Currently the patient is without complaint. No recent illness otherwise such as fever chest pain vomiting diarrhea. He is on warfarin. Physical Examination: Afebrile vitals notable for heart rate 52 and blood pressure 190/82 Patient does have some paraspinal and midline cervical tenderness Heart is regular rhythm bradycardia Lungs are clear Abdomen soft Active full range of motion x4 extremities GCS is 15 no focal or lateralizing neurological deficits he is alert Test Results: EKG shows sinus bradycardia at a rate of 50. CBC BMP notable for creatinine 1.33. Hepatic function normal. INR supratherapeutic at 3.4. Urinalysis not consistent with cystitis. Chest x-ray pelvis x-ray normal. CT head shows chronic changes only. CT the cervical spine shows multilevel degenerative changes. Emergency Department Course and Treatment: I do not see any indication for hospitalization. Given patient's frequent falls I did discuss the current additional resources that the patient has at home with the . She notes that he did recently have home physical therapy which is now done and he had home health care although she believes there is only 1 more visit. We discussed further options such as assisted living she states she does not want to do this at this point. We will also have social work see the patient to discuss any additional possible home care services. Given patient's supratherapeutic INR I did speak to the patient's primary care physician. Will hold warfarin and the patient can follow-up in the office on Wednesday for recheck. Treatment Plan: [] Disposition: Discharge Impression: Fall Supratherapeutic INR This note was generated with [employer] dictation software. It may contain incorrect words, spelling, and punctuation that were not noted in review of the chart prior to signing ED Disposition - Plan for ED Patient: Chief Complaint: Fall Referrals: Tracy Esparza MD [Primary Care Provider] -
--- NOTE | 2018-03-29 12:13 | ED.DEP ---
ED Disposition - Plan for ED Patient: Chief Complaint: Fall Instructions: ED Fall Uncertain Cause Referrals: Tracy Esparza MD [Primary Care Provider] -
--- NOTE | 2018-03-29 12:19 | CM.ED ---
Social Work Note Referral from Dr. Cameron who requests that SW meet with family to explore alternative options. Face to face with the pt and his , Wayne. Introduced self and role at [facility]. Wayne explains that they are not ready to go to SNF or RESIDENTIAL at this time. Express concerns with pt falling and being the primary caregiver. She acknowledges, and states that they are moving in that direction, but are not ready yet. She states that she did speak with an elder law associate attorney, and they will be initiating the process of Medicaid in the near future, but have not at this time. She has a bus trip planned in the near future and they are looking into a respite stay, and she states that may be the time that they transition into a facility. States that her brother goes to the [facility] during the day and inquires if he is placed down there in the upcoming future d/t dementia if her spouse could be placed in [facility]. since he lives in [place]. Explain that he can be placed in [facility]. at a facility, but would likely not be able to utilize the [facility] as this is for residents of [facility]. The pt does have HHC through the hospital, but PT/OT discontinued and the pt is to be evaluated by nursing on Sunday 04/01. Discuss CCN and pt and are agreeable. Inquire about palliative care and Wayne states that she is not sure that they are established with them. Claims they have met a couple of times, but she does not have anything scheduled at this time. Inform that SW will place a few calls and return. Placed call to [facility] who confirm that at this time a new order does not need placed and the nurse on Wednesday will evaluate if services need to continue. Placed call to [facility] who confirm that the pt has established care with them, and JAMES Molina, had just visited with them last week. Referral to CCN made. Return to room to update at this time. Provide with information on [facility], as well as [facility] Ross's card ([facility]). Plan is for the pt to return home at this time with his . No further needs identified. Plan: Home with palliative care, home health and community care network. Diamond Fletcher, INTEGRATION DIRECTOR, RESEARCH SOFTWARE ENGINEER
[2018-03-29 12:33] VITALS: BP 185/81; PULSE 69; RESP 15; O2SAT 98
== END 2018-03-29 12:34 | disposition home or self-care (01) ==
PROVIDERS: Emergency Provider Emergency Medicine; Family Provider Family Medicine; PCP Family Medicine
DX: R10.2 Pelvic and perineal pain (principal); M25.562 Pain in left knee; F03.90 Unspecified dementia, unspecified severity, without behavioral disturbance, psychotic disturbance, mood disturbance, and anxiety; R79.1 Abnormal coagulation profile; W19.XXXA Unspecified fall, initial encounter; Z91.81 History of falling; Y93.9 Activity, unspecified; Y92.9 Unspecified place or not applicable; I10 Essential (primary) hypertension; E78.00 Pure hypercholesterolemia, unspecified; I48.91 Unspecified atrial fibrillation; M19.90 Unspecified osteoarthritis, unspecified site; Z86.73 Personal history of transient ischemic attack (TIA), and cerebral infarction without residual deficits; Z79.01 Long term (current) use of anticoagulants; Z79.899 Other long term (current) drug therapy
CPT/HCPCS: 70450; 71045; 72125; 72170; 80053; 81001; 85025; 85610; 93005; 99285; A4216

== ENCOUNTER 2018-04-18 15:20 | Outpatient (RCR) | payer MEDICARE, OTHER, SELFPAY ==
[2018-04-01 12:03] LABS: International Normalized Ratio 1.3; Prothrombin Time (Protime)PT. 16.3 SECONDS (11.7-14.9)
[2018-04-18 17:57] LABS: International Normalized Ratio 2.2; Prothrombin Time (Protime)PT. 24.7 SECONDS (11.7-14.9)
== END 2018-04-18 17:00 | disposition home or self-care (01) ==
LOC: LAB 15:20
PROVIDERS: Family Provider Family Medicine; PCP Family Medicine; Referring Provider Internal Medicine Cardiovascular Disease; Visit Provider Internal Medicine Cardiovascular Disease
DX: I48.0 Paroxysmal atrial fibrillation (principal); Z79.01 Long term (current) use of anticoagulants
CPT/HCPCS: 36415; 85610

== ENCOUNTER → 2018-07-04 11:22 | Outpatient (CLI) | payer MEDICARE, OTHER, SELFPAY ==
--- NOTE | 2018-07-04 07:05 | PET_ITS ---
EXAMINATION: Brain Pet Study INDICATIONS: An 83-year-old male with reported history of cognitive impairment, memory loss. COMPARISON EXAMINATION: CT of the brain report dated 03/29/18, MRI of the brain report dated 02/26/18 TECHNIQUE: Following the intravenous administration of 11.02 mCi of F-18 deoxyglucose via the left forearm multiplanar image acquisitions of the brain obtained at 60 minutes post radiopharmaceutical administration and CT of the brain report dated 03/29/18, MRI of the brain report dated 02/26/18 reveal: SERUM GLUCOSE LEVEL: 73 mg/dl. HEIGHT: 67 inches. WEIGHT: 200 lbs. FINDINGS: 1. There is an asymmetric reduction in glucose metabolism manifest in the left frontal cerebral cortex with otherwise preserved glucose metabolism noted in the remaining cerebral cortical and subcortical structures to include the bilateral temporal, occipital and parietal cortex. There is symmetric visualization of the basal ganglia and cerebellar hemispheres. PET/PET Brain Metabolic Eval IMPRESSION: 1. Altered glucose metabolism defined in the left frontal cerebral cortex may be secondary to previous vascular insult. 2. There is no definitive typical scintigraphic evidence of cholinergic dysfunction in the distribution of the temporal, parietal lobes indicative of dementia, Alzheimer type. Electronic Signature Markus Beck D.O. Electronically Signed: Markus Beck DO at 22:58 EST Tel , Service support ,
== END ==
PROVIDERS: Family Provider Family Medicine; PCP Family Medicine; Visit Provider Psychiatry & Neurology Neurology
DX: F03.90 Unspecified dementia, unspecified severity, without behavioral disturbance, psychotic disturbance, mood disturbance, and anxiety (principal); R41.3 Other amnesia; R44.3 Hallucinations, unspecified
CPT/HCPCS: 78608; A9552

== ENCOUNTER 2018-08-31 09:22 | Outpatient (RCR) | payer MEDICARE, OTHER, SELFPAY ==
[2018-08-31 10:59] LABS: International Normalized Ratio 1.9; Prothrombin Time (Protime)PT. 22.1 SECONDS (11.7-14.9)
== END 2018-08-31 10:22 | disposition home or self-care (01) ==
LOC: LAB 09:22
PROVIDERS: Family Provider Family Medicine; PCP Family Medicine; Referring Provider Internal Medicine Cardiovascular Disease; Visit Provider Internal Medicine Cardiovascular Disease
DX: I48.91 Unspecified atrial fibrillation (principal); Z79.01 Long term (current) use of anticoagulants
CPT/HCPCS: 36415; 85610

== ENCOUNTER 2018-12-01 10:41 | Outpatient (RCR) | payer MEDICARE, OTHER, SELFPAY ==
[2018-09-01 10:55] VITALS: BMI 32.8
[2018-12-01 11:59] LABS: Vitamin B12 398 pg/mL (211-911)
[2018-12-01 12:00] LABS: Thyroid Stim Hormone (TSH) 1.76 uIU/mL (0.358-3.74)
== END 2018-12-25 12:00 | disposition home or self-care (01) ==
LOC: LAB 10:41
PROVIDERS: Family Provider Family Medicine; PCP Family Medicine; Referring Provider Internal Medicine Cardiovascular Disease; Visit Provider Internal Medicine Cardiovascular Disease
DX: I48.91 Unspecified atrial fibrillation (principal); Z79.01 Long term (current) use of anticoagulants; F03.90 Unspecified dementia, unspecified severity, without behavioral disturbance, psychotic disturbance, mood disturbance, and anxiety
CPT/HCPCS: 36415; 82607; 84443; 85610

== ENCOUNTER 2019-01-12 10:55 | Outpatient (RCR) | payer MEDICARE, OTHER, SELFPAY ==
[2018-09-01 10:55] VITALS: BMI 32.8
[2018-12-28 09:18] LABS: International Normalized Ratio 1.8; Prothrombin Time (Protime)PT. 20.9 SECONDS (11.7-14.9)
[2019-01-12 11:53] LABS: International Normalized Ratio 1.5; Prothrombin Time (Protime)PT. 18.4 SECONDS (11.7-14.9)
== END 2019-01-25 17:16 | disposition home or self-care (01) ==
LOC: LAB 10:55
PROVIDERS: Family Provider Family Medicine; PCP Family Medicine; Referring Provider Internal Medicine Cardiovascular Disease; Visit Provider Internal Medicine Cardiovascular Disease
DX: I48.91 Unspecified atrial fibrillation (principal); Z79.01 Long term (current) use of anticoagulants
CPT/HCPCS: 36415; 85610

== ENCOUNTER → 2019-02-15 | Outpatient (CLI) | payer MEDICARE, OTHER, SELFPAY ==
[2018-09-01 10:55] VITALS: BMI 32.8
[2019-02-15 12:52] LABS: AST(SGOT) 17 U/L (15-37); Alanine Aminotransfer ALT/SGPT 9 U/L (16-61); Anion Gap 2 (5-15); BUN 18 mg/dL (7-18); BUN/Creat Ratio 13.2 RATIO (10-20); Calcium,Total 9.2 mg/dL (8.5-10.1); Chloride 107 mmol/L (98-107); Cholesterol 101 mg/dL (200); Creatinine, Serum 1.36 mg/dL (0.70-1.30); EST Glomerular Filtration Rate 53 mL/min (>60); Est Glom Filt Rate - Afr Amer 65 mL/min (>60); Glucose 89 mg/dL (74-106); High Density Lipoprotein 45 mg/dL; Potassium 4.3 mmol/L (3.5-5.1); Sodium Level 140 mmol/L (136-145); Thyroid Stim Hormone (TSH) 2.82 uIU/mL (0.358-3.74); Triglycerides 93 mg/dL; Very Low Density Lipoprotein 19 mg/dL (5-40)
== END | disposition home or self-care (01) ==
LOC: MFPLAB 10:59
PROVIDERS: Family Provider Family Medicine; PCP Family Medicine; Referring Provider Family Medicine; Visit Provider Family Medicine
DX: E78.5 Hyperlipidemia, unspecified (principal); E03.9 Hypothyroidism, unspecified; I10 Essential (primary) hypertension
CPT/HCPCS: 36415; 80048; 80061; 84436; 84443; 84450; 84460

== ENCOUNTER 2019-02-23 13:00 | Outpatient (RCR) | payer MEDICARE, OTHER, SELFPAY ==
[2018-09-01 10:55] VITALS: BMI 32.8
[2019-01-26 17:29] LABS: International Normalized Ratio 1.9; Prothrombin Time (Protime)PT. 21.9 SECONDS (11.7-14.9)
[2019-02-09 10:41] LABS: International Normalized Ratio 2.2; Prothrombin Time (Protime)PT. 24.5 SECONDS (11.7-14.9)
[2019-02-23 13:42] LABS: International Normalized Ratio 2.1; Prothrombin Time (Protime)PT. 23.8 SECONDS (11.7-14.9)
== END 2019-02-23 14:00 | disposition home or self-care (01) ==
LOC: LAB 13:00
PROVIDERS: Family Provider Family Medicine; PCP Family Medicine; Referring Provider Internal Medicine Cardiovascular Disease; Visit Provider Internal Medicine Cardiovascular Disease
DX: I48.91 Unspecified atrial fibrillation (principal); Z79.01 Long term (current) use of anticoagulants
CPT/HCPCS: 36415; 85610

== ENCOUNTER 2019-03-17 14:43 | Outpatient (RCR) | payer MEDICARE, OTHER, SELFPAY ==
[2018-09-01 10:55] VITALS: BMI 32.8
[2019-03-17 15:38] LABS: International Normalized Ratio 2.4; Prothrombin Time (Protime)PT. 25.8 SECONDS (11.7-14.9)
== END 2019-03-27 18:00 | disposition home or self-care (01) ==
LOC: LAB 14:43
PROVIDERS: Family Provider Family Medicine; PCP Family Medicine; Referring Provider Internal Medicine Cardiovascular Disease; Visit Provider Internal Medicine Cardiovascular Disease
DX: I48.91 Unspecified atrial fibrillation (principal); Z79.01 Long term (current) use of anticoagulants
CPT/HCPCS: 36415; 85610

== ENCOUNTER 2019-04-20 14:56 | Outpatient (RCR) | payer MEDICARE, OTHER, SELFPAY ==
[2018-09-01 10:55] VITALS: BMI 32.8
[2019-04-20 13:44] VITALS: BMI 32.3
[2019-04-20 16:04] LABS: International Normalized Ratio 2.1; Prothrombin Time (Protime)PT. 23.3 SECONDS (11.7-14.9)
== END 2019-04-20 18:00 | disposition home or self-care (01) ==
LOC: LAB 14:56
PROVIDERS: Family Provider Family Medicine; PCP Family Medicine; Referring Provider Internal Medicine Cardiovascular Disease; Visit Provider Internal Medicine Cardiovascular Disease
DX: I48.91 Unspecified atrial fibrillation (principal); Z79.01 Long term (current) use of anticoagulants
CPT/HCPCS: 36415; 85610

== ENCOUNTER 2019-05-20 17:58 | Emergency (ER) | payer MEDICARE, OTHER, SELFPAY ==
[2019-05-20 17:59] VITALS: BP 156/95; PULSE 59; RESP 18; TEMP 36.6; BMI 33.3
--- NOTE | 2019-05-20 18:05 | CT_ITS ---
We are attempting to reach an attending provider to discuss findings. An addendum with communication details will be sent when the communication is complete. STUDY: CT BRAIN WITHOUT CONTRAST REASON FOR EXAM: Male, 84 years old. Trauma, patient on blood thinners RADIATION DOSAGE (If Supplied By Facility): CTDIvol = ( 44.99 ) mGy, DLP = ( 880.47 ) mGycm TECHNIQUE: Transaxial CT imaging of the brain was performed without administration of intravenous contrast material. Individualized dose optimization techniques were used for this CT. COMPARISON: To March 2019 FINDINGS: There is moderate size clot along the right supracerebellar cistern and ambient cistern. There is small clot in the right lateral ventricle occipital horn. There is mild extent acute subarachnoid hemorrhage along the left frontal, left parietal and right posterior temporal convexities. There are no extra parenchymal fluid collections, hydrocephalus or herniation. There is bifrontal high anterior encephalomalacia. The skull is intact. There is a small right parietal scalp hematoma. CT/Brain/Head without Contrast IMPRESSION: 1. Moderate extent acute subarachnoid hemorrhage. 2. No hydrocephalus or herniation. Electronically Signed: Yanick Justice, at 18:30 EST Tel , Service support ,
--- NOTE | 2019-05-20 18:05 | CT_ITS ---
STUDY: CT CERVICAL SPINE WITHOUT CONTRAST REASON FOR EXAM: Male, 84 years old. Trauma RADIATION DOSAGE (If Supplied By Facility): CTDIvol = ( 28.48 ) mGy, DLP = ( 567.24 ) mGycm TECHNIQUE: High resolution transaxial imaging was performed without contrast material. Sagittal and coronal images were reconstructed. Individualized dose optimization techniques were used for this CT. COMPARISON: 29 March 2019 FINDINGS: Craniocervical junction and cervical spine are intact and aligned. Mineralization is normal. Paraspinous soft tissues are normal. There are expected age-related changes. Spinal canal is patent at all levels. Neural foramina are patent. CT/Spine Cervical without Contras IMPRESSION: 1. No acute osseous injury. Electronically Signed: Yanick Justice, at 18:33 EST Tel , Service support ,
--- NOTE | 2019-05-20 18:06 | ED.VIS.GEN ---
History of Present Illness Chief Complaint: Fall Informant: Family, Compounder Flavorings Limited by: Dementia Narrative: Per patient fell about 2 hours ago down his basement steps. He did sustain a head injury he did not talk for some time and now he is confused and somewhat aggressive. Apparently the patient is on Coumadin. It is difficult to get a history of present illness from him but there seems to be no other injury Past Medical History - Allergies and Home Meds Allergies/Adverse Reactions: Allergies No Known Allergies Allergy (Verified 04/20/19 13:44) Primary Care Physician: Tracy Esparza MD [Primary Care Provider] - Past Medical History: - - He is on blood thinners, he has a history of traumatic brain injury, he has Parkinson's disease Surgical History: adenoidectomy, appendectomy, tonsillectomy, - - Right carotid endarterectomy, carpal tunnel surgery, lipoma removal, rectal fissure repair. Smoking Status: Never smoker - Family History Maternal Family History: Family History (Last Reviewed 04/20/19 @ 14:45 by MITCHELL Marshall) Father Sudden cardiac Mother Congestive heart failure Family History: Reports: No pertinent history Paternal Family History: Family History (Last Reviewed 04/20/19 @ 14:45 by MITCHELL Marshall) Father Sudden cardiac Mother Congestive heart failure Family History: Reports: Heart Disease Review of Systems ROS: Unable to Obtain - Secondary to mental status changes from likely secondary to fall Physical Exam Vital Signs/Narrative: Vital Signs Temp Pulse Resp BP 05/20/19 17:59 97.9 F 59 L 18 156/95 H General: Well nourished, Well developed, Acute Distress Head: - - I do not see any signs of trauma Eyes: EOMI, - - Right pupil is about 1 mm. Left pupil is 1.5 mm ENT: Moist mucous membranes, No rhinorrhea Neck: Supple, Nontender Cardiovascular: Regular rate, Regular rhythm Respiratory: No distress, CTA bilaterally Abdomen: Soft, Nontender Rectal: Nontender : - - Normal external genitalia Back: Nontender, Normal Inspection Extremities: Nontender, No edema Skin: Normal color, No Trauma Neurological: Alert, - - He is disoriented but moves all his extremities GCS- Eye-4, Verbal-4, Motor-5 T-13 Psychological: Agitated Diagnostic/Tx/Re-eval - Medical Decision Making Patient is found to have an intraparenchymal bleed there is some blood in the ventricles, at this time his GCS is 13 and he is directable he does not meet criteria for intubation. He is on Coumadin I am awaiting the INR I talked to the pharmacy and they do have Kcentra available as soon as we have the INR back. Otherwise I called [facility] per family request we will transferred emergently to a trauma center. Transfer in critical condition - Critical Care Time Critical care time (excluding procedures): 30-74 minutes, Discussing w/Patient &/or Family/Signals Intelligence Superintendent, Discussing w/Consultants, Arranging Admission or Transfer ED Disposition - Plan for ED Patient: Disposition: [facility] Diagnosis: Intracranial bleed Referrals: Tracy Esparza MD [Primary Care Provider] -
[2019-05-20 18:19] LABS: Absolute Lymphocyte Count 2.93 X10^3/uL (0.83-4.51); Absolute Neutrophil Count 4.4 X10^3/uL (2.0-7.7); Basophil# 0.02 X10^3/uL; Basophil% 0.2 % (0-1); Eosinophils% 1.2 % (0-5); Hematocrit 41.9 % (40-54); Hemoglobin 13.8 g/dL (13.0-16.5); Lymphocyte # 2.93 X10^3/ul (4.0); Lymphocyte % 36.2 % (19-41); Mean Corp Hgb Conc 32.9 g/dL (32-36); Mean Corpuscular Hgb 30.7 pg (27.0-32.0); Mean Corpuscular Volume 93.1 fL (80-94); Mean Platelet Vol. 10.5 fl (6.2-12.0); Monocyte# 0.55 X10^3/uL; Monocyte% 6.8 % (0-10); NRBC Flagged by Analyzer 0 % (0-5); Neutrophil # 4.36 X10^3/uL (2.7-7.7); Neutrophil % 53.9 % (47-70); Platelet Count 149 K/mm3 (150-450); RBC Distribution Width CV 14.2 % (11.6-14.6); RBC Distribution Width SD 48.7 fl (35.1-43.9); White Blood Count 8.1 K/mm3 (4.4-11.0)
[2019-05-20 18:20] VITALS: BP 192/98; PULSE 63; RESP 18; O2SAT 94
[2019-05-20 18:27] LABS: International Normalized Ratio 2.2; Prothrombin Time (Protime)PT. 24.5 SECONDS (11.7-14.9)
[2019-05-20] MEDS: levETIRAcetam IV 1,000 MG/100 ML BAG 400 MG IV (18:39)
[2019-05-20 18:43] LABS: AST(SGOT) 44 U/L (15-37); Alanine Aminotransfer ALT/SGPT 15 U/L (16-61); Albumin, Serum 3.6 g/dL (3.2-5.0); Alkaline Phosphatase 79 U/L (45-117); Anion Gap 4 (5-15); BUN 25 mg/dL (7-18); BUN/Creat Ratio 18.5 RATIO (10-20); Chloride 109 mmol/L (98-107); Creatinine, Serum 1.35 mg/dL (0.70-1.30); EST Glomerular Filtration Rate 54 mL/min (>60); Est Glom Filt Rate - Afr Amer 65 mL/min (>60); Globulin 3.5 g/dL (2.2-4.2); Glucose 99 mg/dL (74-106); Protein, Total 7.1 g/dL (6.4-8.2); Sodium Level 142 mmol/L (136-145)
[2019-05-20 19:13] VITALS: BP 142/73; BP 142/79; PULSE 61; RESP 16; TEMP 36.6; O2SAT 94
--- NOTE | 2019-05-20 19:22 | ED.RN ---
AT 1914 ATTEMPTED TO CALL REPORT ON PT. TRANSFERRED TO ED. NO ANSWER.
== END 2019-05-20 19:13 | disposition short-term general hospital (02) ==
LOC: ED 18:34
PROVIDERS: Emergency Provider Emergency Medicine; Family Provider Family Medicine; PCP Family Medicine
DX: S06.6X0A Traumatic subarachnoid hemorrhage without loss of consciousness, initial encounter (principal); R40.2410 Glasgow coma scale score 13-15, unspecified time; W10.9XXA Fall (on) (from) unspecified stairs and steps, initial encounter; Y93.9 Activity, unspecified; Y92.9 Unspecified place or not applicable; G20 Parkinson's disease; Z87.820 Personal history of traumatic brain injury; Z79.01 Long term (current) use of anticoagulants; Z79.82 Long term (current) use of aspirin; Z79.899 Other long term (current) drug therapy
CPT/HCPCS: 70450; 72125; 80053; 85025; 85610; 96365; 96368; 99285; C9132; J7050; A4216; J3490

== ENCOUNTER 2019-05-30 18:50 | Inpatient (IN) | payer MEDICARE, OTHER, SELFPAY ==
[2019-05-30 19:07] VITALS: BP 153/73; PULSE 73; RESP 20; TEMP 36.7; O2SAT 93; BMI 27.0; BMI 27.1
[2019-05-30 19:30] VITALS: BP 153/73; PULSE 73; RESP 20; TEMP 36.9
[2019-05-30] MEDS: Pravastatin 40 MG Tablet PO (20:45)
[2019-05-30] MEDS: MELATONIN 10 MG TABLET 5 MG PO (20:45)
[2019-05-30] MEDS: Senna/Docusate Sodium 1 Tablet 2 TABLET PO (20:46)
[2019-05-30] MEDS: QUEtiapine 25 MG Tablet 12.5 MG PO (20:46)
[2019-05-30] MEDS: Tamsulosin HCl 0.4 MG Capsule PO (20:46)
[2019-05-30] MEDS: Donepezil HCl 10 MG Tablet PO (20:46)
[2019-05-30] MEDS: Flecainide 100 MG Tablet 50 MG PO (20:47)
[2019-05-30 21:00] VITALS: O2SAT 96
[2019-05-31] MEDS: Levothyroxine 50 MCG Tablet PO (05:42)
[2019-05-31 06:37] VITALS: O2SAT 90
[2019-05-31] MEDS: Carbidopa/Levodopa 25/100 Tablet PO ×2 (06:40→16:32)
[2019-05-31 07:05] LABS: Absolute Lymphocyte Count 1.56 X10^3/uL (0.83-4.51); Absolute Neutrophil Count 8.3 X10^3/uL (2.0-7.7); Basophil# 0.03 X10^3/uL; Basophil% 0.3 % (0-1); Eosinophil# 0.22 X10^3/uL; Hematocrit 28.9 % (40-54); Hemoglobin 9.1 g/dL (13.0-16.5); Lymphocyte # 1.56 X10^3/ul (4.0); Lymphocyte % 14.2 % (19-41); Mean Corp Hgb Conc 31.5 g/dL (32-36); Mean Corpuscular Hgb 30.2 pg (27.0-32.0); Mean Platelet Vol. 9.8 fl (6.2-12.0); Monocyte# 0.79 X10^3/uL; Monocyte% 7.2 % (0-10); NRBC Flagged by Analyzer 0.7 % (0-5); Neutrophil # 8.25 X10^3/uL (2.7-7.7); Neutrophil % 75.2 % (47-70); Platelet Count 308 K/mm3 (150-450); RBC Distribution Width CV 15.9 % (11.6-14.6); RBC Distribution Width SD 54.6 fl (35.1-43.9); Red Blood Count 3.01 M/mm3 (4.6-6.2)
[2019-05-31 07:35] LABS: ALB/GLOB Ratio 0.8 RATIO (0.9-2.4); AST(SGOT) 36 U/L (15-37); Alanine Aminotransfer ALT/SGPT 13 U/L (16-61); Albumin, Serum 2.7 g/dL (3.2-5.0); Alkaline Phosphatase 143 U/L (45-117); Anion Gap 4 (5-15); BUN 31 mg/dL (7-18); Calcium,Total 8.2 mg/dL (8.5-10.1); Chloride 118 mmol/L (98-107); Creatinine, Serum 1.24 mg/dL (0.70-1.30); EST Glomerular Filtration Rate 59 mL/min (>60); Est Glom Filt Rate - Afr Amer 72 mL/min (>60); Estimated Creatinine Clearance 50.41 ml/min; Globulin 3.6 g/dL (2.2-4.2); Glucose 105 mg/dL (74-106); Magnesium 2.3 mg/dL (1.6-2.6); Phosphorus 2.2 mg/dL (2.5-4.9); Potassium 2.8 mmol/L (3.5-5.1); Protein, Total 6.3 g/dL (6.4-8.2); Sodium Level 149 mmol/L (136-145)
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
[2019-05-31 09:11] VITALS: BP 148/68; PULSE 78; RESP 18; TEMP 37.3; O2SAT 90
[2019-05-31] MEDS: Flecainide 100 MG Tablet 50 MG PO ×2 (09:14→21:18)
[2019-05-31] MEDS: Na Biphos/Potassium Phosphate PACKET 1 PACKET PO ×2 (09:14→16:32)
[2019-05-31] MEDS: Allopurinol 100 MG Tablet PO (09:14)
[2019-05-31] MEDS: Amantadine 100 MG Capsule PO ×2 (09:15→14:40)
[2019-05-31] MEDS: Lidocaine 5% Patch 1 PATCH TOPICAL (09:15)
[2019-05-31] MEDS: Enoxaparin 30 MG/0.3 ML Syringe SC ×2 (10:58→21:17)
[2019-05-31] MEDS: traMADol 50 MG Tablet 25 MG PO (11:56)
[2019-05-31] MEDS: Na Biphos/Potassium Phosphate PACKET 2 PACKET PO (11:57)
--- NOTE | 2019-05-31 12:15 | PCM.RU.PYE ---
Admission Information Primary Diagnosis:: debility due to SAH, multiple vertebral compression fractures and multiple rib fractures Status Changes from Prescreening?: No changes Identified Actual Problem List:: Bleeding, Falls, Skin Intergrity, Cognitve Impr/Memory Loss, Mobility Impaired, Self Care Deficit, Ineffective Communication, BP, Hypertension, Alteration-Leisure Activ. Potential Problem List:: DVT, Bleeding, Infection, UTI, Aspiration, Falls, Skin Integrity, Depression Risk of Complications DVT: LMWH, SKYLA Hose Bleeding: Monitor Lab Values, Nursing to Teach Precautions for anti-coagulation therapy., Wound, if applicable, to be assessed every shift., Stroke patients assessed for lethargy or change in status. Infection: Clinical Staff to Monitor for S/S of infection:, S/S of infection include fever, redness, warmth, etc. Urinary Tract Infection: Monitor for frequency, burning, discomfort, or incontinence., Nursing will obtain urine sample for urinalysis and C&S when ordered. Aspiration: Clinical staff will monitor for coughing, drooling, congestion., Speech will evaluate swallowing and dsyphasia., Nursing will monitor patient swallowing during meals. Falls: Patient will be evaluated for Fall Precautions, Patient will be placed on Fall Precautions as indicated per protocol. Skin Breakdown: Nursing will assess skin daily using assessment tool., Nursing will place on Skin Breakdown Precautions as indicated. Pain: Clinical staff will assess patient's pain level per protocol., Medications will be given, if needed, and the pain level reassessed., Other methods: Massage, distraction, decrease stimulus, etc. used PRN. Plan of Care Patient requires physician specializing in physical medicine and rehab oversight to provide close medical supervision of rehab issues including: Pain Management, Sleep Problems, Bowel and Bladder, Medical and co-morbidity Management, DVT prophylaxis, Rehabilitation Leadership, Coordination of treatment team Patient needs Physical Therapy: For a minimum of 1 hour, At least 5 out of 7 days Patient needs Physical Therapy to improve:: Mobility, Mobility, Mobility, Strengthening, Transfers, Stretching, ROM, Endurance, Stairs, Gait, Balance Patient needs Occupational Therapy: For a minimum of 1 hour, At least 5 out of 7 days Patient needs Occupational Therapy to improve ADL's incl.: Eating, Grooming, Bathing, Dressing, Toileting, Toilet transfers, Community Reintegration, Higher functioning activities, Household tasks, Adaptive Equipment, Splinting, Other activities as determined Patient requires speech therapy: For a minimum of 1 hour, At least 5 out of 7 days Patient requires speech therapy for: Swallowing, Cognition, Language Skills, Compensatory Strategies Patient requires 24/ Rehabilitation Nursing for: Pain Issues, Identifying and preventing risk factors, Monitoring and reporting current medical conditions, Assisting with ambulation, transfer, and all ADL's, Teaching patients about disease process and medications, Family teaching, Providing safe environment, Bowel and Bladder Issues, Skin integrity, Medication Management Patient needs Loss Prevention Supervisor/ Case Management for: Discharge Planning, Arranging Home Equipment or Services, Family Interventions Patient needs Dietary and Nutrition Services for: Adequate Nutrition, Nutritional Supplements, Nutritional Education Goals Patient will remain: free from falls, or injury at time of discharge. Patient will perform bed mobility at: MOD I level of assist. Patient will complete transfers from bed to chair at: MOD I level of assist. Patient will ambulate: 100 feet, with MOD I assist, with LRD Patient will complete upper body dressing at: MOD I level of assist. Patient will complete lower body dressing at: MOD I level of assist. Patient will complete toileting at: MOD I level of assist. Patient will perform bathing at: MOD I level of assist. Patient will complete grooming at: MOD I level of assist. Patient will complete home management skills at: MOD I level of assist. Patient will achieve: 12 stairs, at MOD I assist Patient will have pain level of: of 3 or less Patient's skin will: remain intact, free from infection. Patient will receive: adequate nutrition. Discharge Planning Pt Prognosis for Sig. Practical Improv. w/in Reasonable Time: Fair Estimated Length of stay (days): 10 Anticipated D/C Destination: Shelter Facility Was Preadmission Assessment Accurate?: Yes
[2019-05-31] MEDS: Acetaminophen 500 MG Tablet 1000 MG PO ×2 (14:40→21:18)
[2019-05-31 19:35] VITALS: BP 119/61; PULSE 73; RESP 18; TEMP 36.6; O2SAT 94
[2019-05-31] MEDS: MELATONIN 10 MG TABLET 5 MG PO (21:17)
[2019-05-31] MEDS: Tamsulosin HCl 0.4 MG Capsule PO (21:17)
[2019-05-31] MEDS: Donepezil HCl 10 MG Tablet PO (21:17)
[2019-05-31] MEDS: Pravastatin 40 MG Tablet PO (21:17)
[2019-05-31] MEDS: Menthol/Lanolin/Calamine/Znox 113 GM Tube 1 APPLIC TOPICAL (21:17)
[2019-05-31] MEDS: QUEtiapine 25 MG Tablet 12.5 MG PO (21:18)
--- NOTE | 2019-06-01 02:05 | NURSING ---
DR LONG NOTIFIED THAT HAS HAD 3 STOOLS, (2 COPIOUS) THUS FAR THIS SHIFT AND THAT IT IS MUCOUSY. ALSO INFORMED THAT PT'S URINE IS JOANNE IN COLOR AND PT'S ORAL MUCOSA APPEARS DRY. ORDERS GIVEN.
[2019-06-01] MEDS: 0.9% Normal Saline 1,000 ML 100 ML IV (02:41)
[2019-06-01] MEDS: Levothyroxine 50 MCG Tablet PO (05:41)
[2019-06-01] MEDS: Acetaminophen 500 MG Tablet 1000 MG PO ×3 (05:41→22:02)
[2019-06-01 06:59] VITALS: O2SAT 94
[2019-06-01 07:26] LABS: Anion Gap 5 (5-15); BUN 33 mg/dL (7-18); BUN/Creat Ratio 28.4 RATIO (10-20); Calcium,Total 8.1 mg/dL (8.5-10.1); Chloride 120 mmol/L (98-107); Creatinine, Serum 1.16 mg/dL (0.70-1.30); EST Glomerular Filtration Rate 64 mL/min (>60); Est Glom Filt Rate - Afr Amer 78 mL/min (>60); Estimated Creatinine Clearance 53.89 ml/min; Glucose 109 mg/dL (74-106); Phosphorus 2.6 mg/dL (2.5-4.9); Potassium 2.8 mmol/L (3.5-5.1); Sodium Level 151 mmol/L (136-145)
[2019-06-01] MEDS: Enoxaparin 30 MG/0.3 ML Syringe SC ×2 (08:02→22:03)
[2019-06-01] MEDS: Lidocaine 5% Patch 1 PATCH TOPICAL (08:02)
[2019-06-01] MEDS: Flecainide 100 MG Tablet 50 MG PO ×2 (08:02→22:01)
[2019-06-01] MEDS: Na Biphos/Potassium Phosphate PACKET 1 PACKET PO ×2 (08:03→17:00)
[2019-06-01] MEDS: Allopurinol 100 MG Tablet PO (08:03)
[2019-06-01] MEDS: Amantadine 100 MG Capsule PO ×2 (08:03→14:08)
[2019-06-01] MEDS: Carbidopa/Levodopa 25/100 Tablet PO ×2 (08:03→17:00)
[2019-06-01] MEDS: traMADol 50 MG Tablet 25 MG PO (08:08)
[2019-06-01 08:45] VITALS: BP 154/80; PULSE 71; RESP 18; TEMP 36.6; O2SAT 92
[2019-06-01] MEDS: Menthol/Lanolin/Calamine/Znox 113 GM Tube 1 APPLIC TOPICAL ×2 (11:13→22:09)
--- NOTE | 2019-06-01 12:14 | PN_ITS ---
Progress Note Afebile VSS Maintaining appropriate oxygen saturation on RA. Not tachypneic Oral intake is good. He is more alert today and did a good job with breakfast. I&O are not accurate because the pt is incontinent. Discussed with nursing - no problems that need addressed Reviewed the PT/OT/ST notes and discussed at meeting with staff. More con versant today and able to tell me his 's name. Medication list reviewed. All lab was personally reviewed. K remains low at 2.8 despite supplementation. Phos is within normal limits today. Sodium increased at 151 today and the BUN is 33, up from 31 yesterday, with a creatinine of 1.16. The BUN/creatinine ratio is increased at 28.4. Calcium corrected for hypoalbuminemia is within normal limits. More alert today Lungs - CTA decreased in the bases - not the best respiratory effort Heart - RRR, no gallop No peripheral edema Impressions 1. dehydration with hypernatremia and hypokalemia - may be contributing to decreased LOC at times. 0.45% NS with 20 KCL at 60 cc/hr X 2 liters ordered. Will recheck a BMP in the AM. continue the potassium supplement 20 MEQ BID. Recent mag was WNL. 2. diarrhea - C.Diff negative last night. Will obtain enteric pathogen panel. Stool softeners are on hold. Increased water loss.....IV ordered. 3. Hypophosphatemia-resolved PLAN PT for gait stability OT for ADL's ST for evaluation and treatment of dysphagia Analgesics as needed Bowel protocol Fall precautions Assess for Anxiety/Depression GI prophylaxis with famotidine DVT prophylaxis with enoxaparin 30 mg subcutaneously twice daily Follow up with PCP following DC from [facility]OKE Vital Signs/Narrative: Vital Signs Temp Pulse Resp BP Pulse Ox 06/01/19 08:45 97.8 F 71 18 154/80 H 92 Code Visit Inpatient E&M: 83364 Subs Hosp L2
[2019-06-01 21:59] VITALS: BP 144/72; PULSE 71; RESP 18; TEMP 36.8; O2SAT 93
[2019-06-01] MEDS: MELATONIN 10 MG TABLET 5 MG PO (22:01)
[2019-06-01] MEDS: QUEtiapine 25 MG Tablet 12.5 MG PO (22:02)
[2019-06-01] MEDS: Pravastatin 40 MG Tablet PO (22:03)
[2019-06-01] MEDS: Donepezil HCl 10 MG Tablet PO (22:03)
[2019-06-01] MEDS: Tamsulosin HCl 0.4 MG Capsule PO (22:03)
[2019-06-02 05:58] LABS: Hematocrit 28.9 % (40-54)
[2019-06-02] MEDS: Acetaminophen 500 MG Tablet 1000 MG PO ×3 (06:07→22:05)
[2019-06-02 06:11] LABS: BUN 27 mg/dL (7-18); Creatinine, Serum 1.08 mg/dL (0.70-1.30); Glucose 101 mg/dL (74-106)
[2019-06-02 06:12] LABS: Anion Gap 6 (5-15); Chloride 122 mmol/L (98-107); EST Glomerular Filtration Rate 70 mL/min (>60); Est Glom Filt Rate - Afr Amer 84 mL/min (>60); Estimated Creatinine Clearance 57.88 ml/min; Potassium 3.1 mmol/L (3.5-5.1); Sodium Level 154 mmol/L (136-145)
[2019-06-02] MEDS: Levothyroxine 50 MCG Tablet PO (06:16)
[2019-06-02 07:00] VITALS: BP 141/72; PULSE 63; RESP 16; TEMP 36.8; O2SAT 97
[2019-06-02] MEDS: Allopurinol 100 MG Tablet PO (07:43)
[2019-06-02] MEDS: Carbidopa/Levodopa 25/100 Tablet PO ×2 (07:43→16:44)
[2019-06-02] MEDS: Na Biphos/Potassium Phosphate PACKET 1 PACKET PO ×2 (07:43→16:43)
[2019-06-02] MEDS: Amantadine 100 MG Capsule PO ×2 (07:43→14:05)
[2019-06-02] MEDS: Flecainide 100 MG Tablet 50 MG PO ×2 (07:43→22:04)
[2019-06-02] MEDS: Loperamide 2 MG Capsule PO (07:46)
[2019-06-02] MEDS: Menthol/Lanolin/Calamine/Znox 113 GM Tube 1 APPLIC TOPICAL ×2 (07:50→22:02)
[2019-06-02 07:55] VITALS: O2SAT 95
[2019-06-02] MEDS: Enoxaparin 30 MG/0.3 ML Syringe SC ×2 (08:23→22:02)
[2019-06-02] MEDS: Lidocaine 5% Patch 1 PATCH TOPICAL (08:24)
[2019-06-02 19:50] VITALS: BP 139/84; PULSE 75; RESP 18; TEMP 36.6; O2SAT 98
--- NOTE | 2019-06-02 21:40 | PCM.PN.BLA ---
Progress Note Afebile VSS-blood pressures are starting to come down Maintaining appropriate oxygen saturation on RA-98% Oral intake is good Discussed with nursing - no problems that need addressed Reviewed the PT/OT/ST notes Medication list reviewed. All lab was personally reviewed. Hemoglobin is stable at 9.0. Sodium is 154 despite IV of D5 with potassium. BUN is 27 and the creatinine is improving and is 1.08. C. difficile and enteric pathogen panel were negative. He is incontinent and the I&O is not accurate. No complaints. Lungs-clear to auscultation, not tachypneic, no conversational dyspnea, no accessory muscle use Heart-regular rate and rhythm, no gallop No peripheral edema Abdomen-soft, nontender, nondistended, no guarding with palpation Impressions 1. dehydration with hypernatremia and hypokalemia - may be contributing to decreased LOC at times. Currently on D5W with 20 of KCl at 100 cc/h. Will continue and recheck lab in the a.m. Continue oral potassium supplement 20 mEq twice daily. Recheck magnesium in the a.m. 2. Diarrhea-slowing down. Enteric pathogen panel and C. difficile were negative. Continue PRN Imodium. He only required 1 dose today. STROKE Vital Signs/Narrative: Vital Signs Temp Pulse Resp BP Pulse Ox 06/02/19 19:50 97.8 F 75 18 139/84 H 98 Code Visit Inpatient E&M: 55811 Subs Hosp L1
[2019-06-02] MEDS: Tamsulosin HCl 0.4 MG Capsule PO (22:02)
[2019-06-02] MEDS: Donepezil HCl 10 MG Tablet PO (22:02)
[2019-06-02] MEDS: Pravastatin 40 MG Tablet PO (22:03)
[2019-06-02] MEDS: MELATONIN 10 MG TABLET 5 MG PO (22:04)
[2019-06-02] MEDS: QUEtiapine 25 MG Tablet 12.5 MG PO (22:04)
[2019-06-03] MEDS: Levothyroxine 50 MCG Tablet PO (05:51)
[2019-06-03] MEDS: Acetaminophen 500 MG Tablet 1000 MG PO ×3 (05:51→21:49)
--- NOTE | 2019-06-03 06:44 | NURSING ---
Reviewed and agree with LPNs handoff
[2019-06-03 08:05] VITALS: BP 144/65; PULSE 58; RESP 18; TEMP 36.6; O2SAT 97
[2019-06-03] MEDS: Carbidopa/Levodopa 25/100 Tablet PO ×2 (08:39→17:26)
[2019-06-03] MEDS: Na Biphos/Potassium Phosphate PACKET 1 PACKET PO ×2 (08:40→17:27)
[2019-06-03] MEDS: Alendronate Sodium 70 MG Tablet PO (08:41)
[2019-06-03] MEDS: Amantadine 100 MG Capsule PO ×2 (08:42→13:09)
[2019-06-03] MEDS: Allopurinol 100 MG Tablet PO (08:46)
[2019-06-03] MEDS: Menthol/Lanolin/Calamine/Znox 113 GM Tube 1 APPLIC TOPICAL ×2 (08:50→21:51)
[2019-06-03 08:55] LABS: Hematocrit 28.9 % (40-54); Hemoglobin 8.9 g/dL (13.0-16.5)
[2019-06-03] MEDS: Lidocaine 5% Patch 1 PATCH TOPICAL (09:02)
[2019-06-03] MEDS: Enoxaparin 30 MG/0.3 ML Syringe SC ×2 (09:02→21:50)
[2019-06-03] MEDS: Senna/Docusate Sodium 1 Tablet 2 TABLET PO ×2 (09:02→21:50)
[2019-06-03] MEDS: Flecainide 100 MG Tablet 50 MG PO ×2 (09:03→21:49)
[2019-06-03 09:10] LABS: Anion Gap 5 (5-15); BUN 23 mg/dL (7-18); BUN/Creat Ratio 22.1 RATIO (10-20); Calcium,Total 7.9 mg/dL (8.5-10.1); Chloride 119 mmol/L (98-107); Creatinine, Serum 1.04 mg/dL (0.70-1.30); EST Glomerular Filtration Rate 73 mL/min (>60); Est Glom Filt Rate - Afr Amer 88 mL/min (>60); Estimated Creatinine Clearance 60.11 ml/min; Glucose 126 mg/dL (74-106); Magnesium 1.8 mg/dL (1.6-2.6); Potassium 3.3 mmol/L (3.5-5.1); Sodium Level 147 mmol/L (136-145)
[2019-06-03 15:32] VITALS: O2SAT 96
[2019-06-03] MEDS: traMADol 50 MG Tablet 25 MG PO (17:25)
[2019-06-03 19:30] VITALS: BP 149/68; PULSE 73; RESP 20; TEMP 36.4; O2SAT 97
[2019-06-03] MEDS: MELATONIN 10 MG TABLET 5 MG PO (21:49)
[2019-06-03] MEDS: Pravastatin 40 MG Tablet PO (21:49)
[2019-06-03] MEDS: Tamsulosin HCl 0.4 MG Capsule PO (21:50)
[2019-06-03] MEDS: QUEtiapine 25 MG Tablet 12.5 MG PO (21:50)
[2019-06-03] MEDS: Donepezil HCl 10 MG Tablet PO (21:50)
[2019-06-04] MEDS: Acetaminophen 500 MG Tablet 1000 MG PO ×3 (05:52→20:57)
[2019-06-04] MEDS: Levothyroxine 50 MCG Tablet PO (05:52)
[2019-06-04] MEDS: Loperamide 2 MG Capsule PO (06:28)
[2019-06-04] MEDS: 0.9% Saline Lock 10 ML Syringe IV ×2 (06:35→17:21)
[2019-06-04 07:24] VITALS: BP 140/61; PULSE 60; RESP 20; TEMP 36.6; O2SAT 97
[2019-06-04] MEDS: Carbidopa/Levodopa 25/100 Tablet PO ×2 (07:38→16:22)
[2019-06-04] MEDS: Na Biphos/Potassium Phosphate PACKET 1 PACKET PO ×2 (07:38→16:22)
[2019-06-04] MEDS: Allopurinol 100 MG Tablet PO (07:38)
[2019-06-04] MEDS: Menthol/Lanolin/Calamine/Znox 113 GM Tube 1 APPLIC TOPICAL ×2 (07:53→21:07)
[2019-06-04] MEDS: Enoxaparin 30 MG/0.3 ML Syringe SC ×2 (09:03→20:58)
[2019-06-04] MEDS: Amantadine 100 MG Capsule PO ×2 (09:03→13:01)
[2019-06-04] MEDS: Lidocaine 5% Patch 1 PATCH TOPICAL (09:03)
[2019-06-04] MEDS: Flecainide 100 MG Tablet 50 MG PO ×2 (10:31→20:56)
[2019-06-04 17:10] VITALS: O2SAT 91
[2019-06-04] MEDS: Tamsulosin HCl 0.4 MG Capsule PO (20:57)
[2019-06-04] MEDS: MELATONIN 10 MG TABLET 5 MG PO (20:57)
[2019-06-04] MEDS: QUEtiapine 25 MG Tablet 12.5 MG PO (20:57)
[2019-06-04] MEDS: Pravastatin 40 MG Tablet PO (20:58)
[2019-06-04] MEDS: Donepezil HCl 10 MG Tablet PO (20:58)
[2019-06-04 21:00] VITALS: BP 119/66; PULSE 62; RESP 18; TEMP 36.4; O2SAT 93
--- NOTE | 2019-06-05 01:52 | NURSING ---
Reviewed and agree with DIRECTOR OF PROMOTIONS documentation and charting.
[2019-06-05] MEDS: 0.9% Saline Lock 10 ML Syringe IV ×3 (05:33→21:34)
[2019-06-05] MEDS: Acetaminophen 500 MG Tablet 1000 MG PO ×3 (05:53→21:20)
[2019-06-05] MEDS: Loperamide 2 MG Capsule PO ×3 (05:54→14:08)
[2019-06-05] MEDS: Levothyroxine 50 MCG Tablet PO (05:55)
[2019-06-05] MEDS: Na Biphos/Potassium Phosphate PACKET 1 PACKET PO ×2 (07:42→17:09)
[2019-06-05] MEDS: Allopurinol 100 MG Tablet PO (07:43)
[2019-06-05] MEDS: Carbidopa/Levodopa 25/100 Tablet PO ×2 (07:46→17:09)
[2019-06-05 07:58] VITALS: BP 171/86; PULSE 69; RESP 17; TEMP 36.6; O2SAT 99
[2019-06-05] MEDS: Lidocaine 5% Patch 1 PATCH TOPICAL (08:54)
[2019-06-05] MEDS: Flecainide 100 MG Tablet 50 MG PO ×2 (08:54→21:22)
[2019-06-05] MEDS: Enoxaparin 30 MG/0.3 ML Syringe SC (08:54)
[2019-06-05] MEDS: Amantadine 100 MG Capsule PO ×2 (08:54→13:05)
[2019-06-05] MEDS: Menthol/Lanolin/Calamine/Znox 113 GM Tube 1 APPLIC TOPICAL ×2 (09:59→21:24)
--- NOTE | 2019-06-05 12:31 | CASEMGMT ---
Social Work IDT met with patient, and son for Team Meeting. Discussed patient's progress in therapy. Pt is most alert on this date. Pt remains A&Ox1. 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 ST working with pt on swallowing exercises. Pt is puree, nectar thick by irma and supervision with all meals as pt has delayed swallowing onset. Working on slurred speech, cognition. Pt has f/u appt with neurosurgeon 06/13 for repeat CAT Scan. Explained Medicare ELOS 19 days with DC date 06/18. Will continue to Team and assess progress for safe and realistic DC plan. Will continue to follow. LIN AmandaW
[2019-06-05] MEDS: traMADol 50 MG Tablet 25 MG PO ×2 (13:05→21:21)
--- NOTE | 2019-06-05 15:23 | PN_ITS ---
Patient Problems: Active and Suspected Problems (Last Reviewed 05/31/19 @ 09:23 by Belen Caballero DO) Macrocytic anemia (Acute) Hypokalemia (Acute) Hypernatremia (Acute) Hypophosphatemia (Acute) Subarachnoid hemorrhage following injury (Acute) Ribs, multiple fractures (Acute) Right second, third and fourth rib fractures posteriorly Fracture of multiple thoracic vertebrae (Acute) Moderate at T3, mild at T4, mild at T5, mild at T6, mild at T7 and moderate to severe at T12. Also with fractures of the transverse processes of T10, T11 and T12. Right pulmonary contusion (Acute) Dysphagia (Acute) Subjective: Seen on team rounds today. is in room. Afebrile since admission Blood pressures are erratic and over the past 3 days have ranged from 119/66-170 1/86. Heart rate is within normal limits and stable. He is maintaining an appropriate oxygen saturation on room air. reviewed PT/OT/ST notes and discussed on rounds Reviewed the med list - consider transitioning Enoxaparin to Eliquis if the HH is stable in the AM He is not complaining of pain but, his states he is very stoic and will not complain. she thinks he is having unrelieved pain......pt always denies need for PRN Tramadol when asked. He is eating better and is much more alert after hydrating over the weekend. Diarrhea has slowed down with Imodium. C.DIFF and enteric pathogen panel were negative. The sodium has also come down. - Physical Exam Vitals/I&O's: Vital Signs Temp Pulse Resp BP Pulse Ox 97.9 F 69 17 171/86 H 99 06/05/19 07:58 06/05/19 07:58 06/05/19 07:58 06/05/19 07:58 06/05/19 07:58 Oxygen Flow Rate (L/min) 2 Oxygen Delivery Method Room Air Weight: 199 lb 8.293 oz Body Mass Index (BMI) 27.0 Intake and Output for Last 24 Hours 06/03/19 06/04/19 06/05/19 23:59 23:59 23:59 Intake Total 3275 / 3425 2730 / 2730 720 / 720 Output Total 1400 / 1650 700 / 950 725 / 725 Balance 1875 / 1775 2030 / 1780 -5 / -5 General: Alert - but rarely blinking. Staring a lot. He is sitting in a chair at the bedside, No apparent distress, Well developed, Well nourished HEENT: PERRLA Oral: Moist Mucosa Neck: Supple, No Nodes, Trachea Midline Lungs: Clear to auscultation, - - Not tachypneic, no conversational dyspnea Cardiovascular: Regular rate, Regular Rhythm, Normal S1, Normal S2, No Gallop Abdomen: Bowel Sounds Present, Soft, Non Tender, Non-Distended, - Extremities: No edema Skin: No rashes Neurological: Cranial nerves II-XII grossly intact, Neuro grossly intact Psych/Mental Status: Flat Affect Microbiology Past 72 Hours 06/03/19 03:35 Stool Stool Occult Blood (YOSELIN) - Final Current Medications Acetaminophen (Tylenol) 1,000 mg PO Q8H [facility] Last Admin: 06/05/19 13:06 Dose: 1,000 mg Documented by: Adalimumab (Humira) 40 mg SC Q14D@1000 [facility] Albuterol Sulfate (Ventolin Aerosols) 2.5 mg INHALATION Q6H PRN PRN PRN Reason: SOB &/OR WHEEZING Alendronate Sodium (Fosamax) 70 mg PO Sa@0700 [facility] Last Admin: 06/03/19 08:41 Dose: 70 mg Documented by: Allopurin[facility] ([facility]oprim) [facility] Last Admin: 06/05/19 07:43 Dose: 100 mg Documented by: Amantadine HCl (Symmetrel) 100 mg PO BID@0900,1300 [facility] Last Admin: 06/05/19 13:05 Dose: 100 mg Documented by: Bisacodyl (Dulcolax) 10 mg RECTAL .PRN X 1 PRN PRN Reason: Constipation Calamine/Phenol (Calmoseptine Ointment) 1 applic TOPICAL BID [facility]; Protocol Last Admin: 06/05/19 09:59 Dose: 1 applicatio Documented by: Carbidopa/Levodopa (Sinemet) 1 tablet PO BIDAC [facility] Last Admin: 06/05/19 07:46 Dose: 1 tablet Documented by: Cholecalciferol (Vitamin D) 2,000 unit PO DAILYCM [facility] Last Admin: 06/05/19 07:43 Dose: 2,000 unit Documented by: Donepezil HCl (Aricept) 10 mg PO QHS [facility] Last Admin: 06/04/19 20:58 Dose: 10 mg Documented by: Enoxaparin Sodium (Lovenox) 30 mg SC BID [facility] Last Admin: 06/05/19 08:54 Dose: 30 mg Documented by: Flecainide Acetate (Tambocor) 50 mg PO BID [facility] Last Admin: 06/05/19 08:54 Dose: 50 mg Documented by: Levothyroxine Sodium (Synthroid) 50 mcg PO DAILY@0600 [facility] Last Admin: 06/05/19 05:55 Dose: 50 mcg Documented by: Lidocaine (Lidoderm Patch) 1 patch TOPICAL DAILY [facility] Last Admin: 06/05/19 08:54 Dose: 1 patch Documented by: Loperamide HCl (Imodium) 2 mg PO Q4H PRN PRN PRN Reason: DIARRHEA/LOOSE STOOLS Last Admin: 06/05/19 14:08 Dose: 2 mg Documented by: Lorazepam (Ativan) 0.5 mg PO QHS PRN PRN PRN Reason: Insomnia Magnesium Hydroxide (Milk Of Magnesia) 30 ml PO .PRN X 1 PRN PRN Reason: Constipation Melatonin (Melatonin) 5 mg PO QHS [facility] Last Admin: 06/04/19 20:57 Dose: 5 mg Documented by: Potassium Chloride (K-Dur) 20 meq PO TIDCM [facility] Last Admin: 06/05/19 12:16 Dose: 20 meq Documented by: Potassium Phos/Sodium Phos (Neutra-Phos Packet) [facility] Last Admin: 06/05/19 07:42 Dose: 1 packet Documented by: Pravastatin Sodium (Pravachol) [facility] Last Admin: 06/04/19 20:58 Dose: 40 mg Documented by: Quetiapine Fumarate (Seroquel) 12.5 mg PO QHS [facility] Last Admin: 06/04/19 20:57 Dose: 12.5 mg Documented by: Senna/Docusate Sodium (Senokot-S, Tamra-Colace) 2 tablet PO BID [facility] Last Admin: 06/05/19 05:54 Dose: Not Given Documented by: Sodium Chloride () 10 - 40 ml IV UD PRN PRN Reason: SALINE FLUSH Last Admin: 06/05/19 12:18 Dose: 10 ml Documented by: Tamsulosin HCl (Flomax) 0.4 mg PO QHS [facility] Last Admin: 06/04/19 20:57 Dose: 0.4 mg Documented by: Tramadol HCl (Ultram) 25 mg PO Q8H [facility] Last Admin: 06/05/19 13:05 Dose: 25 mg Documented by: Medical Necessity - Tobacco Use Smoking Status: Never smoker Tobacco Use: Non-smoker Assessment/Plan All Active Problems (Last Reviewed 05/31/19 @ 09:23 by Belen Caballero, DO) Macrocytic anemia (Acute) Hypokalemia (Acute) Hypernatremia (Acute) Hypophosphatemia (Acute) Subarachnoid hemorrhage following injury (Acute) Ribs, multiple fractures (Acute) Pneumothorax on right (Resolved) Fracture of multiple thoracic vertebrae (Acute) Right pulmonary contusion (Acute) Dysphagia (Acute) Contusion, hip (Acute) Closed right hip fracture (Resolved ~06/2017) Right acetabular fracture (Resolved) TIA (transient ischemic attack) (Resolved) Impressions 1. Debility due to recent fall down steps with resulting SAH, Multiple R rib fractures, R pneumothorax requiring CT (discontinued on 05/30/2019), Multiple vertebral compression fractures 2. Hypernatremia - improving with hydration 3. Hypophosphatemia - resolved 4. Hypokalemia 5. macrocytic anemia which is new and More likely than not due to recent trauma, hemorrhages, ecchymosis. HGB is stable 6. Diarrhea - improving....could this be due to the Humira? Will continue Imodium for now. Add Tramadol 25 mg PO Q 8H for pain. Continue to monitor the facial expressions and restlessness for signs of unrelieved pain. Recheck HH and BMP in the AM. If the HGB is stable will start Xarelto 10 mg daily for DVT prophylaxis. continue therapy - pt is progressing Code Visit Inpatient E&M: 64605 Subs Hosp L2
[2019-06-05 21:00] VITALS: PULSE 72; RESP 16; O2SAT 94
[2019-06-05] MEDS: QUEtiapine 25 MG Tablet 12.5 MG PO (21:20)
[2019-06-05] MEDS: Donepezil HCl 10 MG Tablet PO (21:20)
[2019-06-05] MEDS: MELATONIN 10 MG TABLET 5 MG PO (21:21)
[2019-06-05] MEDS: Tamsulosin HCl 0.4 MG Capsule PO (21:21)
[2019-06-05] MEDS: Pravastatin 40 MG Tablet PO (21:22)
[2019-06-05 22:00] VITALS: BP 150/76; PULSE 72; RESP 16; TEMP 36.7; O2SAT 94
--- NOTE | 2019-06-06 03:54 | NURSING ---
Reviewed and agree with PLATING INSPECTOR documentation and charting.
[2019-06-06] MEDS: Enoxaparin 40 MG/0.4 ML Syringe SC (04:49)
[2019-06-06] MEDS: Levothyroxine 50 MCG Tablet PO (04:55)
[2019-06-06] MEDS: Acetaminophen 500 MG Tablet 1000 MG PO ×3 (04:55→21:50)
[2019-06-06] MEDS: traMADol 50 MG Tablet 25 MG PO ×3 (04:56→21:56)
[2019-06-06] MEDS: Loperamide 2 MG Capsule PO (04:59)
[2019-06-06 05:48] LABS: Hematocrit 29.5 % (40-54)
[2019-06-06 06:12] LABS: Anion Gap 4 (5-15); BUN 20 mg/dL (7-18); BUN/Creat Ratio 22.4 RATIO (10-20); Calcium,Total 7.8 mg/dL (8.5-10.1); Chloride 114 mmol/L (98-107); Creatinine, Serum 0.89 mg/dL (0.70-1.30); EST Glomerular Filtration Rate 87 mL/min (>60); Est Glom Filt Rate - Afr Amer 105 mL/min (>60); Estimated Creatinine Clearance 70.24 ml/min; Glucose 101 mg/dL (74-106); Magnesium 1.8 mg/dL (1.6-2.6); Phosphorus 2.1 mg/dL (2.5-4.9); Potassium 3.4 mmol/L (3.5-5.1); Sodium Level 146 mmol/L (136-145)
[2019-06-06] MEDS: Flecainide 100 MG Tablet 50 MG PO ×2 (08:03→21:50)
[2019-06-06] MEDS: Carbidopa/Levodopa 25/100 Tablet PO ×2 (08:04→17:35)
[2019-06-06] MEDS: Allopurinol 100 MG Tablet PO (08:04)
[2019-06-06] MEDS: Amantadine 100 MG Capsule PO ×2 (08:04→13:30)
[2019-06-06] MEDS: Na Biphos/Potassium Phosphate PACKET 1 PACKET PO ×2 (08:04→17:34)
[2019-06-06] MEDS: Lidocaine 5% Patch 1 PATCH TOPICAL (08:05)
[2019-06-06 08:15] VITALS: BP 141/81; PULSE 71; RESP 16; TEMP 36.4; O2SAT 91
[2019-06-06] MEDS: Menthol/Lanolin/Calamine/Znox 113 GM Tube 1 APPLIC TOPICAL ×2 (08:36→21:55)
[2019-06-06 09:58] VITALS: O2SAT 94
[2019-06-06 21:30] VITALS: BP 153/83; PULSE 65; RESP 16; TEMP 36.3; O2SAT 96; O2SAT 97
[2019-06-06] MEDS: QUEtiapine 25 MG Tablet 12.5 MG PO (21:49)
[2019-06-06] MEDS: Tamsulosin HCl 0.4 MG Capsule PO (21:49)
[2019-06-06] MEDS: Donepezil HCl 10 MG Tablet PO (21:49)
[2019-06-06] MEDS: Pravastatin 40 MG Tablet PO (21:50)
[2019-06-06] MEDS: MELATONIN 10 MG TABLET 5 MG PO (21:50)
--- NOTE | 2019-06-07 00:43 | NURSING ---
Reviewed and agree with MARKET RESEARCHER documentation and charting.
[2019-06-07] MEDS: Levothyroxine 50 MCG Tablet PO (05:34)
[2019-06-07] MEDS: 0.9% Saline Lock 10 ML Syringe IV ×3 (05:34→22:15)
[2019-06-07] MEDS: Enoxaparin 40 MG/0.4 ML Syringe SC (05:34)
[2019-06-07] MEDS: Acetaminophen 500 MG Tablet 1000 MG PO ×3 (05:34→21:46)
[2019-06-07] MEDS: traMADol 50 MG Tablet 25 MG PO ×3 (06:14→21:46)
[2019-06-07] MEDS: Carbidopa/Levodopa 25/100 Tablet PO ×2 (07:40→16:40)
[2019-06-07] MEDS: Allopurinol 100 MG Tablet PO (07:43)
[2019-06-07] MEDS: Loperamide 2 MG Capsule PO ×2 (07:43→11:54)
[2019-06-07] MEDS: Na Biphos/Potassium Phosphate PACKET 1 PACKET PO ×2 (07:45→16:40)
[2019-06-07] MEDS: Menthol/Lanolin/Calamine/Znox 113 GM Tube 1 APPLIC TOPICAL ×2 (07:45→21:45)
[2019-06-07 08:00] VITALS: O2SAT 94
[2019-06-07 08:10] VITALS: BP 162/81; PULSE 65; RESP 18; TEMP 36.6; O2SAT 94
[2019-06-07] MEDS: Amantadine 100 MG Capsule PO ×2 (09:47→13:39)
[2019-06-07] MEDS: Flecainide 100 MG Tablet 50 MG PO ×2 (09:47→21:45)
[2019-06-07] MEDS: Lidocaine 5% Patch 1 PATCH TOPICAL (09:47)
--- NOTE | 2019-06-07 13:35 | PCM.PN.BLA ---
Progress Note Afebile VSS - BP is consistently high Maintaining appropriate oxygen saturation on RA Oral intake is improving. Discussed with nursing - no problems that need addressed Reviewed the PT/OT/ST notes Medication list reviewed. He is alert today and appropriate NAD Lungs - CTA, not coughing, no tachypnea at rest, no conversational dyspnea Heart - RRR, no gallop No peripheral edema Urine is a little dark today - he took 1800 PO yesterday All lab was personally reviewed. Potassium and phosphorous were a little low yesterday and he is still on the supplements. Mag was normal He has no complaints today. He states his pain is controlled. No nausea, no SOB, bowels are functioning well Impressions 1. diarrhea - still requiring Imodium....only had 1 yesterday. Senna has been discontinued. Enteric pathogen panel and C. DIFF were negative. Stool is heme-negative. 2. Hypokalemia 3. Hypophosphatemia 4. Hypertension-start lisinopril 5 mg p.o. daily today. This should also help with potassium. No IV fluids necessary today. Recheck BMP and phosphorus on 06/08 likely needs more fiber in the idet to firm up the stool......will discuss with the major assembler....benefiber maybe Code Visit Inpatient E&M: 79671 Subs Hosp L1
[2019-06-07] MEDS: Lisinopril 5 MG Tablet PO (13:44)
[2019-06-07] MEDS: Pravastatin 40 MG Tablet PO (21:45)
[2019-06-07] MEDS: Tamsulosin HCl 0.4 MG Capsule PO (21:45)
[2019-06-07] MEDS: QUEtiapine 25 MG Tablet 12.5 MG PO (21:45)
[2019-06-07] MEDS: Donepezil HCl 10 MG Tablet PO (21:45)
[2019-06-07 22:00] VITALS: BP 142/81; PULSE 67; RESP 18; TEMP 36.7; O2SAT 96
--- NOTE | 2019-06-07 23:35 | NURSING ---
0- pt yelling out for at this time. pt attempting to pull at catheter and iv site. pt redirected. hs meds administered. 2199- pt continues to yell out on occasion. but snoring when staff in room. 2330 pt snoring and resting quietly.
--- NOTE | 2019-06-08 03:13 | NURSING ---
REVIEWED AND AGREE WITH SAFEKEEPING CLERK'S FUNCTIONAL ASSESSMENT AND HANDOFF CHARTING.
[2019-06-08] MEDS: Enoxaparin 40 MG/0.4 ML Syringe SC (05:22)
[2019-06-08] MEDS: Levothyroxine 50 MCG Tablet PO (05:22)
[2019-06-08] MEDS: traMADol 50 MG Tablet 25 MG PO ×3 (05:23→20:37)
[2019-06-08] MEDS: Acetaminophen 500 MG Tablet 1000 MG PO ×3 (05:23→20:36)
[2019-06-08 06:35] LABS: Anion Gap 4 (5-15); BUN 16 mg/dL (7-18); Calcium,Total 8.6 mg/dL (8.5-10.1); Chloride 109 mmol/L (98-107); Creatinine, Serum 0.84 mg/dL (0.70-1.30); EST Glomerular Filtration Rate 93 mL/min (>60); Est Glom Filt Rate - Afr Amer 113 mL/min (>60); Estimated Creatinine Clearance 74.42 ml/min; Glucose 87 mg/dL (74-106); Phosphorus 2.5 mg/dL (2.5-4.9); Potassium 4.2 mmol/L (3.5-5.1); Sodium Level 143 mmol/L (136-145)
[2019-06-08 07:00] VITALS: BP 157/73; PULSE 72; RESP 18; TEMP 36.4; O2SAT 95
[2019-06-08] MEDS: Carbidopa/Levodopa 25/100 Tablet PO ×2 (07:52→16:55)
[2019-06-08] MEDS: Flecainide 100 MG Tablet 50 MG PO ×2 (07:52→20:36)
[2019-06-08] MEDS: Na Biphos/Potassium Phosphate PACKET 1 PACKET PO (07:52)
[2019-06-08] MEDS: Amantadine 100 MG Capsule PO ×2 (07:52→13:33)
[2019-06-08] MEDS: Allopurinol 100 MG Tablet PO (07:52)
[2019-06-08] MEDS: Lisinopril 5 MG Tablet PO (07:52)
[2019-06-08] MEDS: Lidocaine 5% Patch 1 PATCH TOPICAL (07:53)
[2019-06-08] MEDS: Menthol/Lanolin/Calamine/Znox 113 GM Tube 1 APPLIC TOPICAL ×2 (08:08→20:38)
[2019-06-08] MEDS: Loperamide 2 MG Capsule PO ×2 (09:38→16:56)
--- NOTE | 2019-06-08 12:05 | MRI_ITS ---
We are attempting to reach an attending provider to discuss findings. An addendum with communication details will be sent when the communication is complete. STUDY: MRI BRAIN WITHOUT CONTRAST REASON FOR EXAM: Male, 84 years old. subarachnoid hemorrage s/p fall 05/20/19; hx prior stroke,Parkinsons TECHNIQUE: Standardized multiplanar fat and water weighted pulse sequences were obtained. COMPARISON: 02/26/2018 MRI, CT 05/20/2019 FINDINGS: Normal size of the ventricles and extra-axial spaces for the patient''s age. There are multiple white matter hyperintensities, distributed throughout the deep white matter tracts of the cerebral hemispheres, consistent with moderate chronic white matter ischemic changes. Bifrontal encephalomalacia. Normal bilateral basal ganglia. Normal thalami. Subarachnoid hemorrhage is present in the left frontal sulci, left temporal sulci and bilateral occipital sulci. Overall, subarachnoid hemorrhage has improved compared to prior CT exam. Intraventricular hemorrhage is noted without obstructive hydrocephalus. A small subdural hematoma is present over the right posterior convexity measuring 4 mm in depth. Normal flow voids within the major intracranial circulation suggesting patency by spin echo criteria. Normal sella turcica, pituitary gland, infundibular stalk, optic chiasm and hypothalamus. Normal tectal plate and pineal gland. Normal midbrain, evelio and medulla. Normal cerebellum. Normal basal cisterns. Normal bilateral temporal bones. Normal bilateral internal auditory canals. There are bilateral ocular lens implants with otherwise normal intraorbital contents. Normal visualized paranasal sinuses. Normal calvarium and skull base. Normal visualized soft tissue structures. Normal visualized upper cervical spine. MRI/Brain without Contrast IMPRESSION: Overall improvement in subarachnoid hemorrhage when compared to prior CT exam. Intraventricular hemorrhage and a small right posterior subdural hematoma are noted, not visible on prior CT exam. No evidence of acute infarct. Electronically Signed: Dean Corona MD at 16:31 EST Tel , Service support ,
--- NOTE | 2019-06-08 15:00 | NURSING ---
back to floor from mri
[2019-06-08 19:41] VITALS: BP 118/55; PULSE 60; RESP 18; TEMP 36.4; O2SAT 95
[2019-06-08] MEDS: Pravastatin 40 MG Tablet PO (20:36)
[2019-06-08] MEDS: Donepezil HCl 10 MG Tablet PO (20:37)
[2019-06-08] MEDS: QUEtiapine 25 MG Tablet 12.5 MG PO (20:37)
[2019-06-08] MEDS: Tamsulosin HCl 0.4 MG Capsule PO (20:37)
[2019-06-09] MEDS: Levothyroxine 50 MCG Tablet PO (04:39)
[2019-06-09] MEDS: Enoxaparin 40 MG/0.4 ML Syringe SC (04:39)
[2019-06-09] MEDS: traMADol 50 MG Tablet 25 MG PO ×3 (04:39→21:43)
[2019-06-09] MEDS: Acetaminophen 500 MG Tablet 1000 MG PO ×3 (04:39→21:43)
[2019-06-09] MEDS: Loperamide 2 MG Capsule PO (04:40)
[2019-06-09] MEDS: Carbidopa/Levodopa 25/100 Tablet PO ×2 (06:21→16:39)
[2019-06-09 07:53] VITALS: BP 169/79; PULSE 66; RESP 18; TEMP 36.7; O2SAT 94
[2019-06-09] MEDS: Allopurinol 100 MG Tablet PO (08:01)
[2019-06-09] MEDS: Amantadine 100 MG Capsule PO ×2 (08:01→13:08)
[2019-06-09] MEDS: Lisinopril 5 MG Tablet PO ×2 (08:01→13:08)
[2019-06-09] MEDS: Flecainide 100 MG Tablet 50 MG PO ×2 (08:01→21:42)
[2019-06-09] MEDS: Lidocaine 5% Patch 1 PATCH TOPICAL (08:02)
--- NOTE | 2019-06-09 11:26 | PCM.PROGNOTE ---
Patient Problems: Active and Suspected Problems (Last Reviewed 05/31/19 @ 09:23 by Belen Caballero DO) Macrocytic anemia (Acute) Hypokalemia (Acute) Hypernatremia (Acute) Hypophosphatemia (Acute) Subarachnoid hemorrhage following injury (Acute) Ribs, multiple fractures (Acute) Right second, third and fourth rib fractures posteriorly Fracture of multiple thoracic vertebrae (Acute) Moderate at T3, mild at T4, mild at T5, mild at T6, mild at T7 and moderate to severe at T12. Also with fractures of the transverse processes of T10, T11 and T12. Right pulmonary contusion (Acute) Dysphagia (Acute) Subjective: Afebile VSS - still with systolic HTN Maintaining appropriate oxygen saturation on RA Oral intake is good Discussed with nursing - no problems that need addressed Reviewed the PT/OT/ST notes Medication list reviewed. MRI yesterday reported as bifrontal encephalomalacia, multiple white matter hyperintensities distributed throughout the deep white matter tracts of the cerebral hemispheres consistent with moderate chronic white matter ischemic changes. Subarachnoid hemorrhage is present in the left frontal sulci, left temporal sulci and bilateral occipital sulci which has overall improved compared to a prior CT scan him on the day of his fall....then transferred to [facility]. Intraventricular hemorrhage was noted without obstructive hydrocephalus. There is a small subdural hematoma over the right posterior convexity measuring 4 mm in depth. No acute infarcts. Pt denies OROURKE. He is alert and progressing in PT. - Physical Exam Vitals/I&O's: Vital Signs Temp Pulse Resp BP Pulse Ox 98.1 F 66 18 169/79 H 94 06/09/19 07:53 06/09/19 07:53 06/09/19 07:53 06/09/19 07:53 06/09/19 07:53 Oxygen Flow Rate (L/min) 2 Oxygen Delivery Method Room Air Weight: 213 lb 6.519 oz Body Mass Index (BMI) 27.0 Intake and Output for Last 24 Hours 06/07/19 06/08/19 06/09/19 23:59 23:59 23:59 Intake Total 1060 / 1060 1060 / 1060 240 / 240 Output Total 1600 / 1600 1150 / 1150 1050 / 1050 Balance -540 / -540 -90 / -90 -810 / -810 General: Alert, Cooperative, No apparent distress HEENT: PERRLA, - - very [place] and blind in the right eye Oral: Moist Mucosa Neck: Supple, No Nodes, Trachea Midline Lungs: Clear to auscultation Cardiovascular: Regular rate, Regular Rhythm, Normal S1, Normal S2, No Gallop Abdomen: Bowel Sounds Present, Soft, Non Tender, Non-Distended Extremities: No edema Psych/Mental Status: Normal Affect, Appropriate Current Medications Acetaminophen (Tylenol) 1,000 mg PO Q8H [facility] Last Admin: 06/09/19 04:39 Dose: 1,000 mg Documented by: Adalimumab (Humira) 40 mg SC Q14D@1000 [facility] Albuterol Sulfate (Ventolin Aerosols) 2.5 mg INHALATION Q6H PRN PRN PRN Reason: SOB &/OR WHEEZING Alendronate Sodium (Fosamax) 70 mg PO Sa@0700 [facility] Last Admin: 06/03/19 08:41 Dose: 70 mg Documented by: Allopurin[facility] ([facility]oprim) [facility] Last Admin: 06/09/19 08:01 Dose: 100 mg Documented by: Amantadine HCl (Symmetrel) 100 mg PO BID@0900,1300 [facility] Last Admin: 06/09/19 08:01 Dose: 100 mg Documented by: Bisacodyl (Dulcolax) 10 mg RECTAL .PRN X 1 PRN PRN Reason: Constipation Calamine/Phenol (Calmoseptine Ointment) 1 applic TOPICAL BID [facility]; Protocol Last Admin: 06/08/19 20:38 Dose: 1 applicatio Documented by: Carbidopa/Levodopa (Sinemet) 1 tablet PO BIDAC [facility] Last Admin: 06/09/19 06:21 Dose: 1 tablet Documented by: Cholecalciferol (Vitamin D) 2,000 [facility] Last Admin: 06/09/19 08:01 Dose: 2,000 unit Documented by: Donepezil HCl (Aricept) 10 mg PO QHS [facility] Last Admin: 06/08/19 20:37 Dose: 10 mg Documented by: Enoxaparin Sodium (Lovenox) 40 mg SC DAILY@0600 [facility] Last Admin: 06/09/19 04:39 Dose: 40 mg Documented by: Flecainide Acetate (Tambocor) 50 mg PO BID [facility] Last Admin: 06/09/19 08:01 Dose: 50 mg Documented by: Levothyroxine Sodium (Synthroid) 50 mcg PO DAILY@0600 [facility] Last Admin: 06/09/19 04:39 Dose: 50 mcg Documented by: Lidocaine (Lidoderm Patch) 1 patch TOPICAL DAILY [facility] Last Admin: 06/09/19 08:02 Dose: 1 patch Documented by: Loperamide HCl (Imodium) 2 mg PO Q4H PRN PRN PRN Reason: DIARRHEA/LOOSE STOOLS Last Admin: 06/09/19 04:40 Dose: 2 mg Documented by: Magnesium Hydroxide (Milk Of Magnesia) 30 ml PO .PRN X 1 PRN PRN Reason: Constipation Potassium Chloride (K-Dur) 20 meq PO DAILY [facility] Last Admin: 06/09/19 08:01 Dose: 20 meq Documented by: Pravastatin Sodium (Pravachol) 40 mg PO QHS [facility] Last Admin: 06/08/19 20:36 Dose: 40 mg Documented by: Quetiapine Fumarate (Seroquel) 12.5 mg PO QHS [facility] Last Admin: 06/08/19 20:37 Dose: 12.5 mg Documented by: Sodium Chloride () 10 - 40 ml IV UD PRN PRN Reason: SALINE FLUSH Last Admin: 06/07/19 22:15 Dose: 10 ml Documented by: Tamsulosin HCl (Flomax) 0.4 mg PO QHS [facility] Last Admin: 06/08/19 20:37 Dose: 0.4 mg Documented by: Tramadol HCl (Ultram) 25 mg PO Q8H [facility] Last Admin: 06/09/19 04:39 Dose: 25 mg Documented by: Medical Necessity - Tobacco Use Smoking Status: Never smoker Tobacco Use: Non-smoker Assessment/Plan All Active Problems (Last Reviewed 05/31/19 @ 09:23 by Belen Caballero DO) Macrocytic anemia (Acute) Hypokalemia (Acute) Hypernatremia (Acute) Hypophosphatemia (Acute) Subarachnoid hemorrhage following injury (Acute) Ribs, multiple fractures (Acute) Pneumothorax on right (Resolved) Fracture of multiple thoracic vertebrae (Acute) Right pulmonary contusion (Acute) Dysphagia (Acute) Contusion, hip (Acute) Closed right hip fracture (Resolved ~06/2017) Right acetabular fracture (Resolved) TIA (transient ischemic attack) (Resolved) Impressions 1. Debility due to recent fall down steps with resulting SAH, Multiple R rib fractures, R pneumothorax requiring CT (discontinued on 05/30/2019), Multiple vertebral compression fractures 2. Hypernatremia - resolved 3. Hypophosphatemia - resolved 4. Hypokalemia- resolved 5. macrocytic anemia which is new and More likely than not due to recent trauma, hemorrhages, ecchymosis. HGB is stable 6. Diarrhea - improving....could this be due to the Humira? Will continue Imodium for now. 7. HTN - increase the Lisinopril to 10 mg today Recheck BMP, H/H and Phos on Wednesday progressing well in therapy Reviewed the results of the MRI done 06/08/19 - I suspect there are new new areas of hemorrhage.......these areas likely evolved on the night he was transferred to [facility]......I reviewed all the notes that were faxed to us from [facility] at the time of transfer to [facility] and the only imaging of the brain was a CT brain at the time of admission. Will requisition all the imaging reports from [facility]. No other imaging needed now......continue to monitor for OROURKE, mental status changes and progress in therapy. Recheck lab on Wednesday Code Visit Inpatient E&M: [id number] Subs Hosp L2
[2019-06-09] MEDS: Menthol/Lanolin/Calamine/Znox 113 GM Tube 1 APPLIC TOPICAL ×2 (13:09→21:42)
--- NOTE | 2019-06-09 13:50 | NURSING ---
medical record request faxed to [facility] for brain imaging per dr mcclelland request.
[2019-06-09] MEDS: Donepezil HCl 10 MG Tablet PO (21:41)
[2019-06-09] MEDS: Pravastatin 40 MG Tablet PO (21:42)
[2019-06-09] MEDS: Tamsulosin HCl 0.4 MG Capsule PO (21:42)
[2019-06-09] MEDS: QUEtiapine 25 MG Tablet 12.5 MG PO (21:42)
[2019-06-09 22:00] VITALS: BP 123/73; PULSE 64; RESP 20; TEMP 36.8; O2SAT 94
--- NOTE | 2019-06-09 22:00 | NURSING ---
pt agitated and attempting to crawl out of bed at this time. pt yelling out and pulling at neely catheter. pt confused at unable to reorient at this time. pt callng out for and states he is getting up and walking home. hs medications given- 12.5 mg of seroquel. will continue to monitor.
--- NOTE | 2019-06-10 01:00 | NURSING ---
pt yelling out for at this time. pt attends changed and pt became more tired. pt eyes closed and resting.
--- NOTE | 2019-06-10 01:45 | NURSING ---
pt agitated and yelling out at this time. pt pulling at neely catheter adn attempting to crawl out of bed. pt agtiated with staff and yelling at staff. pt unable to reorient and reason with. bone process operator at bedside. vitals obtained. hospitalist paged.
[2019-06-10 01:55] VITALS: BP 177/83; PULSE 75; RESP 18; TEMP 36.6; O2SAT 94
--- NOTE | 2019-06-10 02:20 | NURSING ---
hospitalist dr kee aware of pt condition and prescribed 6 mg melatonin. to be given to pt. will continue to have 1:1 sitter until further notice.will continue to monitor
[2019-06-10] MEDS: MELATONIN 3 MG TABLET 6 MG PO (02:21)
--- NOTE | 2019-06-10 02:31 | NURSING ---
sitting at pt bedside and pt grabbing at air and hallucinating. pt states I let the cat outside. pt confused and unable to reorient.
--- NOTE | 2019-06-10 02:59 | NURSING ---
pt continues to hallucinate and grab at the air, pt continues to grab at neely cath. pt agitated [facility] staff when attempting to to redirect from pulling on cath. pt yelling out and restless in bed. staff continues to sit 1:1
--- NOTE | 2019-06-10 03:22 | NURSING ---
Pt continues to be agitated, pullling on neely and nurses call light. Visual hallucinations (reaching out with arms and picking the air). Yelling at staff. Hospitalist paged, states will order med.
--- NOTE | 2019-06-10 05:04 | NURSING ---
At 0400 Irena still not up from pharmacy - pt now sleeping with easy and reg respirations s/p melatonin. Irena jauregui, will be notified in am
[2019-06-10] MEDS: traMADol 50 MG Tablet 25 MG PO ×3 (06:48→22:07)
[2019-06-10] MEDS: Enoxaparin 40 MG/0.4 ML Syringe SC (06:48)
[2019-06-10] MEDS: Acetaminophen 500 MG Tablet 1000 MG PO ×3 (06:48→22:06)
[2019-06-10] MEDS: Levothyroxine 50 MCG Tablet PO (06:48)
[2019-06-10] MEDS: Carbidopa/Levodopa 25/100 Tablet PO ×2 (06:51→16:18)
[2019-06-10] MEDS: Alendronate Sodium 70 MG Tablet PO (06:51)
[2019-06-10 07:48] VITALS: BP 107/51; PULSE 62; RESP 18; TEMP 36.7; O2SAT 95
[2019-06-10] MEDS: Flecainide 100 MG Tablet 50 MG PO ×2 (07:59→22:06)
[2019-06-10] MEDS: Amantadine 100 MG Capsule PO ×2 (07:59→13:06)
[2019-06-10] MEDS: Loperamide 2 MG Capsule PO (07:59)
[2019-06-10] MEDS: Lidocaine 5% Patch 1 PATCH TOPICAL (07:59)
[2019-06-10] MEDS: Lisinopril 10 MG Tablet PO (07:59)
[2019-06-10] MEDS: Allopurinol 100 MG Tablet PO (08:00)
[2019-06-10] MEDS: Menthol/Lanolin/Calamine/Znox 113 GM Tube 1 APPLIC TOPICAL ×2 (08:00→22:06)
--- NOTE | 2019-06-10 09:49 | NURSING ---
Pt attempting to get out of recliner at this time stating I need to get out of here and get home., attempted to re-orient and 1:1 given with little effect at this time. Pt brought out to multi purpose room at this time to be observed by nurse. Denies pain or discomfort. Pt now participating in therapy and tolerating well, will continue to monitor.
[2019-06-10 22:00] VITALS: BP 121/59; PULSE 69; RESP 18; TEMP 36.5; O2SAT 92
[2019-06-10] MEDS: Donepezil HCl 10 MG Tablet PO (22:06)
[2019-06-10] MEDS: Pravastatin 40 MG Tablet PO (22:06)
[2019-06-10] MEDS: Tamsulosin HCl 0.4 MG Capsule PO (22:06)
[2019-06-10] MEDS: QUEtiapine 25 MG Tablet PO (22:06)
--- NOTE | 2019-06-11 00:23 | NURSING ---
Reviewed and agree with LPNs handoff
[2019-06-11] MEDS: Enoxaparin 40 MG/0.4 ML Syringe SC (06:25)
[2019-06-11] MEDS: traMADol 50 MG Tablet 25 MG PO ×3 (06:26→19:52)
[2019-06-11] MEDS: Acetaminophen 500 MG Tablet 1000 MG PO ×3 (06:26→19:52)
[2019-06-11] MEDS: Levothyroxine 50 MCG Tablet PO (06:26)
[2019-06-11] MEDS: Loperamide 2 MG Capsule PO ×2 (06:27→19:54)
[2019-06-11] MEDS: Carbidopa/Levodopa 25/100 Tablet PO ×2 (06:28→17:27)
[2019-06-11 07:03] LABS: Hematocrit 36.3 % (40-54); Hemoglobin 11.1 g/dL (13.0-16.5)
[2019-06-11 07:40] VITALS: BP 152/84; PULSE 58; RESP 16; TEMP 37.1; O2SAT 95
[2019-06-11 07:41] LABS: Anion Gap 3 (5-15); BUN 20 mg/dL (7-18); Calcium,Total 8.2 mg/dL (8.5-10.1); Chloride 108 mmol/L (98-107); EST Glomerular Filtration Rate 76 mL/min (>60); Est Glom Filt Rate - Afr Amer 92 mL/min (>60); Estimated Creatinine Clearance 62.51 ml/min; Glucose 86 mg/dL (74-106); Phosphorus 2.4 mg/dL (2.5-4.9); Potassium 3.9 mmol/L (3.5-5.1); Sodium Level 141 mmol/L (136-145)
[2019-06-11] MEDS: Lidocaine 5% Patch 1 PATCH TOPICAL (07:56)
[2019-06-11] MEDS: Amantadine 100 MG Capsule PO ×2 (07:57→13:20)
[2019-06-11] MEDS: Allopurinol 100 MG Tablet PO (07:57)
[2019-06-11] MEDS: Flecainide 100 MG Tablet 50 MG PO ×2 (07:58→19:52)
[2019-06-11] MEDS: Lisinopril 10 MG Tablet PO (07:59)
[2019-06-11] MEDS: Menthol/Lanolin/Calamine/Znox 113 GM Tube 1 APPLIC TOPICAL ×2 (08:07→19:53)
--- NOTE | 2019-06-11 15:31 | PCM.PN.BLA ---
Progress Note Afebrile Vital signs stable Maintaining appropriate oxygen saturation on room air. Hemoglobin today is 11.1, up from 9.0 on 06/06/2019. Sodium is normal at 141 and the potassium is 3.9. BUN is 20 and the creatinine is stable at 1.0. Phosphorus is mildly decreased to 2.4. Potassium is stable on 20 MEQ daily He has been agitated lately and Seroquel was increased to 25 mg. He is sleepy today. I spoke to his while she was visiting and she tells me that the Seroquel was started for hallucinations. He is having visual hallucinations today and is picking at things in the air. He is not aggressive today. She tells me that Lewy body dementia has been mentioned to her in the past. He is awake but confused. He does not appear to be in any distress. Lungs - CTA Heart - RRR, no gallop no edema ABD is soft and ND. No guarding with palpation Impressions 1. S/P traumatic intracerebral and interventricular bleed due to a fall 2. 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 Also having hallucinations.....may actually have Lewy body dementia. CT brain today and compare to the MRI from a few days ago since the aggressive behavior is new. Updated his . Will review the CT when it is done. Code Visit Inpatient E&M: 15192 Subs Hosp L2
--- NOTE | 2019-06-11 16:38 | CT_ITS ---
STUDY: CT BRAIN WITHOUT CONTRAST REASON FOR EXAM: Male, 84 years old. Trauma subarachnoid hemorrhage follow-up RADIATION DOSAGE (If Supplied By Facility): CTDIvol = ( 44.99 ) mGy, DLP = ( 796.11 ) mGycm TECHNIQUE: Transaxial CT imaging of the brain was performed without administration of intravenous contrast material. Individualized dose optimization techniques were used for this CT. COMPARISON: 20 May 2019, 08 June 2019 FINDINGS: There is [id number] amount of bilaterally scattered convexity frontal and parietal subarachnoid hemorrhage. There is a small amount of intraventricular acute hemorrhage. There is a small right occipital subdural subacute stage hematoma measuring less than 3 mm. There is bilateral frontal posttraumatic encephalomalacia. 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 Ventricular size is stable since prior''s. The skull is intact. Appearance is similar to recent prior MR. CT/Brain/Head without Contrast IMPRESSION: 1. Stable moderate bilateral convexity frontoparietal subarachnoid hemorrhage. 2. Small amount of intraventricular hemorrhage. 3. Bilateral chronic frontal postconcussive encephalomalacia. 4. Small right occipital 3 mm subdural subacute stage hematoma. 5. Stable moderate communicating hydrocephalus. 6. No change since immediate prior. Electronically Signed: Yanick Justice, at 17:58 EST Tel , Service support ,
[2019-06-11] MEDS: Na Biphos/Potassium Phosphate PACKET 1 PACKET PO (19:51)
[2019-06-11] MEDS: Donepezil HCl 10 MG Tablet PO (19:51)
[2019-06-11] MEDS: Tamsulosin HCl 0.4 MG Capsule PO (19:52)
[2019-06-11] MEDS: Pravastatin 40 MG Tablet PO (19:52)
[2019-06-11] MEDS: QUEtiapine 25 MG Tablet PO (19:52)
[2019-06-11 20:20] VITALS: BP 130/69; PULSE 65; RESP 18; TEMP 36.7; O2SAT 92
--- NOTE | 2019-06-12 01:47 | NURSING ---
Reviewed and agree with LPNs handoff
[2019-06-12] MEDS: Levothyroxine 50 MCG Tablet PO (05:46)
[2019-06-12] MEDS: Enoxaparin 40 MG/0.4 ML Syringe SC (05:46)
[2019-06-12] MEDS: Acetaminophen 500 MG Tablet 1000 MG PO ×3 (05:46→20:00)
[2019-06-12] MEDS: traMADol 50 MG Tablet 25 MG PO ×3 (05:52→20:00)
[2019-06-12 07:10] VITALS: BP 167/79; PULSE 72; RESP 18; TEMP 36.8; O2SAT 94
[2019-06-12] MEDS: Flecainide 100 MG Tablet 50 MG PO ×2 (07:39→20:00)
[2019-06-12] MEDS: Amantadine 100 MG Capsule PO ×2 (07:42→14:34)
[2019-06-12] MEDS: Lisinopril 10 MG Tablet PO (07:42)
[2019-06-12] MEDS: Na Biphos/Potassium Phosphate PACKET 1 PACKET PO ×2 (07:42→20:00)
[2019-06-12] MEDS: Allopurinol 100 MG Tablet PO (07:42)
[2019-06-12] MEDS: Lidocaine 5% Patch 1 PATCH TOPICAL (07:43)
[2019-06-12] MEDS: Carbidopa/Levodopa 25/100 Tablet PO ×2 (07:43→16:02)
[2019-06-12] MEDS: Menthol/Lanolin/Calamine/Znox 113 GM Tube 1 APPLIC TOPICAL ×2 (07:49→20:00)
--- NOTE | 2019-06-12 14:42 | CASEMGMT ---
Social Work IDT met with patient, , daughter and ROBBY for Team Meeting. Discussed patient's progress in therapy. Pt is able to move his arms and feed self on this date while supervised, beginning to regain strength and ROM. Max to total assist for all ADLs, max x3 for modified toilet transfers, max x2 for standing for 2 mins, max x2 for stand pivot transfers, and was able to walk 90 ft mod x2 with w/c follow. Pt is on puree, nectar diet with small bits and sips by teaspoon as pt is impulsive and wants to gulp liquids then aspirates. Pt has poor speech, disorientation and is inconsistent with confusion. 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 Explained Medicare ELOS 19 days with DC date 06/18. Discussed with the family DC options. states she cannot take him home at this time and needs more therapy. Provided list of SNFs and requested referrals to several facilities. Referrals made to [facility], [facility], [facility] will be a back up. Will continue to follow. Maria Luz Daniel, LIN BECERRAW
[2019-06-12] MEDS: Loperamide 2 MG Capsule PO (16:02)
[2019-06-12 20:00] VITALS: BP 136/72; PULSE 65; RESP 16; TEMP 36.4; O2SAT 95
[2019-06-12] MEDS: QUEtiapine 25 MG Tablet PO (20:00)
[2019-06-12] MEDS: Donepezil HCl 10 MG Tablet PO (20:00)
[2019-06-12] MEDS: Tamsulosin HCl 0.4 MG Capsule PO (20:00)
[2019-06-12] MEDS: Pravastatin 40 MG Tablet PO (20:00)
[2019-06-13] MEDS: Levothyroxine 50 MCG Tablet PO (05:21)
[2019-06-13] MEDS: Enoxaparin 40 MG/0.4 ML Syringe SC (05:21)
[2019-06-13] MEDS: Acetaminophen 500 MG Tablet 1000 MG PO ×3 (05:21→22:12)
[2019-06-13] MEDS: traMADol 50 MG Tablet 25 MG PO ×3 (05:22→22:12)
[2019-06-13] MEDS: Carbidopa/Levodopa 25/100 Tablet PO ×2 (08:21→15:09)
[2019-06-13] MEDS: Allopurinol 100 MG Tablet PO (08:21)
[2019-06-13] MEDS: Amantadine 100 MG Capsule PO ×2 (08:23→14:26)
[2019-06-13] MEDS: Na Biphos/Potassium Phosphate PACKET 1 PACKET PO ×2 (08:24→22:14)
[2019-06-13] MEDS: Flecainide 100 MG Tablet 50 MG PO ×2 (08:24→22:12)
[2019-06-13] MEDS: Lidocaine 5% Patch 1 PATCH TOPICAL (08:25)
[2019-06-13] MEDS: Lisinopril 10 MG Tablet PO (08:25)
[2019-06-13] MEDS: Menthol/Lanolin/Calamine/Znox 113 GM Tube 1 APPLIC TOPICAL ×2 (08:26→22:13)
[2019-06-13] MEDS: NYSTATIN 500,000 UNIT/5 ML UDC 500000 UNIT PO ×4 (08:33→22:11)
[2019-06-13] MEDS: Loperamide 2 MG Capsule PO (08:35)
[2019-06-13 08:51] VITALS: BP 160/98; PULSE 57; RESP 16; TEMP 36.8; O2SAT 95
[2019-06-13 08:52] VITALS: BP 135/61; PULSE 64
--- NOTE | 2019-06-13 15:14 | CASEMGMT ---
Social Work [facility] does not have availability. [facility] denied. [facility] accepted and spoke with . Pt will DC to [facility] 06/18 for continued therapy. Plan: DC to [facility] 06/18. LIN AmandaW
[2019-06-13 21:00] VITALS: PULSE 63; RESP 16; O2SAT 93
[2019-06-13 22:00] VITALS: BP 126/65; PULSE 63; RESP 16; TEMP 36.7; O2SAT 93
[2019-06-13] MEDS: Donepezil HCl 10 MG Tablet PO (22:12)
[2019-06-13] MEDS: Pravastatin 40 MG Tablet PO (22:12)
[2019-06-13] MEDS: Tamsulosin HCl 0.4 MG Capsule PO (22:13)
[2019-06-13] MEDS: QUEtiapine 25 MG Tablet PO (22:13)
--- NOTE | 2019-06-13 22:38 | NURSING ---
2130 neely d/c'd and pt tolerated this well . staff provided sumanth-care. there was 550cc of dark yellow clear urine in neely when emptied .
--- NOTE | 2019-06-14 00:22 | NURSING ---
pt awake and yelling out for 'James who is pt brother, pt is convinced that he is leaving tonight . pt was incontinent of a large amt of urine and bladder scan showed 0cc left in pt bladder. pt cleansed and new attends applied and positioned for comfort
--- NOTE | 2019-06-14 03:45 | NURSING ---
Reviewed and agree with [employer] documentation and charting.
[2019-06-14] MEDS: traMADol 50 MG Tablet 25 MG PO ×3 (06:24→20:44)
[2019-06-14] MEDS: Levothyroxine 50 MCG Tablet PO (06:24)
[2019-06-14] MEDS: Acetaminophen 500 MG Tablet 1000 MG PO ×3 (06:24→20:41)
[2019-06-14] MEDS: Enoxaparin 40 MG/0.4 ML Syringe SC (06:24)
[2019-06-14] MEDS: Carbidopa/Levodopa 25/100 Tablet PO ×2 (06:25→16:32)
[2019-06-14 07:00] VITALS: BP 169/77; PULSE 92; RESP 16; TEMP 36.6; O2SAT 96
[2019-06-14] MEDS: NYSTATIN 500,000 UNIT/5 ML UDC 500000 UNIT PO ×4 (08:07→20:43)
[2019-06-14] MEDS: Loperamide 2 MG Capsule PO ×2 (08:07→20:58)
[2019-06-14] MEDS: Lisinopril 10 MG Tablet PO (08:07)
[2019-06-14] MEDS: Allopurinol 100 MG Tablet PO (08:07)
[2019-06-14] MEDS: Amantadine 100 MG Capsule PO ×2 (08:07→12:52)
[2019-06-14] MEDS: Flecainide 100 MG Tablet 50 MG PO ×2 (08:07→20:42)
[2019-06-14] MEDS: Na Biphos/Potassium Phosphate PACKET 1 PACKET PO ×2 (08:08→20:42)
[2019-06-14] MEDS: Menthol/Lanolin/Calamine/Znox 113 GM Tube 1 APPLIC TOPICAL ×2 (08:13→20:44)
[2019-06-14] MEDS: Lidocaine 5% Patch 1 PATCH TOPICAL (08:44)
--- NOTE | 2019-06-14 09:15 | PCM.PN.BLA ---
Progress Note Afebile VSS Maintaining appropriate oxygen saturation on RA Oral intake is good Discussed with nursing - he got a little agitated last night....the Seroquel was not given until late. His was able to calm him down over the phone. He is very alert today and told me good morning before I was even able to talk with him. Reviewed the PT/OT notes I watched him ambulate in the halls with a FWW yesterday and he was quite steady. Medication list reviewed. He received Humira on the as scheduled......he gets this every 2 weeks sometimes incontinent of urine and sometimes using the urinal or the toilet. Ramirez was removed on the alert, conversant, oriented to person. He has no complaints today Lungs - CTA Heart RRR, no gallop abd - soft, NT, ND, BS's heard in all 4 quadrants no ankle edema. Impressions 1. urine retention - post void residual was 0 after he was incontinent of a large amount of urine last night. Flomax has helped. 2. Dementia with behavioral disturbance - better with increasing the Seroquel to 25 mg Q HS....he definitely sundowns.....reinforced with nursing the need to give this medication earlier in the evening...when it is ordered. 3. Debility due to recent fall down steps with resulting SAH, Multiple R rib fractures, R pneumothorax requiring CT (discontinued on 05/30/2019), Multiple vertebral compression fractures....CT scan of the brain on 06/11 shows it to be stable. 4. Hypophosphatemia will recheck lab again in the a.m. 5. Hypokalemia-stable on 20 mEq of potassium daily Continue therapy Plan is for [place] [facility] on 06/18/19 for continued therapy Code Visit Inpatient E&M: 69796 Subs Hosp L2
[2019-06-14 13:02] VITALS: BP 153/69; PULSE 72
[2019-06-14 19:50] VITALS: BP 114/67; PULSE 70; RESP 16; TEMP 36.6; O2SAT 97
[2019-06-14 20:30] VITALS: PULSE 70; RESP 16; O2SAT 97
[2019-06-14] MEDS: Donepezil HCl 10 MG Tablet PO (20:42)
[2019-06-14] MEDS: Tamsulosin HCl 0.4 MG Capsule PO (20:42)
[2019-06-14] MEDS: Pravastatin 40 MG Tablet PO (20:42)
[2019-06-14] MEDS: QUEtiapine 25 MG Tablet PO (20:42)
[2019-06-15] MEDS: Acetaminophen 500 MG Tablet 1000 MG PO ×3 (05:28→20:23)
[2019-06-15] MEDS: Enoxaparin 40 MG/0.4 ML Syringe SC (05:29)
[2019-06-15] MEDS: traMADol 50 MG Tablet 25 MG PO ×3 (05:29→20:23)
[2019-06-15] MEDS: Levothyroxine 50 MCG Tablet PO (05:29)
[2019-06-15 06:03] LABS: Hematocrit 37.7 % (40-54); Hemoglobin 11.5 g/dL (13.0-16.5)
[2019-06-15 06:27] LABS: Anion Gap 5 (5-15); BUN 18 mg/dL (7-18); Calcium,Total 8.7 mg/dL (8.5-10.1); Chloride 110 mmol/L (98-107); EST Glomerular Filtration Rate 76 mL/min (>60); Est Glom Filt Rate - Afr Amer 92 mL/min (>60); Estimated Creatinine Clearance 62.51 ml/min; Glucose 89 mg/dL (74-106); Phosphorus 2.6 mg/dL (2.5-4.9); Potassium 3.9 mmol/L (3.5-5.1); Sodium Level 144 mmol/L (136-145)
[2019-06-15] MEDS: Flecainide 100 MG Tablet 50 MG PO ×2 (08:09→20:23)
[2019-06-15] MEDS: Allopurinol 100 MG Tablet PO (08:10)
[2019-06-15] MEDS: Lisinopril 10 MG Tablet PO (08:10)
[2019-06-15] MEDS: NYSTATIN 500,000 UNIT/5 ML UDC 500000 UNIT PO ×4 (08:10→20:23)
[2019-06-15] MEDS: Na Biphos/Potassium Phosphate PACKET 1 PACKET PO ×2 (08:10→20:23)
[2019-06-15 10:00] VITALS: BP 154/68; PULSE 76; RESP 16; TEMP 36.4; O2SAT 96
[2019-06-15] MEDS: Lidocaine 5% Patch 1 PATCH TOPICAL (10:03)
[2019-06-15] MEDS: Menthol/Lanolin/Calamine/Znox 113 GM Tube 1 APPLIC TOPICAL ×2 (10:04→20:42)
[2019-06-15] MEDS: Loperamide 2 MG Capsule PO ×2 (10:05→20:24)
[2019-06-15] MEDS: Carbidopa/Levodopa 25/100 Tablet PO ×2 (10:13→16:23)
[2019-06-15] MEDS: Amantadine 100 MG Capsule PO ×2 (10:13→14:00)
--- NOTE | 2019-06-15 10:22 | PN_ITS ---
Progress Note Afebile VSS Maintaining appropriate oxygen saturation on RA Oral intake is good. He was able to take 1500 cc p.o. on 06/14/2019. sometimes incontinent of urine and sometimes can use the urinal or let you know that he has to use the bathroom Discussed with nursing - no problems that need addressed Reviewed the PT/OT/ST notes Medication list reviewed. All lab was personally reviewed. The hemoglobin today is 11.5 and continues to improve. BMP is unremarkable. Creatinine is stable at 1.00 and the BUN is down to 18. Phosphorus and magnesium are within normal limits. Alert, no apparent distress, pleasant, his voice is louder and stronger than at admission Lungs-clear to auscultation, not tachypneic, no conversational dyspnea Heart-regular rate and rhythm, no gallop, no rub, normal S1, normal S2 Abdomen-soft, nontender, nondistended, normal bowel sounds heard in all 4 quadrants, no guarding with palpation No peripheral edema, denies calf tenderness Impressions 1. urine retention - post void residual was 0 after he was incontinent of a large amount of urine last night. Restarting Flomax has helped. 2. Dementia with behavioral disturbance - better with increasing the Seroquel to 25 mg Q HS....he definitely sundowns.....reinforced with nursing the need to give this medication earlier in the evening...when it is ordered. 3. Debility due to recent fall down steps with resulting SAH, Multiple R rib fractures, R pneumothorax requiring CT (discontinued on 05/30/2019), Multiple vertebral compression fractures....CT scan of the brain on 06/11 shows it to be stable. Pain denies pain. Will continue the Acetaminophen 1,000 Q8H and the PRN Tramadol 4. Hypophosphatemia-resolved 5. Hypokalemia-resolved, stable on 20 mEq of potassium daily Code Visit Inpatient E&M: [id number] [facility] Hosp L1
[2019-06-15] MEDS: Donepezil HCl 10 MG Tablet PO (20:22)
[2019-06-15] MEDS: QUEtiapine 25 MG Tablet PO (20:22)
[2019-06-15] MEDS: Pravastatin 40 MG Tablet PO (20:23)
[2019-06-15] MEDS: Tamsulosin HCl 0.4 MG Capsule PO (20:23)
[2019-06-15 22:00] VITALS: BP 145/68; PULSE 67; RESP 18; TEMP 36.6; O2SAT 95
--- NOTE | 2019-06-16 04:02 | NURSING ---
REVIEWED AND AGREE WITH APPLICATION SUPPORT LEAD'S FUNCTIONAL ASSESSMENT AND HANDOFF CHARTING.
[2019-06-16] MEDS: Acetaminophen 500 MG Tablet 1000 MG PO ×3 (06:02→20:34)
[2019-06-16] MEDS: Enoxaparin 40 MG/0.4 ML Syringe SC (06:02)
[2019-06-16] MEDS: Levothyroxine 50 MCG Tablet PO (06:02)
[2019-06-16] MEDS: traMADol 50 MG Tablet 25 MG PO ×3 (06:03→20:35)
[2019-06-16] MEDS: Carbidopa/Levodopa 25/100 Tablet PO ×2 (06:21→16:21)
[2019-06-16] MEDS: Menthol/Lanolin/Calamine/Znox 113 GM Tube 1 APPLIC TOPICAL ×2 (08:09→20:33)
[2019-06-16] MEDS: Lidocaine 5% Patch 1 PATCH TOPICAL (08:11)
[2019-06-16] MEDS: Amantadine 100 MG Capsule PO ×2 (08:11→13:27)
[2019-06-16] MEDS: Lisinopril 10 MG Tablet PO (08:12)
[2019-06-16] MEDS: NYSTATIN 500,000 UNIT/5 ML UDC 500000 UNIT PO ×4 (08:12→20:34)
[2019-06-16] MEDS: Allopurinol 100 MG Tablet PO (08:12)
[2019-06-16] MEDS: Na Biphos/Potassium Phosphate PACKET 1 PACKET PO ×2 (08:12→20:34)
[2019-06-16] MEDS: Flecainide 100 MG Tablet 50 MG PO ×2 (08:12→20:34)
[2019-06-16 09:05] VITALS: BP 155/87; PULSE 78; RESP 18; TEMP 36.7; O2SAT 94
[2019-06-16 20:00] VITALS: BP 121/54; PULSE 72; RESP 18; TEMP 36.7; O2SAT 93
[2019-06-16] MEDS: Donepezil HCl 10 MG Tablet PO (20:33)
[2019-06-16] MEDS: QUEtiapine 25 MG Tablet PO (20:33)
[2019-06-16] MEDS: Pravastatin 40 MG Tablet PO (20:34)
[2019-06-16] MEDS: Tamsulosin HCl 0.4 MG Capsule PO (20:34)
[2019-06-16] MEDS: Loperamide 2 MG Capsule PO (20:35)
[2019-06-17] MEDS: Enoxaparin 40 MG/0.4 ML Syringe SC (06:06)
[2019-06-17] MEDS: Levothyroxine 50 MCG Tablet PO (06:07)
[2019-06-17] MEDS: Acetaminophen 500 MG Tablet 1000 MG PO ×3 (06:07→21:08)
[2019-06-17] MEDS: Carbidopa/Levodopa 25/100 Tablet PO ×2 (06:08→16:37)
[2019-06-17] MEDS: Alendronate Sodium 70 MG Tablet PO (06:08)
[2019-06-17] MEDS: traMADol 50 MG Tablet 25 MG PO ×3 (06:11→21:06)
[2019-06-17 07:21] VITALS: BP 165/83; PULSE 68; RESP 20; TEMP 36.8; O2SAT 95
[2019-06-17] MEDS: Allopurinol 100 MG Tablet PO (07:46)
[2019-06-17] MEDS: Na Biphos/Potassium Phosphate PACKET 1 PACKET PO ×2 (07:46→21:09)
[2019-06-17] MEDS: Lisinopril 10 MG Tablet PO (07:46)
[2019-06-17] MEDS: Lidocaine 5% Patch 1 PATCH TOPICAL (07:49)
[2019-06-17] MEDS: Loperamide 2 MG Capsule PO (07:49)
[2019-06-17] MEDS: Menthol/Lanolin/Calamine/Znox 113 GM Tube 1 APPLIC TOPICAL ×2 (08:59→21:10)
[2019-06-17] MEDS: Flecainide 100 MG Tablet 50 MG PO ×2 (08:59→21:08)
[2019-06-17] MEDS: Amantadine 100 MG Capsule PO ×2 (08:59→13:23)
--- NOTE | 2019-06-17 09:47 | TREXTCAR_ITS ---
- Diet 05/30/19 19:47 Diet: Regular Diet Food consistency:: Mechanical Soft/Ground Liquid Consistency:: Numidia Thick Diet Comments: supervision, no straws - Routine Orders/Code Status Enema Type: Fleetz Enema Frequency: Daily PRN Suppository Type: Dulcolax 10mg Suppository Frequency: Daily PRN O2 Liters per Minute: 1-2 O2 Frequency: PRN Keep PO Greater than or Equal to (%): 90 - Wound(s) right mid back Wound Type: Surgical Incision - Therapies Weight Bearing: Full weight bearing Physical Therapy: Eval and Treat Occupational Therapy: Eval and Treat Speech Therapy: Eval and Treat - Problem/Diagnosis (1) Macrocytic anemia Status: Acute Current Visit: Yes (2) Hypokalemia Status: Acute Current Visit: Yes (3) Hypernatremia Status: Resolved Current Visit: Yes (4) Chronic renal failure, stage 3 (moderate) Status: Chronic Current Visit: Yes (5) Hypophosphatemia Status: Resolved Current Visit: Yes (6) Paroxysmal atrial fibrillation Status: Chronic Current Visit: No (7) History of left heart catheterization Status: Chronic Comment: Nonobstructive CAD of LAD and mid RCA per [facility] 02/27 Current Visit: No (8) alf current use of anticoagulant Status: Chronic Comment: Warfarin - discontinued due to fall with intracerebral bleed Current Visit: No (9) GERD (gastroesophageal reflux disease) Status: Chronic Current Visit: No (10) Gout Status: Chronic Current Visit: No (11) Hypothyroidism Status: Chronic Current Visit: No (12) Benign essential hypertension Status: Chronic Current Visit: No (13) Carotid artery stenosis Status: Chronic Comment: Less than 50% stenosis in bilateral extracranial internal carotid arteries 05/06/2018 Current Visit: No (14) CAD (coronary artery disease) Status: Chronic Current Visit: No (15) HLD (hyperlipidemia) Status: Chronic Current Visit: No (16) Polymyalgia rheumatica Status: Chronic Current Visit: No (17) Contusion, hip Status: Acute Current Visit: No (18) Debility Status: Acute Current Visit: No (19) Psoriatic arthritis Status: Chronic Comment: On Humira Current Visit: No (20) Subarachnoid hemorrhage following injury Status: Acute Current Visit: Yes (21) Parkinsons disease Status: Chronic Comment: vs Parkinsonism due to dementia Current Visit: Yes (22) Ribs, multiple fractures Status: Acute Comment: Right second, third and fourth rib fractures posteriorly Current Visit: Yes (23) Pneumothorax on right Status: Resolved Comment: Traumatic fracture. Status post chest tube insertion and removal. Current Visit: Yes (24) BPH (benign prostatic hyperplasia) Status: Chronic Comment: with urine retention Current Visit: Yes (25) Dementia Status: Chronic Comment: suspect Lewy body Current Visit: Yes (26) Fracture of multiple thoracic vertebrae Status: Acute Comment: Moderate at T3, mild at T4, mild at T5, mild at T6, mild at T7 and moderate to severe at T12. Also with fractures of the transverse processes of T10, T11 and T12. Current Visit: Yes (27) Presbycusis of both ears Status: Chronic Comment: Bilateral hearing aids Current Visit: Yes (28) Blind left eye Status: Chronic Current Visit: Yes (29) Right pulmonary contusion Status: Acute Current Visit: Yes (30) Dysphagia Status: Acute Current Visit: Yes (31) LVH (left ventricular hypertrophy) Status: Chronic Current Visit: Yes - Allergies/Procedures Done in Hospital Allergies/Adverse Reactions: Allergies No Known Allergies Allergy (Verified 04/20/19 13:44) Procedures: None - Type of Care/Length of Stay Estimated LOS: Convalescent Care Less Than 30 days Type of Care Needed: Skilled Rehab Potential: Fair Prognosis: Fair - Additional Orders/Day of Discharge H&P will serve as current which was dated: 05/31/19 Day of Discharge: 06/18/19 - Dietary and Speech Recommendations Dietitian Recommendations/Changes: Continue regular diet with consistency/texture as per [employer]ERING MANAGER. - Follow Up Care Primary Care Physician: Tracy Esparza MD [Primary Care Provider] - Please follow up with your Primary Care Physician in: following DC from SNF
--- NOTE | 2019-06-17 09:53 | DS.PCM_ITS ---
Discharge Date and Diagnosis Date of Admission: 05/30/19 Date of Discharge: 06/18/19 - Primary Discharge Diagnosis Active and Suspected Problems (Last Reviewed 05/31/19 @ 09:23 by Belen Caballero DO) Subarachnoid hemorrhage following injury (Acute) Ribs, multiple fractures (Acute) Right second, third and fourth rib fractures posteriorly Fracture of multiple thoracic vertebrae (Acute) Moderate at T3, mild at T4, mild at T5, mild at T6, mild at T7 and moderate to severe at T12. Also with fractures of the transverse processes of T10, T11 and T12. Right pulmonary contusion (Acute) Dysphagia (Acute) Macrocytic anemia (Acute) - due to blood loss and increased reticulocytes Hypokalemia (Acute)-resolved Hypophosphatemia-resolved - Secondary Discharge Diagnosis Chronic Problems (Last Reviewed 05/31/19 @ 09:23 by Belen Caballero DO) Chronic renal failure, stage 3 (moderate) (Chronic) Parkinsons disease (Chronic) vs Parkinsonism due to dementia BPH (benign prostatic hyperplasia) (Chronic) with urine retention Dementia (Chronic) suspect Lewy body Presbycusis of both ears (Chronic) Bilateral hearing aids Blind left eye (Chronic) LVH (left ventricular hypertrophy) (Chronic) Paroxysmal atrial fibrillation (Chronic) History of left heart catheterization (Chronic ~03/19/16) Nonobstructive CAD of LAD and mid RCA per [facility] 03/19/2016 detention current use of anticoagulant (Chronic) Warfarin - discontinued due to fall with intracerebral bleed GERD (gastroesophageal reflux disease) (Chronic) Gout (Chronic) Hypothyroidism (Chronic) Benign essential hypertension (Chronic) Carotid artery stenosis (Chronic) Less than 50% stenosis in bilateral extracranial internal carotid arteries 05/06/2018 CAD (coronary artery disease) (Chronic) HLD (hyperlipidemia) (Chronic) Polymyalgia rheumatica (Chronic) Psoriatic arthritis (Chronic) On [facility] Course and Treatment Imaging Results: Clinical Impression(s) from Imaging Studies Brain MRI 06/08/19 12:05 IMPRESSION: Overall improvement in subarachnoid hemorrhage when compared to prior CT exam. Intraventricular hemorrhage and a small right posterior subdural hematoma are noted, not visible on prior CT exam. No evidence of acute infarct. Electronically Signed: Dean Corona MD at 16:31 EST Tel , Service support , ADDENDUM: 06/08/19 1701 IMPRESSION: Overall improvement in subarachnoid hemorrhage when compared to prior CT exam. Intraventricular hemorrhage and a small right posterior subdural hematoma are noted, not visible on prior CT exam. No evidence of acute infarct. N.B. : The above information has been verbally conveyed by Dean Corona MD to Shalonda Chin RN, on 06/08/2019 16:54:18 (ET). Electronically Signed: Dean Corona MD at 16:31 EST Tel , Service support , Brain CT 06/11/19 16:38 IMPRESSION: 1. Stable moderate bilateral convexity frontoparietal subarachnoid hemorrhage. 2. Small amount of intraventricular hemorrhage. 3. Bilateral chronic frontal postconcussive encephalomalacia. 4. Small right occipital 3 mm subdural subacute stage hematoma. 5. Stable moderate communicating hydrocephalus. 6. No change since immediate prior. Electronically Signed: Yanick Justice, at 17:58 EST Tel , Service support , Microbiology 06/03/19 03:35 Stool Stool Occult Blood ([facility]) - Final-negative 06/02/19 06:30 Stool Enteric Bacteriology - Final-negative 06/01/19 02:45 Stool C. difficile DNA Amplification - Final-negative none Operations: None Procedures: None Summary of Care Provided: The patient is an 84 year old M with a past medical history of paroxysmal atrial fibrillation, nonobstructive coronary artery disease, LVH, hypertension, hyperlipidemia, dementia, Parkinson's disease, gout, dysphagia, presbycusis, blindness left eye, psoriatic arthritis, mild bilateral internal carotid artery stenosis, chronic anticoagulation with warfarin, history of TIA, BPH, chronic renal failure stage III and recent traumatic fractures of multiple thoracic vertebrae with retropulsed bone fragments at T3, right pneumothorax, multiple right rib fractures and lung contusion after a fall who was admitted to [facility] inpatient rehab unit on 05/30/2019 with debility secondary to traumatic subarachnoid hemorrhage, multiple rib fractures and multiple thoracic vertebral fractures for therapy 3 hours daily with a goal of returning him to his home at or near his prior level of functioning/independence. On PE at admission he was quite somnolent. He was unable to feed himself and intake was poor even with feeding him. He had multiple episodes of diarrhea daily for a few days. C. difficile and an enteric pathogen panel were negative. Hemoccult stool was negative. He was started on Imodium with good results. He was retaining urine at admission and a neely had to be inserted. He was restarted on Flomax which he had not been taking to to severe lethargy and dysphagia. A follow up voiding trial prior to DC had 0 cc's residual after incontinence. He sometimes is able to tell you he has to use the restroom and at other times he is incontinent. Lab at admission revealed a hemoglobin of 9.1 and normal platelets. The MCV was 96. Sodium was elevated at 149 and the potassium was low at 2.8. The BUN was 31 and the creatinine was 1.24. He was started on intravenous fluids due to profuse diarrhea and poor intake. The sodium increased to 154 and the IV fluid was changed to 0.45% saline with potassium. As he became better hydrated he became more alert and able to participate in therapy. On 06/11/2019 hemoglobin was 11.1 and the electrolytes were within normal limits. The BUN was 20 and the creatinine was 1.0. Phosphorus was persistently low and he was started on a phosphorus supplement with good results. Prior to discharge the phosphorus was 2.6 with a magnesium of 2 and a potassium of 3.9. Hemoglobin was improving and was 11.5. The BUN was 18 and the creatinine was 1.0. His LOC and behavior are erratic. He on 1 occasion became aggressive and the Seroquel dose was increased to 25 mg Q HS. 2 days later he was better and participating in PT/OT/ST again. He is very SYCUAN and blind in 1 eye. It is difficult to communicate with him and he is chronically confused due to dementi a. I suspect he may have Lewy Body dementia because he has visual hallucinations and his agitation comes and goes suddenly. He improved with PT/OT/ST during his stay on rehab but, it was felt that he required additional therapy prior to considering an attempt to go home. He was transferred to [place] on 06/18/19. Alert, pleasant, NAD, told me good morning. sitting at the table waiting for breakfast. Denies pain Lungs-clear to auscultation Heart-regular rate and rhythm, normal S1, normal S2, no gallop Abdomen-soft, nontender, nondistended, normal bowel sounds heard in all 4 quad rants, no guarding with palpation No calf tenderness No edema, no clubbing and no cyanosis. This note was generated with [employer] dictation software. It may contain incorrect words, spelling, and punctuation that were not noted in checking the note before signing. - Physical Exam Vitals/I&O's: Vital Signs Temp Pulse Resp BP Pulse Ox 98.2 F 68 20 H 165/83 H 95 06/17/19 07:21 06/17/19 07:21 06/17/19 07:21 06/17/19 07:21 06/17/19 07:21 Oxygen Flow Rate (L/min) 2 Oxygen Delivery Method Room Air Weight: 207 lb 7.28 oz Body Mass Index (BMI) 27.0 Intake and Output for Last 24 Hours 06/15/19 06/16/19 06/17/19 23:59 23:59 23:59 Intake Total 400 / 400 980 / 980 Output Total 1200 / 1200 Balance 400 / -400 -220 / -220 Current Medications Acetaminophen (Tylenol) 1,000 mg PO Q8H [facility] Last Admin: 06/17/19 06:07 Dose: 1,000 mg Documented by: Adalimumab (Humira) 40 mg SC Q14D@1000 [facility] Last Admin: 06/12/19 09:11 Dose: 40 mg Documented by: Albuterol Sulfate (Ventolin Aerosols) 2.5 mg INHALATION Q6H PRN PRN PRN Reason: SOB &/OR WHEEZING Alendronate Sodium (Fosamax) 70 mg PO Sa@0700 [facility] Last Admin: 06/17/19 06:08 Dose: 70 mg Documented by: Allopurinol (Zyloprim) 100 mg PO DAILYCM [facility] Last Admin: 06/17/19 07:46 Dose: 100 mg Documented by: Amantadine HCl (Symmetrel) 100 mg PO BID@0900,1300 [facility] Last Admin: 06/17/19 08:59 Dose: 100 mg Documented by: Bisacodyl (Dulcolax) 10 mg RECTAL .PRN X 1 PRN PRN Reason: Constipation Calamine/Phenol (Calmoseptine Ointment) 1 applic TOPICAL BID [facility]; Protocol Last Admin: 06/17/19 08:59 Dose: 1 applicatio Documented by: Carbidopa/Levodopa (Sinemet) 1 tablet PO 0630,1630 [facility] Last Admin: 06/17/19 06:08 Dose: 1 tablet Documented by: Cholecalciferol (Vitamin D) 2,000 unit PO DAILYCM [facility] Last Admin: 06/17/19 07:47 Dose: 2,000 unit Documented by: Donepezil HCl (Aricept) 10 mg PO QHS [facility] Last Admin: 06/16/19 20:33 Dose: 10 mg Documented by: Enoxaparin Sodium (Lovenox) 40 mg SC DAILY@0600 [facility] Last Admin: 06/17/19 06:06 Dose: 40 mg Documented by: Flecainide Acetate (Tambocor) 50 mg PO BID [facility] Last Admin: 06/17/19 08:59 Dose: 50 mg Documented by: Levothyroxine Sodium (Synthroid) 50 mcg PO DAILY@0600 [facility] Last Admin: 06/17/19 06:07 Dose: 50 mcg Documented by: Lidocaine (Lidoderm Patch) 1 patch TOPICAL DAILY [facility] Last Admin: 06/17/19 07:49 Dose: 1 patch Documented by: Lisinopril (Zestril) 10 mg PO DAILY [facility] Last Admin: 06/17/19 07:46 Dose: 10 mg Documented by: Loperamide HCl (Imodium) 2 mg PO Q4H PRN PRN PRN Reason: DIARRHEA/LOOSE STOOLS Last Admin: 06/17/19 07:49 Dose: 2 mg Documented by: Magnesium Hydroxide (Milk Of Magnesia) 30 ml PO .PRN X 1 PRN PRN Reason: Constipation Nystatin (Nystatin) 500,000 unit PO 4X/DAY [facility] Last Admin: 06/16/19 20:34 Dose: 500,000 unit Documented by: Potassium Chloride (K-Dur) 20 meq PO DAILY [facility] Last Admin: 06/17/19 07:47 Dose: 20 meq Documented by: Potassium Phos/Sodium Phos (Neutra-Phos Packet) 1 packet PO BID [facility] Last Admin: 06/17/19 07:46 Dose: 1 packet Documented by: Pravastatin Sodium (Pravachol) 40 mg PO QHS [facility] Last Admin: 06/16/19 20:34 Dose: 40 mg Documented by: Quetiapine Fumarate (Seroquel) 25 mg PO 1999 [facility] Last Admin: 06/16/19 20:33 Dose: 25 mg Documented by: Sodium Chloride () 10 - 40 ml IV UD PRN PRN Reason: SALINE FLUSH Last Admin: 06/07/19 22:15 Dose: 10 ml Documented by: Tamsulosin HCl (Flomax) 0.4 mg PO QHS [facility] Last Admin: 06/16/19 20:34 Dose: 0.4 mg Documented by: Tramadol HCl (Ultram) 25 mg PO Q8H [facility] Last Admin: 06/17/19 06:11 Dose: 25 mg Documented by: Home Medications: Medications to take at Discharge Allopurinol [Zyloprim] 100 mg PO DAILY 07/25/17 Levothyroxine [Synthroid] 50 mcg PO DAILY@0600 07/25/17 Tamsulosin HCl [Flomax] 0.4 mg PO QHS 07/25/17 Alendronate Sodium [Fosamax] 70 mg PO QWEEK 02/25/18 carbidopa 25 mg-levodopa 100 mg disintegrating tablet 1 tab PO BID tab 09/01/18 donepezil 10 mg tablet 10 mg PO QHS tab 09/01/18 flecainide 50 mg tablet 50 mg PO BID #180 tab 04/20/19 Amantadine HCl [Amantadine] 10 ml PO Q12H 05/30/19 Lidocaine 1 adh.patch TOPICAL DAILY 05/30/19 Pravastatin [Pravachol] 40 mg PO QHS 05/30/19 Acetaminophen [Tylenol] 1,000 mg PO Q8H tab 06/17/19 Adalimumab [Humira] 40 mg SUBCUT Q14D #0 06/17/19 Bisacodyl [Dulcolax] 10 mg RECTAL .PRN X 1 PRN suppos. 06/17/19 Cholecalciferol (VIT D3) [Vitamin D3] 2,000 unit PO DAILYCM tab 06/17/19 Enoxaparin [Lovenox] 40 mg SUBCUT DAILY@0600 syringe 06/17/19 Lisinopril [Zestril] 10 mg PO DAILY tab 06/17/19 Loperamide [Imodium] 2 mg PO Q4H PRN PRN cap 06/17/19 Magnesium Hydroxide [Milk Of Magnesia] 30 ml PO .PRN X 1 PRN udc 06/17/19 Menthol/Lanolin/Calamine/Znox [Calmoseptine Ointment] 1 applic TOPICAL BID tube 06/17/19 Na Biphos/Potassium Phosphate [Neutra-Phos Packet] 1 packet PO BID packet 06/17/19 Nystatin 500,000 unit PO 4X/DAY #20 udc 06/17/19 Potassium Chloride [K-Dur] 20 meq PO DAILY tab 06/17/19 Quetiapine Fumarate [Seroquel] 25 mg PO 2000 tab 06/17/19 traMADol [Ultram] 25 mg PO Q8H tab 06/17/19 traMADol [Ultram] 25 mg PO Q8H PRN PRN #20 tab 06/17/19 Following Prescrptions Were Given to Patient: traMADol [Ultram] 25 mg PO Q8H PRN PRN #20 tab PRN Reason: pain Prescription Printed Primary Care Physician: Tracy Esparza MD [Primary Care Provider] - Please follow up with your Primary Care Physician in: following DC from SNF Minutes spent on discharge:: 40 Patient Condition:: Fair Medical Necessity - Tobacco Use Smoking Status: Never smoker Tobacco Use: Non-smoker Meaningful Use Info Meaningful Use Diagnoses (Choose all that apply): None applicable Code Visit Inpatient E&M: 99421 Disch Hosp
[2019-06-17] MEDS: NYSTATIN 500,000 UNIT/5 ML UDC 500000 UNIT PO ×3 (13:23→21:09)
[2019-06-17 19:39] VITALS: BP 148/63; PULSE 66; RESP 16; TEMP 36.5
[2019-06-17] MEDS: Pravastatin 40 MG Tablet PO (21:09)
[2019-06-17] MEDS: Tamsulosin HCl 0.4 MG Capsule PO (21:09)
[2019-06-17] MEDS: QUEtiapine 25 MG Tablet PO (21:09)
[2019-06-17] MEDS: Donepezil HCl 10 MG Tablet PO (21:09)
[2019-06-18 07:00] VITALS: BP 142/74; PULSE 58; RESP 16; TEMP 37; O2SAT 93
[2019-06-18] MEDS: Carbidopa/Levodopa 25/100 Tablet PO (07:04)
[2019-06-18] MEDS: traMADol 50 MG Tablet 25 MG PO (07:05)
[2019-06-18] MEDS: Loperamide 2 MG Capsule PO (07:06)
[2019-06-18] MEDS: Levothyroxine 50 MCG Tablet PO (07:06)
[2019-06-18] MEDS: Acetaminophen 500 MG Tablet 1000 MG PO (07:06)
[2019-06-18] MEDS: Enoxaparin 40 MG/0.4 ML Syringe SC (07:07)
[2019-06-18] MEDS: Lisinopril 10 MG Tablet PO (08:06)
[2019-06-18] MEDS: Na Biphos/Potassium Phosphate PACKET 1 PACKET PO (08:06)
[2019-06-18] MEDS: Flecainide 100 MG Tablet 50 MG PO (08:06)
[2019-06-18] MEDS: Amantadine 100 MG Capsule PO (08:06)
[2019-06-18] MEDS: Allopurinol 100 MG Tablet PO (08:06)
[2019-06-18] MEDS: Lidocaine 5% Patch 1 PATCH TOPICAL (08:07)
[2019-06-18] MEDS: Menthol/Lanolin/Calamine/Znox 113 GM Tube 1 APPLIC TOPICAL (08:08)
[2019-06-18] MEDS: NYSTATIN 500,000 UNIT/5 ML UDC 500000 UNIT PO (08:18)
--- NOTE | 2019-06-18 09:15 | NURSING ---
Report has been given to [facility] and patient discharged at this time.
== END 2019-06-18 09:15 | disposition skilled nursing facility (03) | DRG 560 ==
PROVIDERS: Admitting Provider Internal Medicine; Family Provider Family Medicine; PCP Family Medicine; Referring Provider Internal Medicine; Visit Provider Internal Medicine
DX: S22.038 Other fracture of third thoracic vertebra (principal); I48.20 Chronic atrial fibrillation, unspecified; E87.0 Hyperosmolality and hypernatremia; F02.81 Dementia in other diseases classified elsewhere, unspecified severity, with behavioral disturbance; S22.049D Unspecified fracture of fourth thoracic vertebra, subsequent encounter for fracture with routine healing; S22.051D Stable burst fracture of T5-T6 vertebra, subsequent encounter for fracture with routine healing; S22.059D Unspecified fracture of T5-T6 vertebra, subsequent encounter for fracture with routine healing; S22.069D Unspecified fracture of T7-T8 vertebra, subsequent encounter for fracture with routine healing; S22.089D Unspecified fracture of T11-T12 vertebra, subsequent encounter for fracture with routine healing; S22.079D Unspecified fracture of T9-T10 vertebra, subsequent encounter for fracture with routine healing; S22.41XD Multiple fractures of ribs, right side, subsequent encounter for fracture with routine healing; S06.6X9D Traumatic subarachnoid hemorrhage with loss of consciousness of unspecified duration, subsequent encounter; S27.0XXD Traumatic pneumothorax, subsequent encounter; S27.321D Contusion of lung, unilateral, subsequent encounter; N18.3 Chronic kidney disease, stage 3 (moderate); I48.0 Paroxysmal atrial fibrillation; K21.9 Gastro-esophageal reflux disease without esophagitis; E87.6 Hypokalemia; E03.9 Hypothyroidism, unspecified; I25.10 Atherosclerotic heart disease of native coronary artery without angina pectoris; E78.5 Hyperlipidemia, unspecified; M35.3 Polymyalgia rheumatica; L40.50 Arthropathic psoriasis, unspecified; N40.0 Benign prostatic hyperplasia without lower urinary tract symptoms; R13.12 Dysphagia, oropharyngeal phase; M1A.9XX0 Chronic gout, unspecified, without tophus (tophi); I12.9 Hypertensive chronic kidney disease with stage 1 through stage 4 chronic kidney disease, or unspecified chronic kidney disease; H54.8 Legal blindness, as defined in USA; G20 Parkinson's disease; W10.9XXD Fall (on) (from) unspecified stairs and steps, subsequent encounter; E83.39 Other disorders of phosphorus metabolism; R32 Unspecified urinary incontinence
CPT/HCPCS: 36415; 70450; 70551; 80048; 80053; 82274; 83735; 84100; 85014; 85018; 85025; 87493; 87506; 92507; 92508; 92523; 92526; 92610; 97110; 97116; 97162; 97166; 97530; 97535; 99251; J7030; A4216; G0463

== ENCOUNTER 2019-07-19 19:13 | Emergency (ER) | payer MEDICARE, OTHER, SELFPAY ==
[2019-05-30 19:07] VITALS: BMI 27.0
[2019-07-19 19:15] VITALS: BP 172/76; PULSE 66; RESP 18; TEMP 36.4; O2SAT 95; BMI 33.2
[2019-07-19 19:22] VITALS: O2SAT 98
--- NOTE | 2019-07-19 19:50 | ED.DCSUM_ITS ---
- ER Visit Summary Date of Service: 07/19/19 Chief Complaint: Fall History of Present Illness: The patient is a 84 M who presents with a fall that occurred today. Patient was sitting at the table when he got up after he was done eating. Patient normally walks with a walker but started to walk before his daughter could get there with his walker. Patient lost his balance and fell. Patient admits to pain in his left hip, left knee, and left elbow. Patient denies any head injury or loss of consciousness. Patient denies any paresthesias or weakness. Physical Examination: Vital signs are stable. Patient is afebrile. Patient is in no acute distress. Musculoskeletal exam reveals tenderness over the left hip and left knee. There is minimal tenderness over the left elbow. There is a superficial abrasion over the left elbow. There is no bleeding. There is good range of motion of the left elbow. Range of motion of the left hip was limited secondary to pain. Patient also has limited range of motion of his left knee secondary to pain. There is no deformity or effusion noted. Sensation was intact to light touch bilateral in the lower extremities. Pedal pulses are equal bilaterally. Test Results: X-rays of the left hip and left knee were obtained. There is no acute fracture. These were interpreted by the radiologist and reviewed by myself. CT scan of the brain was obtained. There is no acute intracranial abnormality. Prior hemorrhage has resolved. This was also interpreted by the radiologist. Emergency Department Course and Treatment: Patient and family were advised of the x-ray and CT findings. They were advised that this is most likely left hip contusion and left knee contusion. Family was instructed to follow-up with the patient's primary care physician in 5 to 7 days. Patient was instructed to use ice to the area. Family understood and was agreeable with the plan. All questions were answered. Disposition: Discharge home Impression: 1. Left hip contusion 2. Left knee contusion This note was generated with [employer] dictation software. It may contain incorrect words, spelling, and punctuation that were not noted in review of the chart prior to signing ED Disposition - Plan for ED Patient: Disposition: Long Term Facility Diagnosis: Contusion of left hip, initial encounter, Contusion of left knee, initial encounter Referrals: Tracy Esparza MD [Primary Care Provider] - 5-7 Days
--- NOTE | 2019-07-19 20:44 | RAD_ITS ---
STUDY: X-RAY - LEFT KNEE REASON FOR EXAM: Male, 84 years old. Fall. Pain. TECHNIQUE: 4 view(s) of the knee. COMPARISON: 04/08/2013. FINDINGS: There are stable postsurgical changes from open reduction and internal fixation of a previously seen fracture of the lateral tibial plateau. The hardware is intact and alignment is satisfactory. There is no evidence of fracture or dislocation. There are no significant degenerative changes. There are no radiodense foreign bodies. RAD/Knee 4 or More Views IMPRESSION: Stable posttraumatic and postsurgical changes. No fracture or dislocation. Electronically Signed: Deniz Moore, at 21:30 EST Tel , Service support ,
--- NOTE | 2019-07-19 20:44 | CT_ITS ---
STUDY: CT BRAIN WITHOUT CONTRAST REASON FOR EXAM: Male, 84 years old. Fall. RADIATION DOSAGE (If Supplied By Facility): CTDIvol = ( 44.99 ) mGy, DLP = ( 812.98 ) mGycm TECHNIQUE: Transaxial CT imaging of the brain was performed without administration of intravenous contrast material. Individualized dose optimization techniques were used for this CT. COMPARISON: 06/11/2019 FINDINGS: There are stable old bilateral frontal infarcts with encephalomalacia. The previously seen intracranial blood has resolved. There is no acute bleed or infarct. There are stable chronic ischemic and atrophic changes. The ventricles are normal in configuration. There is no hydrocephalus. The visualized paranasal sinuses are clear. The mastoid air cells are well aerated. There is no skull fracture. 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 Stable chronic ischemic and atrophic changes. No acute intracranial abnormality. Resolution of the previously seen hemorrhages. Electronically Signed: Deniz Moore, at 21:17 EST Tel , Service support ,
--- NOTE | 2019-07-19 21:10 | RAD_ITS ---
STUDY: X-RAY - PELVIS AND LEFT HIP REASON FOR EXAM: Male, 84 years old. fall, pain TECHNIQUE: 3 views of the pelvis and left hip. COMPARISON: None. FINDINGS: There is a non-specific bowel gas pattern. Normal visualized soft tissue structures. Normal bilateral iliac wings, sacroiliac joints and visualized sacrum. Normal bilateral superior and inferior pubic rami. Normal pubic symphysis. Normal bilateral ischial tuberosities. Normal visualized femoral head. Normal acetabulum. There is mild articular joint space narrowing of the hip. RAD/HIP, UNI W/ Pelvis 2-3 Views IMPRESSION: No fracture or dislocation of the pelvis or left hip. Mild degenerative changes. Electronically Signed: Deniz Moore, at 21:34 EST Tel , Service support ,
[2019-07-19] MEDS: Morphine 4 MG/ML Syringe IV (21:39)
[2019-07-19 21:42] VITALS: BP 186/103; PULSE 69; RESP 21; O2SAT 97
[2019-07-19 23:03] VITALS: BP 159/95; PULSE 68; RESP 16; O2SAT 97
--- NOTE | 2019-07-19 23:08 | ED.RN ---
report called to red nurse at [facility] and report given on the patient. red voices no questions.
== END 2019-07-19 23:25 | disposition skilled nursing facility (03) ==
PROVIDERS: Emergency Provider Emergency Medicine; PCP Family Medicine
DX: S70.02XA Contusion of left hip, initial encounter (principal); S80.02XA Contusion of left knee, initial encounter; S50.312A Abrasion of left elbow, initial encounter; W01.0XXA Fall on same level from slipping, tripping and stumbling without subsequent striking against object, initial encounter; Y93.9 Activity, unspecified; Y92.9 Unspecified place or not applicable; Z86.73 Personal history of transient ischemic attack (TIA), and cerebral infarction without residual deficits; Z79.899 Other long term (current) drug therapy
CPT/HCPCS: 70450; 73502; 73564; 96374; 99285; A4216

== ENCOUNTER → 2019-07-28 15:20 | Outpatient (CLI) | payer MEDICARE, OTHER, SELFPAY ==
[2019-07-19 19:15] VITALS: BMI 33.2
[2019-07-28 17:51] LABS: Anion Gap 3 (5-15); BUN 20 mg/dL (7-18); BUN/Creat Ratio 17.7 RATIO (10-20); Calcium,Total 9.3 mg/dL (8.5-10.1); Chloride 106 mmol/L (98-107); Creatinine, Serum 1.13 mg/dL (0.70-1.30); EST Glomerular Filtration Rate 66 mL/min (>60); Est Glom Filt Rate - Afr Amer 80 mL/min (>60); Glucose 100 mg/dL (74-106); Phosphorus 2.9 mg/dL (2.5-4.9); Sodium Level 141 mmol/L (136-145); T4 Total, Thyroxin 8.7 ug/dL (4.5-12.1); Thyroid Stim Hormone (TSH) 1.82 uIU/mL (0.358-3.74)
== END ==
PROVIDERS: PCP Family Medicine; Referring Provider Family Medicine; Visit Provider Family Medicine
DX: I25.10 Atherosclerotic heart disease of native coronary artery without angina pectoris (principal); E03.9 Hypothyroidism, unspecified
CPT/HCPCS: 36415; 80048; 84100; 84436; 84443

== ENCOUNTER 2019-10-20 18:15 | Inpatient (IN) | payer MEDICARE, OTHER, SELFPAY ==
[2019-10-20] VITALS (13 sets, daily range): BP systolic 154–185; BP diastolic 77–116; PULSE 66–78; RESP 14–20; TEMP 36.8; O2SAT 95–98; BMI 30.4; BMI 33.8
--- NOTE | 2019-10-20 18:25 | EKG12_ITS ---
Test Reason : NEURO Blood Pressure : / mmHG Vent. Rate : 070 BPM Atrial Rate : 070 BPM P-R Int : 226 ms QRS Dur : 088 ms QT Int : 414 ms P-R-T Axes : 065 -11 033 degrees QTc Int : 447 ms Sinus rhythm with 1st degree A-V block Minimal voltage criteria for LVH, may be normal variant Borderline ECG Confirmed by YAMILETH ALEJO, SATNAM ([id number]), fashion editor SHAHRIAR IBARRA ([id number]) on 10/23/2019 10:10:11 AM Referred By: KAITLIN Confirmed By:SATNAM CARSON MD
--- NOTE | 2019-10-20 18:25 | CT_ITS ---
STUDY: CT BRAIN WITHOUT CONTRAST REASON FOR EXAM: Male, 84 years old. CVA, RIGHT SIDED WEAKNESS, CKD, HTN, HX CVA IN PAST RADIATION DOSAGE (If Supplied By Facility): CTDIvol = ( 44.99 ) mGy, DLP = ( 849.54 ) mGycm TECHNIQUE: Transaxial CT imaging of the brain was performed without administration of intravenous contrast material. Individualized dose optimization techniques were used for this CT. COMPARISON: Prior study of 07/19/2019 FINDINGS: Normal soft tissue structures. Normal calvarium. There is moderate cerebral atrophy with widening of the extra-axial spaces and ventricular dilatation. There is encephalomalacia of the frontal lobes bilaterally consistent with old infarcts. There are areas of decreased attenuation within the white matter tracts of the supratentorial brain, consistent with microvascular disease changes. Normal basal ganglia and thalami. Normal brainstem. There is moderate cerebellar atrophy. There is no intracranial hemorrhage. There are no findings of an acute ischemic infarction. Normal visualized paranasal sinuses. CT/Brain/Head without Contrast IMPRESSION: Chronic involutional changes of the brain. 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 There is no evidence of acute infarct or intracranial hemorrhage. Findings are similar to the previous study. Electronically Signed: Rancho Ko MD at 18:50 EDT , Service support ,
--- NOTE | 2019-10-20 18:33 | NURSING ---
FACESHEET FAXED TO [facility]
--- NOTE | 2019-10-20 18:42 | ED.DCSUM_ITS ---
History of Present Illness Chief Complaint: Neuro S/Sx Informant: Patient, Family, Thread Spinner Onset: Today Narrative: Patient presents via EMS with confusion and right-sided weakness. Per EMS report 40 minutes prior to arrival here he got up to go the restroom and develo ped right-sided weakness. This resolved rather quickly but then 20 minutes later he was noted to have more confusion. This again resolved spontaneously. EMS was on scene and was going to sign off, however patient's right-sided weakness and confusion recurred. He was transported for further evaluation. later arrives at the hospital. She states that he has had increased confusion for the past 3 or 4 days. She states that he does have Parkinson's and dementia. They are in the process of transitioning him to ECF care at the [place]. She states the patient did develop weakness while walking with his walker today and slid to the ground, but did not have a hard fall. She does not believe he struck his head. She does confirm that the patient is on Coumadin for paroxysmal A. fib. - Past Medical History (1) Macrocytic anemia Status: Chronic (2) Subarachnoid hemorrhage following injury Status: Resolved (3) BPH (benign prostatic hyperplasia) Status: Chronic Comment: with urine retention (4) Benign essential hypertension Status: Chronic (5) CAD (coronary artery disease) Status: Chronic (6) Carotid artery stenosis Status: Chronic Comment: Less than 50% stenosis in bilateral extracranial internal carotid arteries 05/06/2018 (7) Chronic renal failure, stage 3 (moderate) Status: Chronic (8) Dementia Status: Chronic Comment: suspect Lewy body (9) GERD (gastroesophageal reflux disease) Status: Chronic (10) Gout Status: Chronic (11) HLD (hyperlipidemia) Status: Chronic (12) Hypothyroidism Status: Chronic (13) Parkinsons disease Status: Chronic Comment: vs Parkinsonism due to dementia (14) Polymyalgia rheumatica Status: Chronic Past Medical History - Allergies and Home Meds Allergies/Adverse Reactions: Allergies No Known Allergies Allergy (Verified 07/19/19 19:14) Primary Care Physician: Tracy Esparza MD [Primary Care Provider] - Prior records reviewed: Yes Surgical History: adenoidectomy, appendectomy, tonsillectomy, - - Right carotid endarterectomy, carpal tunnel surgery, lipoma removal, rectal fissure repair. Lives: Spouse/ Significant Other Smoking Status: Never smoker - Family History Maternal Family History: Family History (Last Reviewed 05/31/19 @ 09:[address] Belen Caballero DO) Father Sudden cardiac Mother Congestive heart failure Family History: Reports: No pertinent history Paternal Family History: Family History (Last Reviewed 05/31/19 @ 09:[address] Belen Caballero DO) Father Sudden cardiac Mother Congestive heart failure Family History: Reports: Heart Disease Review of Systems General: Denies: Chills, Fever Eyes: Denies: Visual changes - bilaterally ENT: Denies: Bilateral ear pain Cardiovascular: Denies: Chest pain, Palpitations Respiratory: Denies: Dyspnea, Cough Gastrointestinal: Denies: Abdominal pain, Nausea, Vomiting, Diarrhea Musculoskeletal: Denies: Extremity Pain Neurological: Denies: Headache Allergy: Denies: Uticaria Physical Exam Vital Signs/Narrative: Vital Signs Temp Pulse Resp BP Pulse Ox 10/20/19 18:30 66 17 163/116 H 97 10/20/19 18:25 97 10/20/19 18:16 98.3 F 69 20 H 154/101 H 97 Inital Vital Signs reviewed: Yes General: Well nourished, Well developed Head: Normocephalic, Atraumatic ENT: Moist mucous membranes Cardiovascular: Regular rate, Regular rhythm Respiratory: No distress, CTA bilaterally Abdomen: Soft, Nontender, Nondistended Extremities: Nontender Skin: Normal color Neurological: Alert, - - Patient does have some confusion when asked about orientation questions. He is able to hold both arms off the bed for a count of 5. He is able to hold both legs up off of the bed. Diagnostic/Tx/Re-eval Impressions Brain CT 10/20/19 18:25 IMPRESSION: Chronic involutional changes of the brain. 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 There is no evidence of acute infarct or intracranial hemorrhage. Findings are similar to the previous study. Electronically Signed: Rancho Ko MD at 18:50 EDT , Service support , Chest X-Ray 10/20/19 18:45 IMPRESSION: Poor inspiration. Small focus of infiltrate or atelectasis of the right lung base. PA and lateral views of the chest are recommended when clinically feasible. Electronically Signed: Rancho Ko MD at 19:10 EDT , Service support , 10/20/19 18:25 Brain/Head without Contrast [CT] Stat 10/20/19 18:45 Chest 1 View [RAD] Stat Laboratory Results 10/20/19 10/20/19 10/20/19 18:25 18:25 18:25 WBC 5.7 RBC 4.79 Hgb 14.5 Hct 43.6 MCV 91.0 MCH 30.3 MCHC 33.3 RDW Std Deviation 55.9 H RDW Coeff of Ramonita 17.1 H Plt Count 168 MPV 9.9 Immature Gran % (Auto) 0.300 Neut % (Auto) 56.1 Lymph % (Auto) 33.4 [place] % (Auto) 7.8 Eos % (Auto) 2.1 Baso % (Auto) 0.3 Absolute Neuts (auto) 3.2 Absolute Lymphs (auto) 1.92 Nucleated RBC % 0 PT 26.3 H INR 2.5 APTT 33.6 Sodium 144 Potassium 4.4 Chloride 108 H Carbon Dioxide 33.0 H Anion Gap 3 L BUN 23 H Creatinine 1.27 Estim Creat Clear Calc 44.84 Est GFR (MDRD) Af Amer 70 Est GFR (MDRD) Non-Af 58 L BUN/Creatinine Ratio 18.1 Glucose 91 Calcium 9.7 Troponin I < 0.015 - EKG Initial EKG Interpretation: Sinus Rhythm - Sinus at 70 with first-degree AV block. No acute ischemia. - Medical Decision Making I spoke with the stroke neurologist via telephone just after he returned from CAT scan. Without focal findings at this time and patient on Coumadin he is not a TPA candidate. He recommends admission for further stroke work-up but will not evaluate him via the robot at this time. If symptoms change or any concerns arise we can contact him. On repeat evaluation patient is resting comfortably. is updated at bedside. Urinalysis is currently pending, however the remainder of the work-up is unremarkable. I will speak with hospitalist regarding admission for further stroke work-up. I did speak with social work msw who states that she would place a note in the computer about helping to arrange transfer from the hospital to the [facility]. ED Disposition - Plan for ED Patient: Disposition: Acute Care Hospital [facility] Diagnosis: TIA (transient ischemic attack) Referrals: Tracy Esparza MD [Primary Care Provider] -
--- NOTE | 2019-10-20 18:45 | RAD_ITS ---
STUDY: X-RAY CHEST REASON FOR EXAM: Male, 84 years old. stroke protocol, right sided weakness and confusion TECHNIQUE: Single AP portable view of the chest. COMPARISON: Previous study of March 29, 2018 FINDINGS: phototypesetting equipment monitor leads are present. There is a poor inspiration. There is a small focus of infiltrate or atelectasis of the right lung base. There is no demonstrated pleural abnormality. Normal size heart. Normal mediastinum and lee. Normal visualized pulmonary arteries. Normal visualized aortic arch and descending thoracic aorta. Normal visualized thoracic spine. There is an old fracture one of the mid left ribs. There is no demonstrated abnormality of the visualized soft tissue structures of the upper abdomen. RAD/Chest 1 View IMPRESSION: Poor inspiration. Small focus of infiltrate or atelectasis of the right lung base. PA and lateral views of the chest are recommended when clinically feasible. Electronically Signed: Rancho Ko MD at 19:10 EDT , Service support ,
[2019-10-20 18:46] LABS: Absolute Lymphocyte Count 1.92 X10^3/uL (0.83-4.51); Absolute Neutrophil Count 3.2 X10^3/uL (2.0-7.7); Basophil# 0.02 X10^3/uL; Basophil% 0.3 % (0-1); Eosinophil# 0.12 X10^3/uL; Eosinophils% 2.1 % (0-5); Hematocrit 43.6 % (40-54); Hemoglobin 14.5 g/dL (13.0-16.5); Lymphocyte # 1.92 X10^3/ul (4.0); Lymphocyte % 33.4 % (19-41); Mean Corp Hgb Conc 33.3 g/dL (32-36); Mean Corpuscular Hgb 30.3 pg (27.0-32.0); Mean Platelet Vol. 9.9 fl (6.2-12.0); Monocyte# 0.45 X10^3/uL; Monocyte% 7.8 % (0-10); NRBC Flagged by Analyzer 0 % (0-5); Neutrophil # 3.21 X10^3/uL (2.7-7.7); Neutrophil % 56.1 % (47-70); Platelet Count 168 K/mm3 (150-450); RBC Distribution Width CV 17.1 % (11.6-14.6); RBC Distribution Width SD 55.9 fl (35.1-43.9); Red Blood Count 4.79 M/mm3 (4.6-6.2); White Blood Count 5.7 K/mm3 (4.4-11.0)
[2019-10-20 18:51] LABS: International Normalized Ratio 2.5; Partial Thromboplast Time 33.6 Seconds (24.1-36.2); Prothrombin Time (Protime)PT. 26.3 SECONDS (11.7-14.9)
[2019-10-20 18:59] LABS: Anion Gap 3 (5-15); BUN 23 mg/dL (7-18); BUN/Creat Ratio 18.1 RATIO (10-20); Calcium,Total 9.7 mg/dL (8.5-10.1); Chloride 108 mmol/L (98-107); Creatinine, Serum 1.27 mg/dL (0.70-1.30); EST Glomerular Filtration Rate 58 mL/min (>60); Est Glom Filt Rate - Afr Amer 70 mL/min (>60); Estimated Creatinine Clearance 44.84 ml/min; Glucose 91 mg/dL (74-106); Potassium 4.4 mmol/L (3.5-5.1); Sodium Level 144 mmol/L (136-145)
--- NOTE | 2019-10-20 19:20 | CM.ED ---
SOCIAL WORK INFORMANT: DR. MADRIGAL REASON FOR REFERRAL: D/C PLANNING UPDATED BY DR. MADRIGAL, REPORTING HAS BEEN WORKING ON TRANSITIONING PATIENT FROM HOME TO THE [facility]. REQUESTING PATIENT D/C TO THE [facility] FROM THE HOSPITAL SHE CAN NO LONGER CARE FOR PATIENT AT HOME. SW TO FOLLOW FOR DISCHARGE PLANNING. PLAN: ADMIT Marilia PAULA MSW, CIVIL DESIGNER.
[2019-10-20 20:15] LABS: Bacteria 0 SEEN /hpf (None Seen); Mucous, Urine 0 SEEN /hpf (<or=2+); Squamous Epithelial Cells - UA 0 SEEN /hpf (0-5); White Blood Cells 0 SEEN /hpf (0-5)
--- NOTE | 2019-10-20 20:34 | PCM.HP.STD ---
Problem List (1) Stroke-like symptoms Status: Acute (2) Macrocytic anemia Status: Chronic (3) Chronic renal failure, stage 3 (moderate) Status: Chronic (4) Parkinsons disease Status: Chronic Comment: vs Parkinsonism due to dementia (5) BPH (benign prostatic hyperplasia) Status: Chronic Comment: with urine retention (6) Dementia Status: Chronic Comment: suspect Lewy body (7) Presbycusis of both ears Status: Chronic Comment: Bilateral hearing aids (8) Blind left eye Status: Chronic (9) LVH (left ventricular hypertrophy) Status: Chronic (10) TIA (transient ischemic attack) Status: Acute (11) Paroxysmal atrial fibrillation Status: Chronic (12) History of left heart catheterization Status: Chronic Comment: Nonobstructive CAD of LAD and mid RCA per [facility] 03/19/2016 (13) custodial current use of anticoagulant Status: Chronic Comment: Warfarin - discontinued due to fall with intracerebral bleed (14) GERD (gastroesophageal reflux disease) Status: Chronic (15) Gout Status: Chronic (16) Hypothyroidism Status: Chronic (17) Benign essential hypertension Status: Chronic (18) Carotid artery stenosis Status: Chronic Qualifiers: Laterality: bilateral Qualified Code(s): I65.23 - Occlusion and stenosis of bilateral carotid arteries Comment: Less than 50% stenosis in bilateral extracranial internal carotid arteries 05/06/2018 (19) CAD (coronary artery disease) Status: Chronic Qualifiers: Coronary Disease-Associated Artery/Lesion type: bill [place] artery (20) HLD (hyperlipidemia) Status: Chronic Qualifiers: (21) Polymyalgia rheumatica Status: Chronic (22) Debility Status: Chronic (23) Psoriatic arthritis Status: Chronic Comment: Kody Chappell History of Present Illness Date of Admission: 10/20/19 Chief Complaint: Fall The patient is a 84 year old M with a significant history of left eye legal blindness; ischemic stroke; subarachnoid hemorrhage; right carotid endarterectomy; paroxysmal A. fib; dementia and Parkinson disease who presented to emergency department with a Fall. Reportedly while patient was using his walker he leaned to the left side and he fell gradually. Paramedics report that the patient had right-sided weakness. Patient presented to the hospital about an hour after the incident of falling. His reported that the patient also had some confusion. At the time of evaluation at the emergency department the confusion had resolved. His reports occasional garbled speech that has been going on about April 2019 and seems to be more prominent in the week of presentation. Stroke alert was called but tele-neurologist did not personally evaluate patient after obtaining history from the emergency department doctor. Past Medical History Past Medical History (Chronic Problems): Chronic Problems (Last Reviewed 10/20/19 @ 21:[address] 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 per [facility] 03/19/2016 custodial current use of anticoagulant (Chronic) Warfarin - discontinued due to fall with intracerebral bleed GERD (gastroesophageal reflux disease) (Chronic) Gout (Chronic) Hypothyroidism (Chronic) Benign essential hypertension (Chronic) Carotid artery stenosis (Chronic) Less than 50% stenosis in bilateral extracranial internal carotid arteries 05/06/2018 CAD (coronary artery disease) (Chronic) HLD (hyperlipidemia) (Chronic) Polymyalgia rheumatica (Chronic) Debility (Chronic) Psoriatic arthritis (Chronic) On Humira Medical History: Medical History (Last Reviewed 10/20/19 @ 21:[address] 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) Z79.01 Warfarin - discontinued due to fall with intracerebral bleed GERD (gastroesophageal reflux disease) (Chronic) K21.9 Gout (Chronic) M10.9 Hypothyroidism (Chronic) E03.9 Benign essential hypertension (Chronic) I10 Carotid artery stenosis (Chronic) I65.29 Less than 50% stenosis in bilateral extracranial internal carotid arteries 05/06/2018 CAD (coronary artery disease) (Chronic) I25.10 HLD (hyperlipidemia) (Chronic) E78.5 Polymyalgia rheumatica (Chronic) M35.3 Contusion, hip (Inactive) S70.00XA Debility (Chronic) R53.81 Psoriatic arthritis (Chronic) L40.50 On Humira Closed right hip fracture (Resolved) Onset Date: ~06/2017 S72.001A Right acetabular fracture (Resolved) S32.401A TIA (transient ischemic attack) (Resolved) Chest pain (Inactive) R07.9 Allergies No Known Allergies Allergy (Verified 07/19/19 19:14) Home Medications: Ambulatory Orders Medication Instructions Recorded Allopurinol [Zyloprim] 200 mg PO DAILY 07/25/17 Levothyroxine [Synthroid] 50 mcg PO DAILY@0600 07/25/17 donepezil 10 mg tablet 10 mg PO QHS tab 09/01/18 flecainide 50 mg tablet 50 mg PO BID #180 tab 04/20/19 Adalimumab [Humira] 40 mg SUBCUT Q14D #0 06/17/19 Acetaminophen [Tylenol] 1,000 mg PO Q8H 07/19/19 Quetiapine Fumarate [Seroquel] 50 mg PO DAILY 07/19/19 Carbidopa/Levodopa 1 tab PO BID 10/20/19 [Carbidopa-Levodopa 25-100 Tab] Cholecalciferol (Vitamin D3) 2,000 unit PO DAILY 10/20/19 [Vitamin D3] Pravastatin Sodium [Pravachol] 20 mg PO QHS 10/20/19 Warfarin Sodium [Jantoven] 1 mg PO DAILY 10/20/19 Warfarin Sodium [Jantoven] 6 mg PO DAILY 10/20/19 Surgical History: Surgical History (Last Reviewed 10/20/19 @ 21:[address] Lucio Johnson MD) History of left heart catheterization (Chronic) Onset Date: ~03/19/16 Z98.890 Nonobstructive CAD of LAD and mid RCA per [facility] 03/19/2016 History of appendectomy Z90.49 History of open reduction and internal fixation (ORIF) procedure Z98.890 left knee Surgical History: adenoidectomy, appendectomy, tonsillectomy, - - Right carotid endarterectomy, carpal tunnel surgery, lipoma removal, rectal fissure repair. Psychiatric History: No pertinent psych hx Lives: Spouse/ Significant Other Smoking Status: Never smoker - *Family History Maternal Family History: Family History (Last Reviewed 10/20/19 @ 21:[address] Lucio Johnson MD) Father Sudden cardiac Mother Congestive heart failure History Items: No pertinent history Paternal Family History: Family History (Last Reviewed 10/20/19 @ 21:[address] Lucio Johnson MD) Father Sudden cardiac Mother Congestive heart failure History Items: Heart Disease Review of Systems Constitutional: Denies: Chills, Fever, Weight Change HEENT: Denies: Head Aches, Sinus Congestion, Sinus Drainage Cardiovascular: Denies: Chest Pain, Palpitations Respiratory: Denies: Cough, Shortness of breath at rest, Sputum production Gastrointestinal: Denies: Abdominal Pain, Nausea, Vomiting Genitourinary: Denies: Dysuria Musculoskeletal: Denies: Joint Pain, Joint Tenderness Skin: Denies: Rash, Wounds Neurological: Reports: Slurred speech, Confusion, Focal weakness. Denies: Numbness, Tingling Psychiatric: Denies: Anxiety, Depression, Homicidal Ideations, Suicidal Ideations Hematologic/ Lymphatic: Denies: Easy Bruising, Easy Bleeding VTE Information - Inpt Only VTE Present on Admission: No VTE Mechan Device Prophylaxis: None VTE Pharm Prophylaxis ordered?: No Reason prophylaxis not ordered:: Treatment Not Indicated - On Coumadin for A. fib, Coumadin continued. Patient Problems: Active and Suspected Problems (Last Reviewed 10/20/19 @ 21:[address] Lucio Johnson MD) TIA (transient ischemic attack) (Acute) Stroke-like symptoms (Acute) - Physical Exam Vitals/I&O's: Vital Signs Temp Pulse Resp BP Pulse Ox 98.3 F 69 18 183/91 H 97 10/20/19 18:16 10/20/19 20:00 10/20/19 20:00 10/20/19 20:00 10/20/19 20:00 Oxygen Delivery Method Room Air Weight: 93.3 kg Body Mass Index (BMI) 30.4 Finger Stick Blood Glucose 132 General: Alert, Oriented x3, Cooperative HEENT: Atraumatic, PERRLA, EOMI, Normocephalic Neck: Supple, No JVD, Negative Carotid Bruits Lungs: Clear to auscultation, Normal air movement Cardiovascular: Regular rate, Normal S1, Normal S2, No murmurs Abdomen: Bowel Sounds Present, Soft, Non Tender Extremities: No edema, Capillary Refill Less than 3 Seconds Skin: No rashes, No breakdown Musculoskeletal: No Tenderness to Palpation of Joints or Extremities Neurological: Cranial nerves II-XII grossly intact - Except that the patient is hard of hearing. Hearing aids in place., Deep Tendon Reflexes 2+/4 and Symmetrical, Motor Exam 5/5 strength throughout, - - Did not follow through instructions to do [id number] test appropriately, bilateral. Psych/Mental Status: Normal Affect, Appropriate Laboratory Results 10/20/19 18:25: WBC 5.7, RBC 4.79, Hgb 14.5, Hct 43.6, MCV 91.0, MCH 30.3, MCHC 33.3, RDW Std Deviation 55.9 H, RDW Coeff of Ramonita 17.1 H, Plt Count 168, MPV 9.9, Immature Gran % (Auto) 0.300, Neut % (Auto) 56.1, Lymph % (Auto) 33.4, [place] % (Auto) 7.8, Eos % (Auto) 2.1, Baso % (Auto) 0.3, Absolute Neuts (auto) 3.2, Absolute Lymphs (auto) 1.92, Nucleated RBC % 0 10/20/19 18:25: PT 26.3 H, INR 2.5, APTT 33.6 10/20/19 18:25: Sodium 144, Potassium 4.4, Chloride 108 H, Carbon Dioxide 33.0 H, Anion Gap 3 L, BUN 23 H, Creatinine 1.27, Estim Creat Clear Calc 44.84, Est GFR (MDRD) Af Amer 70, Est GFR (MDRD) Non-Af 58 L, BUN/Creatinine Ratio 18.1, Glucose 91, Calcium 9.7, Troponin I < 0.015 10/20/19 20:10: Urine Color Pending, Urine Clarity Pending, Urine pH Pending, Ur Specific [place] Pending, Urine Protein Pending, Urine Glucose (UA) Pending, Urine Ketones Pending, Urine Occult Blood Pending, Urine Nitrite Pending, Urine Bilirubin Pending, Urine Urobilinogen Pending, Ur Leukocyte Esterase Pending, Urine RBC Pending, Urine WBC Pending, Ur Squamous Epith Cells Pending, Urine Bacteria Pending, Urine Mucus Pending Current Medications Labetalol HCl (Trandate) 20 mg IV X1 PRN PRN Reason: BLOOD PRESSURE Assessment/Plan All Active Problems (Last Reviewed 10/20/19 @ 21:[address] Lucio Johnson MD) Subarachnoid hemorrhage following injury (Resolved) TIA (transient ischemic attack) (Acute) Stroke-like symptoms (Acute) Closed right hip fracture (Resolved ~06/2017) Right acetabular fracture (Resolved) TIA (transient ischemic attack) (Resolved) The patient is a 84 year old M with a significant history of left eye legal blindness; ischemic stroke; subarachnoid hemorrhage; right carotid endarterectomy; paroxysmal A. fib; dementia and Parkinson disease who presented to emergency department with strokelike symptoms. Strokelike symptoms NINDS NIH Scale No residual strokelike symptoms observed at a time of my examination. CT of the head not show anything acute. -Check Hba1c, Lipid level Physical therapy, occupational therapy and speech therapy to work with patient. N.p.o. until bedside swallow eval. Patient is a Coumadin daily for A. fib. Coumadin continued. Also his reported patient take baby aspirin daily. Daily aspirin continued. Home pravastatin continued. Lipid profile and A1c ordered. Permissive hypertension. Control blood pressure with labetalol for systolic blood pressure of more than 220 or diastolic blood pressure of more than 120. MRI/MRAM of head; brain; and neck. Since patient is on Coumadin and he does not have any residual strokelike symptoms we will hold off echocardiogram at this time. Hypertension Permissive hypertension with labetalol as above. Psoriatic arthritis Home adalimumab. Dementia Donepezil continued Parkinson disease Carbidopa-levodopa continued Gout Allopurinol continued. Paroxysmal A. fib Patient in sinus rhythm with first-degree AV block at emergency department. INR is therapeutic. Coumadin continued. Daily INR. Disposition: Before this presentation his to get patient into [facility], correction. Per emergency department doctor social insurance adviser at emergency department began to look into this. Case management consult. CODE STATUS: While his thought that patient to be a DNR, patient although has a dementia is able to make decision and stated that he wants everything possible done. His is aware that patient has always wanted everything medically possible to be done. Also on record, on 06/18/2019 patient signed a full code document. Order for full code placed. OBSV E&M: [id number] Initial observation care L2
[2019-10-20 20:50] LABS: Color, Urine Yellow (Yellow); Glucose, Dipstick Normal (Normal); Ketone-Dipstick 5 mg/dl (Negative); Leukocyte Esterase-Dipstick Negative /ul (Negative); Nitrite-Dipstick Negative (Negative); Occult Blood-Urine 50 /ul (Negative); Protein-Dipstick Negative (Negative); Urine Bilirubin Dipstick Negative (Negative); Urine Clarity Clear (Clear); Urine Urobilinogen Normal (Normal)
[2019-10-20 21:06] LABS: Red Blood Cells-Urine 0-5 SEEN /hpf (0-5)
[2019-10-20] MEDS: Pravastatin 20 MG Tablet PO (23:11)
[2019-10-20] MEDS: Donepezil HCl 10 MG Tablet PO (23:14)
[2019-10-21] VITALS (7 sets, daily range): BP systolic 130–178; BP diastolic 68–99; PULSE 56–87; RESP 14–18; TEMP 36.3–36.9; O2SAT 94–98
[2019-10-21] MEDS: 0.9% Saline Lock 10 ML Syringe IV (02:33)
[2019-10-21] MEDS: LORazepam 2 MG/ML Syringe 1 MG IV (02:33)
[2019-10-21 05:33] LABS: International Normalized Ratio 2.3; Prothrombin Time (Protime)PT. 24.4 SECONDS (11.7-14.9)
--- NOTE | 2019-10-21 05:40 | NURSING ---
Obtained vital signs which were stable. unable to obtained NIH at this time patient unable to comprehend will not follow commands.
[2019-10-21 05:52] LABS: Cholesterol 104 mg/dL (200); High Density Lipoprotein 48 mg/dL; Triglycerides 62 mg/dL; Very Low Density Lipoprotein 12 mg/dL (5-40)
[2019-10-21] MEDS: Levothyroxine 50 MCG Tablet PO (06:00)
[2019-10-21 06:49] LABS: Hemoglobin A1c 6.3 % (4.2-6.3)
[2019-10-21] MEDS: Carbidopa/Levodopa 25/100 Tablet PO ×2 (06:52→15:55)
--- NOTE | 2019-10-21 09:00 | MRI_ITS ---
STUDY: MRA NECK WITH AND WITHOUT CONTRAST REASON FOR EXAM: Male, 84 years old. cva -- rt sided weakness, confusion,slurred speech x 1 week TECHNIQUE: 3-D [id number] (TOF) imaging was performed in an 1.5 T MRI scanner. dotarem 18ml iv was administered for the contrast enhanced images. COMPARISON: None. FINDINGS: RIGHT CAROTID ARTERIES: Normal right common carotid artery (CCA). There is mild atherosclerotic plaque formation with minimal narrowing of the right carotid bulb. Normal origin of the right internal carotid (ICA) artery without a hemodynamically significant stenosis. Normal visualized cervical portion of the right internal carotid artery. Normal origin of the right external carotid artery (ECA). LEFT CAROTID ARTERIES: Normal left common carotid artery (CCA). There is mild atherosclerotic plaque formation with minimal narrowing of the left carotid bulb. Normal origin of the left internal carotid (ICA) artery without a hemodynamically significant stenosis. Normal visualized cervical portion of the left internal carotid artery. Normal origin of the left external carotid artery (ECA). VERTEBRAL ARTERIES: Normal antegrade flow within the bilateral vertebral artery without a hemodynamically significant stenosis. MRI/MRA Neck WITH and W/O Contrast IMPRESSION: Carotid bulb mild plaque with no evidence of significant steno-occlusive disease or aneurysm. Electronically Signed: Boom Kingsley DO at 11:56 EDT , Service support ,
--- NOTE | 2019-10-21 09:00 | MRI_ITS ---
STUDY: MRA OF THE HEAD WITHOUT CONTRAST REASON FOR EXAM: Male, 84 years old. cva -- rt sided weakness, confusion,slurred speech x 1 week TECHNIQUE: 3-D [id number] (TOF) imaging was performed with MIPs. The study was performed unenhanced. COMPARISON: None. FINDINGS: Normal bilateral petrous carotid arteries. Normal right cavernous carotid artery with a normal supraclinoid bifurcation. Normal left cavernous carotid artery with a normal supraclinoid bifurcation. Normal right A1 segments of the anterior cerebral artery. Normal left A1 segments of the anterior cerebral artery. Normal intact anterior communicating artery (ACOM). Normal bilateral A2 segments of the anterior cerebral arteries. Normal right M1 and M2 segments of the middle cerebral arteries, with a normal M1 bifurcation. Normal left M1 and M2 segments of the middle cerebral arteries, with a normal M1 bifurcation. There is a persistent origin of the right posterior cerebral artery with absence of the P1 segment of the right posterior cerebral artery. Normal left posterior communicating artery (PCOM). Normal bilateral vertebral arteries. Normal basilar artery with a normal basilar bifurcation. The visualized bilateral superior cerebellar (SCA) arteries are normal. The right posterior cerebral arteries diminutive with decreased flow related enhancement. There is no demonstrated aneurysm of the [place]. There is no major vessel occlusion or hemodynamically significant stenosis. There is no demonstrated abnormality of the visualized brain. MRI/MRA Head ONLY without Contrast IMPRESSION: Right posterior cerebral artery decreased flow related enhancement possibly secondary to atherosclerotic changes versus reduced flow with otherwise no evidence of underlying aneurysm. No evidence of definitive MCA territory stenosis or occlusion. Electronically Signed: Boom Kingsley DO at 11:56 EDT , Service support ,
--- NOTE | 2019-10-21 09:00 | MRI_ITS ---
STUDY: MRI BRAIN WITHOUT CONTRAST REASON FOR EXAM: Male, 84 years old. cva -- rt sided weakness, confusion,slurred speech x 1 week TECHNIQUE: Standardized multiplanar fat and water weighted pulse sequences were obtained. COMPARISON: [address] head FINDINGS: There is moderate cerebral atrophy with widening of the extra-axial spaces and ventricular dilatation. There are multiple confluent white matter hyperintensities, distributed throughout the deep white matter tracts of the cerebral hemispheres, consistent with severe chronic white matter ischemic changes. Bilateral frontal encephalomalacia is present. There is no evidence for recent intracranial ischemia or other cause of cytotoxic edema on diffusion weighted imaging (DWI). Normal bilateral basal ganglia. Normal thalami. There is no extra-axial fluid accumulation. Normal flow voids within the major intracranial circulation suggesting patency by spin echo criteria. Normal sella turcica, pituitary gland, infundibular stalk, optic chiasm and hypothalamus. Normal tectal plate and pineal gland. Normal midbrain, evelio and medulla. Normal cerebellum. Normal basal cisterns. Normal bilateral temporal bones. Normal bilateral internal auditory canals. No demonstrated orbital abnormality, within the constraints of a routine brain study. Normal visualized paranasal sinuses. Normal calvarium and skull base. Normal visualized soft tissue structures. Normal visualized upper cervical spine. MRI/Brain without Contrast IMPRESSION: Senescent changes as above with no evidence of acute intracranial bleed, mass or ischemia. Electronically Signed: Boom Kingsley DO at 11:57 EDT , Service support ,
[2019-10-21] MEDS: QUEtiapine 25 MG Tablet 50 MG PO (09:24)
[2019-10-21] MEDS: Aspirin 81 MG TAB.CHEW PO (09:25)
[2019-10-21] MEDS: Flecainide 100 MG Tablet 50 MG PO ×2 (09:25→21:17)
[2019-10-21] MEDS: Allopurinol 100 MG Tablet 200 MG PO (09:26)
[2019-10-21] MEDS: Nystatin Powder 15gm Bottle 1 APPLIC TOPICAL ×2 (09:26→21:17)
--- NOTE | 2019-10-21 11:53 | CASEMGMT ---
Social Work Consult: Discharge Planning Per chart review, plan is for patient to discharge to [facility] per patient spouse report to Dr. Bailey (ED doctor). Telephone call to patient spouse, Wayne. Wayne confirming that plan would be for patient to discharge to [facility] due to Wayne being unable to care for patient any longer. Wayne stating to have been working with an elder estate attorney on senior living placement to [facility] prior to patient hospitalization. Wayne stating to complete all of patient care prior to hospitalization. Patient is able to walk with walker with Wayne being with patient. Active support and listening provided. Social work to make referral to [facility] on Wednesday. Social work to continue to follow for further discharge planning. Flako Easley MSW, ARMEN
--- NOTE | 2019-10-21 13:09 | PCM.PN.HOSP ---
Patient Problems: Active and Suspected Problems (Last Reviewed 10/20/19 @ 21:[address] Lucio Johnson MD) TIA (transient ischemic attack) (Acute) Stroke-like symptoms (Acute) Subjective: Confused this morning, does not know where he is or what the year is and is unable to follow commands Vitals/I&O's: Vital Signs Temp Pulse Resp BP Pulse Ox 97.4 F L 87 18 178/99 H 96 10/21/19 09:15 10/21/19 09:15 10/21/19 09:15 10/21/19 09:15 10/21/19 09:15 Oxygen Delivery Method Room Air Weight: 197 lb 1.492 oz Body Mass Index (BMI) 33.8 Finger Stick Blood Glucose 132 Intake and Output for Last 24 Hours 10/19/19 10/20/19 10/21/19 23:59 23:59 23:59 Intake Total 120 / 120 240 / 240 Balance 120 / 120 240 / 240 General: Alert, No apparent distress, Confused, Disoriented HEENT: Atraumatic, PERRLA, EOMI, Normocephalic Oral: Moist Mucosa Neck: Supple, No JVD Lungs: Clear to auscultation, Normal air movement, No rhonchi, No wheeze, No rales Cardiovascular: Regular rate, Regular Rhythm, Normal S1, Normal S2, No murmurs Abdomen: Soft, Non Tender, Non-Distended, No Hepato-splenomegaly Extremities: No edema, Capillary Refill Less than 3 Seconds Skin: No rashes, No breakdown Neurological: Deep Tendon Reflexes 2+/4 and Symmetrical, Neuro grossly intact, - - He has hard of hearing and appears very confused and has difficulty following commands Psych/Mental Status: - - Confused and disoriented Laboratory Results 10/20/19 18:25: WBC 5.7, RBC 4.79, Hgb 14.5, Hct 43.6, MCV 91.0, MCH 30.3, MCHC 33.3, RDW Std Deviation 55.9 H, RDW Coeff of Ramonita 17.1 H, Plt Count 168, MPV 9.9, Immature Gran % (Auto) 0.300, Neut % (Auto) 56.1, Lymph % (Auto) 33.4, [place] % (Auto) 7.8, Eos % (Auto) 2.1, Baso % (Auto) 0.3, Absolute Neuts (auto) 3.2, Absolute Lymphs (auto) 1.92, Nucleated RBC % 0 10/20/19 18:25: PT 26.3 H, INR 2.5, APTT 33.6 10/20/19 18:25: Sodium 144, Potassium 4.4, Chloride 108 H, Carbon Dioxide 33.0 H, Anion Gap 3 L, BUN 23 H, Creatinine 1.27, Estim Creat Clear Calc 44.84, Est GFR (MDRD) Af Amer 70, Est GFR (MDRD) Non-Af 58 L, BUN/Creatinine Ratio 18.1, Glucose 91, Calcium 9.7, Troponin I < 0.015 10/20/19 20:10: Urine Color Yellow, Urine Clarity Clear, Urine pH 5.0, Ur Specific [place] 1.020, Urine Protein Negative, Urine Glucose (UA) Normal, Urine Ketones 5 H, Urine Occult Blood 50 H, Urine Nitrite Negative, Urine Bilirubin Negative, Urine Urobilinogen Normal, Ur Leukocyte Esterase Negative, Urine RBC 0-5 SEEN, Urine WBC 0 SEEN, Ur Squamous Epith Cells 0 SEEN, Urine Bacteria 0 SEEN, Urine Mucus 0 SEEN 10/21/19 05:04: PT 24.4 H, INR 2.3 10/21/19 05:04: Triglycerides 62, Cholesterol 104, LDL Cholesterol 44, VLDL Cholesterol 12, HDL Cholesterol 48 10/21/19 05:04: Hemoglobin A1c 6.3 Current Medications Acetaminophen (Tylenol) 650 mg PO Q6H PRN PRN PRN Reason: Pain Score 1-10/Temp > 100.7 F Acetaminophen (Tylenol) 1,000 mg PO Q8 [facility] Last Admin: 10/21/19 06:07 Dose: Not Given Documented by: Allopurinol (Zyloprim) 200 mg PO DAILY [facility] Last Admin: 10/21/19 09:26 Dose: 200 mg Documented by: Aspirin (Aspirin, Baby) 81 mg PO DAILY@0800 [facility] Last Admin: 10/21/19 09:25 Dose: 81 mg Documented by: Carbidopa/Levodopa (Sinemet) 1 tablet PO BIDAC [facility] Last Admin: 10/21/19 06:52 Dose: 1 tablet Documented by: Cholecalciferol (Vitamin D (25mcg)) 2,000 unit PO DAILY [facility] Last Admin: 10/21/19 09:26 Dose: 2,000 unit Documented by: Dextrose (D50w Syringe) 0 gm IV X1 PRN; Protocol PRN Reason: Hypoglycemia Donepezil HCl (Aricept) 10 mg PO QHS [facility] Last Admin: 10/20/19 23:14 Dose: 10 mg Documented by: Flecainide Acetate (Tambocor) 50 mg PO BID [facility] Last Admin: 10/21/19 09:25 Dose: 50 mg Documented by: Glucagon () 1 mg IM .X1 PRN PRN Reason: Hypoglycemia Hydralazine HCl (Apresoline Iv) 5 mg IV Q30M PRN PRN Reason: to maintain BP goals Sodium Chloride () 250 mls @ 15 mls/hr IV .[id number] PRN PRN Reason: Saline Flush Sodium Chloride () 250 mls @ 15 mls/hr IV .[id number] PRN PRN Reason: Additional IVPB Infusion Labetalol HCl (Trandate) 10 - 20 mg IV Q10M PRN PRN PRN Reason: to maintain BP goals Levothyroxine Sodium (Synthroid) 50 mcg PO DAILY@0600 [facility] Last Admin: 10/21/19 06:00 Dose: 50 mcg Documented by: Magnesium Hydroxide (Milk Of Magnesia) 30 ml PO DAILY PRN PRN PRN Reason: Constipation Nystatin (Mycostatin Powder) 1 applic TOPICAL BID [facility]; Protocol Last Admin: 10/21/19 09:26 Dose: 1 applicatio Documented by: Ondansetron HCl (Zofran) 4 mg IV Q8H PRN PRN PRN Reason: NAUSEA/VOMITING Pravastatin Sodium (Pravachol) 20 mg PO QHS [facility] Last Admin: 10/20/19 23:11 Dose: 20 mg Documented by: Quetiapine Fumarate (Seroquel) 50 mg PO DAILY [facility] Last Admin: 10/21/19 09:24 Dose: 50 mg Documented by: Sodium Chloride () 10 - 40 ml IV UD PRN PRN Reason: SALINE FLUSH Last Admin: 10/21/19 02:33 Dose: 10 ml Documented by: Warfarin Sodium (Coumadin (Pbkc)) 1 mg PO DAILY@1700 [facility] Warfarin Sodium (Coumadin (Pbkc)) 6 mg PO DAILY@1700 [facility] STROKE Vital Signs/Narrative: Vital Signs Temp Pulse Resp BP Pulse Ox 10/21/19 09:15 97.4 F L 87 18 178/99 H 96 Medical Necessity - Tobacco Use Smoking Status: Never smoker Assessment/Plan All Active Problems (Last Reviewed 10/20/19 @ 21:[address] Lucio Johnson MD) Subarachnoid hemorrhage following injury (Resolved) TIA (transient ischemic attack) (Acute) Stroke-like symptoms (Acute) Closed right hip fracture (Resolved ~06/2017) Right acetabular fracture (Resolved) TIA (transient ischemic attack) (Resolved) 1. TIA versus CVA/HTN/HLD's/history of previous stroke/A. fib -MRI and MRA of his head and neck were negative for any acute stroke, the original symptoms that brought him into the hospital appeared to have resolved -We will allow permissive hypertension continue with PRN blood pressure medications -INR is therapeutic, continue with Coumadin and aspirin -Continue with statin and flecainide -PT/OT and will attempt to place in a longterm facility -Can restart his home blood pressure medications tomorrow -Continue with donepezil, part of his confusion is likely worsening dementia as well as sundowning and possible stroke that did not show up on the MRI, continue with Seroquel 2. Psoriatic arthritis/gout -Stable -Continue with adalimumab and allopurinol 3. Parkinson's disease -Dementia is likely secondary to both Parkinson's and vascular dementia since he has had previous strokes -Continue with Sinemet 4. Hypothyroidism -Stable -Continue Synthroid DVT: Coumadin Inpatient E&M: [id number] Subs Hosp L2
--- NOTE | 2019-10-21 14:20 | CASEMGMT ---
Social Work Attempted to speak with patient in room multiple times, patient resting soundly on multiple attempts. Patient spouse stating that patient sleeps all the time. Will continue to follow as needed. Flako CEBALLOS, ARMEN
[2019-10-21] MEDS: Donepezil HCl 10 MG Tablet PO (21:16)
[2019-10-21] MEDS: Pravastatin 20 MG Tablet PO (21:16)
[2019-10-21] MEDS: QUEtiapine 25 MG Tablet PO (21:17)
[2019-10-22 03:05] VITALS: BP 158/84; PULSE 54; RESP 16; TEMP 37.1; O2SAT 93
[2019-10-22 05:48] LABS: International Normalized Ratio 2.3; Prothrombin Time (Protime)PT. 24.9 SECONDS (11.7-14.9)
[2019-10-22] MEDS: Carbidopa/Levodopa 25/100 Tablet PO ×2 (06:42→17:19)
[2019-10-22] MEDS: Levothyroxine 50 MCG Tablet PO (06:42)
[2019-10-22 07:54] VITALS: O2SAT 93
[2019-10-22] MEDS: Nystatin Powder 15gm Bottle 1 APPLIC TOPICAL ×2 (08:41→21:16)
[2019-10-22] MEDS: Flecainide 100 MG Tablet 50 MG PO ×2 (08:41→21:16)
[2019-10-22] MEDS: Allopurinol 100 MG Tablet 200 MG PO (08:41)
[2019-10-22] MEDS: Aspirin 81 MG TAB.CHEW PO (08:42)
[2019-10-22 08:51] VITALS: BP 148/75; PULSE 59; RESP 16; TEMP 36.6; O2SAT 94
--- NOTE | 2019-10-22 09:23 | PCM.PN.HOSP ---
Patient Problems: Active and Suspected Problems (Last Reviewed 10/20/19 @ 21:[address] Lucio Johnson MD) TIA (transient ischemic attack) (Acute) Stroke-like symptoms (Acute) Subjective: No issues overnight, he was a little sleepy yesterday but is because he received 50 mg of Seroquel in the morning when he usually takes at night. Vitals/I&O's: Vital Signs Temp Pulse Resp BP Pulse Ox 97.9 F 59 L 16 148/75 H 94 10/22/19 08:51 10/22/19 08:51 10/22/19 08:51 10/22/19 08:51 10/22/19 08:51 Oxygen Delivery Method Room Air Weight: 197 lb 1.492 oz Body Mass Index (BMI) 33.8 Finger Stick Blood Glucose 132 Intake and Output for Last 24 Hours 10/20/19 10/21/19 10/22/19 23:59 23:59 23:59 Intake Total 120 / 120 490 / 490 Balance 120 / 120 490 / 490 General: Alert, No apparent distress, Confused, Disoriented HEENT: Atraumatic, PERRLA, EOMI, Normocephalic Oral: Moist Mucosa Neck: Supple, No JVD Lungs: Clear to auscultation, Normal air movement, No rhonchi, No wheeze, No rales Cardiovascular: Regular rate, Regular Rhythm, Normal S1, Normal S2, No murmurs Abdomen: Soft, Non Tender, Non-Distended, No Hepato-splenomegaly Extremities: No edema, Capillary Refill Less than 3 Seconds Skin: No rashes, No breakdown Neurological: Deep Tendon Reflexes 2+/4 and Symmetrical, Neuro grossly intact, - - He has hard of hearing and appears very confused and has difficulty following commands Psych/Mental Status: - - Confused and disoriented Laboratory Results 10/22/19 04:56: PT 24.9 H, INR 2.3 Current Medications Acetaminophen (Tylenol) 650 mg PO Q6H PRN PRN PRN Reason: Pain Score 1-10/Temp > 100.7 F Acetaminophen (Tylenol) 1,000 mg PO Q8 [facility] Last Admin: 10/22/19 06:42 Dose: Not Given Documented by: Allopurinol (Zyloprim) 200 mg PO DAILY [facility] Last Admin: 10/22/19 08:41 Dose: 200 mg Documented by: Aspirin (Aspirin, Baby) 81 mg PO DAILY@0800 [facility] Last Admin: 10/22/19 08:42 Dose: 81 mg Documented by: Carbidopa/Levodopa (Sinemet) 1 tablet PO BIDAC [facility] Last Admin: 10/22/19 06:42 Dose: 1 tablet Documented by: Cholecalciferol (Vitamin D (25mcg)) 2,000 unit PO DAILY [facility] Last Admin: 10/22/19 08:41 Dose: 2,000 unit Documented by: Dextrose (D50w Syringe) 0 gm IV X1 PRN; Protocol PRN Reason: Hypoglycemia Donepezil HCl (Aricept) 10 mg PO QHS [facility] Last Admin: 10/21/19 21:16 Dose: 10 mg Documented by: Flecainide Acetate (Tambocor) 50 mg PO BID [facility] Last Admin: 10/22/19 08:41 Dose: 50 mg Documented by: Glucagon () 1 mg IM .X1 PRN PRN Reason: Hypoglycemia Hydralazine HCl (Apresoline Iv) 5 mg IV Q30M PRN PRN Reason: to maintain BP goals Sodium Chloride () 250 mls @ 15 mls/hr IV .[id number] PRN PRN Reason: Saline Flush Sodium Chloride () 250 mls @ 15 mls/hr IV .[id number] PRN PRN Reason: Additional IVPB Infusion Labetalol HCl (Trandate) 10 - 20 mg IV Q10M PRN PRN PRN Reason: to maintain BP goals Levothyroxine Sodium (Synthroid) 50 mcg PO DAILY@0600 [facility] Last Admin: 10/22/19 06:42 Dose: 50 mcg Documented by: Magnesium Hydroxide (Milk Of Magnesia) 30 ml PO DAILY PRN PRN PRN Reason: Constipation Nystatin (Mycostatin Powder) 1 applic TOPICAL BID [facility]; Protocol Last Admin: 10/22/19 08:41 Dose: 1 applicatio Documented by: Ondansetron HCl (Zofran) 4 mg IV Q8H PRN PRN PRN Reason: NAUSEA/VOMITING Pravastatin Sodium (Pravachol) 20 mg PO QHS [facility] Last Admin: 10/21/19 21:16 Dose: 20 mg Documented by: Quetiapine Fumarate (Seroquel) 25 mg PO QHS [facility] Last Admin: 10/21/19 21:17 Dose: 25 mg Documented by: Sodium Chloride () 10 - 40 ml IV UD PRN PRN Reason: SALINE FLUSH Last Admin: 10/21/19 02:33 Dose: 10 ml Documented by: Warfarin Sodium (Coumadin (Pbkc)) 1 mg PO DAILY@1700 [facility] Last Admin: 10/21/19 15:55 Dose: 1 mg Documented by: Warfarin Sodium (Coumadin (Pbkc)) 6 mg PO DAILY@1700 [facility] Last Admin: 10/21/19 15:58 Dose: 6 mg Documented by: STROKE Vital Signs/Narrative: Vital Signs Temp Pulse Resp BP Pulse Ox 10/22/19 08:51 97.9 F 59 L 16 148/75 H 94 10/22/19 07:54 93 Medical Necessity - Tobacco Use Smoking Status: Never smoker Assessment/Plan All Active Problems (Last Reviewed 10/20/19 @ 21:[address] Lucio Johnson MD) Subarachnoid hemorrhage following injury (Resolved) TIA (transient ischemic attack) (Acute) Stroke-like symptoms (Acute) Closed right hip fracture (Resolved ~06/2017) Right acetabular fracture (Resolved) TIA (transient ischemic attack) (Resolved) 1. TIA versus CVA/HTN/HLD's/history of previous stroke/A. fib -MRI and MRA of his head and neck were negative for any acute stroke, the original symptoms that brought him into the hospital appeared to have resolved -INR is therapeutic, continue with Coumadin and aspirin -Continue with statin and flecainide -PT/OT and will attempt to place in a fpc facility -Continue with donepezil, part of his confusion is likely worsening dementia as well as and possible stroke that did not show up on the MRI, continue with Seroquel at night -I discussed his care with his yesterday who states that he has been much more confused over the last several months and they were attempting to get him placed in a fpc facility from home 2. Psoriatic arthritis/gout -Stable -Continue with adalimumab and allopurinol 3. Parkinson's disease -Dementia is likely secondary to both Parkinson's and vascular dementia since he has had previous strokes -Continue with Sinemet 4. Hypothyroidism -Stable -Continue Synthroid DVT: Coumadin Inpatient E&M: [id number] [facility] Hosp L2
[2019-10-22 14:36] VITALS: BP 145/77; PULSE 60; RESP 16; TEMP 36.5; O2SAT 94
[2019-10-22 20:20] VITALS: BP 155/81; PULSE 61; RESP 18; TEMP 36.6; O2SAT 95
[2019-10-22] MEDS: Donepezil HCl 10 MG Tablet PO (21:15)
[2019-10-22] MEDS: QUEtiapine 25 MG Tablet PO (21:15)
[2019-10-22] MEDS: Pravastatin 20 MG Tablet PO (21:16)
[2019-10-23 02:20] VITALS: BP 168/85; PULSE 63; RESP 16; TEMP 36.8; O2SAT 95
[2019-10-23 05:52] LABS: Absolute Lymphocyte Count 2.31 X10^3/uL (0.83-4.51); Absolute Neutrophil Count 6.1 X10^3/uL (2.0-7.7); Basophil# 0.03 X10^3/uL; Basophil% 0.3 % (0-1); Eosinophil# 0.15 X10^3/uL; Eosinophils% 1.6 % (0-5); Hematocrit 45.4 % (40-54); Hemoglobin 14.7 g/dL (13.0-16.5); Lymphocyte # 2.31 X10^3/ul (4.0); Lymphocyte % 24.5 % (19-41); Mean Corp Hgb Conc 32.4 g/dL (32-36); Mean Corpuscular Hgb 28.5 pg (27.0-32.0); Mean Platelet Vol. 10.9 fl (6.2-12.0); Monocyte# 0.82 X10^3/uL; Monocyte% 8.7 % (0-10); NRBC Flagged by Analyzer 0 % (0-5); Neutrophil # 6.07 X10^3/uL (2.7-7.7); Neutrophil % 64.6 % (47-70); Platelet Count 141 K/mm3 (150-450); RBC Distribution Width CV 16.2 % (11.6-14.6); RBC Distribution Width SD 52.4 fl (35.1-43.9); Red Blood Count 5.16 M/mm3 (4.6-6.2); White Blood Count 9.4 K/mm3 (4.4-11.0)
[2019-10-23 06:08] LABS: International Normalized Ratio 1.8; Prothrombin Time (Protime)PT. 20.7 SECONDS (11.7-14.9)
[2019-10-23] MEDS: Carbidopa/Levodopa 25/100 Tablet PO ×2 (06:26→15:57)
[2019-10-23] MEDS: Levothyroxine 50 MCG Tablet PO (06:26)
[2019-10-23 06:48] LABS: Anion Gap 4 (5-15); BUN 23 mg/dL (7-18); BUN/Creat Ratio 19.5 RATIO (10-20); Calcium,Total 9.1 mg/dL (8.5-10.1); Chloride 108 mmol/L (98-107); Creatinine, Serum 1.18 mg/dL (0.70-1.30); EST Glomerular Filtration Rate 63 mL/min (>60); Est Glom Filt Rate - Afr Amer 76 mL/min (>60); Estimated Creatinine Clearance 40.41 ml/min; Glucose 88 mg/dL (74-106); Potassium 3.6 mmol/L (3.5-5.1); Sodium Level 141 mmol/L (136-145)
[2019-10-23 06:50] VITALS: O2SAT 92
[2019-10-23 08:20] VITALS: BP 136/79; PULSE 70; RESP 18; TEMP 36.4; O2SAT 94
--- NOTE | 2019-10-23 08:42 | PN_ITS ---
Patient Problems: Active and Suspected Problems (Last Reviewed 10/20/19 @ 21:[address] Lucio Johnson MD) TIA (transient ischemic attack) (Acute) Stroke-like symptoms (Acute) Subjective: No issues overnight slept well apparently and is well rested and alert Vitals/I&O's: Vital Signs Temp Pulse Resp BP Pulse Ox 98.2 F 63 16 168/85 H 92 10/23/19 02:20 10/23/19 02:20 10/23/19 02:20 10/23/19 02:20 10/23/19 06:50 Oxygen Delivery Method Room Air Weight: 197 lb 1.492 oz Body Mass Index (BMI) 33.8 Finger Stick Blood Glucose 132 Intake and Output for Last 24 Hours 10/21/19 10/22/19 10/23/19 23:59 23:59 23:59 Intake Total 590 / 590 460 / 460 0 / 0 Balance 590 / 590 460 / 460 0 / 0 General: Alert, No apparent distress, Confused, Disoriented HEENT: Atraumatic, PERRLA, EOMI, Normocephalic Oral: Moist Mucosa Neck: Supple, No JVD Lungs: Clear to auscultation, Normal air movement, No rhonchi, No wheeze, No rales Cardiovascular: Regular rate, Regular Rhythm, Normal S1, Normal S2, No murmurs Abdomen: Soft, Non Tender, Non-Distended, No Hepato-splenomegaly Extremities: No edema, Capillary Refill Less than 3 Seconds Skin: No rashes, No breakdown Neurological: Deep Tendon Reflexes 2+/4 and Symmetrical, Neuro grossly intact, - - He has hard of hearing and appears very confused and has difficulty following commands Psych/Mental Status: - - Confused and disoriented Laboratory Results 10/23/19 05:14: PT 20.7 H, INR 1.8 10/23/19 05:14: WBC 9.4, RBC 5.16, Hgb 14.7, Hct 45.4, MCV 88.0, MCH 28.5, MCHC 32.4, RDW Std Deviation 52.4 H, RDW Coeff of Ramonita 16.2 H, Plt Count 141 L, MPV 10.9, Immature Gran % (Auto) 0.300, Neut % (Auto) 64.6, Lymph % (Auto) 24.5, [place] % (Auto) 8.7, Eos % (Auto) 1.6, Baso % (Auto) 0.3, Absolute Neuts (auto) 6.1, Absolute Lymphs (auto) 2.31, Nucleated RBC % 0 10/23/19 05:14: Sodium 141, Potassium 3.6, Chloride 108 H, Carbon Dioxide 29.0, Anion Gap 4 L, BUN 23 H, Creatinine 1.18, Estim Creat Clear Calc 40.41, Est GFR (MDRD) Af Amer 76, Est GFR (MDRD) Non-Af 63, BUN/Creatinine Ratio 19.5, Glucose 88, Calcium 9.1 Current Medications Acetaminophen (Tylenol) 650 mg PO Q6H PRN PRN PRN Reason: Pain Score 1-10/Temp > 100.7 F Acetaminophen (Tylenol) 1,000 mg PO Q8 [facility] Last Admin: 10/23/19 06:26 Dose: Not Given Documented by: Allopurinol (Zyloprim) 200 mg PO DAILY [facility] Last Admin: 10/22/19 08:41 Dose: 200 mg Documented by: Aspirin (Aspirin, Baby) 81 mg PO DAILY@0800 [facility] Last Admin: 10/22/19 08:42 Dose: 81 mg Documented by: Carbidopa/Levodopa (Sinemet) 1 tablet PO BIDAC [facility] Last Admin: 10/23/19 06:26 Dose: 1 tablet Documented by: Cholecalciferol (Vitamin D (25mcg)) 2,000 unit PO DAILY [facility] Last Admin: 10/22/19 08:41 Dose: 2,000 unit Documented by: Dextrose (D50w Syringe) 0 gm IV X1 PRN; Protocol PRN Reason: Hypoglycemia Donepezil HCl (Aricept) 10 mg PO QHS [facility] Last Admin: 10/22/19 21:15 Dose: 10 mg Documented by: Flecainide Acetate (Tambocor) 50 mg PO BID [facility] Last Admin: 10/22/19 21:16 Dose: 50 mg Documented by: Glucagon () 1 mg IM .X1 PRN PRN Reason: Hypoglycemia Hydralazine HCl (Apresoline Iv) 5 mg IV Q30M PRN PRN Reason: to maintain BP goals Sodium Chloride () 250 mls @ 15 mls/hr IV .[id number] PRN PRN Reason: Saline Flush Sodium Chloride () 250 mls @ 15 mls/hr IV .[id number] PRN PRN Reason: Additional IVPB Infusion Labetalol HCl (Trandate) 10 - 20 mg IV Q10M PRN PRN PRN Reason: to maintain BP goals Levothyroxine Sodium (Synthroid) 50 mcg PO DAILY@0600 [facility] Last Admin: 10/23/19 06:26 Dose: 50 mcg Documented by: Magnesium Hydroxide (Milk Of Magnesia) 30 ml PO DAILY PRN PRN PRN Reason: Constipation Nystatin (Mycostatin Powder) 1 applic TOPICAL BID [facility]; Protocol Last Admin: 10/22/19 21:16 Dose: 1 applicatio Documented by: Ondansetron HCl (Zofran) 4 mg IV Q8H PRN PRN PRN Reason: NAUSEA/VOMITING Pravastatin Sodium (Pravachol) 20 mg PO QHS [facility] Last Admin: 10/22/19 21:16 Dose: 20 mg Documented by: Quetiapine Fumarate (Seroquel) 25 mg PO QHS [facility] Last Admin: 10/22/19 21:15 Dose: 25 mg Documented by: Sodium Chloride () 10 - 40 ml IV UD PRN PRN Reason: SALINE FLUSH Last Admin: 10/21/19 02:33 Dose: 10 ml Documented by: Warfarin Sodium (Coumadin (Pbkc)) 1 mg PO DAILY@1700 [facility] Last Admin: 10/21/19 15:55 Dose: 1 mg Documented by: Warfarin Sodium (Coumadin (Pbkc)) 6 mg PO DAILY@1700 [facility] Last Admin: 10/22/19 17:18 Dose: 6 mg Documented by: STROKE Vital Signs/Narrative: Vital Signs Pulse Ox 10/23/19 06:50 92 Medical Necessity - Tobacco Use Smoking Status: Never smoker Assessment/Plan All Active Problems (Last Reviewed 10/20/19 @ 21:[address] Lucio Johnson MD) Subarachnoid hemorrhage following injury (Resolved) TIA (transient ischemic attack) (Acute) Stroke-like symptoms (Acute) Closed right hip fracture (Resolved ~06/2017) Right acetabular fracture (Resolved) TIA (transient ischemic attack) (Resolved) 1. TIA versus CVA/HTN/HLD's/history of previous stroke/A. fib -MRI and MRA of his head and neck were negative for any acute stroke, the original symptoms that brought him into the hospital appeared to have resolved -INR is therapeutic, continue with Coumadin and aspirin -Continue with statin and flecainide -PT/OT and will attempt to place in a longterm facility -Continue with donepezil, part of his confusion is likely worsening dementia as well as sundowning and possible stroke that did not show up on the MRI, continue with Seroquel at night -I discussed his care with his , who states that he has been much more confused over the last several months and they were attempting to get him placed in a longterm facility from home 2. Psoriatic arthritis/gout -Stable -Continue with adalimumab and allopurinol 3. Parkinson's disease -Dementia is likely secondary to both Parkinson's and vascular dementia since he has had previous strokes -Continue with Sinemet 4. Hypothyroidism -Stable -Continue Synthroid DVT: Coumadin Inpatient E&M: [id number] [facility] Hosp L2
[2019-10-23] MEDS: Aspirin 81 MG TAB.CHEW PO (08:45)
[2019-10-23] MEDS: Flecainide 100 MG Tablet 50 MG PO ×2 (08:46→21:05)
[2019-10-23] MEDS: Allopurinol 100 MG Tablet 200 MG PO (08:47)
[2019-10-23] MEDS: Nystatin Powder 15gm Bottle 1 APPLIC TOPICAL ×2 (08:47→21:06)
--- NOTE | 2019-10-23 10:37 | CASEMGMT ---
Social Work [facility] available and referral faxed. Will await return call with determination if they can accept pt. ALPHONSO Eason
--- NOTE | 2019-10-23 12:50 | CASEMGMT ---
Social Work Return call from the [facility] and they are able to accept pt. Phone call to pt Wayne and updated that [facility] pt and discharge will likely be tomorrow. Pt agreeable. Plan: [facility], tomorrow. ALPHONSO Eason
[2019-10-23 14:20] VITALS: BP 147/77; PULSE 69; RESP 16; TEMP 37.1; O2SAT 96
[2019-10-23] MEDS: Acetaminophen 500 MG Tablet 1000 MG PO ×2 (14:36→21:05)
[2019-10-23 20:49] VITALS: BP 115/44; PULSE 70; RESP 17; TEMP 36.7; O2SAT 94
[2019-10-23] MEDS: Pravastatin 20 MG Tablet PO (21:05)
[2019-10-23] MEDS: Donepezil HCl 10 MG Tablet PO (21:06)
[2019-10-23] MEDS: QUEtiapine 25 MG Tablet PO (21:06)
[2019-10-24 03:00] VITALS: BP 141/68; PULSE 60; RESP 18; TEMP 36.6; O2SAT 95
[2019-10-24] MEDS: Levothyroxine 50 MCG Tablet PO (06:09)
[2019-10-24] MEDS: Carbidopa/Levodopa 25/100 Tablet PO (06:09)
[2019-10-24] MEDS: Acetaminophen 500 MG Tablet 1000 MG PO (06:09)
[2019-10-24 08:00] VITALS: O2SAT 93
[2019-10-24 09:05] LABS: Prothrombin Time (Protime)PT. 22.6 SECONDS (11.7-14.9)
[2019-10-24 09:32] VITALS: BP 136/75; PULSE 66; RESP 15; TEMP 36.6; O2SAT 96
[2019-10-24] MEDS: Nystatin Powder 15gm Bottle 1 APPLIC TOPICAL (09:36)
[2019-10-24] MEDS: Allopurinol 100 MG Tablet 200 MG PO (09:37)
[2019-10-24] MEDS: Flecainide 100 MG Tablet 50 MG PO (09:38)
[2019-10-24] MEDS: Aspirin 81 MG TAB.CHEW PO (09:38)
--- NOTE | 2019-10-24 10:32 | PCM.TXEXTCAR ---
- Diet 10/20/19 21:37 Diet: Regular Diet Food consistency:: Regular Liquid Consistency:: Regular/Thin Diet Comments: 1:1 CLOSE SUPERVISION; Cut meats bite-sized - Routine Orders/Code Status Routine Lab Work: INR Code Status: Full Code - Therapies Physical Therapy: Eval and Treat Occupational Therapy: Eval and Treat Speech Therapy: Eval and Treat - Allergies/Procedures Done in Hospital Allergies/Adverse Reactions: Allergies No Known Allergies Allergy (Verified 10/20/19 22:18) - Type of Care/Length of Stay Estimated LOS: Convalescent Care Less Than 30 days Type of Care Needed: Skilled Rehab Potential: Fair Prognosis: Fair - Additional Orders/Day of Discharge Day of Discharge: 10/24/19 - Dietary and Speech Recommendations Dietitian Recommendations/Changes: Rec continue Regular diet w/ texture modifications per [employer]. - Follow Up Care Primary Care Physician: Tracy Esparza MD [Primary Care Provider] - Please follow up with your Primary Care Physician in: 1-2 weeks
--- NOTE | 2019-10-24 10:34 | DS.PCM_ITS ---
Discharge Date and Diagnosis - Problem List Patient Problems: Active and Suspected Problems (Last Reviewed 10/20/19 @ 21:[address] Lucio Johnson MD) TIA (transient ischemic attack) (Acute) Stroke-like symptoms (Acute) Date of Admission: 10/20/19 Date of Discharge: 10/24/19 - Primary Discharge Diagnosis Active and Suspected Problems (Last Reviewed 10/20/19 @ 21:[address] Lucio Johnson MD) TIA (transient ischemic attack) (Acute) Stroke-like symptoms (Acute) - Secondary Discharge Diagnosis Chronic Problems (Last Reviewed 10/20/19 @ 21:[address] 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 per [facility] 03/19/2016 [facility] current use of anticoagulant (Chronic) Warfarin - discontinued due to fall with intracerebral bleed GERD (gastroesophageal reflux disease) (Chronic) Gout (Chronic) Hypothyroidism (Chronic) Benign essential hypertension (Chronic) Carotid artery stenosis (Chronic) Less than 50% stenosis in bilateral extracranial internal carotid arteries 05/06/2018 CAD (coronary artery disease) (Chronic) HLD (hyperlipidemia) (Chronic) Polymyalgia rheumatica (Chronic) Debility (Chronic) Psoriatic arthritis (Chronic) [facility] Imaging Results: CT Brain: IMPRESSION: Chronic involutional changes of the brain. 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 There is no evidence of acute infarct or intracranial hemorrhage. Findings are similar to the previous study. CXR: IMPRESSION: Poor inspiration. Small focus of infiltrate or atelectasis of the right lung base. PA and lateral views of the chest are recommended when clinically feasible. MRI Brain: IMPRESSION: Senescent changes as above with no evidence of acute intracranial bleed, mass or ischemia. MRA HEad: IMPRESSION: Right posterior cerebral artery decreased flow related enhancement possibly secondary to atherosclerotic changes versus reduced flow with otherwise no evidence of underlying aneurysm. No evidence of definitive MCA territory stenosis or occlusion. MRA Neck: IMPRESSION: Carotid bulb mild plaque with no evidence of significant steno-occlusive disease or aneurysm. Consults: None Operations: None Procedures: None Summary of Care Provided: Per HPI: The patient is a 84 year old M with a significant history of left eye legal blindness; ischemic stroke; subarachnoid hemorrhage; right carotid endarterectomy; paroxysmal A. fib; dementia and Parkinson disease who presented to emergency department with a Fall. Reportedly while patient was using his walker he leaned to the left side and he fell gradually. Paramedics report that the patient had right-sided weakness. Patient presented to the hospital about an hour after the incident of falling. His reported that the patient also had some confusion. At the time of evaluation at the emergency department the confusion had resolved. His reports occasional garbled speech that has been going on about April 2019 and seems to be more prominent in the week of presentation. Stroke alert was called but tele-neurologist did not personally evaluate patient after obtaining history from the emergency department doctor. Hospital Course: 1. TIA versus CVA/HTN/HLD/history of previous stroke/A. [id number]-old male who is been having issues with garbled speech since about April presented after fall with weakness on the right side. He is anticoagulated on Coumadin for his A. fib and his INR is been therapeutic therefore an echo was not obtained. MRI of his brain was negative for any acute stroke and an MRA of his head and neck were unremarkable. He was continued on all his home medications and has been doing well. He has had continued confusion which according to the is very common with him, he has bouts of confusion with some bouts of clarity and then he has episodes of sleeping throughout the day and episodes of being awake throughout the day. He did have an episode daytime drowsiness while here, this was discussed with the and she clarified that his Seroquel was supposed to be 25 mg nightly not 50 mg daily and this was adjusted and this is what he was discharged on. They were in the process of getting him placed in a senior care prior to this episode. Evaluation of the patient has been challenging simply because he has difficulty following commands. He has had a previous stroke as well as a subarachnoid hemorrhage and he has Parkinson's therefore he is at risk for both vascular and Parkinson's and dementia which I feel is likely progressing causing most of his issues. No changes were made to his current medication regimen, he will continue his aspirin as well as his statin. 2. Psoriatic arthritis/gout -Stable -Continue with adalimumab and allopurinol 3. Parkinson's disease/Dementia -Dementia is likely secondary to both Parkinson's and vascular dementia since he has had previous strokes -Continue with Sinemet 4. Hypothyroidism -Stable -Continue Synthroid Patient Problems: Active and Suspected Problems (Last Reviewed 10/20/19 @ 21:[address] Lucio Johnson MD) TIA (transient ischemic attack) (Acute) Stroke-like symptoms (Acute) - Physical Exam Vitals/I&O's: Vital Signs Temp Pulse Resp BP Pulse Ox 97.8 F 66 15 136/75 H 96 10/24/19 09:32 10/24/19 09:32 10/24/19 09:32 10/24/19 09:32 10/24/19 09:32 Oxygen Delivery Method Room Air Weight: 197 lb 1.492 oz Body Mass Index (BMI) 33.8 Finger Stick Blood Glucose 132 Intake and Output for Last 24 Hours 10/22/19 10/23/19 10/24/19 23:59 23:59 23:59 Intake Total 460 / 460 780 / 780 Balance 460 / 460 780 / 780 General: Alert, No apparent distress, Confused, Disoriented HEENT: Atraumatic, PERRLA, EOMI, Normocephalic Oral: Moist Mucosa Neck: Supple, No JVD Lungs: Clear to auscultation, Normal air movement, No rhonchi, No wheeze, No rales Cardiovascular: Regular rate, Regular Rhythm, Normal S1, Normal S2, No murmurs Abdomen: Soft, Non Tender, Non-Distended, No Hepato-splenomegaly Extremities: No edema, Capillary Refill Less than 3 Seconds Skin: No rashes, No breakdown Neurological: Deep Tendon Reflexes 2+/4 and Symmetrical, Neuro grossly intact, - - He is hard of hearing and is confused and has difficulty following commands Psych/Mental Status: - - Confused and disoriented Laboratory Results 10/24/19 07:55: PT 22.6 H, INR 2.0 Current Medications Acetaminophen (Tylenol) 650 mg PO Q6H PRN PRN PRN Reason: Pain Score 1-10/Temp > 100.7 F Acetaminophen (Tylenol) 1,000 mg PO Q8 AIYANA Last Admin: 10/24/19 06:09 Dose: 1,000 mg Documented by: Allopurinol (Zyloprim) 200 mg PO DAILY [facility] Last Admin: 10/24/19 09:37 Dose: 200 mg Documented by: Aspirin (Aspirin, Baby) 81 mg PO DAILY@0800 [facility] Last Admin: 10/24/19 09:38 Dose: 81 mg Documented by: Carbidopa/Levodopa (Sinemet) 1 tablet PO BIDAC [facility] Last Admin: 10/24/19 06:09 Dose: 1 tablet Documented by: Cholecalciferol (Vitamin D (25mcg)) 2,000 unit PO DAILY [facility] Last Admin: 10/24/19 09:37 Dose: 2,000 unit Documented by: Dextrose (D50w Syringe) 0 gm IV X1 PRN; Protocol PRN Reason: Hypoglycemia Donepezil HCl (Aricept) 10 mg PO QHS [facility] Last Admin: 10/23/19 21:06 Dose: 10 mg Documented by: Flecainide Acetate (Tambocor) 50 mg PO BID [facility] Last Admin: 10/24/19 09:38 Dose: 50 mg Documented by: Glucagon () 1 mg IM .X1 PRN PRN Reason: Hypoglycemia Hydralazine HCl (Apresoline Iv) 5 mg IV Q30M PRN PRN Reason: to maintain BP goals Sodium Chloride () 250 mls @ 15 mls/hr IV .[id number] PRN PRN Reason: Saline Flush Sodium Chloride () 250 mls @ 15 mls/hr IV .[id number] PRN PRN Reason: Additional IVPB Infusion Labetalol HCl (Trandate) 10 - 20 mg IV Q10M PRN PRN PRN Reason: to maintain BP goals Levothyroxine Sodium (Synthroid) 50 mcg PO DAILY@0600 [facility] Last Admin: 10/24/19 06:09 Dose: 50 mcg Documented by: Magnesium Hydroxide (Milk Of Magnesia) 30 ml PO DAILY PRN PRN PRN Reason: Constipation Nystatin (Mycostatin Powder) 1 applic TOPICAL BID [facility]; Protocol Last Admin: 10/24/19 09:36 Dose: 1 applicatio Documented by: Ondansetron HCl (Zofran) 4 mg IV Q8H PRN PRN PRN Reason: NAUSEA/VOMITING Pravastatin Sodium (Pravachol) 20 mg PO QHS [facility] Last Admin: 10/23/19 21:05 Dose: 20 mg Documented by: Quetiapine Fumarate (Seroquel) 25 mg PO QHS [facility] Last Admin: 10/23/19 21:06 Dose: 25 mg Documented by: Sodium Chloride () 10 - 40 ml IV UD PRN PRN Reason: SALINE FLUSH Last Admin: 10/21/19 02:33 Dose: 10 ml Documented by: Warfarin Sodium (Coumadin (Pbkc)) 1 mg PO DAILY@1700 [facility] Last Admin: 10/23/19 15:57 Dose: 1 mg Documented by: Warfarin Sodium (Coumadin (Pbkc)) 6 mg PO DAILY@1700 [facility] Last Admin: 10/23/19 15:57 Dose: 6 mg Documented by: Home Medications: Medications to take at Discharge Allopurinol [Zyloprim] 200 mg PO DAILY 07/25/17 Levothyroxine [Synthroid] 50 mcg PO DAILY@0600 07/25/17 donepezil 10 mg tablet 10 mg PO QHS tab 09/01/18 flecainide 50 mg tablet 50 mg PO BID #180 tab 04/20/19 Adalimumab [Humira] 40 mg SUBCUT Q14D #0 06/17/19 Acetaminophen [Tylenol] 1,000 mg PO Q8H 07/19/19 Carbidopa/Levodopa [Carbidopa-Levodopa 25-100 Tab] 1 tab PO BID 10/20/19 Cholecalciferol (Vitamin D3) [Vitamin D3] 2,000 unit PO DAILY 10/20/19 Pravastatin Sodium [Pravachol] 20 mg PO QHS 10/20/19 Warfarin Sodium [Jantoven] 1 mg PO DAILY 10/20/19 Warfarin Sodium [Jantoven] 6 mg PO DAILY 10/20/19 Aspirin [Aspirin, Baby] 81 mg PO DAILY@0800 tab.chew 10/24/19 Quetiapine Fumarate [Seroquel] 25 mg PO QHS tab 10/24/19 Primary Care Physician: Tracy Esparza MD [Primary Care Provider] - Please follow up with your Primary Care Physician in: 1-2 weeks Disposition: Longterm facility Minutes spent on discharge:: 35 Patient Condition:: Stable Medical Necessity - Tobacco Use Smoking Status: Never smoker Meaningful Use Info Meaningful Use Diagnoses (Choose all that apply): Ischemic CVA - CVA Therapy Assessed for PT,OT and/or ST?: Yes - Ischemic Stroke Antithrombotic order at d/c?: Yes Dx of Atrial fib/flutter?: Yes Anticoagulant at discharge?: Yes Statins at discharge?: Yes Primary Dx Acute Ischemic CVA?: Yes IV tPA ordered during stay?: No Reason IV t-PA not ordered: Procedure not Indicated Inpatient E&M: 61182 Disch Hosp
[2019-10-24 11:42] VITALS: BP 142/76; PULSE 56; RESP 15; TEMP 36.6; O2SAT 98
--- NOTE | 2019-10-24 12:09 | NURSING ---
called neeta Chung rn
== END 2019-10-24 12:00 | disposition skilled nursing facility (03) | DRG 69 ==
LOC: ED 20:33 → PCU 20:59
PROVIDERS: Admitting Provider Hospitalist; Emergency Provider Emergency Medicine; PCP Family Medicine; Visit Provider Family Medicine
DX: G45.9 Transient cerebral ischemic attack, unspecified (principal); I48.20 Chronic atrial fibrillation, unspecified; N18.3 Chronic kidney disease, stage 3 (moderate); I13.10 Hypertensive heart and chronic kidney disease without heart failure, with stage 1 through stage 4 chronic kidney disease, or unspecified chronic kidney disease; N40.1 Benign prostatic hyperplasia with lower urinary tract symptoms; R33.8 Other retention of urine; F02.80 Dementia in other diseases classified elsewhere, unspecified severity, without behavioral disturbance, psychotic disturbance, mood disturbance, and anxiety; G20 Parkinson's disease; I25.10 Atherosclerotic heart disease of native coronary artery without angina pectoris; I48.0 Paroxysmal atrial fibrillation; E78.5 Hyperlipidemia, unspecified; M35.3 Polymyalgia rheumatica; E03.9 Hypothyroidism, unspecified; K21.9 Gastro-esophageal reflux disease without esophagitis; I44.0 Atrioventricular block, first degree; L40.50 Arthropathic psoriasis, unspecified; M1A.9XX0 Chronic gout, unspecified, without tophus (tophi); F01.50 Vascular dementia, unspecified severity, without behavioral disturbance, psychotic disturbance, mood disturbance, and anxiety
CPT/HCPCS: 36415; 70450; 70544; 70549; 70551; 71045; 80048; 80061; 81001; 83036; 84484; 85025; 85610; 85730; 92526; 92610; 93005; 94762; 97110; 97163; 97166; 97530; 97535; 99285; A9575; A4216

== ENCOUNTER 2019-11-16 11:24 | Emergency (ER) | payer MEDICARE, OTHER, SELFPAY ==
[2019-10-20 21:41] VITALS: BMI 33.8
[2019-11-16 11:24] VITALS: BP 176/92; PULSE 58; RESP 17; TEMP 36.4; O2SAT 98; BMI 29.7
--- NOTE | 2019-11-16 11:40 | CT_ITS ---
STUDY: CT BRAIN WITHOUT CONTRAST REASON FOR EXAM: Male, 84 years old. Fell from wheelchair yesterday, on blood thinners. Hx dementia, Parkinson''s, hypertension, CVA, TIA. RADIATION DOSAGE (If Supplied By Facility): CTDIvol = ( 44.99 ) mGy, DLP = ( 779.24 ) mGycm TECHNIQUE: Transaxial CT imaging of the brain was performed without administration of intravenous contrast material. Individualized dose optimization techniques were used for this CT. COMPARISON: Head CT dated October 20, 2019 FINDINGS: Normal soft tissue structures. Normal calvarium. Healed fracture deformity of the anterior aspect of the left zygomatic arch. There is moderate cerebral atrophy with widening of the extra-axial spaces and ventricular dilatation. There are areas of decreased attenuation within the white matter tracts of the supratentorial brain, consistent with microvascular disease changes. Asymmetric mild volume loss and hypodensity in the left frontal lobe reidentified is favored to represent sequela from previous infarction. Normal brainstem. There is mild cerebellar atrophy. There is no intracranial hemorrhage. There are no findings of an acute ischemic infarction. Normal visualized paranasal sinuses. CT/Brain/Head without Contrast IMPRESSION: Chronic ischemic and involutional changes of the brain. Electronically Signed: Pedro Weber MD at 12:33 EDT , Service support ,
--- NOTE | 2019-11-16 11:40 | CT_ITS ---
STUDY: CT CERVICAL SPINE WITHOUT CONTRAST REASON FOR EXAM: Male, 84 years old. Fell from wheelchair yesterday, on blood thinners. Hx dementia, Parkinson''s, hypertension, CVA, TIA. RADIATION DOSAGE (If Supplied By Facility): CTDIvol = ( 29.23 ) mGy, DLP = ( 585.76 ) mGycm TECHNIQUE: High resolution transaxial imaging was performed without contrast material. Sagittal and coronal images were reconstructed. Individualized dose optimization techniques were used for this CT. COMPARISON: None FINDINGS: Normal craniovertebral junction. There are degenerative changes of the anterior atlantoaxial articulation. Normal odontoid process. There is straightening of the normal cervical lordosis. The bony structures are demineralized. Mild multilevel degenerative changes are present. No visualized acute fracture or compression deformity. No significant central canal stenosis demonstrated. Normal visualized soft tissue structures. CT/Spine Cervical without Contras IMPRESSION: Multilevel degenerative changes, as described above. Electronically Signed: Pedro Weber MD at 12:36 EDT , Service support ,
--- NOTE | 2019-11-16 11:40 | RAD_ITS ---
STUDY: X-RAY - RIGHT SHOULDER REASON FOR EXAM: Male, 84 years old. pt fell out of wheelchair yesterday, posterior right shoulder bruising and redness TECHNIQUE: 3 view(s) of the shoulder. COMPARISON: None. FINDINGS: Normal glenohumeral articulation. Normal acromioclavicular joint. Normal acromion. There is demineralization of the humerus and visualized osseous structures. The soft tissue structures are unremarkable. There is no demonstrated acute fracture of the shoulder. Numerous healed right side rib fractures noted as well as fibrosis of the right lung. RAD/Shoulder min 2 Views IMPRESSION: 1. There is no demonstrated acute fracture of the shoulder. Numerous healed right side rib fractures noted as well as fibrosis of the right lung. Electronically Signed: Pedro Weber MD at 12:38 EDT , Service support ,
--- NOTE | 2019-11-16 11:55 | ED.DCSUM_ITS ---
History of Present Illness Chief Complaint: Fall Informant: Patient, Patient Access Specialist Limited: Dementia Occurred: Yesterday Mechanism/Context: - - Out of wheelchair Location: Right shoulder Narrative: Patient is an 84-year-old male with history of Parkinson's disease, dementia and atrial fibrillation, currently on Coumadin with an INR of 3.1 yesterday presenting from the [facility] for evaluation after a fall. Patient fell out of his wheelchair yesterday. He landed on his right shoulder and hit his head. Is not clear if he had loss of consciousness or not. Patient is ANO x1 and at his baseline. He has a history of blindness in his left eye from prior stroke. He does have unequal pupils today but is not clear what his baseline is for his pupils. Patient is currently complaining of right shoulder pain. He denies any other complaints at this time. Past Medical History - Allergies and Home Meds Allergies/Adverse Reactions: Allergies No Known Allergies Allergy (Verified 11/16/19 11:32) Primary Care Physician: Tracy Esparza MD [Primary Care Provider] - Past Medical History: - - Atrial fibrillation, stroke, Parkinson's disease, Lewy body dementia, history of traumatic subarachnoid hemorrhage Surgical History: adenoidectomy, appendectomy, tonsillectomy, - - Right carotid endarterectomy, carpal tunnel surgery, lipoma removal, rectal fissure repair. Lives: Group Home Smoking Status: Former smoker - Family History Maternal Family History: Family History (Last Reviewed 10/20/19 @ 21:[address] Lucio Johnson MD) Father Sudden cardiac Mother Congestive heart failure Family History: Reports: No pertinent history Paternal Family History: Family History (Last Reviewed 10/20/19 @ 21:[address] Lucio Johnson MD) Father Sudden cardiac Mother Congestive heart failure Family History: Reports: Heart Disease Review of Systems General: Denies: Chills, Fever, Sweats Eyes: Denies: Visual changes - bilaterally, Diplopia ENT: Denies: Rhinorrhea, Sore throat Cardiovascular: Denies: Chest pain, Palpitations Respiratory: Denies: Dyspnea, Cough, Dyspnea on exertion Gastrointestinal: Denies: Abdominal pain, Nausea, Vomiting Genitourinary: Denies: Dysuria, Hematuria, Frequency Musculoskeletal: Reports: Extremity Pain - Right shoulder pain. Denies: Back pain Skin: Reports: - - Bruising to right shoulder. Denies: Rash, Wounds Neurological: Denies: Headache, Weakness, Numbness Physical Exam Vital Signs/Narrative: Vital Signs Temp Pulse Resp BP Pulse Ox 11/16/19 11:24 97.5 F L 58 L 17 176/92 H 98 Inital Vital Signs reviewed: Yes General: Well nourished, Well developed Head: Normocephalic, Atraumatic Eyes: EOMI, - - Right pupil is 3 mm reactive to 2 mm briskly. Left pupil is 5 mm and briskly reactive to 4 mm. ENT: No trauma, - - Unable to visualize tympanic membranes bilaterally second to cerumen impactions. Patient is very hard of hearing.. Negative for: Nasal trauma, Nasal septal hematoma Neck: Nontender, Full ROM Cardiovascular: Regular rate, Regular rhythm, No murmurs Respiratory: No distress, CTA bilaterally, Chest nontender, - - no Chest wall crepitus appreciated.. Negative for: Chest tenderness Abdomen: Soft, Nontender, Nondistended, Normal bowel sounds Back: Nontender. Negative for: Spinal Tenderness, Paraspinal Tenderness Extremeties: No bony deformity. Tenderness palpation diffusely of the right shoulder, most pronounced over the posterior aspect. No joint deformity noted. Decreased range of motion secondary to pain. No tenderness to palpation of the distal humerus, elbow or wrist. Intact spare person strength bilaterally. Pelvis is stable. No hip pain with range of motion bilaterally. Skin: Normal color, No rash Neurological: Alert, Normal Strength, Normal Sensation, Disoriented - ANO x1, patient's baseline. Negative for: Lethargic Psychological: Normal affect Diagnostic/Tx/Re-eval Clinical Impression(s) from Imaging Studies Brain CT 11/16/19 11:40 IMPRESSION: Chronic ischemic and involutional changes of the brain. Electronically Signed: Pedro Weber MD at 12:33 EDT , Service support , Cervical Spine CT 11/16/19 11:40 IMPRESSION: Multilevel degenerative changes, as described above. Electronically Signed: Pedro Weber MD at 12:36 EDT , Service support , Shoulder X-Ray 11/16/19 11:40 IMPRESSION: 1. There is no demonstrated acute fracture of the shoulder. Numerous healed right side rib fractures noted as well as fibrosis of the right lung. Electronically Signed: Pedro Weber MD at 12:38 EDT , Service support , - Medical Decision Making Evaluate after mechanical fall yesterday. He seems to have a contusion to his right shoulder. Patient is on Coumadin and had an INR of 3.[address] and C-spine are obtained to rule out intracranial process and acute cervical spinal fracture. These do not show any acute process. X-ray of the shoulder does not show any acute fracture or dislocation either. Likely this is just a contusion. Patient be discharged back to his nursing facility. He seems to be at his baseline. As patient had an INR check yesterday do not think we need to recheck it again today especially as patient does not have any acute intracranial process. ED Disposition - Plan for ED Patient: Disposition: Home or Assisted Living Diagnosis: Fall, Closed head injury, Contusion of right shoulder Instructions: ED Mechanical Fall, ED EXTREMITY CONTUSION Upper Referrals: Tracy Esparza MD [Primary Care Provider] -
== END 2019-11-16 13:25 | disposition home or self-care (01) ==
PROVIDERS: Emergency Provider Emergency Medicine; PCP Family Medicine
DX: S09.90XA Unspecified injury of head, initial encounter (principal); S40.011A Contusion of right shoulder, initial encounter; W05.0XXA Fall from non-moving wheelchair, initial encounter; Y93.9 Activity, unspecified; Y92.9 Unspecified place or not applicable; I69.398 Other sequelae of cerebral infarction; H54.40 Blindness, one eye, unspecified eye; G31.83 Neurocognitive disorder with Lewy bodies; F02.80 Dementia in other diseases classified elsewhere, unspecified severity, without behavioral disturbance, psychotic disturbance, mood disturbance, and anxiety; I48.91 Unspecified atrial fibrillation; I10 Essential (primary) hypertension; Z79.01 Long term (current) use of anticoagulants; Z79.82 Long term (current) use of aspirin; Z79.899 Other long term (current) drug therapy; Z87.891 Personal history of nicotine dependence
CPT/HCPCS: 70450; 72125; 73030; 99284

== ENCOUNTER 2019-12-20 09:11 | Emergency (ER) | payer MEDICARE, OTHER, SELFPAY ==
[2019-12-20] VITALS (9 sets, daily range): BP systolic 138–172; BP diastolic 59–64; PULSE 62–73; RESP 14–29; TEMP 37.6; O2SAT 82–98; BMI 27.9
--- NOTE | 2019-12-20 09:29 | CT_ITS ---
STUDY: CT BRAIN WITHOUT CONTRAST REASON FOR EXAM: Male, 84 years old. UNRESPONSIVE. Hx of prior stroke, Parkinson''s, Afib, HTN, CAD and HLD RADIATION DOSAGE (If Supplied By Facility): CTDIvol = ( 44.99 ) mGy, DLP = ( 829.85 ) mGycm TECHNIQUE: Transaxial CT imaging of the brain was performed without administration of intravenous contrast material. Individualized dose optimization techniques were used for this CT. COMPARISON: 11/16/2019 FINDINGS: Extensive subarachnoid hemorrhage has occurred since the previous study noted throughout the cerebral hemispheres around the basilar cisterns and in the dependent portions of the posterior horns of lateral ventricles. Subarachnoid hemorrhages are usually from ruptured aneurysm or vascular malformation. There is a subtle change in the chew-white matter pattern suggestive of edema and anoxia. There are age consistent atrophic periventricular and deep white matter changes, ventricular enlargement is unchanged from the previous study. No skull fracture or scalp hematoma CT/Brain/Head without Contrast IMPRESSION: Diffuse acute subarachnoid hemorrhage with associated chew-white matter changes suggesting edema and anoxia. There is also evidence of acute hemorrhage in the dependent portions of the posterior horns of the lateral ventricles Atrophic periventricular and deep white matter changes Stable ventriculomegaly N.B. : The above information has been verbally conveyed by Franklyn Zhou MD to Christine Guerrero MD, on 12/20/2019 10:40:51 (ET). Electronically Signed: Franklyn Zhou MD at 10:43 EDT , Service support ,
--- NOTE | 2019-12-20 09:29 | EKG12_ITS ---
Test Reason : SOB Blood Pressure : / mmHG Vent. Rate : 072 BPM Atrial Rate : 078 BPM P-R Int : 240 ms QRS Dur : 086 ms QT Int : 368 ms P-R-T Axes : 074 014 051 degrees QTc Int : 402 ms Sinus rhythm with marked sinus arrhythmia with 1st degree A-V block Nonspecific T wave abnormality Abnormal ECG Confirmed by REBECCA GAN ([id number]), film editor SYD ELLIOTT ([id number]) on 12/26/2019 8:02:29 AM Referred By: CORY Confirmed By:REBECCA GAN
[2019-12-20 09:42] LABS: Absolute Lymphocyte Count 1.85 X10^3/uL (0.83-4.51); Absolute Neutrophil Count 10.9 X10^3/uL (2.0-7.7); Basophil# 0.02 X10^3/uL; Basophil% 0.1 % (0-1); Hematocrit 37.6 % (40-54); Hemoglobin 12.2 g/dL (13.0-16.5); Lymphocyte # 1.85 X10^3/ul (4.0); Lymphocyte % 13.3 % (19-41); Mean Corp Hgb Conc 32.4 g/dL (32-36); Mean Corpuscular Hgb 30.7 pg (27.0-32.0); Mean Corpuscular Volume 94.7 fL (80-94); Mean Platelet Vol. 10.4 fl (6.2-12.0); Monocyte# 1.11 X10^3/uL; NRBC Flagged by Analyzer 0 % (0-5); Neutrophil # 10.89 X10^3/uL (2.7-7.7); Neutrophil % 78.1 % (47-70); Platelet Count 157 K/mm3 (150-450); RBC Distribution Width CV 15.1 % (11.6-14.6); RBC Distribution Width SD 52.5 fl (35.1-43.9); Red Blood Count 3.97 M/mm3 (4.6-6.2); White Blood Count 13.9 K/mm3 (4.4-11.0)
[2019-12-20 09:47] LABS: Prothrombin Time (Protime)PT. 40.9 SECONDS (11.7-14.9)
[2019-12-20 10:02] LABS: International Normalized Ratio 4.3; Lactic Acid 0.8 mmol/L (0.4-1.9)
--- NOTE | 2019-12-20 10:16 | ED.DCSUM_ITS ---
- ER Visit Summary Date of Service: 12/20/19 Chief Complaint: Unresponsive History of Present Illness: The patient is a 84 M presenting [facility] unresponsive. Per [facility] staff patient was given his morning medications at 5 AM and was awake and alert at that time. At 8:40 AM he was found un responsive with sputum coming from his mouth. He had a temperature of 101.4. His pulse ox was 79% on room air. This improved to 87% on nonrebreather. His blood sugar was normal. Physical Examination: Blood pressure 172/63, temperature 99.7, heart rate 73, respiratory 29, pulse ox 92% on nonrebreather. HEENT exam dry mucous membranes. PERRL Neck is supple. Lungs are rhonchi bilaterally. Heart is regular rate and rhythm. Abdomen is soft nontender nondistended. Extremities mild symmetric edema. Skin is warm and dry. Unresponsive to voice and sternal rub Remainder of exam is unremarkable. Emergency Department Course and Treatment: EKG is sinus rhythm rate of 72. Discussed with on arrival. She is power of securities attorney. She is considering DO NOT RESUSCITATE comfort care only. Chest x-ray shows no acute process. CBC shows white count 13.9, hemoglobin 12.2. Chemistry shows potassium 3.4, glucose 129. INR 4.3. COVID was sent and is pending. CT head shows diffuse acute subarachnoid hemorrhage with associated chew-white matter changes suggesting edema and anoxia. There is also evidence of acute hemorrhage in the dependent portions of the posterior horns of the lateral ventricles Atrophic periventricular and deep white matter changes. Stable ventriculomegaly. Discussed with daughter and . They would like to make the patient DO NOT RESUSCITATE comfort care only. Family is at bedside. Discussed with hospice for admission. Disposition: Transfer to hospice Impression: Altered mental status, diffuse subarachnoid hemorrhage, DO NOT RESUSCITATE comfort care only This note was generated with compropago dictation software. It may contain incorrect words, spelling, and punctuation that were not noted in review of the chart prior to signing ED Disposition - Plan for ED Patient: Referrals: Tracy Esparza MD [Primary Care Provider] -
--- NOTE | 2019-12-20 10:30 | RAD_ITS ---
STUDY: X-RAY CHEST REASON FOR EXAM: Male, 84 years old. Shortness of breath, unresponsive TECHNIQUE: Single AP portable view of the chest. COMPARISON: 10/20/2019 FINDINGS: EG leads overlie the chest Lungs are expanded with chronic interstitial changes in both lung freedman. No superimposed acute process or significant interval change. There is no demonstrated pleural abnormality. Normal size heart. Normal mediastinum and lee. Normal visualized pulmonary arteries. Normal visualized aortic arch and descending thoracic aorta. There are diffuse degenerative changes of the visualized thoracic spine. There is degenerative osteoarthritis of the bilateral shoulders. There is no demonstrated abnormality of the visualized soft tissue structures of the upper abdomen. RAD/Chest 1 View (Portable) IMPRESSION: Degenerative changes, as described above. No demonstrated acute cardiopulmonary process. Electronically Signed: Franklyn Zhou MD at 10:48 EDT , Service support ,
[2019-12-20 10:36] LABS: ALB/GLOB Ratio 1.3 RATIO (0.9-2.4); AST(SGOT) 11 U/L (15-37); Alanine Aminotransfer ALT/SGPT 7 U/L (16-61); Albumin, Serum 3.7 g/dL (3.2-5.0); Alkaline Phosphatase 63 U/L (45-117); Anion Gap 6 (5-15); BUN 21 mg/dL (7-18); BUN/Creat Ratio 20.6 RATIO (10-20); Calcium,Total 8.7 mg/dL (8.5-10.1); Chloride 109 mmol/L (98-107); Creatinine, Serum 1.02 mg/dL (0.70-1.30); EST Glomerular Filtration Rate 74 mL/min (>60); Est Glom Filt Rate - Afr Amer 90 mL/min (>60); Estimated Creatinine Clearance 57.65 ml/min; Globulin 2.9 g/dL (2.2-4.2); Glucose 129 mg/dL (74-106); Potassium 3.4 mmol/L (3.5-5.1); Protein, Total 6.6 g/dL (6.4-8.2); Sodium Level 145 mmol/L (136-145)
[2019-12-20 12:01] LABS: Probe Check PASS; Specimen Processing Control PASS
[2019-12-20 13:00] LABS: Bedside Glucose 113 mg/dL (70-110)
== END 2019-12-20 12:02 ==
LOC: ED 09:32
PROVIDERS: Emergency Provider Emergency Medicine; PCP Family Medicine
DX: I60.9 Nontraumatic subarachnoid hemorrhage, unspecified (principal); R41.82 Altered mental status, unspecified; Z66 Do not resuscitate; F03.90 Unspecified dementia, unspecified severity, without behavioral disturbance, psychotic disturbance, mood disturbance, and anxiety; I25.10 Atherosclerotic heart disease of native coronary artery without angina pectoris; G20 Parkinson's disease; N18.9 Chronic kidney disease, unspecified; I48.91 Unspecified atrial fibrillation; Z86.73 Personal history of transient ischemic attack (TIA), and cerebral infarction without residual deficits; Z79.01 Long term (current) use of anticoagulants; Z79.82 Long term (current) use of aspirin; Z79.899 Other long term (current) drug therapy
CPT/HCPCS: 70450; 71045; 80053; 82962; 83605; 84484; 85025; 85610; 87040; 87635; 93005; 99285; G2023; J7030; A4216; U0003